=== PATIENT | female | born 1975 | race Caucasian/White ===

== ENCOUNTER 2017-07-03 16:47 | Observation (INO) | payer MEDICARE, SELFPAY | END 2017-07-04 18:33 | disposition home or self-care (01) | PROVIDERS: Admitting Provider Family Medicine; Emergency Provider Emergency Medicine; Family Provider Family Medicine; Visit Provider Family Medicine | DX: E87.6 Hypokalemia (principal) | CPT/HCPCS: 36415; 80048; 80053; 82330; 83735; 84100; 85025; 93005; 96365; 99285; G0378 ==

== ENCOUNTER 2017-10-03 14:11 | Inpatient (IN) | payer MEDICARE, SELFPAY ==
[2017-10-03] VITALS (8 sets, daily range): BP systolic 87–145; BP diastolic 33–84; PULSE 91–107; RESP 14–20; TEMP 36.2–37.2; O2SAT 98–99; BMI 24.2; BMI 24.5
--- NOTE | 2017-10-03 14:23 | HMH.EDGENADL ---
ED Disposition Clinical Impression: Hypokalemia, Syncope and collapse, Multiple falls Scalp contusion Qualifiers: Encounter type: initial encounter Qualified Code(s): S00.03XA - Contusion of scalp, initial encounter Cervical strain Qualifiers: Encounter type: initial encounter Qualified Code(s): S16.1XXA - Strain of muscle, fascia and tendon at neck level, initial encounter Disposition: Still a Patient Condition on Discharge: Good Referrals: Job Rico MD [Primary Care Provider] - - Critical Care Critical Care Time: No Attestation: On 10/03/17, the high probability of a clinically significant, sudden or life threatening deterioration of the following system(s) required my full and direct attention, intervention and personal management. The time I documented below is in addition to time spent performing reported procedures but includes the following listed in this critical care notation. Medical Decision Making - Murali Inquiry Pt receiving controlled substance: No Vital Signs: 10/03/17 14:20 10/03/17 14:48 Temperature 98.3 F Temperature Source Oral Pulse Rate [Right Brachial] 107 H 94 H Respiratory Rate 16 20 Blood Pressure [righta rm] 92/68 87/33 Blood Pressure Mean [righta rm] 76 51 Blood Pressure Source [righta rm] Automatic Cuff Automatic Cuff Blood Pressure Position [righta rm] Sitting Supine 02 Sat by Pulse Oximetry 99 98 Oxygen Delivery Method Room Air Room Air - Lab Data Lab results reviewed: Yes: I reviewed the patient's lab results. Lab Results 10/03/17 14:41: WBC 9.9, RBC 5.69 H, Hgb 13.1, Hct 44.2, MCV 77.8 L, MCH 23.0 L, MCHC 29.6 L, RDW 15.8, Plt Count 634 H, MPV 7.0 L, Neut % (Auto) 70.5, Lymph % (Auto) 23.3, Daniels % (Auto) 5.4, Eos % (Auto) 0.4, Baso % (Auto) 0.5, Neut # (Auto) 7.0, Lymph # (Auto) 2.3, Daniels # (Auto) 0.5, Eos # (Auto) 0.0, Baso # (Auto) 0.1 10/03/17 14:41: Sodium 136, Potassium 2.0 L*, Chloride 97 L, Carbon Dioxide 30, Anion Gap 11.0, BUN 13, Creatinine 1.28 H, Estimated Creat Clear 60, Estimated GFR 45 L, Est GFR ( Amer) 55 L, Glucose 136 H, Calcium 9.1, Total Bilirubin 0.2, AST 7 L, ALT 17, Alkaline Phosphatase 63, Total Protein 8.2, Albumin 4.0, Globulin 4.2 H, Albumin/Globulin Ratio 1.0 L 10/03/17 14:41: Serum HCG, Qual Negative 10/03/17 14:41: Urine Color Red, Urine Appearance Cloudy, Urine pH 5.5, Ur Specific Ransom >= 1.030, Urine Protein 2+, Urine Glucose (UA) Negative, Urine Ketones 1+, Urine Blood 3+, Urine Nitrate Negative, Urine Bilirubin 1+ A, Urine Urobilinogen 0.2, Ur Leukocyte Esterase Trace, Urine RBC Tntc, Urine WBC 10-20, Ur Squamous Epith Cells 10-20, Urine Bacteria 1+ 10/03/17 14:41: Urine Opiates Screen Negative, Ur Barbituates Screen Negative, Ur Phencyclidine Scrn Negative, Ur Amphetamines Screen Negative, U Methamphetamines Scrn Negative, U Benzodiazepines Scrn Negative, Urine Cocaine Screen Negative, U Marijuana (THC) Screen Negative 10/03/17 14:41: Total Creatine Kinase 119, CK-MB (CK-2) 0.5, CK-MB (CK-2) Rel Index 0.4, Troponin I < 0.02 Currently on menses. Result diagrams: 10/03/17 14:41 10/03/17 14:41 Orders (Tests/Meds): ED MEDICATIONS Generic Name Dose Route Start Last Admin Trade Name Freq PRN Reason Stop Dose Admin Potassium Chloride/Water 20 meq 10/03/17 15:35 Potassium Chloride 20meq/100ml Ivpb IV 10/03/17 15:36 ONCE ONE Discontinued Medications Generic Name Dose Route Start Last Admin Trade Name Freq PRN Reason Stop Dose Admin Potassium Chloride/Water 100 mls @ 50 mls/hr 10/03/17 16:00 10/03/17 16:00 Potassium Chloride 20meq/100ml Ivpb IV 10/03/17 17:59 50 mls/hr ONCE ONE Administration Potassium Chloride 60 meq 10/03/17 15:35 10/03/17 15:58 Klor-Con 20meq Tablet PO 10/03/17 15:36 60 meq ONCE ONE Administration Sodium Chloride 1,000 ml 10/03/17 14:33 10/03/17 15:58 Sod Chlor 0.9% 1000ml Bag IV 10/03/17 14:34 1,000 ml BOLUS ONE Administration ORDERS
--- NOTE | 2017-10-03 14:27 | CT_ITS ---
CT cervical spine wo con INDICATION: Neck pain following injury ITS.REASON: fall ORDERING PHYSICIAN: Jamal Stacy MD PATIENT AGE: 42 years COMPARISON: None TECHNIQUE: Axial images are obtained without contrast. Sagittal and coronal reformatted images are reviewed as well. All CT scans at the facility use one or more dose reduction, viz: automated exposure control; ma/kV adjustment per patient size (including targeted exams where dose is matched to indication; i.e. head); or iterative reconstruction technique. FINDINGS: There is normal alignment. There is an epidural catheter present with the tip along the posterior aspect of the epidural space at C7. There is mild degenerative disc disease at C5-C6 and C6-C7 with small posterior osteophytes. No fracture or dislocation is evident. The lung apices are clear. The right lobe of the thyroid gland is enlarged: Mild deviation of the trachea toward the left. Mild cervical curvature convex left. IMPRESSION: 1. No acute fracture. 2. Mild degenerative disc disease C5-C6 and C6 evident. 3. Posterior epidural catheter present with the tip at the C7 level IMPRESSION:
--- NOTE | 2017-10-03 14:27 | XR_ITS ---
XR pelvis 1-2V HISTORY: Pain following injury ITS.REASON: fall ORDERING PHYSICIAN: Jamal Stacy MD PATIENT AGE: 42 years COMPARISON: None FINDINGS: No fracture or dislocation is evident. No significant degenerative change. No lytic or blastic change. The SI joints have an unremarkable appearance. Unremarkable soft tissues. Mural stimulators device noted in the right lower quadrant IMPRESSION: Negative pelvis.
--- NOTE | 2017-10-03 14:27 | XR_ITS ---
XR chest 2V HISTORY: Posttraumatic pain ITS.REASON: fall ORDERING PHYSICIAN: Jamal Stacy MD PATIENT AGE: 42 years FINDINGS: The cardiomediastinal silhouette and pulmonary vascularity are within normal limits. The lungs are clear without infiltrates, suspicious nodules, or pleural effusions. Epidural catheter overlies the thoracic spine No acute bony abnormalities. IMPRESSION: No acute finding. No change from 07/23/2016
[2017-10-03 14:49] LABS: Microscopic, Urine URINE MICROSCOPIC (MICROSCOPIC)
[2017-10-03 14:53] LABS: Appearance,Urine CLOUDY (Clear); Basophils # 0.1 K/mm3 (0-0.2); Basophils % 0.5 % (0.1-2.0); Blood, Urine 3+ (Negative); Color,Urine RED (Yellow); Eosinophils % 0.4 % (0.1-12.0); Glucose,Urine (UA) Negative (Negative); Hematocrit 44.2 % (37.0-47.0); Hemoglobin 13.1 g/dL (12.2-16.2); Ketones,Urine 1+ (Negative); Leukocyte Esterase,Urine TRACE (Negative); Lymphocytes # 2.3 K/mm3 (0.7-4.5); Lymphocytes % 23.3 K/mm3 (10-50); Mean Corpuscular HGB Conc 29.6 g/dL (31.8-35.4); Mean Corpuscular Volume 77.8 fl (81-99); Monocytes # 0.5 K/mm3 (0.1-1.0); Monocytes % 5.4 % (1.7-9.3); Neutrophils % 70.5 % (37.0-80.0); Nitrate,Urine Negative (Negative); PH,Urine 5.5 (5.0-8.5); Platelet Count 634 K/mm3 (142-424); Protein,Urine 2+ (Negative); Red Blood Count 5.69 M/mm3 (4.20-5.40); Red Cell Distribution Width 15.8 % (11.5-17.5); Specific Gravity, Urine >= 1.030 (1.005-1.030); Urobilinogen,Urine 0.2 EU/dl (0.2); White Blood Count 9.9 K/mm3 (4.8-10.8)
[2017-10-03 15:01] LABS: Bilirubin,Urine 1+ (Negative)
[2017-10-03 15:10] LABS: Amphetamine/Metha Screen,Urine Negative ng/mL (<1000); Barbiturates Screen,Urine Negative ng/mL (<200); Benzodiazepines Screen,Urine Negative ng/mL (200); Cannabinoid Screen,Urine Negative ng/mL (<50); Cocaine Screen,Urine Negative ng/g (<300); Methadone Screen,Urine Negative ng/mL (<300); Opiate Screen,Urine Negative ng/mL (<300); Phencyclidine Screen,Urine Negative ng/mL (<25)
[2017-10-03 15:12] LABS: Bacteria,Urine 1+ /lpf; RBC,Urine TNTC #/hpf (0-3)
[2017-10-03 15:27] LABS: Alanine Aminotransferase 17 U/L (12-78); Alkaline Phosphatase 63 U/L (46-116); Bilirubin,Total 0.2 mg/dL (0.2-1.0); Blood Urea Nitrogen 13 mg/dL (7-18); Calcium 9.1 mg/dL (8.5-10.1); Carbon Dioxide 30 mmol/L (21.0-32.0); Creatinine Clearance Estimated 60 mL/min (0-300); Creatinine,Serum 1.28 mg/dL (0.55-1.02); Estimated Glomerular Filt Rate 45 ml/min (>60); GFR (African American) 55 ML/MIN (>60); Globulin 4.2 gm/dl (1.3-3.2); HCG Qualitative, Serum Negative (Negative); Total Protein,Serum 8.2 gm/dL (6.4-8.2)
[2017-10-03 15:28] LABS: CKMB Relative Index 0.4 U/L (0-4.0); Creatine Kinase 119 U/L (26-192); Creatine Kinase MB 0.5 ng/ml (0.0-3.6); Troponin I < 0.02 ng/ml (0.00-0.06)
[2017-10-03 15:34] LABS: Aspartate Amino Transferase 7 U/L (15-37); Chloride 97 mmol/L (98-107); Glucose 136 mg/dL (74-106); Sodium 136 mmol/L (136-145)
--- NOTE | 2017-10-03 15:39 | CT_ITS ---
CT head/brain wo con HISTORY: Headache/pain/contusion to the back of the head with pain ITS.REASON: FELL ORDERING PHYSICIAN: Jamal Stacy MD PATIENT AGE: 42 years COMPARISON: 02/15/2017 TECHNIQUE: Axial images obtained without contrast. Brain and bone windows reviewed. All CT scans at the facility use one or more dose reduction, viz: automated exposure control; ma/kV adjustment per patient size (including targeted exams where dose is matched to indication; i.e. head); or iterative reconstruction technique. FINDINGS: No midline shift, mass effect, intracranial hemorrhage, hydrocephalus, or extra-axial fluid collection is evident. Soft tissue swelling is noted along the right vertex posteriorly consistent with scalp hematoma The calvarium has an unremarkable appearance. No mastoid effusion. No sinus air-fluid levels.. IMPRESSION: 1. No acute intracranial finding. 2. Right-sided scalp contusion
[2017-10-03 20:55] LABS: Potassium 2.7 mmoL/L (3.5-5.1)
[2017-10-04] VITALS (9 sets, daily range): BP systolic 91–120; BP diastolic 48–75; PULSE 80–108; RESP 16–20; TEMP 36.4–37.3; O2SAT 94–100
--- NOTE | 2017-10-04 03:24 | PC.NURSE ---
Patient is a 42 year old white female admitted on 10-02-17 for Hypokalemia. Potassium was 2 on admission. Is now 2.7. Had 2 runs of potassium in ED. At beginning of shift patient had tachycardia up to 140's. Did not sustain, back down to 90's. Had Bigeminy also with PAC'S. Dr Edwards Aware. Denies any chest pain. Had a headache early in shift. Resolved with Tylenol. Had a bump on back of head due to a fall at home. States has fallen many times, syncopal episodes. Doesn't remember falling. Daughter is going to bring homes meds this a.m. Lungs are clear, resp even and non labored. No needs at this time, Encouraged to call nurse before getting up alone. Bed locked in low position, side rails up x 2, call light in reach.
--- NOTE | 2017-10-04 06:31 | HMH.HP ---
*Admission Date: 10/04/17 *Chief complaint: Fall *History of present illness: 42-year-old female with history over the last year and a half of falls that are seemingly related to hypokalemia presented to the emergency department again with a fall in which she struck her head. Patient believes she lost consciousness. She admits she does not recall any of the events prior to her fall. Workup in the emergency department revealed hypotension and hypokalemia. Patient's potassium was replaced both intravenously and orally in the emergency department and went from a level of 2 up to 2.7. Decision was made to admit the patient for further potassium replacement but inexplicably she was sent to the floor without any orders for potassium replacement. Patient is unsure of her medicines. In regards to the history of her hypokalemia she has been on potassium replacement. She is generally noncompliant with follow-up visits. She has been taken off all diuretics as well as antihypertensives. As stated before she cannot name her medications and I have asked her to have someone bring those in today for accuracy of records. Renal function is not significantly impaired. In regards to her episodes of syncope she has had an echocardiogram as well as tilt table testing and telemetry monitoring without evidence of arrhythmia. Per her request she was referred to a neurologist last fall. She tells me her next appointment with the neurologist is in early October but she is unsure what the neurologist is actually doing to try to get to the bottom of her syncope. Patient denies chest pain or shortness of breath. She does endorse generalized weakness which makes ambulating difficult. [facility] History Medical History: Denies:: Cancer, Diabetes Mellitus Type 1, Diabetes Mellitus Type 2, MRSA Other Medical History: Reports: Anemia, Hypothyroidism Other Surgeries: Yes: Colonoscopy, , Thyroidectomy (partial), Other (partial thyroidectomy, multiple right shoulder surgeries, spinal stimulator) Amputation: No Fractures: No - *Social History Educational Level: Completed Grade School Smoking Status: Never smoker Alcohol Intake: never Occupational Status: unemployed, disabled Housing: house Household Members: spouse, family, children - Psychiatric History Expresses thoughts of harming self/others: None Suicide Plan Description: No Plan *Family Hx:: Cancer, Diabetes, Hyperlipidemia, Hypertension, Stroke Review of Systems - Review of Systems Review of systems:: pertinent systems reviewed and negative unless documented below - *Neurologic Reports headache(s), Reports fainting Meds Home Medications Medication Instructions Recorded Confirmed Type Amlodipine Besylate [Norvasc 2.5mg 1 tab PO DAILY 10/03/17 10/03/17 History tablet] Chlorthalidone [Chlorthalidone] 1 tab PO DIRECTED 10/03/17 10/03/17 History Diclofenac Potassium [Zipsor] 1 tab PO DIRECTED 10/03/17 10/03/17 History Duloxetine HCl [Duloxetine HCl] 1 tab * DIRECTED 10/03/17 10/03/17 History LORazepam [Ativan 1mg tablet] 1 tab PO DIRECTED 10/03/17 10/03/17 History Nortriptyline HCl [Nortriptyline 1 tab PO DAILY 10/03/17 10/03/17 History HCl] Omeprazole [Omeprazole 20mg 1 tab PO DIRECTED 10/03/17 10/03/17 History Capsule] Tizanidine HCl [Tizanidine HCl] 1 tab PO DIRECTED 10/03/17 10/03/17 History Trazodone HCl 1 tab PO DAILY 10/03/17 10/03/17 History buPROPion HCl [Wellbutrin SR 150mg 1 tab PO DAILY 10/03/17 10/03/17 History Tablet] Allergies Allergy/AdvReac Type Severity Reaction Status Date / Time No Known Allergies Allergy Verified 10/03/17 14:26 Exam Vital signs and Labs for Last 24 Hours: Temp Pulse Resp BP Pulse Ox 97.6 F 93 H 16 91/50 94 L 10/04/17 04:00 10/04/17 04:00 10/04/17 04:00 10/04/17 04:00 10/04/17 04:00 Laboratory Results - last 24 hr 10/03/17 20:34: Potassium 2.7 L* D I & O for Last 24 hours: Intake & O
--- NOTE | 2017-10-04 06:35 | P.HP_ITS ---
*Admission Date: 10/04/17 *Chief complaint: Fall *History of present illness: 42-year-old female with history over the last year and a half of falls that are seemingly related to hypokalemia presented to the emergency department again with a fall in which she struck her head. Patient believes she lost consciousness. She admits she does not recall any of the events prior to her fall. Workup in the emergency department revealed hypotension and hypokalemia. Patient's potassium was replaced both intravenously and orally in the emergency department and went from a level of 2 up to 2.7. Decision was made to admit the patient for further potassium replacement but inexplicably she was sent to the floor without any orders for potassium replacement. Patient is unsure of her medicines. In regards to the history of her hypokalemia she has been on potassium replacement. She is generally noncompliant with follow-up visits. She has been taken off all diuretics as well as antihypertensives. As stated before she cannot name her medications and I have asked her to have someone bring those in today for accuracy of records. Renal function is not significantly impaired. In regards to her episodes of syncope she has had an echocardiogram as well as tilt table testing and telemetry monitoring without evidence of arrhythmia. Per her request she was referred to a neurologist last fall. She tells me her next appointment with the neurologist is in early October but she is unsure what the neurologist is actually doing to try to get to the bottom of her syncope. Patient denies chest pain or shortness of breath. She does endorse generalized weakness which makes ambulating difficult. [facility] History Medical History: Denies:: Cancer, Diabetes Mellitus Type 1, Diabetes Mellitus Type 2, MRSA Other Medical History: Reports: Anemia, Hypothyroidism Other Surgeries: Yes: Colonoscopy, , Thyroidectomy (partial), Other ( partial thyroidectomy, multiple right shoulder surgeries, spinal stimulator) Amputation: No Fractures: No - *Social History Educational Level: Completed Grade School Smoking Status: Never smoker Alcohol Intake: never Occupational Status: unemployed, disabled Housing: house Household Members: spouse, family, children - Psychiatric History Expresses thoughts of harming self/others: None Suicide Plan Description: No Plan *Family Hx:: Cancer, Diabetes, Hyperlipidemia, Hypertension, Stroke Review of Systems - Review of Systems Review of systems:: pertinent systems reviewed and negative unless documented below - *Neurologic Reports headache(s), Reports fainting Meds Home Medications Medication Instructions Recorded Confirmed Type Amlodipine Besylate [Norvasc 2.5mg 1 tab PO DAILY 10/03/17 10/03/17 History tablet] Chlorthalidone [Chlorthalidone] 1 tab PO DIRECTED 10/03/17 10/03/17 History Diclofenac Potassium [Zipsor] 1 tab PO DIRECTED 10/03/17 10/03/17 History Duloxetine HCl [Duloxetine HCl] 1 tab * DIRECTED 10/03/17 10/03/17 History LORazepam [Ativan 1mg tablet] 1 tab PO DIRECTED 10/03/17 10/03/17 History Nortriptyline HCl [Nortriptyline 1 tab PO DAILY 10/03/17 10/03/17 History HCl] Omeprazole [Omeprazole 20mg 1 tab PO DIRECTED 10/03/17 10/03/17 History Capsule] Tizanidine HCl [Tizanidine HCl] 1 tab PO DIRECTED 10/03/17 10/03/17 History Trazodone HCl 1 tab PO DAILY 10/03/17 10/03/17 History buPROPion HCl [Wellbutrin SR 150mg 1 tab PO DAILY 10/03/17 10/03/17 History Tablet] Allergies
[2017-10-04 07:38] LABS: Anion Gap 9.6 mEq/L (5-15); Blood Urea Nitrogen 15 mg/dL (7-18); Carbon Dioxide 31 mmol/L (21.0-32.0); Chloride 99 mmol/L (98-107); Creatinine Clearance Estimated 70 mL/min (0-300); Creatinine,Serum 1.12 mg/dL (0.55-1.02); Estimated Glomerular Filt Rate 53 ml/min (>60); GFR (African American) 64 ML/MIN (>60); Glucose 105 mg/dL (74-106); Sodium 137 mmol/L (136-145)
[2017-10-04 07:45] LABS: Potassium 2.6 mmoL/L (3.5-5.1)
--- NOTE | 2017-10-04 11:50 | HMH.PHAVTE ---
[facility] Pharmacy VTE Monitoring - Patient Demographics Admission date: 10/03/17 Report Date: 10/04/17 Time: 11:50 Allergies/Adverse Reactions: Patient Allergies No Known Allergies Allergy (Verified 10/03/17 14:26) Height: 1.68 m Weight: 69.144 kg Patient Problems: Current Active Problems Hypokalemia (Acute) Syncope and collapse (Acute) Scalp contusion (Acute) Cervical strain (Acute) Multiple falls (Acute) - VTE Risk Labs: VTE Related Lab Results Hgb 13.1 g/dL (12.2-16.2) 10/03/17 14:41 Hct 44.2 % (37.0-47.0) 10/03/17 14:41 Plt Count 634 K/mm3 (142-424) H 10/03/17 14:41 BUN 15 mg/dL (7-18) 10/04/17 07:20 Creatinine 1.12 mg/dL (0.55-1.02) H 10/04/17 07:20 Estimated Creat Clear 70 mL/min (0-300) 10/04/17 07:20 VTE Score: 4 VTE Risk Level: Low Risk - Prophylaxis VTE Prophylaxis Ordered?: Yes Types of VTE Prophylaxis: TEDS Knee High Location of Applied Device: Bilateral Lower Extremeties - VTE Diagnosis Confirmed Treatment or plan recommended: Continue Current Treatment
[2017-10-05] VITALS: PULSE 100
--- NOTE | 2017-10-05 03:46 | PC.NURSE ---
Pt had a good night, no c/o pain and nothing acute to report. Rested well and remained safe.
[2017-10-05 03:50] VITALS: BP 108/55; PULSE 94; RESP 16; TEMP 37.2; O2SAT 97
[2017-10-05 04:00] VITALS: PULSE 80
[2017-10-05 06:25] LABS: Anion Gap 8.4 mEq/L (5-15); Blood Urea Nitrogen 12 mg/dL (7-18); Carbon Dioxide 31 mmol/L (21.0-32.0); Chloride 107 mmol/L (98-107); Creatinine Clearance Estimated 83 mL/min (0-300); Creatinine,Serum 0.94 mg/dL (0.55-1.02); Estimated Glomerular Filt Rate 65 ml/min (>60); GFR (African American) 78 ML/MIN (>60); Glucose 98 mg/dL (74-106); Potassium 3.4 mmoL/L (3.5-5.1); Sodium 143 mmol/L (136-145)
--- NOTE | 2017-10-05 07:05 | PC.NURSE ---
Shift report given to Tacos Merino RN leaving patient safe and stable.
[2017-10-05 07:33] VITALS: BP 115/65; PULSE 84; RESP 16; TEMP 36.7; O2SAT 100
--- NOTE | 2017-10-05 07:56 | HMH.DCSUM ---
General - General Admission date: 10/03/17 Discharge date: 10/05/17 HPI HPI: 42-year-old female with history over the last year and a half of falls that are seemingly related to hypokalemia presented to the emergency department again with a fall in which she struck her head. Patient believes she lost consciousness. She admits she does not recall any of the events prior to her fall. Workup in the emergency department revealed hypotension and hypokalemia. Patient's potassium was replaced both intravenously and orally in the emergency department and went from a level of 2 up to 2.7. Decision was made to admit the patient for further potassium replacement but inexplicably she was sent to the floor without any orders for potassium replacement. Patient is unsure of her medicines. In regards to the history of her hypokalemia she has been on potassium replacement. She is generally noncompliant with follow-up visits. She has been taken off all diuretics as well as antihypertensives. As stated before she cannot name her medications and I have asked her to have someone bring those in today for accuracy of records. Renal function is not significantly impaired. In regards to her episodes of syncope she has had an echocardiogram as well as tilt table testing and telemetry monitoring without evidence of arrhythmia. Per her request she was referred to a neurologist last fall. She tells me her next appointment with the neurologist is in early October but she is unsure what the neurologist is actually doing to try to get to the bottom of her syncope. Patient denies chest pain or shortness of breath. She does endorse generalized weakness which makes ambulating difficult. Hospital Course Hospital Course: Patient was admitted, potassium replacement was undertaken. Patient responded well to this and had no further episodes of syncope or altered consciousness. Potassium levels jhonatan in a stepwise fashion. This morning potassium levels 3.4. Patient feels great. Exam is normalized, patient will be discharged home as indicated below with potassium replacement therapy and instructions for follow-up. Apparently there is a history of medical and appointment noncompliance. I strongly encouraged the patient to make sure she calls tomorrow [id number] an appointment this week in Dr. Rico office. Objective Vital signs: Temp Pulse Resp BP Pulse Ox 98.0 F 84 16 115/65 100 10/05/17 07:33 10/05/17 07:33 10/05/17 07:33 10/05/17 07:33 10/05/17 07:33 Narrative: Patient is awake. Alert. No complaints. ENT exam clear. Heart rate regular, lungs clear moving all extremities. Abdomen soft. Telemetry monitoring overnight has been normal sinus rhythm. Results Labs on day of discharge: Labs from last 24 hours 10/05/17 05:40 Sodium 143 Potassium 3.4 L D Chloride 107 Carbon Dioxide 31 Anion Gap 8.4 BUN 12 Creatinine 0.94 Estimated Creat Clear 83 Estimated GFR 65 Est GFR ( Amer) 78 D Glucose 98 Discharge Plan - Patient Discharge Instructions ACTIVITY: Continue current activity DIET: continue same diet - Follow up Plan Follow up with: Job Rico MD [Primary Care Provider] - 10/09/17 Disposition: Home, Self-Shelter Medications: Home Medications Medication Instructions Recorded Confirmed Type Amlodipine Besylate [Norvasc 2.5mg 2.5 mg PO DAILY 10/03/17 10/04/17 History tablet] Chlorthalidone [Chlorthalidone] 50 mg PO DAILY 10/03/17 10/04/17 History Duloxetine HCl [Duloxetine HCl] 60 mg PO DAILY 10/03/17 10/04/17 History LORazepam [Ativan 1mg tablet] 1 mg PO TIDP PRN 10/03/17 10/04/17 History Nortriptyline HCl [Nortriptyline 10 mg PO BID 10/03/17 10/04/17 History HCl] Omeprazole [Omeprazole 20mg 20 mg PO DAILY 10/03/17 10/04/17 History Capsule] Tizanidine HCl [Tizanidine HCl] 2 mg PO QIDP PRN 10/03/17 10/04/17 History Trazodone HCl 100 mg PO HS
[2017-10-05 08:00] VITALS: PULSE 80
--- NOTE | 2017-10-05 08:03 | P.DS_ITS ---
General - General Admission date: 10/03/17 Discharge date: 10/05/17 HPI HPI: 42-year-old female with history over the last year and a half of falls that are seemingly related to hypokalemia presented to the emergency department again with a fall in which she struck her head. Patient believes she lost consciousness. She admits she does not recall any of the events prior to her fall. Workup in the emergency department revealed hypotension and hypokalemia. Patient's potassium was replaced both intravenously and orally in the emergency department and went from a level of 2 up to 2.7. Decision was made to admit the patient for further potassium replacement but inexplicably she was sent to the floor without any orders for potassium replacement. Patient is unsure of her medicines. In regards to the history of her hypokalemia she has been on potassium replacement. She is generally noncompliant with follow-up visits. She has been taken off all diuretics as well as antihypertensives. As stated before she cannot name her medications and I have asked her to have someone bring those in today for accuracy of records. Renal function is not significantly impaired. In regards to her episodes of syncope she has had an echocardiogram as well as tilt table testing and telemetry monitoring without evidence of arrhythmia. Per her request she was referred to a neurologist last fall. She tells me her next appointment with the neurologist is in early October but she is unsure what the neurologist is actually doing to try to get to the bottom of her syncope. Patient denies chest pain or shortness of breath. She does endorse generalized weakness which makes ambulating difficult. Hospital Course Hospital Course: Patient was admitted, potassium replacement was undertaken. Patient responded well to this and had no further episodes of syncope or altered consciousness. Potassium levels jhonatan in a stepwise fashion. This morning potassium levels 3.4. Patient feels great. Exam is normalized, patient will be discharged home as indicated below with potassium replacement therapy and instructions for follow-up. Apparently there is a history of medical and appointment noncompliance. I strongly encouraged the patient to make sure she calls tomorrow morning-Friday- for an appointment this week in Dr. Rico office. Objective Vital signs: Temp Pulse Resp BP Pulse Ox 98.0 F 84 16 115/65 100 10/05/17 07:33 10/05/17 07:33 10/05/17 07:33 10/05/17 07:33 10/05/17 07:33 Narrative: Patient is awake. Alert. No complaints. ENT exam clear. Heart rate regular, lungs clear moving all extremities. Abdomen soft. Telemetry monitoring overnight has been normal sinus rhythm. Results Labs on day of discharge: Labs from last 24 hours 10/05/17 05:40 Sodium 143 Potassium 3.4 L D Chloride 107 Carbon Dioxide 31 Anion Gap 8.4 BUN 12 Creatinine 0.94 Estimated Creat Clear 83 Estimated GFR 65 Est GFR ( Amer) 78 D Glucose 98 Discharge Plan - Patient Discharge Instructions ACTIVITY: Continue current activity DIET: continue same diet - Follow up Plan Follow up with: Job Rico MD [Primary Care Provider] - 10/09/17 Disposition: Home, Self-[facility] Medications: Home Medications Medication Instructions Recorded Confirmed Type Amlodipine Besylate [Norvasc 2.5mg 2.5
== END 2017-10-05 09:00 | disposition home or self-care (01) | DRG 641 ==
LOC: ER 17:26 → 2ND 20:27
PROVIDERS: Admitting Provider Emergency Medicine; Emergency Provider Emergency Medicine; Family Provider Family Medicine; PCP Family Medicine; Visit Provider Family Medicine
DX: E87.6 Hypokalemia (principal); E89.0 Postprocedural hypothyroidism; R55 Syncope and collapse; S00.03XA Contusion of scalp, initial encounter; W18.30XA Fall on same level, unspecified, initial encounter; Z91.81 History of falling
CPT/HCPCS: 36415; 70450; 71045; 72125; 72170; 80048; 80053; 80305; 81001; 82550; 82553; 84132; 84484; 84703; 85025; 87086; 93005; 96365; 96366; 99284

== ENCOUNTER → 2018-06-03 10:03 | Outpatient (CLI) | payer MEDICARE, SELFPAY ==
--- NOTE | 2018-06-03 10:27 | CT_ITS ---
CT chest wo con HISTORY: Follow-up lung nodules ITS.REASON: LUNG NODULES ORDERING PHYSICIAN: Wendie Campos PATIENT AGE: 42 years COMPARISON: 10/07/2016 Technique: Axial images obtained with sagittal and coronal reformats. All CT scans at the facility use one or more dose reduction, viz: automated exposure control, ma/kV adjustment per patient size (including targeted exams where dose is matched to indication, i.e. head), or iterative reconstruction technique. FINDINGS: No mediastinal or hilar mass. No evidence of aortic aneurysm. Scattered small calcified nodes present in the right para esophageal region. Normal heart size without evidence of pericardial effusion. There is a 4 mm noncalcified nodule in the right apex image #13 very slightly larger compared to 10/07/2016 at that time measuring approximately 3 mm. This is of uncertain clinical significance stable small nodular densities are present in the right upper lobe inferiorly measuring approximately 3 mm. 3 mm noncalcified nodule right lower lobe superior segment image #33 and change 4 mm noncalcified subpleural nodule noted in the left lower lobe laterally image #42 unchanged. No new nodules are evident. No suspicious findings apparent. No effusions or infiltrates. Mild degenerative changes thoracic spine. IMPRESSION: 1. No acute finding. 2. Scattered noncalcified pulmonary nodules which are the most part are unchanged. One nodule in the right apex appears very slightly larger but could be due to the slice orientation. Continued one-year follow-up suggested.
== END ==
PROVIDERS: PCP Family Medicine; Visit Provider Nurse Practitioner
DX: R91.1 Solitary pulmonary nodule (principal)
CPT/HCPCS: 71250

== ENCOUNTER 2020-02-16 12:19 | Outpatient (CLI) | payer MEDICARE, SELFPAY ==
[2020-02-16 12:36] VITALS: BP 112/51; PULSE 76; RESP 18; TEMP 36.5; O2SAT 98
[2020-02-16 13:13] VITALS: BP 100/57; PULSE 76; RESP 18; O2SAT 98
== END 2020-02-16 13:13 | disposition home or self-care (01) ==
LOC: INF 12:19
PROVIDERS: Visit Provider Nurse Practitioner
DX: D64.9 Anemia, unspecified (principal); D50.9 Iron deficiency anemia, unspecified
CPT/HCPCS: 96365; J1439

== ENCOUNTER 2020-02-23 12:29 | Outpatient (CLI) | payer MEDICARE, SELFPAY ==
[2020-02-23 12:46] VITALS: BP 114/46; PULSE 72; RESP 20; TEMP 36.6; O2SAT 100
[2020-02-23 13:15] VITALS: BP 99/52; PULSE 69; RESP 20; O2SAT 99
== END 2020-02-23 13:15 | disposition home or self-care (01) ==
LOC: INF 12:29
PROVIDERS: Visit Provider Nurse Practitioner
DX: D64.9 Anemia, unspecified (principal); D50.9 Iron deficiency anemia, unspecified
CPT/HCPCS: 96365; J1439

== ENCOUNTER 2020-03-01 16:12 | Emergency (ER) | payer MEDICARE, SELFPAY ==
[2020-03-01 17:06] VITALS: BP 97/59; PULSE 104; RESP 14; TEMP 37.2; O2SAT 98; BMI 22.8
--- NOTE | 2020-03-01 17:07 | HMH.EDUTC ---
[facility] [place] Clinical Impression: Viral syndrome Acute bronchitis Qualifiers: Bronchitis organism: other organism Qualified Code(s): J20.8 - Acute bronchitis due to other specified organisms Disposition: Home, Self-Care Condition on Discharge: Good Instructions: Acute Bronchitis, DI for Acute Bronchitis Additional Instructions: Drink plenty of fluids. Take tylenol or ibuprofen for pain or fever. Take the medications as directed. Follow up with your regular doctor. GO TO THE ER FOR ANY WORSENING SYMPTOMS FOLLOW THE DIRECTIONS ON THE COVID-19 HAND OUT THAT WE GAVE YOU REGARDING SELF-ISOLATION UNTIL YOU KNOW YOUR COVID-19 RESULTS Prescriptions: Promethazine/Dextromethorphan [Promethazine-Dm Syrup] 5 ml PO Q6HP PRN #240 syrup PRN Reason: Cough Transmission Status: Received by [facility] #[id number] Benzonatate [Tessalon Perle 100mg Cap] 100 mg PO TIDP PRN #30 cap PRN Reason: Cough Transmission Status: Received by [facility] # Azithromycin [Z-Laci 250mg Tab*] 250 mg PO UD DOSE PK #6 tab Transmission Status: Received by [facility] #[id number] Referrals: Job Rico MD [Primary Care Provider] - Medical Decision Making - Medical Records Medical records reviewed: No: I reviewed the patient's medical records. - Murali Inquiry Pt receiving controlled substance: No Vital Signs: 03/01/20 17:06 03/01/20 17:41 Temperature 99 F 99.0 F Temperature Source Oral Pulse Rate 104 H Pulse Rate [Right Brachial] 104 H Respiratory Rate 14 14 Blood Pressure 97/59 L Blood Pressure [Right Arm] 97/59 L Blood Pressure Mean [Right Arm] 71 Blood Pressure Source [Right Arm] Automatic Cuff Blood Pressure Position [Right Arm] Sitting 02 Sat by Pulse Oximetry 98 Oxygen Delivery Method Room Air - Lab Data Lab results reviewed: Yes: I reviewed the patient's lab results. Orders (Tests/Meds): ED MEDICATIONS Discontinued Medications Generic Name Dose Route Start Last Admin Trade Name Freq PRN Reason Stop Dose Admin Ceftriaxone Sodium 1 gm 03/01/20 17:37 03/01/20 17:53 Rocephin 1gm Vial IM 03/01/20 17:38 Not Given ONCE ONE Protocol Lidocaine HCl 0 ml 03/01/20 17:37 03/01/20 17:53 Lidocaine 1% 10ml Mdv IM 03/01/20 17:38 Not Given ONCE ONE [facility] [place] H[place] - General Stated complaint: Cough, abd pain, GRANT Time Seen by Provider: 03/01/20 17:07 - History of Present Illness Provider Complaint: She c/o 3 days of cough and chest congestion, feeling bad and sinus drainage. She denies any known exposure to COVID-19. - Related Data Home Medications Medication Instructions Recorded Confirmed Amlodipine Besylate [Norvasc 2.5mg 2.5 mg PO DAILY 10/03/17 02/23/20 tablet] Chlorthalidone 50 mg PO DAILY 10/03/17 02/23/20 Duloxetine HCl 60 mg PO DAILY 10/03/17 02/23/20 LORazepam [Ativan 1mg tablet] 1 mg PO TIDP PRN 10/03/17 02/23/20 Nortriptyline HCl 10 mg PO BID 10/03/17 02/23/20 Omeprazole [Omeprazole 20mg 20 mg PO DAILY 10/03/17 02/23/20 Capsule] Trazodone HCl 100 mg PO HS 10/03/17 02/23/20 buPROPion HCL [Wellbutrin SR 150mg 150 tab PO BID 10/03/17 02/23/20 Tablet] Diclofenac Potassium [Zipsor] 25 mg PO QID 10/04/17 02/23/20 Gabapentin [Gralise 600mg ER Tab] 600 mg PO DAILY 10/04/17 02/23/20 Baclofen [Lioresal 10mg tablet] 10 mg PO QIDP PRN 02/16/20 02/23/20 Erenumab-Aooe [Aimovig 70 mg SQ MONTHLY 02/16/20 02/23/20 Autoinjector] Potassium Chloride [K-Tab ER 20 40 meq PO DAILY 02/16/20 02/23/20 mEq] Previous Rx's Medication Instructions Recorded Azithromycin [Z-Laci 250mg Tab*] 250 mg PO UD DOSE PK #6 tab 03/01/20 Benzonatate [Tessalon Perle 100mg 100 mg PO TIDP PRN #30 cap 03/01/20 Cap] Promethazine/Dextromethorphan 5 ml PO Q6HP PRN #240 syrup 03/01/20 [Promethazine-Dm Syrup] Allergies Allergy/AdvReac Type Severity Reaction Status Date / Time No Known Allergies Allergy Verified 10/03/17
--- NOTE | 2020-03-01 17:10 | XR_ITS ---
PROCEDURE: XR CHEST 2V CLINICAL HISTORY: cough COMPARISON: CR CXR1 CHEST-PORTABLE from 07/23/2016 CR CXR CHEST(2 VIEWS-NOT PORTABLE) from 07/23/2016 CR CXR2 XR chest AP from 10/03/[address] chest wo con from 06/03/2018 FINDINGS: The cardiomediastinal silhouette and pulmonary vascularity are within normal limits. The lungs are clear without infiltrates, suspicious nodules, or pleural effusions. Linear metallic density traverses the right hemithorax may be due to a neurostimulator. IMPRESSION: No acute findings. Dictated by: Lemuel Ames MD 03/01/2020 17:37 Lemuel Ames MD in [place] 03/01/2020 17:37
[2020-03-01 17:41] VITALS: BP 97/59; PULSE 104; RESP 14; TEMP 37.2; O2SAT 98
== END 2020-03-01 17:45 | disposition home or self-care (01) ==
PROVIDERS: Emergency Provider Nurse Practitioner Family; PCP Family Medicine
DX: J20.8 Acute bronchitis due to other specified organisms (principal); B34.9 Viral infection, unspecified; Z20.828 Contact with and (suspected) exposure to other viral communicable diseases; E03.9 Hypothyroidism, unspecified; M79.7 Fibromyalgia
CPT/HCPCS: 71046; 99202; U0003

== ENCOUNTER → 2020-03-03 08:35 | Outpatient (CLI) | payer MEDICARE, SELFPAY ==
--- NOTE | 2020-03-03 08:39 | CT_ITS ---
PROCEDURE: CT CHEST W CON CLINCAL INDICATION: LUNG NODULE F/U adrenal nodule and lung nodule prior 06/03/18 COMPARISON: CT CHWO CT CHEST W/O CONTRAST from 07/23/[address] chest wo con from 06/03/[address] ABDOMEN WO/W CON from 03/03/2020 TECHNIQUE: IV Contrast: 75ml Optiray 350 Axial images obtained with sagittal and coronal reformats. All CT scans at the facility use one or more dose reduction, viz: automated exposure control, ma/kV adjustment per patient size (including targeted exams where dose is matched to indication, i.e. head), or iterative reconstruction technique. FINDINGS: HEART AND MEDIASTINAL STRUCTURES: The right lobe of the thyroid gland is enlarged with at least 2 nodules the largest at 11 mm. There is some minimal deviation of the trachea toward the left from the enlarged thyroid gland. LUNGS AND PLEURAL SPACES: There is a stable 4 mm nodule in the right apex with some right apical scarring. Stable 5 x 2 mm nodule right middle lobe along the minor fissure. Stable 3 mm nodule superior segment right lower lobe. No new nodules are evident. There are some scattered ground-glass opacities in the right upper lobe and right lower lobe which were not present on the previous exam. No effusions. No lobar consolidation or collapse. No central obstructing lesions. BONY STRUCTURES: No acute bony abnormalities apparent. UPPER ABDOMEN: Small hiatal hernia. Right adrenal mass at 3 x 2.4 cm with some heterogeneous enhancement. This may represent an adenoma. Overall, the nodule is slightly larger at 3 x 2.4 cm previously 3 x 2 cm. There is also some heterogeneous enhancement along the lower aspect of the nodule. ADDITIONAL FINDINGS: No other significant abnormalities. IMPRESSION: 1. No change scattered small right-sided pulmonary nodules. 2. There are new patchy areas of ground-glass attenuation in the right upper and right lower lobe nonspecific but could be seen with inflammatory/infectious process. 3. Right adrenal mass slightly larger compared to the previous studies. While this may represent an adenoma the slight increase in size and the enhancement along the lower aspect is slightly worrisome. Suggest 3 month follow-up adrenal protocol without and with contrast with delayed imaging to confirm short term stability 4. Enlarged right lobe of the thyroid gland with at least 2 nodules. Ultrasound may provide further evaluation Dictated by: Lemuel Ames MD 03/04/2020 11:37 Lemuel Ames MD in [place] 03/04/2020 11:37
--- NOTE | 2020-03-03 08:40 | CT_ITS ---
PROCEDURE: CT ABDOMEN WO/W CON CLINICAL INDICATION: ADRENAL NODULE ADRENAL NODULE seen on previous CT scan of the chest 06/03/2018 COMPARISON: US ABD US ABD(COMPLETE-MULTI ORGANS from 04/04/[address] chest wo con from 06/03/2018 TECHNIQUE: IV Contrast: 75ML OPTIRAY 350 Oral Contrast none given Axial images obtained with sagittal and coronal reformats. All CT scans at the facility use one or more dose reduction, viz: automated exposure control, ma/kV adjustment per patient size (including targeted exams where dose is matched to indication, i.e. head), or iterative reconstruction technique. FINDINGS: Lower thorax: The lower lung sneed are clear, there is no pleural fluid. ABDOMEN: Liver: No masses or biliary dilatation. Gallbladder: The gallbladder somewhat hydropic in appearance but shows no definite gallstones or sludge. Pancreas: No masses or peripancreatic fluid collections. Spleen: unremarkable Adrenals: On the noncontrast sequence5 there is a hypodense lesion arising from and basically replacing the right adrenal gland measuring 3.5 x 2.7 by 3 point [address] number averaging between 5 and 10. However following injection of IV contrast there is somewhat inhomogeneous contrast enhancement of this adrenal mass. Utilizing the standard washout formula there is 66 percent washout of contrast and this finding along with the irregular appearing contrast-enhancement is suggestive of an adenoma. It is basically unchanged in size and overall appearance from studies dating back through 2017. Kidneys/ureters: The kidneys are normal size and show symmetrical function following injection of contrast, both kidneys in appearing normal. ABDOMEN & PELVIS: Stomach bowel: There is a small to moderate size hiatal hernia. The stomach and duodenal sweep appear normal. The visualized portion of the small bowel appears normal. There is a very large amount stool in the transverse colon and splenic flexure and proximal descending colon. Lymph nodes: No enlarged lymph nodes apparent. Vasculature: No evidence of abdominal aortic aneurysm. No retroperitoneal hemorrhage evident. Bones: No acute fracture IMPRESSION: Stable oval hypodense lesion involving the right adrenal gland with measurements and CT numbers as described above stable unchanged in size and overall appearance over the past 3 years and most likely representing an adenoma. Recommend periodic follow-up. Dictated by: Dr. Ricky Rodriguez MD 03/03/2020 11:10 Dr. Ricky Rodriguez MD in [place] 03/03/2020 11:10
== END ==
LOC: RAD 08:36
PROVIDERS: PCP Family Medicine; Visit Provider Nurse Practitioner Family
DX: R91.1 Solitary pulmonary nodule (principal); E27.8 Other specified disorders of adrenal gland
CPT/HCPCS: 71260; 74170; Q9967

== ENCOUNTER → 2020-03-08 11:38 | Outpatient (CLI) | payer MEDICARE, SELFPAY ==
[2020-03-09 15:50] LABS: Covid-19 Nasal PCR Sendout Lex NOT DETECTED
== END ==
PROVIDERS: PCP Nurse Practitioner; Visit Provider Nurse Practitioner
DX: Z03.818 Encounter for observation for suspected exposure to other biological agents ruled out (principal)
CPT/HCPCS: U0004

== ENCOUNTER → 2020-03-21 07:56 | Outpatient (CLI) | payer MEDICARE, SELFPAY ==
--- NOTE | 2020-03-21 07:59 | US_ITS ---
PROCEDURE: US THYROID CLINICAL INDICATION: THYROID NODULE COMPARISON: US THY US THYROID from 12/17/[address] CHEST W CON from 03/03/2020 FINDINGS: Right lobe is 5 x 1.6 x 2.1 cm. There has been a prior left thyroidectomy. There are few small cyst on the right. There is a 16 x 8 mm cyst in the mid polar region with some internal echoes. In the lower pole there is a mixed cystic and solid nodule at 9 mm.. The lesions are TR 3 level mildly suspicious. Recommend six-month follow-up. IMPRESSION: Two cystic lesions of the right thyroid which are the mildly suspicious TR 3 lesions. Recommend six-month follow-up Prior left thyroidectomy Dictated by: Lemuel Ames MD 03/21/2020 16:14 Lemuel Ames MD in [place] 03/21/2020 16:14
--- NOTE | 2020-03-21 07:59 | CT_ITS ---
PROCEDURE: CT ABDOMEN PELVIS WO/W CON CLINICAL INDICATION: RT ADRENAL MASS right adrenal mass follow up, generalized abd pain 75ml optiray 350 prior 03/03/20 COMPARISON: CT CHWO CT CHEST W/O CONTRAST from 07/23/[address] chest wo con from 06/03/[address] ABDOMEN WO/W CON from 03/03/2020 TECHNIQUE: IV Contrast: 75ML OPTIRAY 350 Oral Contrast None Axial images obtained with sagittal and coronal reformats. All CT scans at the facility use one or more dose reduction, viz: automated exposure control, ma/kV adjustment per patient size (including targeted exams where dose is matched to indication, i.e. head), or iterative reconstruction technique. FINDINGS: LOWER THORAX: No acute finding ABDOMEN & PELVIS: There is a moderate amount of retained colonic feces. The liver, spleen, left adrenal gland, gallbladder, and kidneys have an unremarkable appearance. There is a 3.4 x 2.4 cm right adrenal mass. The unenhanced density is approximately 7 Hounsfield units. Immediate post enhanced density 63 Hounsfield units, 15 minutes washout enhancement is 35 Hounsfield units.. The calculated relative washout percentage is 44 percent with greater than 40 percent consistent with an adenoma. The absolute washout is calculated to be 50 percent with greater than 60 percent consistent with adenoma. The nodule is mostly homogeneous on the unenhanced images showing some heterogeneous enhancement. The nodule is essentially not significantly changed in size compared to 06/03/2018. No other significant anomalies are evident. There is an epidural stimulator device present along the right flank with some artifact from this device. There is a small cortical defect of the right femoral neck. There is a cystic pelvic mass situated between the uterus and the sacrum. This mass measures 9.7 x 6.2 cm this is slightly epicentered toward the right and may represent a large ovarian cyst. A smaller left ovarian cyst is also noted which measures 3 cm. IMPRESSION: Stable right adrenal mass most consistent with an adenoma. Consider six-month follow-up to confirm stability. 9.7 cm cystic pelvic mass slightly toward the right and may represent a large ovarian cyst. A smaller left ovarian cyst also noted at 3 cm. Suggest pelvic ultrasound for further evaluation. Constipation Dictated by: Lemuel Ames MD 03/22/2020 08:37 Lemuel Ames MD in [place] 03/22/2020 08:37
== END ==
PROVIDERS: PCP Nurse Practitioner; Visit Provider Nurse Practitioner
DX: E04.1 Nontoxic single thyroid nodule (principal); E27.8 Other specified disorders of adrenal gland
CPT/HCPCS: 74178; 76536; Q9967

== ENCOUNTER → 2020-10-09 09:35 | Outpatient (CLI) | payer MEDICARE, SELFPAY ==
--- NOTE | 2020-10-09 09:42 | US_ITS ---
PROCEDURE: US THYROID CLINICAL INDICATION: THYROID NODULE COMPARISON: US US THYROID from 03/21/2020 FINDINGS: Right lobe: 1.5 x 4.6 x 2.6 centimeters Left lobe: Left thyroid lobectomy noted. Additional findings: Cystic lesion noted in the right lobe of the thyroid gland measuring 1.4 x 0.8 x 1.2 centimeters. Focal lesion in the right lobe measuring 0.8 x 0.5 times 0.6 centimeters, demonstrates solid and cystic components with hypoechogenicity. Normal vascularity is noted. IMPRESSION: Cysts in the right lobe of thyroid gland. No significant interval change compared to prior study. Dictated by: Iman Akhtar 10/09/2020 17:35 Iman Akhtar in [place] 10/09/2020 17:35
--- NOTE | 2020-10-09 09:42 | CT_ITS ---
PROCEDURE: CT ABDOMEN WO/W CON CLINICAL HISTORY: ADRENAL NODULE COMPARISON: CT CHW CT CHEST W/ CONTRAST from 10/07/[address] ABDOMEN PELVIS WO/W CON from 03/21/2020 TECHNIQUE: Axial images obtained with sagittal and coronal reformats. All CT scans at the facility use one or more dose reduction, viz: automated exposure control, ma/kV adjustment per patient size (including targeted exams where dose is matched to indication, i.e. head), or iterative reconstruction technique. Post-contrast images were obtained after intravenous administration of 75 mL of Isovue 370. FINDINGS: The visualized lung bases are clear. The visualized liver, spleen, kidneys, pancreas and the left adrenal gland is unremarkable. Gallbladder appears mildly distended appears unremarkable. No intra or extrahepatic biliary dilation. Focal right adrenal lesion is again noted measuring 3.3 x 2.2 centimeters, demonstrates minor heterogeneous density with a few focal areas of hyperdensity internally. Areas of for demonstrable fat noted within the lesion. Postcontrast 60 second and 15 minutes delayed images demonstrate heterogeneous enhancement. The absolute and relative washout characteristics of the lesion suggest an indeterminate lesion. Moderate fecal retention of the colon is noted. No significant large or small bowel distention. No free fluid or free intraperitoneal air. No significant mesenteric or retroperitoneal adenopathy. Neural stimulator device is noted in the posterior paraspinal soft tissues with the leads extending cranially outside the field of view of the current study. Visualized osseous structures are unremarkable.. IMPRESSION: Stable right adrenal nodule compared to the prior studies dating back to October 07, 2016. The absolute and relative washout characteristics are suggestive of indeterminate lesion although the stable size of the lesion suggests a benign lesion like adenoma. Close follow-up with noncontrast CT of the abdomen can be performed at 12 months to evaluate for size stability. Moderate fecal retention of the colon is noted. Dictated by: Iman Akhtar 10/10/2020 08:22 Iman Akhtar in [place] 10/10/2020 08:22
== END ==
LOC: RAD 09:36
PROVIDERS: PCP Nurse Practitioner; Visit Provider Nurse Practitioner Family
DX: E04.1 Nontoxic single thyroid nodule (principal); E27.8 Other specified disorders of adrenal gland
CPT/HCPCS: 74170; 76536; Q9967

== ENCOUNTER 2021-02-17 11:56 | Emergency (ER) | payer MEDICARE, SELFPAY ==
[2021-02-17 11:56] VITALS: BP 108/68; PULSE 77; RESP 18; TEMP 36.7; O2SAT 98; BMI 22.6
--- NOTE | 2021-02-17 12:58 | HMH.EDUTC ---
[facility] [place] Disposition Clinical Impression: UTI (urinary tract infection) Qualifiers: Urinary tract infection type: acute cystitis Hematuria presence: with hematuria Qualified Code(s): N30.01 - Acute cystitis with hematuria Disposition: Home, Self-Care Condition on Discharge: Good Instructions: DI for Urinary Tract Infection (UTI) Additional Instructions: Take all antibiotics as prescribed until gone. Dr Rico should be able to look at culture Friday afternoon or Friday morning to make sure you are on the correct medication. Prescriptions: Ciprofloxacin HCl [Cipro 500mg Tab] 500 mg PO BID 5 Days #10 tab Transmission Status: Pending to [facility] # Phenazopyridine HCl [Pyridium 200mg Tablet] 200 pow PO TID #6 tab Transmission Status: Pending to [facility] # Referrals: Job Rico MD [Primary Care Provider] - Time of Disposition: 13:01 Medical Decision Making - Murali Inquiry Pt receiving controlled substance: No - Lab Data Lab results reviewed: Yes: I reviewed the patient's lab results. Orders (Tests/Meds): ORDERS Category Date Time Status Urine Culture Stat Micro 02/17/21 12:57 Ordered [facility] [place] HPI - General Stated complaint: possible UTI Time Seen by Provider: 02/17/21 12:58 - History of Present Illness Provider Complaint: Urgency, dysuria, frequency X 1 week. No fever. No nausea or vomiting. Has noticed blood with wiping. Onset (ago): week(s) (1) Location: abdomen Quality: burning Relieving factors: none Exacerbating factors: none Treatments prior to arrival: none - Related Data Home Medications Medication Instructions Recorded Confirmed Amlodipine Besylate [Norvasc 2.5mg 2.5 mg PO DAILY 10/03/17 02/23/20 tablet] Chlorthalidone 50 mg PO DAILY 10/03/17 02/23/20 Duloxetine HCl 60 mg PO DAILY 10/03/17 02/23/20 LORazepam [Ativan 1mg tablet] 1 mg PO TIDP PRN 10/03/17 02/23/20 Nortriptyline HCl 10 mg PO BID 10/03/17 02/23/20 Omeprazole [Omeprazole 20mg 20 mg PO DAILY 10/03/17 02/23/20 Capsule] Trazodone HCl 100 mg PO HS 10/03/17 02/23/20 buPROPion HCL [Wellbutrin SR 150mg 150 tab PO BID 10/03/17 02/23/20 Tablet] Diclofenac Potassium [Zipsor] 25 mg PO QID 10/04/17 02/23/20 Gabapentin [Gralise 600mg ER Tab] 600 mg PO DAILY 10/04/17 02/23/20 Baclofen [Lioresal 10mg tablet] 10 mg PO QIDP PRN 02/16/20 02/23/20 Erenumab-Aooe [Aimovig 70 mg SQ MONTHLY 02/16/20 02/23/20 Autoinjector] Potassium Chloride [K-Tab ER 20 40 meq PO DAILY 02/16/20 02/23/20 mEq] Previous Rx's Medication Instructions Recorded Azithromycin [Z-Laci 250mg Tab*] 250 mg PO UD DOSE PK #6 tab 03/01/20 Benzonatate [Tessalon Perle 100mg 100 mg PO TIDP PRN #30 cap 03/01/20 Cap] Promethazine/Dextromethorphan 5 ml PO Q6HP PRN #240 syrup 03/01/20 [Promethazine-Dm Syrup] Ciprofloxacin HCl [Cipro 500mg 500 mg PO BID 5 Days #10 tab 02/17/21 Tab] Phenazopyridine HCl [Pyridium 200 pow PO TID #6 tab 02/17/21 200mg Tablet] Allergies Allergy/AdvReac Type Severity Reaction Status Date / Time No Known Allergies Allergy Verified 10/03/17 14:26 [facility] History - Hepatitis A Screen Attestation statement:: This patient has been screened for Hepatitis A risk factors. I have reviewed the patient's past medical history: Yes Medical History: Reports:: Arrhythmia Denies:: Cancer, Diabetes Mellitus Type 1, Diabetes Mellitus Type 2, MRSA Other Medical History: Reports: Anemia, Arthritis, Fibromyalgia, Hypothyroidism, Thyroid Disease Laterality Cases: Right: Arthroscopy Shoulder Other Surgeries: Yes: Colonoscopy, (3), Thyroidectomy (partial), Other Amputation: No Fractures: Yes (rt wrist) - Social History Smoking Status: Never smoker Alcohol Intake: never Alcohol Intake Frequency:: holidays/special occasions only Occupational Status: other Housing: house Household Members: spouse, children Family Hx:: No significant family history
[2021-02-17 13:02] VITALS: BP 108/68; PULSE 77; RESP 18; TEMP 36.7; O2SAT 98
[2021-02-17 17:58] LABS: Apearance,Urine Clear (Clear); Color,Urine Dark Yellow (Yellow); PH,Urine 7.5 (5.0-8.5); Specific Gravity, Urine 1.015 (1.005-1.030)
[2021-02-17 17:59] LABS: Bilirubin,Urine Negative (Negative); Blood, Urine 1+ (Negative); Glucose,Urine (UA) Negative (Negative); Ketones,Urine Negative (Negative); Protein,Urine Negative (Negative); UTC Leukocyte Esterase,Urine 3+ (Negative); UTC Nitrate,Urine Negative (Negative); Urobilinogen,Urine 1 EU/dl (0.2)
== END 2021-02-17 13:04 | disposition home or self-care (01) ==
PROVIDERS: Emergency Provider Physician Assistant; PCP Family Medicine
DX: N30.00 Acute cystitis without hematuria (principal); B96.20 Unspecified Escherichia coli [E. coli] as the cause of diseases classified elsewhere; E03.9 Hypothyroidism, unspecified; M79.7 Fibromyalgia; Z79.899 Other long term (current) drug therapy
CPT/HCPCS: G0463; 81003; 87086; 87088; 87186; 99202

== ENCOUNTER 2021-03-23 15:00 | Emergency (ER) | payer MEDICARE, SELFPAY ==
[2021-03-23 17:40] VITALS: BP 101/59; PULSE 97; RESP 14; TEMP 36.8; O2SAT 100; BMI 20.9
--- NOTE | 2021-03-23 18:29 | HMH.EDUTC ---
[facility] [place] Impression: Exposure to COVID-19 virus, Viral syndrome UTI (urinary tract infection) Qualifiers: Urinary tract infection type: site unspecified Hematuria presence: with hematuria Qualified Code(s): N39.0 - Urinary tract infection, site not specified Disposition: Home, Self-Care Condition on Discharge: Good Instructions: Urinary Tract Infection, Urine Culture, DI for COVID-19 (Suspected or Confirmed ), Preventing the Spread of Coronavirus Discharge Instructions Additional Instructions: Drink plenty of fluids. Take tylenol or ibuprofen for pain or fever. Take the medications as directed. Follow up with your regular doctor. GO TO THE ER FOR ANY WORSENING SYMPTOMS Quarantine until you know the results of your covid-19 test. If it is positive, the health department should call you and give you further instructions about your length of Quarantine and other things. Notify your school or workplace of your results and follow their instructions regarding return to work/school. The pyridium will make your urine turn orange, this is an expected side effect. It will stain your clothes if it comes into contact with them. Prescriptions: Sulfamethoxazole/Trimethoprim [Bactrim DS tablet] 1 each PO BID 7 Days #14 tab Transmission Status: Received by [id number] Phenazopyridine HCl [Pyridium 200mg Tablet] 200 pow PO TID #6 tab Transmission Status: Received by [id number] Ondansetron [Zofran 4mg ODT] 4 mg PO DAILYP PRN #12 tab PRN Reason: Nausea Transmission Status: Received by [id number] Referrals: Job Rico MD [Primary Care Provider] - Forms: Work/School Release Time of Disposition: 18:32 Medical Decision Making - Medical Records Medical records reviewed: No: I reviewed the patient's medical records. - Murali Inquiry Pt receiving controlled substance: No Vital Signs: 03/23/21 17:40 03/23/21 18:42 Temperature 98.2 F 98.2 F Temperature Source Oral Pulse Rate 97 H Pulse Rate [Left] 97 H Respiratory Rate 14 14 Blood Pressure 101/59 L Blood Pressure [Right Arm] 101/59 L Blood Pressure Mean [Right Arm] 73 02 Sat by Pulse Oximetry 100 - Lab Data Lab Results 03/23/21 17:42: Urine Color Yellow, Urine Appearance Clear, Urine pH 7.5, Ur Specific [place] 1.020, Urine Protein Trace, Urine Glucose (UA) Negative, Urine Ketones Trace, Urine Blood Negative, Urine Nitrate Negative, Urine Bilirubin 1+ A, Urine Urobilinogen 1, Ur Leukocyte Esterase Negative Orders (Tests/Meds): ORDERS Category Date Time Status Urine Culture Stat Micro 03/23/21 18:30 [place] [facility] [place] - General Stated complaint: covid test poss uti Time Seen by Provider: 03/23/21 18:29 Mode of Arrival: Ambulatory Source of Information: Patient Limitations: No Limitations Description of Symptoms (Recalled from Triage Doc. by RN): pt wants a covid test and thinks she has a uti. HEENT Symptoms (Recalled from RN notes): No Resp Symptoms (Recalled from RN notes): No Skin Symptoms (Recalled from RN notes): No MS Symptoms (Recalled from RN notes): No Functional Status (Recalled from RN notes): na - History of Present Illness Provider Complaint: She states that she has been exposed to covid-19. She also states that she has been having some low back pain and burning while urinating. - Related Data Home Medications Medication Instructions Recorded Confirmed Amlodipine Besylate [Norvasc 2.5mg 2.5 mg PO DAILY 10/03/17 02/23/20 tablet] Chlorthalidone 50 mg PO DAILY 10/03/17 02/23/20 Duloxetine HCl 60 mg PO DAILY 10/03/17 02/23/20 LORazepam [Ativan 1mg tablet] 1 mg PO TIDP PRN 10/03/17 02/23/20 Nortriptyline HCl 10 mg PO BID 10/03/17 02/23/20 Omeprazole [Omeprazole 20mg 20 mg PO DAILY 10/03/17 02/23/20 Capsule] Trazodone HCl 100 mg PO HS 10/03/17 02/23/20 buPROPion HCL [Wellbutrin SR 150mg 150 tab PO BID 10/03/17 02/23/20 Tablet
[2021-03-23 18:42] VITALS: BP 101/59; PULSE 97; RESP 14; TEMP 36.8
[2021-03-23 22:54] LABS: Apearance,Urine Clear (Clear); Color,Urine Yellow (Yellow); PH,Urine 7.5 (5.0-8.5)
[2021-03-23 22:55] LABS: Blood, Urine Negative (Negative); Glucose,Urine (UA) Negative (Negative); Ketones,Urine TRACE (Negative); Protein,Urine Trace (Negative)
[2021-03-23 22:56] LABS: Bilirubin,Urine 1+ (Negative)
[2021-03-23 22:58] LABS: UTC Leukocyte Esterase,Urine Negative (Negative); UTC Nitrate,Urine Negative (Negative); Urobilinogen,Urine 1 EU/dl (0.2)
== END 2021-03-23 18:42 | disposition home or self-care (01) ==
PROVIDERS: Emergency Provider Nurse Practitioner Family; PCP Family Medicine
DX: B34.9 Viral infection, unspecified (principal); Z20.822 Contact with and (suspected) exposure to COVID-19; N30.00 Acute cystitis without hematuria; E03.9 Hypothyroidism, unspecified; M79.7 Fibromyalgia; Z79.899 Other long term (current) drug therapy
CPT/HCPCS: G0463; 81003; 99203; C9803; U0003; U0005

== ENCOUNTER 2021-04-13 17:27 | Emergency (ER) | payer MEDICARE, SELFPAY ==
[2021-04-13 17:35] VITALS: BP 103/67; PULSE 87; RESP 19; TEMP 36.7; O2SAT 99; BMI 21.6
--- NOTE | 2021-04-13 17:41 | XR_ITS ---
PROCEDURE INFORMATION: Exam: XR Right Hand Exam date and time: 04/13/21 05:41 PM Age: 45 years old Clinical indication: Injury or trauma; Blunt trauma (contusions or hematomas); Hand; Right; Injury date: 04/13/21; Patient HX: Fall; Swelling at 3rd distal metacarpal TECHNIQUE: Imaging protocol: XR Right hand. Views: 3 or more views. COMPARISON: CR WRISTCMRT XR wrist RT min 3V 09/24/18 07:01 PM FINDINGS: Bones/joints: Normal. Soft tissues: Normal. IMPRESSION: No acute findings.
--- NOTE | 2021-04-13 17:41 | XR_ITS ---
PROCEDURE INFORMATION: Exam: XR Right Forearm Exam date and time: 04/13/21 05:41 PM Age: 45 years old Clinical indication: Injury or trauma; Blunt trauma (contusions or hematomas); Arm, upper; Right; Injury date: 04/13/21; Injury details: Fall; Arm pain TECHNIQUE: Imaging protocol: XR Right forearm. Views: 2 views. COMPARISON: CR XR WRIST RT MIN 3V 04/13/21 05:40 PM FINDINGS: Bones/joints: Healing fracture distal right radius. Soft tissues: Normal. IMPRESSION: Healing fracture distal right radius.
--- NOTE | 2021-04-13 17:41 | XR_ITS ---
PROCEDURE INFORMATION: Exam: XR Right Wrist Exam date and time: 04/13/21 05:41 PM Age: 45 years old Clinical indication: Injury or trauma; Blunt trauma (contusions or hematomas); Right; Injury date: 04/13/21; Injury details: Fall today; Swelling medial wrist; Surgery date: 6+ months; Surgery type: Prior surgery for wrist fracture, rods were placed in wrist and later removed TECHNIQUE: Imaging protocol: XR Right wrist. Views: 3 or more views. COMPARISON: CR WRISTCMRT XR wrist RT min 3V 09/24/18 07:01 PM FINDINGS: Bones/joints: Healing fracture distal right radius. Anatomic alignment. Soft tissues: Normal. IMPRESSION: Healing fracture distal right radius. Anatomic alignment.
--- NOTE | 2021-04-13 18:11 | HMH.EDUTC ---
[facility] [place] Clinical Impression: Wrist injury Qualifiers: Encounter type: initial encounter Laterality: right Qualified Code(s): S69.91XA - Unspecified injury of right wrist, hand and finger(s), initial encounter Disposition: Home, Self-Care Condition on Discharge: Good Instructions: Wrist Sprain, DI for Wrist Sprain, How To Perform RICE (Rest, Ice, Compress, Elevate) Additional Instructions: *RICE, Rest the extremity, Ice 15-20 minutes 3-4 times daily, Compress- wear the tristin wrap as discussed as much as possible to help reduce swelling and pain, Elevate the extremity when at rest *Tristin wrap is for support and help control swelling, use it except in the shower. Be sure that is not to tight but not to loose either *Elevate when resting *Ibuprofen as directed on package every 6-8 hours as needed for pain an inflammation. If need something more can take Tylenol in between doses of Ibuprofen to help Immediately follow up with your family doctor for new or worsening of symptoms, or no noticeable improvement over the next 3-5 days Call [facility] clinic on Friday for appointment Return if needed Follow up with your Family Doctor for further evaluation and testing Referrals: Job Rico MD [Primary Care Provider] - As needed (Follow up for further testing) César Akhtar MD [Staff Physician] - (Call office on Friday for appointment) Time of Disposition: 18:36 Medical Decision Making - Murali Inquiry Pt receiving controlled substance: No Murali was queried for this patient: No Vital Signs: 04/13/21 17:35 Temperature 98.1 F Temperature Source Oral Pulse Rate [Left] 87 Respiratory Rate 19 Blood Pressure [Right Arm] 103/67 L Blood Pressure Mean [Right Arm] 79 02 Sat by Pulse Oximetry 99 - Radiology Data #1 Image(s): Hand Image Reviewed: Yes I have reviewed radiologist's interpretation IMPRESSION: No acute findings. #2 Image(s): Wrist Image Reviewed: Yes I have reviewed radiologist's interpretation IMPRESSION: Healing fracture distal right radius. Anatomic alignment. #3 Image(s): Forearm Image Reviewed: Yes I have reviewed radiologist's interpretation IMPRESSION: Healing fracture distal right radius. Medical Decision Narrative: Radiologist read xray as healing fracture of distal radius and patient advised last time she hurt her wrist prior to this fall was over a year ago and didnt follow up after Discussed with patient and recommended follow up with Orthopedics and to call office on Friday for appointment for further evaluation [facility] [place] HPI - General Stated complaint: right wrist injury Time Seen by Provider: 04/13/21 18:11 Mode of Arrival: Ambulatory Source of Information: Patient Limitations: No Limitations Description of Symptoms (Recalled from Triage Doc. by RN): PT C/O R WRIST, FOREARM AND HAND PAIN. PT FELL IN THE SHOWER ABOUT AN HOUR AGO HEENT Symptoms (Recalled from RN notes): No Resp Symptoms (Recalled from RN notes): No Skin Symptoms (Recalled from RN notes): No MS Symptoms (Recalled from RN notes): Yes (R FOREARM, WRIST AND HAND PAIN) Functional Status (Recalled from RN notes): NA - History of Present Illness Provider Complaint: Patient states that she slipped and fell about an hour ago while she was in the shower States that she landed on her right hand has been having brusing and swelling to her right hand, wrist and forearm ever since so she came in to get it checked out - Related Data Home Medications Medication Instructions Recorded Confirmed Amlodipine Besylate [Norvasc 2.5mg 2.5 mg PO DAILY 10/03/17 02/23/20 tablet] Chlorthalidone 50 mg PO DAILY 10/03/17 02/23/20 Duloxetine HCl 60 mg PO DAILY 10/03/17 02/23/20 LORazepam [Ativan 1mg tablet] 1 mg PO TIDP PRN 10/03/17 02/23/20 Nortriptyline HCl 10 mg PO BID 10/03/17 02/23/20 Omeprazole [Omeprazole 20mg 20 mg PO DAILY 10/03/17 02/23/20 Capsule] Trazodone HCl 100 mg PO HS
[2021-04-13 19:02] VITALS: BP 103/67; PULSE 87; RESP 16; TEMP 36.7
== END 2021-04-13 19:04 | disposition home or self-care (01) ==
PROVIDERS: Emergency Provider Nurse Practitioner; PCP Family Medicine
DX: S69.91XA Unspecified injury of right wrist, hand and finger(s), initial encounter (principal); W18.2XXA Fall in (into) shower or empty bathtub, initial encounter; Y92.012 Bathroom of single-family (private) house as the place of occurrence of the external cause
CPT/HCPCS: 29125; G0463; 73090; 73110; 73130; 99203

== ENCOUNTER → 2021-04-25 13:31 | Outpatient (CLI) | payer MEDICARE, SELFPAY ==
--- NOTE | 2021-04-25 13:35 | XR_ITS ---
PROCEDURE: XR WRIST RT W SCAPHOID CLINICAL INDICATION: right wrist pain/ scaphoid injury COMPARISON: No exams were available for comparison FINDINGS: There is an old distal radial fracture as previously described. Hyperostosis is present at the styloid process of the ulna. There remains mild prominence of the distal radial ulnar joint. Slight decreased density is present in the central aspect of the scaphoid. This may only be due to decreased bony trabeculation at this area and is not significantly changed. The joint spaces are well-preserved. No significant degenerative/arthritic changes. No erosive changes evident. Other findings:None. IMPRESSION: Old distal radial fracture with hypertrophic change of the ulnar styloid process and persistent widening of the distal radial ulnar joint. No change with no acute finding Dictated by: Lemuel Ames MD 04/25/2021 16:57 Lemuel Ames MD in [place] 04/25/2021 16:57
== END ==
LOC: RAD 13:33
PROVIDERS: PCP Family Medicine; Visit Provider Orthopaedic Surgery
DX: M25.531 Pain in right wrist (principal)
CPT/HCPCS: 73110

== ENCOUNTER 2021-04-25 14:18 | Outpatient (RCR) | payer MEDICARE, SELFPAY | END 2021-04-25 15:20 | disposition home or self-care (01) | LOC: OT 14:18 | PROVIDERS: Visit Provider Orthopaedic Surgery | DX: S69.91XA Unspecified injury of right wrist, hand and finger(s), initial encounter (principal); M19.131 Post-traumatic osteoarthritis, right wrist | CPT/HCPCS: 97763 ==

== ENCOUNTER → 2021-10-04 07:53 | Outpatient (CLI) | payer MEDICARE, SELFPAY ==
--- NOTE | 2021-10-04 07:58 | CT_ITS ---
FINAL REPORT TECHNIQUE: Pre- and postcontrast images of the abdomen were performed by computed tomography. CLINICAL HISTORY: ADRENAL NODULE COMPARISON: October 09, 2020 FINDINGS: The lung bases are clear. This is a follow-up CT to better characterize a known right adrenal mass. On the pre infusion images the mass is again identified. It is ovoid, well-circumscribed and measures 3.6 x 2.6 cm. It has a heterogeneous internal matrix. On the post infusion images there is some smudgy internal enhancement present. The enhancement is ill-defined. Typical washout of an adenoma is not seen. The mass is stable in size from the previous exam in September of 2020. The left adrenal is unremarkable. The liver, spleen and pancreas are unremarkable. The kidneys enhance appropriately. A large amount of stool is seen throughout the colon which is consistent with constipation. IMPRESSION: Redemonstration of a complex and partially enhancing right adrenal mass. This focus is indeterminate but stability in size would suggest a nonaggressive process. If there is no history of malignancy, a follow-up exam in 6 months time is recommended to ensure stability. If there is a high index of suspicion for neoplasia, a PET scan could be obtained for better characterization. Reviewed, Interpreted and Dictated by Kirt Kirkpatrick MD Transcribed by Amanda Cortés Authenticated by Kirt Kirkpatrick MD on 10/04/2021 11:22:58 AM [facility]
== END ==
LOC: RAD 07:55
PROVIDERS: PCP Family Medicine; Visit Provider Nurse Practitioner Family
DX: E27.8 Other specified disorders of adrenal gland (principal)
CPT/HCPCS: 74170; Q9967

== ENCOUNTER 2021-12-19 17:38 | Emergency (ER) | payer MEDICARE, SELFPAY ==
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
[2021-12-19 18:01] VITALS: BP 118/75; PULSE 84; RESP 17; TEMP 37.2; O2SAT 99; BMI 20.9
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
[2021-12-19 19:09] VITALS: BP 118/75; PULSE 84; RESP 17; TEMP 37.2
== END 2021-12-19 19:10 | disposition home or self-care (01) ==
PROVIDERS: Emergency Provider Nurse Practitioner Family; PCP Family Medicine
DX: S67.41XA Crushing injury of right wrist and hand, initial encounter (principal); W23.0XXA Caught, crushed, jammed, or pinched between moving objects, initial encounter
CPT/HCPCS: 73110; 73130; 99212; G0463

== ENCOUNTER → 2022-04-15 14:15 | Outpatient (CLI) | payer MEDICARE, SELFPAY ==
[2022-04-15 16:30] LABS: Alanine Aminotransferase 12 U/L (12-78); Albumin Level 3.9 g/dl (3.5-5.0); Albumin/Globulin Ratio 1.4 (1.1-1.8); Alkaline Phosphatase 56 U/L (38-126); Aspartate Amino Transferase 20 U/L (14-36); Blood Urea Nitrogen 15 mg/dl (7-17); Calcium 9.2 mg/dl (8.4-10.2); Carbon Dioxide 33 mmol/L (22.0-30.0); Estimated Glomerular Filt Rate 59 ml/min (>60); GFR (African American) 72 ML/MIN (>60); Globulin 2.7 g/dL (1.3-3.2); Glucose 91 mg/dl (74-100); Total Protein,Serum 6.6 g/dl (6.3-8.2)
[2022-04-15 16:37] LABS: Bilirubin,Total 0.1 mg/dl (0.2-1.3)
[2022-04-15 17:06] LABS: Anion Gap 13.2 mEq/L (5-15); Chloride 98 mmol/L (98-107); Potassium 3.2 mmoL/L (3.5-5.1); Sodium 141 mmol/L (136-145)
== END ==
PROVIDERS: PCP Nurse Practitioner Family; Visit Provider Nurse Practitioner Family
DX: E27.8 Other specified disorders of adrenal gland (principal)
CPT/HCPCS: 36415; 80053

== ENCOUNTER → 2022-04-17 09:03 | Outpatient (CLI) | payer MEDICARE, SELFPAY ==
--- NOTE | 2022-04-17 09:08 | CT_ITS ---
FINAL REPORT TECHNIQUE: Pre- and postcontrast images of the abdomen were performed by computed tomography. This study was performed with techniques to keep radiation doses as low as reasonably achievable (ALARA). Individualized dose reduction techniques using automated exposure control or adjustment of mA and/or kV according to the patient's size were employed. CLINICAL HISTORY: ADRENAL NODULE COMPARISON: 10/04/2021 and 03/21/2020 FINDINGS: The lung bases are clear. The liver is normal in size and attenuation. The spleen is unremarkable. There is a 3.5 cm heterogeneous mass in the right adrenal gland which shows an area of contrast enhancement. Mass is stable in size and appearance as compared to the prior. This does not appear to be a typical adenoma. Differential diagnosis would include atypical adenoma, myelolipoma, or other slow growing neoplasm. The pancreas is unremarkable. There is a less than 1 cm cyst in the lateral left kidney, stable. IMPRESSION: Right adrenal gland mass with differential diagnosis as detailed above. Reviewed, Interpreted and Dictated by Shine Atkins III, MD Transcribed by Catia Nascimento Authenticated and [facility]
== END ==
LOC: RAD 09:03
PROVIDERS: PCP Family Medicine; Visit Provider Nurse Practitioner Family
DX: E27.8 Other specified disorders of adrenal gland (principal)
CPT/HCPCS: 74170; Q9967

== ENCOUNTER 2022-10-04 15:18 | Emergency (ER) | payer MEDICARE, SELFPAY ==
[2022-10-04 15:31] VITALS: BP 121/53; PULSE 82; RESP 18; O2SAT 95; BMI 22.3
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
[2022-10-04 15:50] VITALS: BP 121/53; PULSE 82; RESP 18; TEMP 36.7; O2SAT 95; BMI 23.4
[2022-10-04 17:04] VITALS: BP 121/53; PULSE 82; RESP 18; TEMP 36.7; O2SAT 95
== END 2022-10-04 17:03 | disposition home or self-care (01) ==
PROVIDERS: Emergency Provider Nurse Practitioner Family; PCP Nurse Practitioner Family
DX: M25.512 Pain in left shoulder (principal)
CPT/HCPCS: 96372; 99212; 99214; G0463

== ENCOUNTER 2023-08-12 09:20 | Outpatient (CLI) | payer MEDICARE, SELFPAY ==
--- NOTE | 2023-08-12 09:28 | CT_ITS ---
FINAL REPORT TECHNIQUE: After the administration of intravenous contrast, axial images were obtained through the abdomen and pelvis by computed tomography. The study was performed with techniques to keep radiation dose as low as reasonably achievable, (ALARA). Individual dose reduction techniques using automated exposure control or adjustment of mA and/or kV according to the patient's size were employed. CLINICAL HISTORY: ADRENAL MASS protocol , right adrenal mass COMPARISON: 04/17/2022 FINDINGS: CT ABDOMEN AND PELVIS WITH CONTRAST TECHNIQUE: IV contrast enhanced exam COMPARISON: 04/17/2022. FINDINGS: ABDOMEN AND PELVIS: Exam is being performed as a follow-up to evaluate a right adrenal mass seen on prior CT of 2021. Precontrast enhanced measurement of the right adrenal mass measures 27 Hounsfield units. Early phase contrast measures 69 Hounsfield units, and there is mild partial washout of 53 Hounsfield units on 15-minute delay examinations. This mass measures 38 x 29 mm in size on today's examination, was previously 35 x 27 mm in size, so is minimally larger. The left adrenal gland is normal. There is a small subcapsular cyst in the lateral left mid kidney. Moderate fecal impaction is noted in the abdomen and pelvis. No focal mass or abnormality is noted in the abdomen and pelvis. The appendix is not visualized. IMPRESSION: Characteristics of right adrenal mass are compatible with adenoma or a myelolipoma most likely, with other neoplasm less likely. There has been minimal growth in the right adrenal mass since the prior examination. Continued follow-up is suggested. Moderate fecal impaction is noted in the abdomen and pelvis. This study was performed using automated techniques to achieve radiation exposure as low as reasonably achievable Reviewed, Interpreted and Dictated by Veronica Paz MD Transcribed by Rosanne Suero Authenticated and [facility]
[2023-08-12 10:23] LABS: Blood Urea Nitrogen 18 mg/dl (7-17); Estimated Glomerular Filt Rate 53 ml/min (>60); GFR (African American) 64 ML/MIN (>60)
[2023-08-12] MEDS: IOPAMIDOL-370 (76%);100ML BOTTLE 75 ML IV (10:47)
== END 2023-08-12 23:59 ==
LOC: RAD 09:21
PROVIDERS: PCP Nurse Practitioner; Visit Provider Nurse Practitioner
DX: E27.8 Other specified disorders of adrenal gland (principal)
CPT/HCPCS: 36415; 74178; 82565; 84520; Q9967

== ENCOUNTER 2024-05-24 16:02 | Emergency (ER) | payer MEDICARE, SELFPAY ==
[2024-05-24 16:04] VITALS: BP 125/59; PULSE 82; RESP 18; TEMP 37; O2SAT 98; BMI 25.0
--- NOTE | 2024-05-24 17:15 | ED_ITS ---
<Statement entered by Chani Dillon DO - 05/24/24 23:38> I was consulted by the JOJO, and we discussed the complexity of the problems being addressed. I approved the treatment and management plan for this patient's care in the emergency department, thus performing a substantive portion of the medical decision making. Patient unfortunately eloped from the emergency department Chani Dillon DO Discharge Plan Disposition Patient Disposition: Eloped Chief Complaint: Fall Prescriptions Prescriptions: No Action bupropion HCl 150 MG tablet 150 tab PO BID amlodipine 2.5 MG tablet 2.5 mg PO DAILY Patient Comments: chlorthalidone 50 MG tablet 50 mg PO DAILY Patient Comments: trazodone 100 MG tablet 100 mg PO HS Patient Comments: nortriptyline 10 MG capsule 10 mg PO BID MDD . Patient Comments: omeprazole 20 MG capsule,delayed release(DR/EC) 20 mg PO DAILY Patient Comments: lorazepam 1 MG tablet 1 mg PO TIDP PRN (Reason: Anxiety) Patient Comments: duloxetine 60 MG capsule,delayed release(DR/EC) 60 mg PO DAILY Patient Comments: diclofenac potassium 25 MG capsule 25 mg PO QID gabapentin 600 MG tablet extended release 24 hr 600 mg PO DAILY baclofen 10 MG tablet 10 mg PO QIDP PRN (Reason: muscle spasms) potassium chloride 20 MEQ tablet extended release 40 meq PO DAILY Rx Instructions: Take two tabs daily erenumab-aooe 70 MG/ML auto-injector 70 mg SQ MONTHLY ibuprofen 600 MG tablet 600 mg PO Q6HP PRN (Reason: Mild Pain) Qty: 30 0RF methylprednisolone 4 mg Tablets,Dose Pack 4 mg PO DIRECTED Qty: 21 0RF cyclobenzaprine 5 mg tablet 5 mg PO BIDP PRN (Reason: muscle spasm) Qty: 20 0RF Referrals Follow up/Referrals: Racheal Campos APRN [Primary Care Provider] - See instructions Print Language Print Language: Georgian Discharge ED Provider: Chani Dillon General Adult HPI General Chief complaint: Fall Stated complaint: AO fall rs pain upper back pain stimulator in back Time Seen by Provider: 05/24/24 17:15 Mode of Arrival: Ambulatory Source of Information: Patient Limitations: No Limitations Description of Symptoms (Recalled from ER Triage Doc. by RN): pt presents to the er for a fall, states she fell this morning around 7:30, states she was going to sit down in a chair when her grandson accidently pulled the chair out from under her, causing her to fall and hit her R side on the wooden chair, pt does have a spinal stimulator as well, bruising noted to area, denies loc, denies hitting head, rates pain an intermittent pain and a 7/10, states it hurts to take a deep breath, cough, or move History of Present Illness HPI narrative: Patient presents for evaluation of a fall. Patient's grandson pulled her chair out that she was attempting to sit down to and patient fell backwards striking her right posterior ribs/flank against the edge of the chair. Patient suffered no injury however in the area patient has a spinal stimulator and is significantly tender since. Patient states it hurts to take a deep breath or return with denies any numbness tingling fever chills hemoptysis hematochezia melena nausea vomiting diarrhea. She not strike her head. She did not lose consciousness. Related Data Home Medications ?Medication ?Instructions ?Recorded ?Confirmed amlodipine 2.5 mg tablet 2.5 mg PO DAILY Hypertension 10/03/17 10/04/22 bupropion HCl 150 mg tablet,12 hr 150 tab PO BID MOOD 10/03/17 10/04/22 sustained-release chlorthalidone 50 mg tablet 50 mg PO DAILY Fluid 10/03/17 10/04/22 duloxetine 60 mg capsule,delayed 60 mg PO DAILY MOOD 10/03/17 10/04/22 release lorazepam 1 mg tablet 1 mg PO TIDP PRN Anxiety 10/03/17 10/04/22 nortriptyline 10 mg capsule 10 mg PO BID MOOD 10/03/17 10/04/22 omeprazole 20 mg capsule,delayed 20 mg PO DAILY GERD 10/03/17 10/04/22 release trazodone 100 mg tablet 100 mg PO HS SLEEP 10/03/17 10/04/22 diclofenac potassium 25 mg capsule 25 mg PO QID Pain 10/04/17 10/04/22 gabapentin 600 mg tablet,extended 600 mg PO DAILY NEUROPATHY 10/04/17 10/04/22 release 24 hr baclofen 10 mg tablet 10 mg PO QIDP PRN muscle spasms 02/16/20 10/04/22 erenumab-aooe 70 mg/mL 70 mg SQ MONTHLY migraines 02/16/20 10/04/22 subcutaneous auto-injector potassium chloride 20 mEq 40 meq PO DAILY Supplement 02/16/20 04/25/21 tablet,extended release Previous Rx's ?Medication ?Instructions ?Recorded ibuprofen 600 mg tablet 600 mg PO Q6HP PRN Mild Pain #30 12/19/21 tabs cyclobenzaprine 5 mg tablet 5 mg PO BIDP PRN muscle spasm #20 10/04/22 tabs methylprednisolone 4 mg tablets in 4 mg PO DIRECTED #21 tabs 10/04/22 a dose pack Allergies Allergy/AdvReac Type Severity Reaction Status Date / Time No Known Allergies Allergy Verified 05/24/24 17:14 [facility] Disclaimer: The information contained in this section may have been updated after the patient was seen, as this information can be updated by other users. Social History Smoking Status: Never smoker alcohol intake: never current occupational status: other Travel in the last 8 weeks: None household members: spouse and children housing: house caffeine: No Other Medical History Have you received the Flu Vaccine for this season: No Have you received the Pneumonia Vaccine: No ROS Obtained: Yes Systems reviewed as appropriate & no additional complaints except as documented Physical Exam General General appearance: alert and in no apparent distress Respiratory Respiratory exam: Present normal lung sounds bilaterally Cardiovascular Cardiovascular exam: Present regular rate Neurological Exam Neurological exam: Present alert, oriented X3 and CN II-XII intact Medical Decision Making Medical Records Medical records reviewed: Yes I reviewed the patient's medical records. Screening: Per USPSTF and CDC recommendations, given the prevalence of disease in our region, it is our hospital?s policy to screen for HIV and viral Hepatitis for all patients aged 18 and over and those with ongoing risk factors. Murali Inquiry Pt receiving controlled substance: No Vital Signs: 05/24/24 16:04 05/24/24 19:16 Temperature 98.6 F 0 F L Temperature Source Oral Pulse Rate 0 L Pulse Rate [Left Radial] 82 Respiratory Rate 18 0 L Blood Pressure 000/00 L Blood Pressure [Right Arm] 125/59 L Blood Pressure Mean [Right Arm] 81 Blood Pressure Source [Right Arm] Automatic Cuff Blood Pressure Position [Right Arm] Sitting 02 Sat by Pulse Oximetry 98 Oxygen Delivery Method Room Air Lab Data Lab results reviewed: Yes I reviewed the patient's lab results. Orders (Tests/Meds): ED MEDICATIONS Discontinued Medications Generic Name Dose Route Start Last Admin Trade Name Sukhdev PRN Reason Stop Dose Admin Acetaminophen 1,000 mg 05/24/24 17:39 05/24/24 17:43 Acetaminophen 500mg Tab PO 05/24/24 17:40 1,000 mg ONCE ONE Administration Lidocaine 1 each 05/24/24 17:39 05/24/24 17:43 Lidocaine 5% Transdermal Patch TP 05/24/24 17:40 1 each ONCE ONE Administration Methocarbamol 500 mg 05/24/24 17:39 05/24/24 17:43 Methocarbamol 500mg Tablet PO 05/24/24 17:40 500 mg ONCE ONE Administration Medical Decision Narrative: In summary patient is a 48-year-old female who presents to the emergency de partment for evaluation of fall. Patient is dynamically stable upon arrival, afebrile. Physical exam is remarkable for ecchymosis in the posterior CVA area/posterior rib/flank just above her spinal stimulator. There is no palpable bony deformity however the areas significantly tender to palpation. Breath sounds are clinical bilaterally to the bases. There is no anterior abdominal tenderness.. Differential diagnosis includes contusion versus hematoma versus fracture etc. Initial workup will be conducted with noncontrasted CT scan of the chest abdomen pelvis. Initial interventions include Tylenol Lidoderm Robaxin for now. Initial workup was ordered however patient eloped prior to initiation or completion of those. Critical Care Critical Care Time Critical Care Time: No
[2024-05-24] MEDS: LIDOCAINE 5% TRANSDERMAL PATCH 1 EACH TP (17:43)
[2024-05-24] MEDS: METHOCARBAMOL 500MG TABLET 500 MG PO (17:43)
[2024-05-24] MEDS: ACETAMINOPHEN 500MG TAB 1000 MG PO (17:43)
--- NOTE | 2024-05-24 19:07 | PC.NURSE ---
went to check on patient and another patient states pt walked out about 45 minutes ago
[2024-05-24 19:16] VITALS: BP 000/00; PULSE 0; RESP 0; TEMP -17.7; TEMP 0; O2SAT 0
== END 2024-05-24 19:18 | disposition left against medical advice (07) ==
LOC: ER 16:50
PROVIDERS: Emergency Provider Emergency Medicine; PCP Nurse Practitioner
DX: M54.9 Dorsalgia, unspecified (principal); R10.9 Unspecified abdominal pain; R07.81 Pleurodynia; Z53.29 Procedure and treatment not carried out because of patient's decision for other reasons; W19.XXXA Unspecified fall, initial encounter; Y93.89 Activity, other specified; Y92.000 Kitchen of unspecified non-institutional (private) residence as the place of occurrence of the external cause
CPT/HCPCS: 99283

== ENCOUNTER 2024-08-08 16:12 | Inpatient (IN) | payer MEDICARE, SELFPAY ==
--- NOTE | 2024-08-08 16:28 | XR_ITS ---
PROCEDURE INFORMATION: Exam: XR Right Foot Exam date and time: 08/08/2024 4:33 PM Age: 48 years old Clinical indication: Injury or trauma; Fall; Blunt trauma; Foot; Right; Additional info: Injury/fall TECHNIQUE: Imaging protocol: Radiologic exam of the right foot. Views: 3 or more views. COMPARISON: No relevant prior studies available. FINDINGS: Bones/joints: Normal. No fracture or destructive bone lesion identified. Soft tissues: Mild soft tissue swelling along the lateral right foot. No radiopaque foreign body or gas in the soft tissues. IMPRESSION: Soft tissue swelling of the lateral right foot but no evidence of a fracture.
--- NOTE | 2024-08-08 16:56 | ED_ITS ---
<Statement entered by Valeria Ortiz APRN - 10/13/24 15:32> Pt transferred to the ER Discharge Plan Disposition Patient Disposition: Admitted Condition: Fair Clinical Impressions Clinical Impression: Hypokalemia Discharge ED Provider: Pérez Reese [facility] [place] General Chief complaint: Syncope Stated complaint: ao R foot pain head lac Time Seen by Provider: 08/08/24 16:49 History of Present Illness Provider Complaint: Pt reports that she has passed out a couple of time the past couple of days. She states that she got up today around 1:30 pm and went to get her medication. She states that she passed out yesterday and thought maybe she just got up too quickly, so today she states that she waited a bit prior to standing. She states that she lost consciousness and fell hurting her right foot and causing a laceration to the top of her head. Pt was transferred to the ER with Dr. Yousif for further care. Related Data Home Medications ?Medication ?Instructions ?Recorded ?Confirmed bupropion HCl 150 mg tablet,12 hr 150 tab PO BID 10/03/17 10/11/24 sustained-release duloxetine 60 mg capsule,delayed 60 mg PO DAILY 10/03/17 10/11/24 release lorazepam 1 mg tablet 1 mg PO TIDP PRN Anxiety 10/03/17 10/11/24 nortriptyline 10 mg capsule 10 - 20 mg PO HS 10/03/17 10/11/24 trazodone 100 mg tablet 100 mg PO HS 10/03/17 10/11/24 gabapentin 600 mg tablet,extended 600 mg PO DAILY 10/04/17 10/11/24 release 24 hr baclofen 10 mg tablet 10 mg PO QIDP PRN muscle spasms 02/16/20 10/11/24 diclofenac sodium 50 mg 50 mg PO BID 08/09/24 10/11/24 tablet,delayed release erenumab-aooe 140 mg/mL 140 mg SQ MONTHLY 08/09/24 10/11/24 subcutaneous auto-injector (Aimovig Autoinjector) estradiol-norethindrone acet 1 1 tab PO DAILY 08/09/24 10/11/24 mg-0.5 mg tablet pantoprazole 40 mg tablet,delayed 40 mg PO DAILY 08/09/24 10/11/24 release ubrogepant 100 mg tablet (Ubrelvy) 100 mg PO DAILYP PRN Migraine 08/09/24 10/11/24 Headache zolpidem 5 mg tablet 5 mg PO HSP PRN Insomnia 08/09/24 10/11/24 acyclovir 400 mg tablet 400 mg PO BID 09/09/24 10/11/24 ondansetron HCl 4 mg tablet 4 mg PO Q8HP PRN Nausea 09/09/24 10/11/24 omeprazole 20 mg capsule,delayed 20 mg PO DAILY 10/11/24 10/11/24 release Previous Rx's ?Medication ?Instructions ?Recorded potassium chloride 20 mEq 40 meq (2 x 20 mEq) PO TID 30 days 09/10/24 tablet,extended #180 tabs release(part/cryst) (Klor-Con M) spironolactone 50 mg tablet 50 mg PO DAILY #30 tabs 09/10/24 Allergies Allergy/AdvReac Type Severity Reaction Status Date / Time No Known Allergies Allergy Verified 10/11/24 08:45 [facility] Disclaimer: The information contained in this section may have been updated after the patient was seen, as this information can be updated by other users. Medical History (Updated 10/11/24 @ 09:03 by Antonio Romero RN) Tachycardia Bradycardia Abnormal ECG Family history of coronary artery disease in mother Dizziness Fatigue SOB (shortness of breath) Chest pain Cervical strain Scalp contusion Syncope and collapse Hypokalemia Right wrist fracture Depression Anxiety Neuropathy RSD (reflex sympathetic dystrophy) History of thyroid nodule GERD (gastroesophageal reflux disease) Iron deficiency anemia Surgical History S/P placement of nerve stimulator History of surgery on right wrist History of S/P partial thyroidectomy S/P placement of nerve stimulator Family History Other Cancer Dementia Diabetes Social History Smoking Status: Never smoker alcohol intake: never current occupational status: disabled and other Travel in the last 8 weeks: None household members: spouse and children housing: house caffeine: No ROS Obtained: Yes All systems reviewed & no additional complaints except as documented Physical Exam General General appearance: alert Respiratory Respiratory exam: Present normal lung sounds bilaterally Cardiovascular Cardiovascular exam: Present regular rate and normal rhythm Neurological Exam Neurological exam: Present alert and oriented X3 Medical Decision Making Medical Records Screening: Per USPSTF and CDC recommendations, given the prevalence of disease in our region, it is our hospital?s policy to screen for HIV and viral Hepatitis for all patients aged 18 and over and those with ongoing risk factors. Murali Inquiry Pt receiving controlled substance: No Lab Data 08/09/24 06:55 08/09/24 15:13 Orders (Tests/Meds): ORDERS Category Date Time Status Foot XR right minimum 3 views [XR foot RT min 3V] Stat Exams 08/08/24 16:28 Taken
[2024-08-08 17:20] VITALS: BP 131/69; PULSE 75; RESP 17; TEMP 36.6; O2SAT 98; BMI 22.6
--- NOTE | 2024-08-08 17:23 | ECG_ITS ---
APPROVED REPORT Exam: Resting ECG HR:75 bpm ECG Measurements Heart Rate 75 AXES AK 147 P 62 QRSd 101 QRS -78 QT 269 T 82 QTc 298 Conclusion SINUS RHYTHM LEFT AXIS DEVIATION [QRS AXIS < -30] SEPTAL MYOCARDIAL INFARCTION , PROBABLY OLD [40+ ms Q WAVE IN V1/V2] ABNORMAL ECG Electronically signed by : SARA HUERTAS, 08/09/2024 22:05:44
--- NOTE | 2024-08-08 17:25 | PC.NURSE ---
Blood glucose read 104 at 17:20.
--- NOTE | 2024-08-08 17:45 | XR_ITS ---
PROCEDURE INFORMATION: Exam: XR Chest Exam date and time: 08/08/2024 5:52 PM Age: 48 years old Clinical indication: Shortness of breath; Additional info: SOA, syncope TECHNIQUE: Imaging protocol: Radiologic exam of the chest. Views: 1 view. COMPARISON: CR XR CHEST PORTABLE 08/08/2024 5:52 PM FINDINGS: Lungs: Unremarkable. No consolidation. Pleural spaces: Unremarkable. No pleural effusion. No pneumothorax. Heart/Mediastinum: Unremarkable. No cardiomegaly. Bones/joints: Unremarkable. IMPRESSION: No acute findings.
[2024-08-08 17:52] LABS: Basophils # 0.1 K/mm3 (0-0.2); Basophils % 0.7 % (0.1-2.0); Eosinophils % 0.3 % (0.1-12.0); Hemoglobin 11.9 g/dL (12.2-16.2); Lymphocytes # 1.9 K/mm3 (0.7-4.5); Lymphocytes % 18.2 % (10-50); Mean Corpuscular HGB Conc 31.3 g/dL (31.8-35.4); Mean Corpuscular Hemoglobin 23.6 pg (27.0-31.2); Mean Corpuscular Volume 75.2 fl (81-99); Mean Platelet Volume 8.8 fl (7.4-10.4); Monocytes # 0.7 K/mm3 (0.1-1.0); Monocytes % 7.1 % (1.7-9.3); Neutrophils # 7.7 K/mm3 (1.8-7.8); Platelet Count 500 K/mm3 (142-424); Red Blood Count 5.05 M/mm3 (4.20-5.40); Red Cell Distribution Width 15.9 % (11.5-17.5); White Blood Count 10.5 K/mm3 (4.8-10.8)
[2024-08-08 18:10] LABS: Alanine Aminotransferase 18 U/L (12-78); Albumin Level 4.8 g/dl (3.5-5.0); Albumin/Globulin Ratio 1.5 (1.1-1.8); Alkaline Phosphatase 79 U/L (38-126); Anion Gap 13.8 mEq/L (5-15); Aspartate Amino Transferase 35 U/L (14-36); Bilirubin,Total 0.6 mg/dl (0.2-1.3); Blood Urea Nitrogen 14 mg/dl (7-17); Calcium 9.8 mg/dl (8.4-10.2); Carbon Dioxide 34 mmol/L (22.0-30.0); Chloride 87 mmol/L (98-107); Creatinine Clearance Estimated 48 mL/min (50-200); Estimated Glomerular Filt Rate 40 ml/min (>60); GFR (African American) 48 ML/MIN (>60); Globulin 3.2 g/dL (1.3-3.2); Glucose 109 mg/dl (74-100); Magnesium 2.2 mg/dl (1.6-2.3); Sodium 133 mmol/L (136-145)
[2024-08-08 18:17] LABS: Potassium 1.8 mmoL/L (3.5-5.1)
--- NOTE | 2024-08-08 18:17 | PC.NURSE ---
CRITICAL K+ 1.8. PT NAME AND R/V. DR CAMPOS NOTIFIED
[2024-08-08] MEDS: TET/DIPHTH/PERT-ADULT 0.5ML SYRINGE 0.5 ML IM (18:18)
[2024-08-08] MEDS: KETOROLAC 30MG/ML VIAL 15 MG IV (18:21)
[2024-08-08 18:30] LABS: D-Dimer 1.61 ug/mL (0.0-0.5)
[2024-08-08] MEDS: KCl 20mEq/100ml 100 ML 50 MEQ IV ×3 (18:40→23:35)
--- NOTE | 2024-08-08 18:41 | PC.NURSE ---
Dr. Dong accepted pt for admission. 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
--- NOTE | 2024-08-08 18:42 | PC.NURSE ---
CANE PUSHER NOTIFIED OF ADMISSION
[2024-08-08 18:43] LABS: Troponin I < 0.01 ng/ml (0.00-0.034)
[2024-08-08] MEDS: POTASSIUM CHLORIDE 20MEQ TAB 40 MEQ PO (19:16)
[2024-08-08 19:20] LABS: HIV Combo NEGATIVE (Negative)
[2024-08-08 19:28] LABS: Hepatitis C Ab Qual. W/ RFX NEGATIVE (Negative)
--- NOTE | 2024-08-08 20:12 | PC.NURSE ---
attempted to call report, nurse stated she passing meds and would call back
[2024-08-08 20:27] VITALS: BP 131/81; PULSE 86; RESP 20; TEMP 37.1; O2SAT 97
[2024-08-08 20:55] VITALS: BP 104/56; PULSE 87; RESP 15; TEMP 36.7; O2SAT 98; BMI 20.5
[2024-08-08 21:19] VITALS: PULSE 83
[2024-08-08 21:33] LABS: Chloride 89 mmol/L (98-107); Sodium 134 mmol/L (136-145)
[2024-08-08 21:36] LABS: Anion Gap 14.9 mEq/L (5-15); Blood Urea Nitrogen 14 mg/dl (7-17); Calcium 8.9 mg/dl (8.4-10.2); Carbon Dioxide 32 mmol/L (22.0-30.0); Creatinine Clearance Estimated 45 mL/min (50-200); Estimated Glomerular Filt Rate 37 ml/min (>60); GFR (African American) 44 ML/MIN (>60); Glucose 123 mg/dl (74-100)
[2024-08-08 21:43] LABS: Potassium 1.9 mmoL/L (3.5-5.1)
[2024-08-08 21:52] LABS: Troponin I < 0.01 ng/ml (0.00-0.034)
--- NOTE | 2024-08-08 22:09 | P.HP_ITS ---
History of Present Illness *Admission Date: 08/08/24 *Reason for visit:: Syncopal episode *History of present illness: The patient is a 48-year-old female with a medical history significant for hypertension, mood disorders (on multiple antidepressants), anxiety, GERD, chronic pain, muscle spasms, migraines, and neuropathy. She presents after experiencing two episodes of loss of consciousness over the past two days. She reports that yesterday she passed out shortly after standing, attributing it to getting up too quickly. Today, around 1:30 PM, she purposely waited before standing to avoid another spell, but she again lost consciousness and fell, resulting in right foot pain. Her home medications include amlodipine, chlorthalidone, bupropion, duloxetine, lorazepam 3 times daily, nortriptyline, omeprazole, trazodone, diclofenac, gabapentin (extended release), baclofen (as needed), erenumab (monthly injections), and potassium chloride supplement. She denies any new medication changes or missed doses. On evaluation in the ER, her laboratory results were notable for severe hypokalemia (K 1.8), mild hyponatremia (Na 133), elevated creatinine (1.40) with an estimated GFR of 40, and a D-dimer of 1.61. The patient?s hemoglobin was 11.9, platelets were 500, and urinalysis was negative. Imaging, including a chest X-ray and right foot X-ray, was negative for acute findings. Given her presentation with syncope and the significant electrolyte derangements, especially the very low potassium, a primary concern is that the hypokalemia may be contributing to her episodes of loss of consciousness (possibly through arrhythmias or low blood pressure). In addition, she is on chlorthalidone, a diuretic that can exacerbate or precipitate significant hypokalemia. Her mild renal impairment (GFR 40) may also predispose her to electrolyte imbalances. Additional concern is polypharmacy contributing factor. The elevated D-dimer raises concern for possible thromboembolic processes, but no other clinical or imaging evidence currently suggests acute PE or DVT; however, this will be closely monitored given her recent syncope and elevated platelet count. No acute bony injury or cardiopulmonary abnormality has been identified on imaging. [facility] Disclaimer: The information contained in this section may have been updated after the patient was seen, as this information can be updated by other users. Social History (Updated 08/08/24 @ 22:34 by Maisha Brown RN) Smoking Status: Never smoker alcohol intake: never current occupational status: disabled and other Travel in the last 8 weeks: None household members: spouse and children housing: house caffeine: No Have you lived/traveled outside [place] in past 30 days?: No Contact w/someone who lives/traveled outside [place] past 30 days?: No Exposure to someone with infectious disease in past 14 days?: No Do you have a fever (greater than 100.4 F or 38 C)?: No Have you tested positive for COVID-19: No Exposed to someone with COVID-19 in past 14 days?: No Do you have a sore throat?: No Do you have a cough?: No Do you have any weakness?: No Are you experiencing any nausea/vomitting?: No Do you have any diarrhea?: No Are you experiencing any unusual bleeding?: No Do you have any muscle aches/pain?: No Do you have any abdominal pain?: No Are you experiencing loss of taste or smell?: No Other Medical History Have you received the Flu Vaccine for this season: No Have you received the Pneumonia Vaccine: No Review of Systems Review of Systems Review of systems (narrative): 14 point review of systems negative outside HPI *Neurologic Neurologic: Denies behavioral changes Psychiatric Psychiatric: Denies behavioral changes Meds Home Medications and Allergies Home Medications ?Medication ?Instructions ?Recorded ?Confirmed ?Type amlodipine 2.5 mg tablet 2.5 mg PO DAILY 10/03/17 08/08/24 History bupropion HCl 150 mg tablet,12 hr 150 tab PO BID 10/03/17 08/08/24 History sustained-release chlorthalidone 50 mg tablet 50 mg PO DAILY 10/03/17 08/08/24 History duloxetine 60 mg capsule,delayed 60 mg PO DAILY 10/03/17 08/08/24 History release lorazepam 1 mg tablet 1 mg PO TIDP PRN Anxiety 10/03/17 08/08/24 History nortriptyline 10 mg capsule 10 - 20 mg PO HS 10/03/17 08/09/24 History trazodone 100 mg tablet 100 mg PO HS 10/03/17 08/08/24 History gabapentin 600 mg tablet,extended 600 mg PO DAILY 10/04/17 08/08/24 History release 24 hr baclofen 10 mg tablet 10 mg PO QIDP PRN muscle spasms 02/16/20 08/08/24 History diclofenac sodium 50 mg 1 mg PO BID 08/09/24 08/09/24 History tablet,delayed release erenumab-aooe 140 mg/mL 140 mg SQ MONTHLY 08/09/24 08/09/24 History subcutaneous auto-injector (Aimovig Autoinjector) estradiol-norethindrone acet 1 1 tab PO DAILY 08/09/24 08/09/24 History mg-0.5 mg tablet pantoprazole 40 mg tablet,delayed 40 mg PO DAILY 08/09/24 08/09/24 History release potassium chloride 20 mEq 40 meq (2 x 20 mEq) PO BID 30 days 08/09/24 Rx tablet,extended #120 tabs release(part/cryst) (Klor-Con M) ubrogepant 100 mg tablet (Ubrelvy) 100 mg PO DAILYP PRN Migraine 08/09/24 08/09/24 History Headache zolpidem 5 mg tablet 5 mg PO HSP PRN Insomnia 08/09/24 08/09/24 History New Prescriptions to Start Prescriptions: potassium chloride [Klor-Con M20] John Dong Allergies Allergy/AdvReac Type Severity Reaction Status Date / Time No Known Allergies Allergy Verified 05/24/24 17:14 Exam Data for Last 24 hours Vital signs and Labs for Last 24 Hours: Temp Pulse Resp BP Pulse Ox O2 Del Method 98.7 F 83 20 131/81 98 Room Air 08/08/24 20:27 08/08/24 21:19 08/08/24 20:27 08/08/24 20:27 08/08/24 17:20 08/08/24 20:27 Laboratory Results - last 24 hr 08/08/24 17:21: WBC 10.5, RBC 5.05, Hgb 11.9 L, Hct 38.0, MCV 75.2 L, MCH 23.6 L , MCHC 31.3 L, RDW 15.9, Plt Count 500 H, MPV 8.8, Neut % (Auto) 73.0, Lymph % (Auto) 18.2, Briscoe % (Auto) 7.1, Eos % (Auto) 0.3, Baso % (Auto) 0.7, Neut # (Auto) 7.7, Lymph # (Auto) 1.9, Briscoe # (Auto) 0.7, Eos # (Auto) 0.0, Baso # (Auto) 0.1, D-Dimer 1.61 H, Sodium 133 L, Potassium 1.8 L*, Chloride 87 L, Carbon Dioxide 34 H, Anion Gap 13.8, BUN 14, Creatinine 1.40 H, Estimated Creat Clear 48, Estimated GFR 40 L, Est GFR ( Amer) 48 L, Glucose 109 H, Calcium 9.8, Magnesium 2.2, Total Bilirubin 0.6, AST 35, ALT 18, Alkaline Phosphatase 79, Troponin I < 0.01, Total Protein 8.0, Albumin 4.8, Globulin 3.2, Albumin/Globulin Ratio 1.5, HCV Ab KELECHI w/Rflx PCR Qn Negative, HIV Ag/Ab Combo Qual Negative 08/08/24 21:10: Sodium 134 L, Potassium 1.9 L*, Chloride 89 L, Carbon Dioxide 32 H, Anion Gap 14.9, BUN 14, Creatinine 1.50 H, Estimated Creat Clear 45, Estimated GFR 37 L, Est GFR ( Amer) 44 L, Glucose 123 H, Calcium 8.9, Troponin I < 0.01 I & O for Last 24 hours: Intake & Output 08/05/24 08/06/24 08/07/24 08/08/24 23:59 23:59 23:59 23:59 Weight 63.503 kg Constitutional Constitutional: no acute distress *Routine HEENT Exam Head: Present normocephalic Eye: Present EOMI and PERRL ENT: Present mucous membranes moist *Routine Neck Exam Neck: Present supple; Absent lymphadenopathy *Routine Respiratory Exam Respiratory: Present CTA bilaterally *Routine Cardiovascular Exam Cardiovascular: Present RRR *Routine Abdominal Exam Abdominal: Present soft and normoactive bowel sounds; Absent tenderness *Routine Rectal Exam Rectal:: deferred *Routine Genitalia Exam Genitalia:: deferred *Routine Extremities Exam Extremities: Absent cyanosis, clubbing or edema *Routine Skin Exam Skin: Present warm; Absent rash *Routine Neurological Exam Neurological: Present alert and oriented X3 Assessment and Plan *Assessment and plan (1) Hypokalemia: Status: Acute Category: Medical Code(s): E87.6 - Hypokalemia (2) Multiple falls: Status: Acute Category: Medical Code(s): R29.6 - Repeated falls (3) Syncope and collapse: Status: Acute Category: Medical Code(s): R55 - Syncope and collapse (4) At risk for polypharmacy: Status: Acute Category: Medical Code(s): Z91.89 - Other specified personal risk factors, not elsewhere classified Plan Medical decision making: The patient presents with syncope likely secondary to severe hypokalemia (potassium 1.8) in the setting of polypharmacy and chronic medical conditions. Her hypokalemia is likely exacerbated by chlorthalidone use, contributing to potassium wasting. Additionally, her extensive medication regimen raises concern for potential drug interactions or hypotensive effects contributing to her presentation. Initial management includes IV potassium replacement with cardiac monitoring, discontinuation of chlorthalidone to prevent further potassium losses, and a thorough medication review to reduce polypharmacy-related risks. Close monitoring of electrolytes, renal function, and blood pressure is essential to guide further interventions and prevent recurrence. Syncope likely secondary to severe hypokalemia * Obtain orthostatic vital signs. * Ensure adequate hydration. * Reinforce slow positional changes (e.g., sitting on the edge of bed before standing * Monitor cardiac telemetry * LR at 125 continuous Hypokalemia (K 1.8): Critically low. Continue IV potassium replacement with close cardiac monitoring to prevent arrhythmias. Serial re-check electrolytes until potassium normalizes. * Consider holding or reducing the dose of chlorthalidone to prevent further potassium wasting. * Evaluate other medications (e.g., amlodipine, baclofen PRN, multiple psychotropic agents) that may lower blood pressure or cause sedation. * Obtain/review ECG for arrhythmias or conduction abnormalities related to hypokalemia. Polypharmacy * The patient?s extensive medication regimen may contribute to syncope via hyp otension, sedation, or drug interactions. Consider tapering or discontinuing non-essential medications to reduce risk of further episodes. Laceration to the Head * Provide appropriate wound care. * Monitor for signs of infection and ensure tetanus prophylaxis is up to date. Right Foot Injury * Foot X-ray was negative; treat pain as needed. * RICE (rest, ice, compression, elevation) if swelling persists. * Reassess if pain worsens or persists, to rule out soft tissue or ligamentous injury. Other Concerns * Elevated D-dimer (1.61): Monitor for any thromboembolic complications; no immediate imaging findings to suggest acute PE or DVT. * Platelet Count 500: Possibly reactive thrombocytosis; monitor for changes. * Mild Renal Insufficiency (Creatinine 1.40, GFR 40): Adjust medications as needed for renal function; avoid nephrotoxic drugs; monitor creatinine and BUN. Gentle fluid rehydration Follow-Up & Disposition * Admit for IV potassium repletion, cardiac monitoring, and close observation of blood pressure and electrolytes. * Once potassium and other electrolytes normalize, reassess for resolution of syncopal episodes. * Coordinate with the patient?s primary care and/or specialists for further outpatient follow-up. * * Rounded on patient after nurse practitioner. Personally examined and interviewed patient. Agree with exam findings and care plan as documented.
[2024-08-08] MEDS: LACTATED RINGERS 1000ML 1,000 ML 125 ML IV (23:30)
[2024-08-09] VITALS: BP 99/64; PULSE 79; PULSE 88; RESP 16; TEMP 36.8; O2SAT 97
[2024-08-09] MEDS: POTASSIUM CHLORIDE 20MEQ TAB 40 MEQ PO ×3 (01:54→13:11)
[2024-08-09] MEDS: LACTATED RINGERS 1000ML 1,000 ML 125 ML IV ×2 (03:42→08:23)
[2024-08-09 04:00] VITALS: BP 112/47; PULSE 73; PULSE 82; RESP 16; TEMP 36.5; O2SAT 99; BMI 21.9
--- NOTE | 2024-08-09 04:52 | PC.NURSE ---
Pt. was admitted from the ED last night. Pt. was having syncopal episodes at home over the last couple of day. Pt. admitted Potassium level was 1.8. Potassium replacements started. Pt. is alert and orientated x 4. pt. on room air. When patient had last syncopal episode she hit head on had a small laceration that has one staple on the right side of the head. top of head. Pt. also c/o right foot pain. top of right foot bruised and slight swelling noted. tomas wrap to right foot for comfort. Pt. ambulated to bathroom with assistance. No syncopal episodes when ambulating with assistance. VSS. Personal items and call diane in reach.
[2024-08-09 07:29] LABS: Basophils # 0.1 K/mm3 (0-0.2); Basophils % 0.7 % (0.1-2.0); Eosinophils # 0.1 K/mm3 (0.0-0.4); Eosinophils % 0.9 % (0.1-12.0); Hematocrit 33.2 % (37.0-47.0); Lymphocytes # 1.5 K/mm3 (0.7-4.5); Lymphocytes % 19.2 % (10-50); Mean Corpuscular HGB Conc 30.4 g/dL (31.8-35.4); Mean Corpuscular Hemoglobin 23.4 pg (27.0-31.2); Mean Platelet Volume 9.2 fl (7.4-10.4); Monocytes # 0.8 K/mm3 (0.1-1.0); Monocytes % 10.4 % (1.7-9.3); Neutrophils # 5.2 K/mm3 (1.8-7.8); Neutrophils % 68.3 % (37.0-80.0); Platelet Count 380 K/mm3 (142-424); Red Blood Count 4.31 M/mm3 (4.20-5.40); Red Cell Distribution Width 16.3 % (11.5-17.5); White Blood Count 7.7 K/mm3 (4.8-10.8)
--- NOTE | 2024-08-09 07:38 | HMH.PHAINT1 ---
Pharmacy Intervention Comments: HOME MEDICATION VERIFIED USING LIST FROM OUTPATIENT PHARMACY
[2024-08-09 07:48] LABS: Albumin Level 3.2 g/dl (3.5-5.0); Chloride 100 mmol/L (98-107); Sodium 139 mmol/L (136-145)
[2024-08-09 07:51] LABS: Alanine Aminotransferase 15 U/L (12-78); Albumin/Globulin Ratio 1.3 (1.1-1.8); Alkaline Phosphatase 59 U/L (38-126); Anion Gap 10.6 mEq/L (5-15); Aspartate Amino Transferase 32 U/L (14-36); Bilirubin,Total 0.3 mg/dl (0.2-1.3); Blood Urea Nitrogen 17 mg/dl (7-17); Calcium 8.3 mg/dl (8.4-10.2); Carbon Dioxide 31 mmol/L (22.0-30.0); Creatinine Clearance Estimated 50 mL/min (50-200); Estimated Glomerular Filt Rate 43 ml/min (>60); GFR (African American) 52 ML/MIN (>60); Globulin 2.5 g/dL (1.3-3.2); Glucose 126 mg/dl (74-100); Magnesium 2.1 mg/dl (1.6-2.3); Total Protein,Serum 5.7 g/dl (6.3-8.2)
[2024-08-09 07:57] LABS: Hemoglobin 10.3 g/dL (12.2-16.2)
[2024-08-09 07:58] LABS: Potassium 2.6 mmoL/L (3.5-5.1)
[2024-08-09 08:00] VITALS: BP 104/54; PULSE 77; PULSE 90; RESP 17; TEMP 36.8; O2SAT 98
[2024-08-09] MEDS: KCl 20mEq/100ml 100 ML 50 MEQ IV ×2 (09:49→13:06)
[2024-08-09 11:53] VITALS: BP 128/65; PULSE 85; RESP 18; TEMP 36.9; O2SAT 97
[2024-08-09 12:00] VITALS: PULSE 80
[2024-08-09 15:48] LABS: Chloride 101 mmol/L (98-107); Potassium 3.3 mmoL/L (3.5-5.1); Sodium 136 mmol/L (136-145)
[2024-08-09 15:51] LABS: Blood Urea Nitrogen 16 mg/dl (7-17); Creatinine Clearance Estimated 60 mL/min (50-200); Estimated Glomerular Filt Rate 53 ml/min (>60); GFR (African American) 64 ML/MIN (>60)
[2024-08-09 15:52] LABS: Anion Gap 9.3 mEq/L (5-15); Calcium 8.1 mg/dl (8.4-10.2); Carbon Dioxide 29 mmol/L (22.0-30.0); Glucose 102 mg/dl (74-100)
[2024-08-09 16:00] VITALS: PULSE 80
--- NOTE | 2024-08-09 16:10 | P.DS_ITS ---
General Admission date:: 08/08/24 Discharge date: 08/09/24 HPI HPI HPI: The patient is a 48-year-old female with a medical history significant for hypertension, mood disorders (on multiple antidepressants), anxiety, GERD, chronic pain, muscle spasms, migraines, and neuropathy. She presents after experiencing two episodes of loss of consciousness over the past two days. She reports that yesterday she passed out shortly after standing, attributing it to getting up too quickly. Today, around 1:30 PM, she purposely waited before standing to avoid another spell, but she again lost consciousness and fell, resulting in right foot pain. Her home medications include amlodipine, chlorthalidone, bupropion, duloxetine, lorazepam 3 times daily, nortriptyline, omeprazole, trazodone, diclofenac, gabapentin (extended release), baclofen (as needed), erenumab (monthly injections), and potassium chloride supplement. She denies any new medication changes or missed doses. On evaluation in the ER, her laboratory results were notable for severe hypokalemia (K 1.8), mild hyponatremia (Na 133), elevated creatinine (1.40) with an estimated GFR of 40, and a D-dimer of 1.61. The patient?s hemoglobin was 11.9, platelets were 500, and urinalysis was negative. Imaging, including a chest X-ray and right foot X-ray, was negative for acute findings. Given her presentation with syncope and the significant electrolyte deran gements, especially the very low potassium, a primary concern is that the hypokalemia may be contributing to her episodes of loss of consciousness (possibly through arrhythmias or low blood pressure). In addition, she is on chlorthalidone, a diuretic that can exacerbate or precipitate significant hypokalemia. Her mild renal impairment (GFR 40) may also predispose her to electrolyte imbalances. Additional concern is polypharmacy contributing factor. The elevated D-dimer raises concern for possible thromboembolic processes, but no other clinical or imaging evidence currently suggests acute PE or DVT; however, this will be closely monitored given her recent syncope and elevated platelet count. No acute bony injury or cardiopulmonary abnormality has been identified on imaging. Hospital Course Hospital Course Hospital Course: The patient presents with syncope likely secondary to severe hypokalemia (potassium 1.8) in the setting of polypharmacy and chronic medical conditions. Her hypokalemia is likely exacerbated by chlorthalidone use, contributing to potassium wasting. Additionally, her extensive medication regimen raises concern for potential drug interactions or hypotensive effects contributing to her presentation. Initial management includes IV potassium replacement with cardiac monitoring, discontinuation of chlorthalidone to prevent further potassium losses, and a thorough medication review to reduce polypharmacy-related risks. Close monitoring of electrolytes, renal function, and blood pressure is essential to guide further interventions and prevent recurrence. Electrolytes aggressively replaced. Patient showed good response. Improved levels with almost normal potassium prior to discharge home. Stable discharge with continued treatment as an outpatient with supplementation and needs close follow-up with primary care for further management. Syncope likely secondary to severe hypokalemia -Blood pressures improved during admission. Maintaining stable blood pressure prior to discharge. Initially treated with IV fluids, de-escalated as patient was tolerating p.o. intake. No further dizziness. Symptoms improved with electrolyte replacement. Was monitored on telemetry due to electrolyte disturbances. Replaced both IV and oral. Potassium improved significantly to above 3 with normal magnesium prior to discharge. Recommend continuing supplementation with 40 mEq twice daily. Needs repeat labs in 1 week. Reevaluate blood pressure regimen at follow-up with PCP. No arrhythmias noted on EKG. Polypharmacy * The patient?s extensive medication regimen may contribute to syncope via hypotension, sedation, or drug interactions. Consider tapering or disc ontinuing non-essential medications to reduce risk of further episodes. Laceration to the Head Right foot injury/pain -Sustained laceration from fall. Received 1 staple. Needs staple removed in 7 to 10 days. X-ray of foot was negative for fracture. Recommend RICE therapy (rest, ice, compression, elevation). Follow-up as outpatient. Mild Renal Insufficiency (Creatinine 1.40, GFR 40): Potassium improved to 3.3, kidney function improved to BUN 16, creatinine 1.1 with electrolyte replacement and gentle fluid rehydration Total time spent on discharge 32 minutes in counseling, documentation, chart review, and direct care with patient. Exam Data for Last 24 hours Vital signs and Labs for Last 24 Hours: Temp Pulse Resp BP Pulse Ox O2 Del Method 98.5 F 80 18 128/65 97 Room Air 08/09/24 11:53 08/09/24 12:00 08/09/24 11:53 08/09/24 11:53 08/09/24 11:53 08/09/24 11:53 Laboratory Results - last 24 hr 08/08/24 17:21: WBC 10.5, RBC 5.05, Hgb 11.9 L, Hct 38.0, MCV 75.2 L, MCH 23.6 L , MCHC 31.3 L, RDW 15.9, Plt Count 500 H, MPV 8.8, Neut % (Auto) 73.0, Lymph % (Auto) 18.2, [place] % (Auto) 7.1, Eos % (Auto) 0.3, Baso % (Auto) 0.7, Neut # (Auto) 7.7, Lymph # (Auto) 1.9, [place] # (Auto) 0.7, Eos # (Auto) 0.0, Baso # (Auto) 0.1, D-Dimer 1.61 H, Sodium 133 L, Potassium 1.8 L*, Chloride 87 L, Carbon Dioxide 34 H, Anion Gap 13.8, BUN 14, Creatinine 1.40 H, Estimated Creat Clear 48, Estimated GFR 40 L, Est GFR ( Amer) 48 L, Glucose 109 H, Calcium 9.8, Magnesium 2.2, Total Bilirubin 0.6, AST 35, ALT 18, Alkaline Phosphatase 79, Troponin I < 0.01, Total Protein 8.0, Albumin 4.8, Globulin 3.2, Albumin/Globulin Ratio 1.5, HCV Ab KELECHI w/Rflx PCR Qn Negative, HIV Ag/Ab Combo Qual Negative 08/08/24 21:10: Sodium 134 L, Potassium 1.9 L*, Chloride 89 L, Carbon Dioxide 32 H, Anion Gap 14.9, BUN 14, Creatinine 1.50 H, Estimated Creat Clear 45, Estimated GFR 37 L, Est GFR ( Amer) 44 L, Glucose 123 H, Calcium 8.9, Troponin I < 0.01 08/09/24 06:55: WBC 7.7 D, RBC 4.31, Hgb 10.3 L D, Hct 33.2 L, MCV 77.0 L, MCH 23.4 L, MCHC 30.4 L, RDW 16.3, Plt Count 380, MPV 9.2, Neut % (Auto) 68.3, Lymph % (Auto) 19.2, [place] % (Auto) 10.4 H, Eos % (Auto) 0.9, Baso % (Auto) 0.7, Neut # (Auto) 5.2, Lymph # (Auto) 1.5, [place] # (Auto) 0.8, Eos # (Auto) 0.1, Baso # (Auto) 0.1, Sodium 139, Potassium 2.6 L* D, Chloride 100, Carbon Dioxide 31 H, Anion Gap 10.6, BUN 17, Creatinine 1.30 H, Estimated Creat Clear 50, Estimated GFR 43 L, Est GFR ( Amer) 52 L, Glucose 126 H, Calcium 8.3 L, Magnesium 2.1, Total Bilirubin 0.3, AST 32, ALT 15, Alkaline Phosphatase 59, Total Protein 5.7 L D, Albumin 3.2 L D, Globulin 2.5, Albumin/Globulin Ratio 1.3 08/09/24 15:13: Sodium 136, Potassium 3.3 L D, Chloride 101, Carbon Dioxide 29, Anion Gap 9.3, BUN 16, Creatinine 1.10 H, Estimated Creat Clear 60, Estimated GFR 53 L, Est GFR ( Amer) 64 D, Glucose 102 H, Calcium 8.1 L I & O for Last 24 hours: Intake & Output 08/06/24 08/07/24 08/08/24 08/09/24 23:59 23:59 23:59 23:59 Intake Total 1624 / 1624 Output Total 0 / 0 0 / 0 Balance 0 / 1324 1624 / 1624 Weight 57.969 kg 61.779 kg Constitutional Constitutional: no acute distress, thin, chronically ill appearing and cooperative *Routine HEENT Exam Head: Present normocephalic Eye: Present EOMI and PERRL ENT: Present mucous membranes moist *Routine Neck Exam Neck: Present supple; Absent lymphadenopathy *Routine Respiratory Exam Respiratory: Present CTA bilaterally; Absent rhonchi, wheezes or crackles *Routine Cardiovascular Exam Cardiovascular: Present RRR *Routine Abdominal Exam Abdominal: Present soft and normoactive bowel sounds; Absent tenderness *Routine Rectal Exam Patient deferred: visual exam *Routine Exam Patient deferred: external exam *Routine Extremities Exam Extremities: Absent cyanosis, clubbing or edema *Routine Skin Exam Skin: Present warm; Absent rash *Routine Neurological Exam Neurological: Present alert, oriented X3 and moving all extremities; Absent altered mental status Results Data Completed and Pending Labs on day of discharge: Labs from last 24 hours 08/09/24 08/09/24 08/08/24 15:13 06:55 21:10 WBC 7.7 D RBC 4.31 Hgb 10.3 L D Hct 33.2 L MCV 77.0 L MCH 23.4 L MCHC 30.4 L RDW 16.3 Plt Count 380 MPV 9.2 Neut % (Auto) 68.3 Lymph % (Auto) 19.2 [place] % (Auto) 10.4 H Eos % (Auto) 0.9 Baso % (Auto) 0.7 Neut # (Auto) 5.2 Lymph # (Auto) 1.5 [place] # (Auto) 0.8 Eos # (Auto) 0.1 Baso # (Auto) 0.1 D-Dimer Sodium 136 139 134 L Potassium 3.3 L D 2.6 L* D 1.9 L* Chloride 101 100 89 L Carbon Dioxide 29 31 H 32 H Anion Gap 9.3 10.6 14.9 BUN 16 17 14 Creatinine 1.10 H 1.30 H 1.50 H Estimated Creat Clear 60 50 45 Estimated GFR 53 L 43 L 37 L Est GFR ( Amer) 64 D 52 L 44 L Glucose 102 H 126 H 123 H Calcium 8.1 L 8.3 L 8.9 Magnesium 2.1 Total Bilirubin 0.3 AST 32 ALT 15 Alkaline Phosphatase 59 Troponin I < 0.01 Total Protein 5.7 L D Albumin 3.2 L D Globulin 2.5 Albumin/Globulin Ratio 1.3 HCV Ab KELECHI w/Rflx PCR Qn HIV Ag/Ab Combo Qual 08/08/24 17:21 WBC 10.5 RBC 5.05 Hgb 11.9 L Hct 38.0 MCV 75.2 L MCH 23.6 L MCHC 31.3 L RDW 15.9 Plt Count 500 H MPV 8.8 Neut % (Auto) 73.0 Lymph % (Auto) 18.2 [place] % (Auto) 7.1 Eos % (Auto) 0.3 Baso % (Auto) 0.7 Neut # (Auto) 7.7 Lymph # (Auto) 1.9 [place] # (Auto) 0.7 Eos # (Auto) 0.0 Baso # (Auto) 0.1 D-Dimer 1.61 H Sodium 133 L Potassium 1.8 L* Chloride 87 L Carbon Dioxide 34 H Anion Gap 13.8 BUN 14 Creatinine 1.40 H Estimated Creat Clear 48 Estimated GFR 40 L Est GFR ( Amer) 48 L Glucose 109 H Calcium 9.8 Magnesium 2.2 Total Bilirubin 0.6 AST 35 ALT 18 Alkaline Phosphatase 79 Troponin I < 0.01 Total Protein 8.0 Albumin 4.8 Globulin 3.2 Albumin/Globulin Ratio 1.5 HCV Ab KELECHI w/Rflx PCR Qn Negative HIV Ag/Ab Combo Qual Negative DS: Diagnosis Discharge Diagnosis (1) Hypokalemia: Status: Acute Code(s): E87.6 - Hypokalemia (2) Multiple falls: Status: Acute Code(s): R29.6 - Repeated falls (3) Syncope and collapse: Status: Acute Code(s): R55 - Syncope and collapse (4) At risk for polypharmacy: Status: Acute Code(s): Z91.89 - Other specified personal risk factors, not elsewhere classified Meds Home Medications and Allergies Home Medications ?Medication ?Instructions ?Recorded ?Confirmed ?Type amlodipine 2.5 mg tablet 2.5 mg PO DAILY 10/03/17 08/08/24 History bupropion HCl 150 mg tablet,12 hr 150 tab PO BID 10/03/17 08/08/24 History sustained-release chlorthalidone 50 mg tablet 50 mg PO DAILY 10/03/17 08/08/24 History duloxetine 60 mg capsule,delayed 60 mg PO DAILY 10/03/17 08/08/24 History release lorazepam 1 mg tablet 1 mg PO TIDP PRN Anxiety 10/03/17 08/08/24 History nortriptyline 10 mg capsule 10 - 20 mg PO HS 10/03/17 08/09/24 History trazodone 100 mg tablet 100 mg PO HS 10/03/17 08/08/24 History gabapentin 600 mg tablet,extended 600 mg PO DAILY 10/04/17 08/08/24 History release 24 hr baclofen 10 mg tablet 10 mg PO QIDP PRN muscle spasms 02/16/20 08/08/24 History diclofenac sodium 50 mg 1 mg PO BID 08/09/24 08/09/24 History tablet,delayed release erenumab-aooe 140 mg/mL 140 mg SQ MONTHLY 08/09/24 08/09/24 History subcutaneous auto-injector (Aimovig Autoinjector) estradiol-norethindrone acet 1 1 tab PO DAILY 08/09/24 08/09/24 History mg-0.5 mg tablet pantoprazole 40 mg tablet,delayed 40 mg PO DAILY 08/09/24 08/09/24 History release potassium chloride 20 mEq 40 meq (2 x 20 mEq) PO BID 30 days 08/09/24 Rx tablet,extended #120 tabs release(part/cryst) (Klor-Con M) ubrogepant 100 mg tablet (Ubrelvy) 100 mg PO DAILYP PRN Migraine 08/09/24 08/09/24 History Headache zolpidem 5 mg tablet 5 mg PO HSP PRN Insomnia 08/09/24 08/09/24 History New Prescriptions to Start Prescriptions: potassium chloride [Klor-Con M20] John Dong Allergies Allergy/AdvReac Type Severity Reaction Status Date / Time No Known Allergies Allergy Verified 05/24/24 17:14 Discharge Plan Disposition Patient Disposition: Home, Self-Care Condition: Fair Discharge Order Discharge Orders: Discharge Order (Routine); Ordered 08/09/24 Ordered By: John Dong Follow up Plan Follow up with: Beth (ED)Racheal APRN [Nurse Practitioner] - 08/16/24 9:00 am Prescriptions/Medication Reconciliation: New potassium chloride [Klor-Con M20] 20 mEq Tablet,Er Particles/Crystals 40 meq PO BID 30 Days Qty: 120 0RF Continued bupropion HCl 150 MG tablet 150 tab PO BID amlodipine 2.5 MG tablet 2.5 mg PO DAILY Patient Comments: chlorthalidone 50 MG tablet 50 mg PO DAILY Patient Comments: trazodone 100 MG tablet 100 mg PO HS Patient Comments: nortriptyline 10 MG capsule 10 - 20 mg PO HS Patient Comments: lorazepam 1 MG tablet 1 mg PO TIDP PRN (Reason: Anxiety) Patient Comments: duloxetine 60 MG capsule,delayed release(DR/EC) 60 mg PO DAILY Patient Comments: gabapentin 600 MG tablet extended release 24 hr 600 mg PO DAILY baclofen 10 MG tablet 10 mg PO QIDP PRN (Reason: muscle spasms) estradiol-norethindrone acet 1-0.5 mg tablet 1 tab PO DAILY Patient Comments: TAKE 1 TABLET BY MOUTH ONCE DAILY pantoprazole 40 mg tablet,delayed release (DR/EC) 40 mg PO DAILY Patient Comments: TAKE 1 TABLET BY MOUTH ONCE DAILY diclofenac sodium 50 mg tablet,delayed release (DR/EC) 1 mg PO BID Patient Comments: TAKE 1 TABLET BY MOUTH TWICE DAILY zolpidem 5 mg tablet 5 mg PO HSP PRN (Reason: Insomnia) Aimovig Autoinjector 140 mg/mL auto-injector 140 mg SQ MONTHLY Patient Comments: USE DIRECTED INJECT AUTOINJECTOR SUBCUTANEOUSLY ONCE MONTHLY Ubrelvy 100 mg tablet 100 mg PO DAILYP PRN (Reason: Migraine Headache) Patient Comments: TAKE 1 TABLET BY MOUTH ONCE DAILY NEEDED Problem Reconciliation Problems Reviewed?: Yes Patient Discharge Instructions ACTIVITY: Continue current activity DIET: continue same diet Patient Instructions: DI for Hypokalemia Print Language: Cam[place] Providers Primary Care Provider: Racheal Campos Admit Provider: John Dong Attending Provider: John Dong
--- NOTE | 2024-08-11 10:26 | SW/DCPLANNER ---
Phoned patient x2. Left message with call back number each time. Gary Persaud
--- NOTE | 2024-08-16 01:09 | HMH.EDGENADL ---
Discharge Plan Disposition Patient Disposition: Admitted Condition: Fair Clinical Impressions Clinical Impression: Hypokalemia Discharge ED Provider: Pérez Reese Adult HPI General Chief complaint: Syncope Stated complaint: ao R foot pain head lac Time Seen by Provider: 08/08/24 16:49 Mode of Arrival: Wheelchair Source of Information: Patient and Medical Record Limitations: No Limitations Description of Symptoms (Recalled from ER Triage Doc. by RN): Pt sent over from [facility] d/t multiple syncopal events that have resulted in multiple falls t/o this week. Pt head the top R side of head and there is an open small laceration, bleeding controlled. Pt currently c/o headache and R foot pain. States she also has hx of low potassium and sodium. History of Present Illness HPI narrative: Patient presents from urgent treatment center with complaint of multiple syncopal episodes that occurred over the past week. Most recent episode today resulting and occipital scalp laceration. Patient does report history of similar symptoms associated with electrolyte abnormalities however is unclear of precipitants in the past. She has otherwise been in her normal state of health with no associated palpitations, dyspnea, nausea, vomiting, or abdominal pain. She does report associated ankle pain but has been able to bear weight. No previous therapies. Please note that above description of symptoms, in this electronic medical record under categorization of recalled from ER triage doctor by RN are reflective of an initial nursing assessment, however, is not reflective of my full history and physical exam that was personally taken and clarified. Consequentially, this preceding description of symptoms, which may include the patient's categorized chief complaint in the EMR, do not reflect my personal clinical impression, and the ultimate description of history of present illness and patient stated complaints should be deferred to this section of the note. Unless stated otherwise or congruent with this section of the note, additional signs, symptoms, or incongruence should be interpreted as inaccurate with my clinical impression. Related Data Home Medications ?Medication ?Instructions ?Recorded ?Confirmed amlodipine 2.5 mg tablet 2.5 mg PO DAILY 10/03/17 08/08/24 bupropion HCl 150 mg tablet,12 hr 150 tab PO BID 10/03/17 08/08/24 sustained-release chlorthalidone 50 mg tablet 50 mg PO DAILY 10/03/17 08/08/24 duloxetine 60 mg capsule,delayed 60 mg PO DAILY 10/03/17 08/08/24 release lorazepam 1 mg tablet 1 mg PO TIDP PRN Anxiety 10/03/17 08/08/24 nortriptyline 10 mg capsule 10 - 20 mg PO HS 10/03/17 08/09/24 trazodone 100 mg tablet 100 mg PO HS 10/03/17 08/08/24 gabapentin 600 mg tablet,extended 600 mg PO DAILY 10/04/17 08/08/24 release 24 hr baclofen 10 mg tablet 10 mg PO QIDP PRN muscle spasms 02/16/20 08/08/24 diclofenac sodium 50 mg 1 mg PO BID 08/09/24 08/09/24 tablet,delayed release erenumab-aooe 140 mg/mL 140 mg SQ MONTHLY 08/09/24 08/09/24 subcutaneous auto-injector (Aimovig Autoinjector) estradiol-norethindrone acet 1 1 tab PO DAILY 08/09/24 08/09/24 mg-0.5 mg tablet pantoprazole 40 mg tablet,delayed 40 mg PO DAILY 08/09/24 08/09/24 release ubrogepant 100 mg tablet (Ubrelvy) 100 mg PO DAILYP PRN Migraine 08/09/24 08/09/24 Headache zolpidem 5 mg tablet 5 mg PO HSP PRN Insomnia 08/09/24 08/09/24 Previous Rx's ?Medication ?Instructions ?Recorded potassium chloride 20 mEq 40 meq (2 x 20 mEq) PO BID 30 days 08/09/24 tablet,extended #120 tabs release(part/cryst) (Klor-Con M) Allergies Allergy/AdvReac Type Severity Reaction Status Date / Time No Known Allergies Allergy Verified 05/24/24 17:14 [facility] Disclaimer: The information contained in this section may have been updated after the patient was seen, as this information can be updated by other users. Social History (Updated 08/08/24 @ 22:34 by Maisha Brown RN) Smoking Status: Never smoker alcohol intake: never current occupational status: disabled and other Travel in the last 8 weeks: None household members: spouse and children housing: house caffeine: No Have you lived/traveled outside [place] in past 30 days?: No Contact w/someone who lives/traveled outside [place] past 30 days?: No Exposure to someone with infectious disease in past 14 days?: No Do you have a fever (greater than 100.4 F or 38 C)?: No Have you tested positive for COVID-19: No Exposed to someone with COVID-19 in past 14 days?: No Do you have a sore throat?: No Do you have a cough?: No Do you have any weakness?: No Are you experiencing any nausea/vomitting?: No Do you have any diarrhea?: No Are you experiencing any unusual bleeding?: No Do you have any muscle aches/pain?: No Do you have any abdominal pain?: No Are you experiencing loss of taste or smell?: No Other Medical History Have you received the Flu Vaccine for this season: No Have you received the Pneumonia Vaccine: No ROS Obtained: Yes other As per HPI Physical Exam General General appearance: alert and in no apparent distress Head Head exam: atraumatic and normocephalic Eye Eye exam: Present normal appearance Neck Neck exam: Present normal inspection Chest Chest inspection: Present normal inspection and symmetric chest wall rise Respiratory Respiratory exam: Present normal lung sounds bilaterally; Absent respiratory distress Cardiovascular Cardiovascular exam: Present regular rate and normal rhythm Abdominal Exam Abdominal exam: Present soft Neurological Exam Neurological exam: Present alert and oriented X3 Psychiatric Psychiatric exam: Present normal affect and normal mood Skin Skin exam: Present warm and dry Medical Decision Making Medical Records Medical records reviewed: Yes I reviewed the patient's medical records. Screening: Per USPSTF and CDC recommendations, given the prevalence of disease in our region, it is our hospital?s policy to screen for HIV and viral Hepatitis for all patients aged 18 and over and those with ongoing risk factors. Murali Inquiry Pt receiving controlled substance: No Vital Signs: 08/08/24 17:20 08/08/24 20:27 Temperature 97.9 F 98.7 F Temperature Source Oral Pulse Rate 86 Pulse Rate [Right] 75 Respiratory Rate 17 20 Blood Pressure 131/81 Blood Pressure [Right Arm] 131/69 Blood Pressure Mean [Right Arm] 89 Blood Pressure Source [Right Arm] Automatic Cuff 02 Sat by Pulse Oximetry 98 Oxygen Delivery Method Room Air Room Air Lab Data Lab Results 08/08/24 17:21: WBC 10.5, RBC 5.05, Hgb 11.9 L, Hct 38.0, MCV 75.2 L, MCH 23.6 L, MCHC 31.3 L, RDW 15.9, Plt Count 500 H, MPV 8.8, Neut % (Auto) 73.0, Lymph % (Auto) 18.2, [place] % (Auto) 7.1, Eos % (Auto) 0.3, Baso % (Auto) 0.7, Neut # (Auto) 7.7, Lymph # (Auto) 1.9, [place] # (Auto) 0.7, Eos # (Auto) 0.0, Baso # (Auto) 0.1, D-Dimer 1.61 H, Sodium 133 L, Potassium 1.8 L*, Chloride 87 L, Carbon Dioxide 34 H, Anion Gap 13.8, BUN 14, Creatinine 1.40 H, Estimated Creat Clear 48, Estimated GFR 40 L, Est GFR ( Amer) 48 L, Glucose 109 H, Calcium 9.8, Magnesium 2.2, Total Bilirubin 0.6, AST 35, ALT 18, Alkaline Phosphatase 79, Troponin I < 0.01, Total Protein 8.0, Albumin 4.8, Globulin 3.2, Albumin/Globulin Ratio 1.5, HCV Ab KELECHI w/Rflx PCR Qn Negative, HIV Ag/Ab Combo Qual Negative 08/09/24 06:55 08/09/24 15:13 Orders (Tests/Meds): ED MEDICATIONS Discontinued Medications Generic Name Dose Route Start Last Admin Trade Name Freq PRN Reason Stop Dose Admin Potassium Chloride/Water 100 mls @ 50 mls/hr 08/08/24 18:21 08/08/24 23:35 Potassium Chloride 20meq/100ml Ivpb IV 08/09/24 00:20 50 mls/hr Q2H JULITO Administration Lactated Ringer's 1,000 mls @ 125 mls/hr 08/08/24 19:00 08/09/24 11:20 Lactated Ringer's 1000 Ml Bag IV 09/07/24 18:59 Not Given .Q8H JULITO Potassium Chloride/Water 100 mls @ 50 mls/hr 08/09/24 09:28 08/09/24 13:06 Potassium Chloride 20meq/100ml Ivpb IV 08/09/24 13:27 50 mls/hr Q2H JULITO Administration Ketorolac Tromethamine 15 mg 08/08/24 17:44 08/08/24 18:21 Ketorolac 30mg/Ml Vial IV 08/08/24 17:45 15 mg ONCE ONE Administration Potassium Chloride 40 meq 08/08/24 18:45 08/09/24 13:11 Potassium Chloride 20meq Tab PO 08/10/24 00:46 40 meq Q6H JULITO Administration Sodium Chloride 10 ml 08/09/24 10:47 Sodium Chloride 0.9% 10ml Flush Syringe IV 09/08/24 10:46 NEEDED PRN Maintain IV Site Tetanus/Reduced Diphtheria/Acell Pertussis 0.5 ml 08/08/24 17:44 08/08/24 18:18 Tet/Diphth/Pert-Adult 0.5ml Syringe IM 08/08/24 17:45 0.5 ml .ONCE ONE Administration ORDERS Category Date Time Status Foot XR right minimum 3 views [XR foot RT min 3V] Stat Exams 08/08/24 16:28 Completed XR chest portable Stat Exams 08/08/24 17:45 Completed Basic Metabolic Panel Routine Lab 08/08/24 21:10 Completed CBC w/Auto Diff [Complete Blood Count Auto Diff] Stat Lab 08/08/24 17:21 Completed CMP [Comprehensive Metabolic Panel] Stat Lab 08/08/24 17:21 Completed Complete Blood Count Auto Diff AMLAB Lab 08/09/24 06:55 Completed Comprehensive Metabolic Panel AMLAB Lab 08/09/24 06:55 Completed D-Dimer Stat Lab 08/08/24 17:21 Completed HIV Combo Stat Lab 08/08/24 17:21 Completed Hepatitis C Ab Qual. W/ RFX Stat Lab 08/08/24 17:21 Completed MAG [Magnesium] Stat Lab 08/08/24 17:21 Completed Magnesium AMLAB Lab 08/09/24 06:55 Completed Troponin I Q3H Lab 08/08/24 17:21 Completed Troponin I Q3H Lab 08/08/24 21:10 Completed Medical Decision Narrative: Patient with history and exam per above presenting for evaluation of syncope, ankle pain Diagnoses considered include fracture, sprain, strain, arrhythmia, ACS, electrolyte abnormality, among others ED workup and treatment included: ED MEDICATIONS Discontinued Medications Generic Name Dose Route Start Last Admin Trade Name Freq PRN Reason Stop Dose Admin Potassium Chloride/Water 100 mls @ 50 mls/hr 08/08/24 18:21 08/08/24 23:35 Potassium Chloride 20meq/100ml Ivpb IV 08/09/24 00:20 50 mls/hr Q2H JULITO Administration Lactated Ringer's 1,000 mls @ 125 mls/hr 08/08/24 19:00 08/09/24 11:20 Lactated Ringer's 1000 Ml Bag IV 09/07/24 18:59 Not Given .Q8H JULITO Potassium Chloride/Water 100 mls @ 50 mls/hr 08/09/24 09:28 08/09/24 13:06 Potassium Chloride 20meq/100ml Ivpb IV 08/09/24 13:27 50 mls/hr Q2H JULITO Administration Ketorolac Tromethamine 15 mg 08/08/24 17:44 08/08/24 18:21 Ketorolac 30mg/Ml Vial IV 08/08/24 17:45 15 mg ONCE ONE Administration Potassium Chloride 40 meq 08/08/24 18:45 08/09/24 13:11 Potassium Chloride 20meq Tab PO 08/10/24 00:46 40 meq Q6H JULITO Administration Sodium Chloride 10 ml 08/09/24 10:47 Sodium Chloride 0.9% 10ml Flush Syringe IV 09/08/24 10:46 NEEDED PRN Maintain IV Site Tetanus/Reduced Diphtheria/Acell Pertussis 0.5 ml 08/08/24 17:44 08/08/24 18:18 Tet/Diphth/Pert-Adult 0.5ml Syringe IM 08/08/24 17:45 0.5 ml .ONCE ONE Administration ORDERS Category Date Time Status Foot XR right minimum 3 views [XR foot RT min 3V] Stat Exams 08/08/24 16:28 Completed XR chest portable Stat Exams 08/08/24 17:45 Completed Basic Metabolic Panel Routine Lab 08/08/24 21:10 Completed CBC w/Auto Diff [Complete Blood Count Auto Diff] Stat Lab 08/08/24 17:21 Completed CMP [Comprehensive Metabolic Panel] Stat Lab 08/08/24 17:21 Completed Complete Blood Count Auto Diff AMLAB Lab 08/09/24 06:55 Completed Comprehensive Metabolic Panel AMLAB Lab 08/09/24 06:55 Completed D-Dimer Stat Lab 08/08/24 17:21 Completed HIV Combo Stat Lab 08/08/24 17:21 Completed Hepatitis C Ab Qual. W/ RFX Stat Lab 08/08/24 17:21 Completed MAG [Magnesium] Stat Lab 08/08/24 17:21 Completed Magnesium AMLAB Lab 01/27/25 06:55 Completed Troponin I Q3H Lab 08/08/24 17:21 Completed Troponin I Q3H Lab 08/08/24 21:10 Completed Labs were independently interpreted by me, significant for hypokalemia, magnesium within normal limits Imaging was independently visualized and interpreted by me, significant for no fracture Please refer to radiology report for full details. Patient's laceration was repaired with staple. She will benefit from admission for further repletion of symptomatic hypokalemia. She was accepted for admission by hospitalist. Procedures Laceration Laceration 1: Site: scalp Side (If applicable): right Size (cm): 1 Description: linear Depth: simple, single layer Pre-repair: deep structures intact Skin layer closed with: other (1 Stable) Critical Care Critical Care Time Critical Care Time: No
== END 2024-08-09 17:29 | disposition home or self-care (01) | DRG 983 ==
LOC: UTC 16:24 → ER 17:09 → 2ND 22:21
PROVIDERS: Admitting Provider Internal Medicine Adolescent Medicine; Emergency Provider Emergency Medicine; PCP Nurse Practitioner; Visit Provider Internal Medicine Adolescent Medicine
DX: E87.6 Hypokalemia (principal); T50.2X5A Adverse effect of carbonic-anhydrase inhibitors, benzothiadiazides and other diuretics, initial encounter; R29.6 Repeated falls; Z79.899 Other long term (current) drug therapy; D50.9 Iron deficiency anemia, unspecified; I10 Essential (primary) hypertension; K21.9 Gastro-esophageal reflux disease without esophagitis; S01.91XA Laceration without foreign body of unspecified part of head, initial encounter; G43.909 Migraine, unspecified, not intractable, without status migrainosus; M79.671 Pain in right foot; F39 Unspecified mood [affective] disorder; Y92.019 Unspecified place in single-family (private) house as the place of occurrence of the external cause; W01.0XXA Fall on same level from slipping, tripping and stumbling without subsequent striking against object, initial encounter; N28.9 Disorder of kidney and ureter, unspecified
CPT/HCPCS: 36415; 71045; 73630; 80048; 80053; 83735; 84484; 85025; 85378; 86803; 87389; 90715; 93005; 99285; J1885; J7120

== ENCOUNTER 2024-09-09 10:37 | Outpatient (CLI) | payer MEDICARE, SELFPAY ==
[2024-09-09] VITALS (8 sets, daily range): BP systolic 110–149; BP diastolic 57–80; PULSE 75–89; RESP 14–18; TEMP 36.6–36.7; O2SAT 98–100; BMI 20.1
[2024-09-09 12:21] LABS: Potassium 1.6 mmoL/L (3.5-5.1)
[2024-09-09] MEDS: 0.9% NaCl w/40mEq KCL 1,000 ML 250 ML IV (12:23)
[2024-09-09] MEDS: 0.9 % SODIUM CHLORIDE 50 ML IV (12:23)
[2024-09-09] MEDS: SODIUM CHLORIDE 0.9% 10ML FLUSH SYRINGE 10 ML IV (12:23)
--- NOTE | 2024-09-09 14:02 | PC.NURSE ---
1225 Spoke with ED/Yue Moncada RN regarding order for patient to be evaluated in ED for potassium 1.6. Informed patient receiving NS with 40mEq potassium IV as ordered per Racheal Campos APRN/ patient currently on rn cardiac with NSR/rates 80's regular. Patient denies chest pain/discomfort. Patient is extremely generally weak Patient does report occasional heart racing at home but none present at this time or since arrival to infusion department. Resp easy/regular. Patient A&Ox3. Informed per EUNICE Bolden /Oral Sigala RNdesk clerks supervisor that no beds available in ED at present and instructed to have patient remain in infusion department receiving NS with 40mEq potassium IV /rn cardiac, and will inform when bed availabe for evaluation in ED. Patient stable.
--- NOTE | 2024-09-09 15:12 | PC.NURSE ---
144 Patient transported to ED room 1 via wheelchair as per earlier order from DOMINICK Bonner/ room now available. Patient has been receiving NS with 40 mEq potassium IV as ordered and tolerated well with no problems or complaints noted. Please refer to discharge assessment for full details. patient left in care of Tamera Renae RN at bedside/full report given. Patient stable/denies complaints other than fatigue/generalized weakness consistent with arrival baseline to infusion department. Patient being evaluated for today's potassium level 1.6
== END 2024-09-09 14:45 | disposition home or self-care (01) ==
LOC: INF 10:38
PROVIDERS: PCP Nurse Practitioner; Visit Provider Nurse Practitioner
DX: E87.6 Hypokalemia (principal); E83.39 Other disorders of phosphorus metabolism
CPT/HCPCS: 84132; 96360; 96361

== ENCOUNTER 2024-09-09 14:38 | Inpatient (IN) | payer MEDICARE, SELFPAY ==
[2024-09-09 14:39] VITALS: BP 104/50; PULSE 82; RESP 18; TEMP 36.8; O2SAT 100; BMI 20.1
--- NOTE | 2024-09-09 14:53 | HMH.EDGENADL ---
Discharge Plan Disposition Patient Disposition: Admitted Clinical Impressions Clinical Impression: Hypokalemia, General weakness Discharge ED Provider: Chani Dillon General Adult HPI General Chief complaint: Recheck/Abnormal Lab/Rx Stated complaint: HYPOKALEMIA Time Seen by Provider: 09/09/24 14:45 History of Present Illness HPI narrative: This patient is a 49-year-old female with a history of hypokalemia who gets scheduled infusions, depression/anxiety, reflux sympathetic dystrophy, GERD, iron deficiency anemia presented to the emergency department for evaluation of concern for low potassium. Patient missed her last infusion for IV potassium and went today for infusion where her potassium was noted to be 1.6. Given this, they sent her to the ED for further evaluation and management of critically low potassium. Patient states that she has been feeling generally weak and shaky, but denies any other concerns. No chest pain, shortness of breath, abdominal pain, vomiting, or diarrhea. Related Data Home Medications ?Medication ?Instructions ?Recorded ?Confirmed amlodipine 2.5 mg tablet 2.5 mg PO DAILY 10/03/17 09/09/24 bupropion HCl 150 mg tablet,12 hr 150 tab PO BID 10/03/17 09/09/24 sustained-release duloxetine 60 mg capsule,delayed 60 mg PO DAILY 10/03/17 09/09/24 release lorazepam 1 mg tablet 1 mg PO TIDP PRN Anxiety 10/03/17 09/09/24 nortriptyline 10 mg capsule 10 - 20 mg PO HS 10/03/17 09/09/24 trazodone 100 mg tablet 100 mg PO HS 10/03/17 09/09/24 gabapentin 600 mg tablet,extended 600 mg PO DAILY 10/04/17 09/09/24 release 24 hr baclofen 10 mg tablet 10 mg PO QIDP PRN muscle spasms 02/16/20 09/09/24 diclofenac sodium 50 mg 50 mg PO BID 08/09/24 09/09/24 tablet,delayed release erenumab-aooe 140 mg/mL 140 mg SQ MONTHLY 08/09/24 09/09/24 subcutaneous auto-injector (Aimovig Autoinjector) estradiol-norethindrone acet 1 1 tab PO DAILY 08/09/24 09/09/24 mg-0.5 mg tablet pantoprazole 40 mg tablet,delayed 40 mg PO DAILY 08/09/24 09/09/24 release ubrogepant 100 mg tablet (Ubrelvy) 100 mg PO DAILYP PRN Migraine 08/09/24 09/09/24 Headache zolpidem 5 mg tablet 5 mg PO HSP PRN Insomnia 08/09/24 09/09/24 acyclovir 400 mg tablet 400 mg PO BID 09/09/24 09/09/24 ondansetron HCl 4 mg tablet 4 mg PO Q8HP PRN Nausea 09/09/24 09/09/24 Previous Rx's ?Medication ?Instructions ?Recorded potassium chloride 20 mEq 40 meq (2 x 20 mEq) PO BID 30 days 08/09/24 tablet,extended #120 tabs release(part/cryst) (Klor-Con M) Allergies Allergy/AdvReac Type Severity Reaction Status Date / Time No Known Allergies Allergy Verified 09/09/24 12:54 [facility] Disclaimer: The information contained in this section may have been updated after the patient was seen, as this information can be updated by other users. Medical History (Updated 09/09/24 @ 16:42 by John Dong MD) Right wrist fracture Depression Anxiety Neuropathy RSD (reflex sympathetic dystrophy) History of thyroid nodule GERD (gastroesophageal reflux disease) Iron deficiency anemia Surgical History S/P placement of nerve stimulator History of surgery on right wrist History of S/P partial thyroidectomy S/P placement of nerve stimulator Family History Other Cancer Dementia Diabetes Social History Smoking Status: Never smoker alcohol intake: never current occupational status: disabled and other Travel in the last 8 weeks: None household members: spouse and children housing: house caffeine: No Other Medical History Have you received the Flu Vaccine for this season: No Have you received the Pneumonia Vaccine: No ROS Obtained: Yes All systems reviewed & no additional complaints except as documented Physical Exam General General appearance: alert and in no apparent distress Head Head exam: atraumatic and normocephalic Eye Eye exam: Present normal appearance, PERRL and EOMI ENT ENT exam: Present normal exam, normal oropharynx, mucous membranes moist and normal external ear exam Neck Neck exam: Present normal inspection, full ROM and trachea midline; Absent tenderness Chest Chest inspection: Present normal inspection and symmetric chest wall rise; Absent tenderness Respiratory Respiratory exam: Present normal lung sounds bilaterally; Absent respiratory distress, wheezes, stridor or accessory muscle use Cardiovascular Cardiovascular exam: Present regular rate and normal rhythm Abdominal Exam Abdominal exam: Present soft; Absent distention, tenderness or guarding Extremities Exam Extremities exam: Present normal inspection, full ROM and normal capillary refill; Absent tenderness or edema Back Exam Back exam: Present normal inspection and full ROM; Absent tenderness Neurological Exam Neurological exam: Present alert, oriented X3, CN II-XII intact and normal gait; Absent motor sensory deficit Psychiatric Psychiatric exam: Present normal affect and normal mood Skin Skin exam: Present warm and dry Medical Decision Making Medical Records Medical records reviewed: Yes I reviewed the patient's medical records. Screening: Per USPSTF and CDC recommendations, given the prevalence of disease in our region, it is our hospital?s policy to screen for HIV and viral Hepatitis for all patients aged 18 and over and those with ongoing risk factors. Murali Inquiry Pt receiving controlled substance: No Vital Signs: 09/09/24 14:39 09/09/24 16:10 Temperature 98.3 F 98.0 F Temperature Source Oral Oral Pulse Rate 78 Pulse Rate [Apical] 82 Respiratory Rate 18 16 Blood Pressure 110/54 L Blood Pressure [Right Arm] 104/50 L Blood Pressure Mean [Right Arm] 68 Blood Pressure Source Automatic Cuff Blood Pressure Source [Right Arm] Automatic Cuff Blood Pressure Position Sitting Blood Pressure Position [Right Arm] Sitting 02 Sat by Pulse Oximetry 100 Oxygen Delivery Method Room Air Room Air Lab Data Lab results reviewed: Yes I reviewed the patient's lab results. Lab Results 09/09/24 15:05: WBC 7.0, RBC 4.69, Hgb 11.1 L, Hct 35.6 L, MCV 75.9 L, MCH 23.7 L, MCHC 31.2 L, RDW 16.9, Plt Count 378, MPV 9.1, Neut % (Auto) 69.2, Lymph % (Auto) 22.7, [place] % (Auto) 6.9, Eos % (Auto) 0.4, Baso % (Auto) 0.4, Neut # (Auto) 4.8, Lymph # (Auto) 1.6, [place] # (Auto) 0.5, Eos # (Auto) 0.0, Baso # (Auto) 0.0, Sodium 133 L, Potassium 2.2 L* D, Chloride 92 L, Carbon Dioxide 34 H, Anion Gap 9.2, BUN 13, Creatinine 1.10 H, Estimated Creat Clear 54, Estimated GFR 52 L, Est GFR ( Amer) 63, Glucose 124 H, Calcium 8.8, Phosphorus 2.3 L, Magnesium 2.0, Total Bilirubin 0.4, AST 26, ALT 19, Alkaline Phosphatase 54, Total Protein 6.6, Albumin 4.1, Globulin 2.5, Albumin/Globulin Ratio 1.6 09/09/24 15:05 09/09/24 15:05 Orders (Tests/Meds): ED MEDICATIONS Generic Name Dose Route Start Last Admin Trade Name Freq PRN Reason Stop Dose Admin Potassium Chloride/Water 100 mls @ 50 mls/hr 09/09/24 14:52 09/09/24 15:35 Potassium Chloride 20meq/100ml Ivpb IV 09/09/24 18:51 50 mls/hr Q2H JULITO Administration Potassium Phosphate 15 mmol in 250 mls @ 62.5 mls/hr 09/09/24 15:49 09/09/24 16:34 Potassium Phosphate 15mm/250ml Ns Premix IV 09/09/24 19:48 62.5 mls/hr ONCE ONE Administration Potassium Chloride 40 meq 09/09/24 21:00 Potassium Chloride 20meq Tab PO 10/09/24 20:59 TID JULITO Discontinued Medications Generic Name Dose Route Start Last Admin Trade Name Freq PRN Reason Stop Dose Admin Lactated Ringer's 1,000 mls @ 999 mls/hr 09/09/24 14:51 09/09/24 14:58 Lactated Ringer's 1000 Ml Bag IV 09/09/24 15:51 999 mls/hr .Q1H1M ONE Administration Magnesium Sulfate 2 gm in 50 mls @ 50 mls/hr 09/09/24 14:51 09/09/24 14:58 Magnesium Sulfate 2gm/50ml Premix IV 09/09/24 15:50 50 mls/hr ONCE ONE Administration Potassium Chloride 40 meq 09/09/24 14:51 09/09/24 14:58 Potassium Chloride 20meq Tab PO 09/09/24 14:52 40 meq ONCE ONE Administration ORDERS Category Date Time Status Basic Metabolic Panel Routine Lab 09/09/24 21:00 Ordered Complete Blood Count Auto Diff AMLAB Lab 09/10/24 06:00 Ordered Complete Blood Count Auto Diff Stat Lab 09/09/24 15:05 Completed Comprehensive Metabolic Panel AMLAB Lab 09/10/24 06:00 Ordered Comprehensive Metabolic Panel Stat Lab 09/09/24 15:05 Completed MAG [Magnesium] Stat Lab 09/09/24 15:05 Completed Magnesium AMLAB Lab 09/10/24 06:00 Ordered PHOS [Phosphorous] Stat Lab 09/09/24 15:05 Completed ECG Data Tracing #1: I reviewed this ECG and interpreted as documented below: Normal sinus rhythm with a ventricular rate of [address]/T wave changes without acute STEMI. QTc is 313 ms ECG initial impression date: 09/09/24 ECG initial impression time: 15:07 Medical Decision Narrative: In summary, this patient is a 49-year-old female presenting to the Emergency Department for evaluation of low potassium. Differential diagnoses considered include but are not limited to critical hypokalemia, hypomagnesemia, EKG changes, dysrhythmia. Ruling out the most morbid conditions drove assessment. It should be noted patient's history includes chronic hypokalemia which is not at goal therapy. This complicates all aspects of care by increasing patient's risk for morbidity. I reviewed patient's past medical records and noted outpatient potassium of 1.6 today. I noted prior infusions for hypokalemia in the past. I noted admission in July for syncope in the setting of multiple electrolyte derangements On exam, the patient is sitting upright in no acute distress with reassuring vital signs on cardiac telemetry. EKG obtained is reassuring without acute ST changes or QT prolongation. Workup included CBC, CMP, magnesium, phosphorus, EKG. Patient was given IV fluids as well as IV potassium and magnesium repletion. She was monitored very closely on cardiac telemetry with reassuring vital signs while receiving replacement. Given critically low potassium of 1.6 with a very prolonged time to appropriate repletion, I feel she would benefit from admission for continued monitoring. Repeat potassium here was 2.2. Patient has hypophosphatemia, hyponatremia, hypochloremia otherwise. Given multiple electrolyte derangements and severe hypokalemia, I feel she would benefit from admission for continued monitoring and electrolyte repletion. She is admitted in stable condition Critical Care Critical Care Time Critical Care Time: Yes Attestation: On 09/09/24, the high probability of a clinically significant, sudden or life threatening deterioration of the following system(s) required my full and direct attention, intervention and personal management. The time I documented below is in addition to time spent performing reported procedures but includes the following listed in this critical care notation. Total Time Total Critical Care Time: 30
[2024-09-09] MEDS: POTASSIUM CHLORIDE 20MEQ TAB 40 MEQ PO ×2 (14:58→20:58)
[2024-09-09] MEDS: LACTATED RINGERS 1000ML 1,000 ML 999 ML IV (14:58)
[2024-09-09] MEDS: MAGNESIUM SULFATE IN WATER 2 GM/50 ML PIGGYBACK IV (14:58)
--- NOTE | 2024-09-09 15:04 | ECG_ITS ---
APPROVED REPORT Exam: Resting ECG HR:79 bpm ECG Measurements Heart Rate 79 AXES OH 139 P 74 QRSd 109 QRS -44 QT 278 T 60 QTc 313 Conclusion SINUS RHYTHM LEFT AXIS DEVIATION [QRS AXIS < -30] NONSPECIFIC T-WAVE ABNORMALITY No STEMI Electronically signed by : MEHRDAD REYNOLDS, 09/10/2024 07:08:56
[2024-09-09 15:13] LABS: Basophils % 0.4 % (0.1-2.0); Eosinophils % 0.4 % (0.1-12.0); Hematocrit 35.6 % (37.0-47.0); Hemoglobin 11.1 g/dL (12.2-16.2); Lymphocytes # 1.6 K/mm3 (0.7-4.5); Lymphocytes % 22.7 % (10-50); Mean Corpuscular HGB Conc 31.2 g/dL (31.8-35.4); Mean Corpuscular Hemoglobin 23.7 pg (27.0-31.2); Mean Corpuscular Volume 75.9 fl (81-99); Mean Platelet Volume 9.1 fl (7.4-10.4); Monocytes # 0.5 K/mm3 (0.1-1.0); Monocytes % 6.9 % (1.7-9.3); Neutrophils # 4.8 K/mm3 (1.8-7.8); Neutrophils % 69.2 % (37.0-80.0); Platelet Count 378 K/mm3 (142-424); Red Blood Count 4.69 M/mm3 (4.20-5.40); Red Cell Distribution Width 16.9 % (11.5-17.5)
--- NOTE | 2024-09-09 15:23 | HMH.PHAINT1 ---
Pharmacy Intervention Comments: MEDICATION RECONCILIATION COMPLETED ON PATIENT USING EXTERNAL FILL HISTORY FROM PHARMACY, PACO REPORT, AND DISCHARGE SUMMARY FROM PREVIOUS ADMISSION. -PINA HARRELLD
[2024-09-09 15:32] LABS: Alanine Aminotransferase 19 U/L (12-78); Albumin Level 4.1 g/dl (3.5-5.0); Albumin/Globulin Ratio 1.6 (1.1-1.8); Alkaline Phosphatase 54 U/L (38-126); Anion Gap 9.2 mEq/L (5-15); Aspartate Amino Transferase 26 U/L (14-36); Bilirubin,Total 0.4 mg/dl (0.2-1.3); Blood Urea Nitrogen 13 mg/dl (7-17); Calcium 8.8 mg/dl (8.4-10.2); Carbon Dioxide 34 mmol/L (22.0-30.0); Chloride 92 mmol/L (98-107); Creatinine Clearance Estimated 54 mL/min (50-200); Estimated Glomerular Filt Rate 52 ml/min (>60); GFR (African American) 63 ML/MIN (>60); Globulin 2.5 g/dL (1.3-3.2); Glucose 124 mg/dl (74-100); Phosphorous 2.3 mg/dl (2.5-4.5); Sodium 133 mmol/L (136-145); Total Protein,Serum 6.6 g/dl (6.3-8.2)
[2024-09-09] MEDS: KCl 20mEq/100ml 100 ML 50 MEQ IV ×3 (15:35→23:26)
--- NOTE | 2024-09-09 15:36 | PC.NURSE ---
rounded on the pt. the pt voices that she does not need anything at this time. call light is within reach of the pt.
[2024-09-09 15:38] LABS: Potassium 2.2 mmoL/L (3.5-5.1)
--- NOTE | 2024-09-09 15:39 | PC.NURSE ---
Dr. Dillon notified of K+ 2.2.
--- NOTE | 2024-09-09 15:48 | EXP.HP ---
History of Present Illness *Admission Date: 09/09/24 *Reason for visit:: weakness, low potassium *History of present illness: Ms. Breen is a 49-year-old female who presented to infusion for potassium infusion that she has been getting regularly. She has a significant history of mood disorder (on multiple antidepressants), anxiety, GERD, chronic pain, muscle spasms, migraines and neuropathy. States she has been feeling weak and fatigued for the past week. Denies any michael chest pain, nausea, vomiting or syncope. Presented for infusion and her spotcheck showed a potassium of 1.6. Was sent to the ER for further management Her home medications include amlodipine, chlorthalidone, bupropion, duloxetine, lorazepam 3 times daily, nortriptyline, omeprazole, trazodone, diclofenac, gabapentin (extended release), baclofen (as needed), erenumab (monthly injections), and potassium chloride supplement. She denies any new medication changes or missed doses. On evaluation in the ER, her laboratory results were notable for severe hypokalemia (K 2.2), mild hyponatremia (Na 133), creatinine 1.1, phosphorus 2.3. Due to severity of low potassium and difficulty in replacing historically, medicine was consulted for admission and further management. On evaluation, she denies any chest pain or shortness of breath. States she has had some muscle spasm and twitching. States she has been quite fatigued. No nausea or vomiting. No diarrhea. Alert and oriented x 4. Afebrile [facility] Disclaimer: The information contained in this section may have been updated after the patient was seen, as this information can be updated by other users. Medical History (Updated 09/09/24 @ 16:42 by John Dong MD) Right wrist fracture Depression Anxiety Neuropathy RSD (reflex sympathetic dystrophy) History of thyroid nodule GERD (gastroesophageal reflux disease) Iron deficiency anemia Surgical History S/P placement of nerve stimulator History of surgery on right wrist History of S/P partial thyroidectomy S/P placement of nerve stimulator Family History Other Cancer Dementia Diabetes Social History Smoking Status: Never smoker alcohol intake: never current occupational status: disabled and other Travel in the last 8 weeks: None household members: spouse and children housing: house caffeine: No Other Medical History Have you received the Flu Vaccine for this season: No Have you received the Pneumonia Vaccine: No Review of Systems Review of Systems Review of systems (narrative): 14 point review of systems performed, pertinent positives and negatives as per HPI Meds Home Medications and Allergies Home Medications ?Medication ?Instructions ?Recorded ?Confirmed ?Type amlodipine 2.5 mg tablet 2.5 mg PO DAILY 10/03/17 09/09/24 History bupropion HCl 150 mg tablet,12 hr 150 tab PO BID 10/03/17 09/09/24 History sustained-release duloxetine 60 mg capsule,delayed 60 mg PO DAILY 10/03/17 09/09/24 History release lorazepam 1 mg tablet 1 mg PO TIDP PRN Anxiety 10/03/17 09/09/24 History nortriptyline 10 mg capsule 10 - 20 mg PO HS 10/03/17 09/09/24 History trazodone 100 mg tablet 100 mg PO HS 10/03/17 09/09/24 History gabapentin 600 mg tablet,extended 600 mg PO DAILY 10/04/17 09/09/24 History release 24 hr baclofen 10 mg tablet 10 mg PO QIDP PRN muscle spasms 02/16/20 09/09/24 History diclofenac sodium 50 mg 50 mg PO BID 08/09/24 09/09/24 History tablet,delayed release erenumab-aooe 140 mg/mL 140 mg SQ MONTHLY 08/09/24 09/09/24 History subcutaneous auto-injector (Aimovig Autoinjector) estradiol-norethindrone acet 1 1 tab PO DAILY 08/09/24 09/09/24 History mg-0.5 mg tablet pantoprazole 40 mg tablet,delayed 40 mg PO DAILY 08/09/24 09/09/24 History release potassium chloride 20 mEq 40 meq (2 x 20 mEq) PO BID 30 days 08/09/24 09/09/24 Rx tablet,extended #120 tabs release(part/cryst) (Klor-Con M) ubrogepant 100 mg tablet (Ubrelvy) 100 mg PO DAILYP PRN Migraine 08/09/24 09/09/24 History Headache zolpidem 5 mg tablet 5 mg PO HSP PRN Insomnia 08/09/24 09/09/24 History acyclovir 400 mg tablet 400 mg PO BID 09/09/24 09/09/24 History ondansetron HCl 4 mg tablet 4 mg PO Q8HP PRN Nausea 09/09/24 09/09/24 History New Prescriptions to Start Prescriptions: Allergies Allergy/AdvReac Type Severity Reaction Status Date / Time No Known Allergies Allergy Verified 09/09/24 12:54 Exam Data for Last 24 hours Vital signs and Labs for Last 24 Hours: Temp Pulse Resp BP Pulse Ox O2 Del Method 98.3 F 82 18 104/50 L 100 Room Air 09/09/24 14:39 09/09/24 14:39 09/09/24 14:39 09/09/24 14:39 09/09/24 14:39 09/09/24 14:39 Laboratory Results - last 24 hr 09/09/24 15:05: WBC 7.0, RBC 4.69, Hgb 11.1 L, Hct 35.6 L, MCV 75.9 L, MCH 23.7 L, MCHC 31.2 L, RDW 16.9, Plt Count 378, MPV 9.1, Neut % (Auto) 69.2, Lymph % (Auto) 22.7, [place] % (Auto) 6.9, Eos % (Auto) 0.4, Baso % (Auto) 0.4, Neut # (Auto) 4.8, Lymph # (Auto) 1.6, [place] # (Auto) 0.5, Eos # (Auto) 0.0, Baso # (Auto) 0.0, Sodium 133 L, Potassium 2.2 L* D, Chloride 92 L, Carbon Dioxide 34 H, Anion Gap 9.2, BUN 13, Creatinine 1.10 H, Estimated Creat Clear 54, Estimated GFR 52 L, Est GFR ( Amer) 63, Glucose 124 H, Calcium 8.8, Phosphorus 2.3 L, Magnesium 2.0, Total Bilirubin 0.4, AST 26, ALT 19, Alkaline Phosphatase 54, Total Protein 6.6, Albumin 4.1, Globulin 2.5, Albumin/Globulin Ratio 1.6 I & O for Last 24 hours: Intake & Output 09/06/24 09/07/24 09/08/24 09/09/24 23:59 23:59 23:59 23:59 Weight 56.699 kg Constitutional Constitutional: no acute distress, thin and cooperative *Routine HEENT Exam Head: Present normocephalic Eye: Present EOMI and PERRL ENT: Present mucous membranes moist Comments: Cheilitis of right corner of mouth *Routine Neck Exam Neck: Present supple; Absent lymphadenopathy *Routine Respiratory Exam Respiratory: Present CTA bilaterally; Absent rhonchi, wheezes or crackles *Routine Cardiovascular Exam Cardiovascular: Present RRR *Routine Abdominal Exam Abdominal: Present soft and normoactive bowel sounds; Absent tenderness *Routine Rectal Exam Rectal:: deferred *Routine Genitalia Exam Genitalia:: deferred *Routine Extremities Exam Extremities: Absent cyanosis, clubbing or edema *Routine Skin Exam Skin: Present intact and warm; Absent rash *Routine Neurological Exam Neurological: Present alert, oriented X3 and moving all extremities; Absent altered mental status Routine Psychiatric Exam Psychiatric: Present normal affect Assessment and Plan *Assessment and plan (1) Hypokalemia: Status: Acute Category: Medical Code(s): E87.6 - Hypokalemia (2) Hypophosphatemia: Status: Acute Category: Medical Code(s): E83.39 - Other disorders of phosphorus metabolism (3) General weakness: Status: Acute Category: Medical Code(s): R53.1 - Weakness (4) Multiple falls: Status: Acute Category: Medical Code(s): R29.6 - Repeated falls (5) At risk for polypharmacy: Status: Acute Category: Medical Code(s): Z91.89 - Other specified personal risk factors, not elsewhere classified (6) GERD (gastroesophageal reflux disease): Status: Acute Category: Medical Code(s): K21.9 - Gastro-esophageal reflux disease without esophagitis (7) Depression: Status: Acute Category: Medical Code(s): F32.A - Depression, unspecified (8) Anxiety: Status: Acute Category: Medical Code(s): F41.9 - Anxiety disorder, unspecified (9) Neuropathy: Status: Acute Category: Medical Code(s): G62.9 - Polyneuropathy, unspecified Plan 49-year-old female with recurrent hypokalemia. Came in for outpatient infusion, found to be severely low. Sent to the ER for evaluation. Potassium 2.2 on presentation. Medicine consulted for admission and further management. Discussed case with ER physician, as patient's replacement took an extended period of time previously and she needs further workup for etiology, requested admission for further management. I agreed to admit for further care. Will replace potassium IV and oral. Problems addressed as follows Hypokalemia Hypophosphatemia -Potassium low with initial level of 1.6 on evaluation in infusion. 2.2 in the ER. Sodium 133. Chloride 92. Magnesium normal at 2.0 with phosphorus 2.3 -Will replace with 15 mEq of potassium phosphate. Received 40 mEq oral potassium chloride and IV replacement in the ER. Scheduled 40 mEq 3 times daily. Electrolyte protocol ordered, replace per protocol. Repeat BMP ordered for 9 PM, repeat CBC, CMP, mag ordered for the morning -Urine potassium, sodium, chloride, and creatinine ordered -Concern for diuretic effect, will, Gettleman or Bartter syndrome. Will need nephrology evaluation/referral as an outpatient when medically stable to discharge. Hypertension: Well-controlled at 110/54. Will hold amlodipine. Monitor closely Sleep disorder: Will continue trazodone 100 mg nightly Polypharmacy Mood disorder/anxiety -On multiple psych medications that put her at risk for polypharmacy. Cautious resumption of medications while admitted. - Resume Wellbutrin, Cymbalta, gabapentin, Ativan per home regimen. Migraines: Continue Ubrelvy 100 mg daily as needed Full code Mobile, no indication for anticoagulation Regular diet
--- NOTE | 2024-09-09 16:06 | PC.NURSE ---
Report called to EUNICE Shaw on Med Surg.
[2024-09-09 16:10] VITALS: BP 110/54; PULSE 78; RESP 16; TEMP 36.7; O2SAT 99
[2024-09-09] MEDS: POTASSIUM PHOS IN 0.9 % NACL 15 MMOL/250 ML PIGGYBACK 62.5 MMOL IV (16:34)
[2024-09-09 18:00] VITALS: BP 115/64; PULSE 66; RESP 16; TEMP 36.6; O2SAT 94; BMI 20.4
[2024-09-09 20:00] VITALS: BP 124/69; PULSE 79; RESP 18; TEMP 36.7; O2SAT 98
[2024-09-09 20:10] VITALS: PULSE 75
[2024-09-09] MEDS: TRAZODONE 100 MG 100 EACH PO (20:58)
[2024-09-09 21:39] LABS: Anion Gap 7.3 mEq/L (5-15); Blood Urea Nitrogen 11 mg/dl (7-17); Carbon Dioxide 28 mmol/L (22.0-30.0); Chloride 100 mmol/L (98-107); Creatinine Clearance Estimated 55 mL/min (50-200); Estimated Glomerular Filt Rate 52 ml/min (>60); GFR (African American) 63 ML/MIN (>60); Glucose 136 mg/dl (74-100); Sodium 133 mmol/L (136-145)
[2024-09-09 22:06] LABS: Potassium 2.3 mmoL/L (3.5-5.1)
[2024-09-09] MEDS: POTASSIUM CHLORIDE 20MEQ TAB 60 MEQ PO (23:23)
[2024-09-10] VITALS: BP 95/52; PULSE 74; PULSE 75; RESP 18; TEMP 36.9; O2SAT 98
[2024-09-10 04:00] VITALS: BP 93/54; PULSE 70; PULSE 73; RESP 18; TEMP 36.7; O2SAT 98; BMI 21.2
--- NOTE | 2024-09-10 04:56 | PC.NURSE ---
Pt. is alert and orientated x 4. Pt. on room air. Pt. was admitted for hypokalemia. Pt. initial potassium level was 1.6. Pt. has had several runs of IV potassium, magnesium, potassium phosphate, calcium. Pt. also has had oral potassium. Pt. tolerating IV and PO potassium well. Pt. denies any pain. Pt. has had no c/o's or request this shift. Pt. sleeping on and off. VSS. Personal items and call diane in reach.
[2024-09-10 07:03] LABS: Basophils % 0.6 % (0.1-2.0); Eosinophils # 0.1 K/mm3 (0.0-0.4); Eosinophils % 1.3 % (0.1-12.0); Hematocrit 30.3 % (37.0-47.0); Lymphocytes # 1.9 K/mm3 (0.7-4.5); Lymphocytes % 41.4 % (10-50); Mean Corpuscular Hemoglobin 23.5 pg (27.0-31.2); Mean Corpuscular Volume 75.8 fl (81-99); Mean Platelet Volume 9.2 fl (7.4-10.4); Monocytes # 0.4 K/mm3 (0.1-1.0); Monocytes % 9.2 % (1.7-9.3); Neutrophils # 2.2 K/mm3 (1.8-7.8); Neutrophils % 46.9 % (37.0-80.0); Platelet Count 310 K/mm3 (142-424); Red Cell Distribution Width 16.9 % (11.5-17.5); White Blood Count 4.7 K/mm3 (4.8-10.8)
[2024-09-10 07:14] LABS: Alanine Aminotransferase 12 U/L (12-78); Albumin Level 3.1 g/dl (3.5-5.0); Albumin/Globulin Ratio 1.5 (1.1-1.8); Alkaline Phosphatase 50 U/L (38-126); Anion Gap 6.6 mEq/L (5-15); Aspartate Amino Transferase 19 U/L (14-36); Blood Urea Nitrogen 12 mg/dl (7-17); Calcium 7.9 mg/dl (8.4-10.2); Carbon Dioxide 29 mmol/L (22.0-30.0); Chloride 104 mmol/L (98-107); Creatinine Clearance Estimated 63 mL/min (50-200); Estimated Glomerular Filt Rate 58 ml/min (>60); GFR (African American) 71 ML/MIN (>60); Globulin 2.1 g/dL (1.3-3.2); Glucose 90 mg/dl (74-100); Magnesium 2.2 mg/dl (1.6-2.3); Sodium 137 mmol/L (136-145); Total Protein,Serum 5.2 g/dl (6.3-8.2)
[2024-09-10 07:19] LABS: Bilirubin,Total < 0.1 mg/dl (0.2-1.3); Potassium 2.6 mmoL/L (3.5-5.1)
[2024-09-10 07:25] LABS: Hemoglobin 9.4 g/dL (12.2-16.2)
[2024-09-10 07:31] LABS: Phosphorous 2.6 mg/dl (2.5-4.5)
--- NOTE | 2024-09-10 07:53 | EXP.ACUTE.PN ---
Subjective *Date: 09/10/24 *Time: 07:53 Medical Exam Vital signs and Labs for Last 24 Hours: Vital Signs Temp Pulse Pulse Resp BP BP Pulse Ox 09/10/24 07:00 09/10/24 05:00 09/10/24 04:00 98.1 F 73 18 93/54 L 98 09/10/24 04:00 70 09/10/24 03:00 09/10/24 01:00 09/10/24 00:00 75 09/10/24 00:00 98.4 F 74 18 95/52 L 98 09/09/24 23:00 09/09/24 21:00 09/09/24 20:10 75 09/09/24 20:00 09/09/24 20:00 98.0 F 79 18 124/69 98 09/09/24 18:00 98 F 66 16 115/64 94 L 09/09/24 17:58 09/09/24 17:52 09/09/24 16:59 09/09/24 16:10 98.0 F 78 16 110/54 L 09/09/24 14:39 98.3 F 82 18 104/50 L 100 O2 Del Method 09/10/24 07:00 Room Air 09/10/24 05:00 Room Air 09/10/24 04:00 Room Air 09/10/24 04:00 09/10/24 03:00 Room Air 09/10/24 01:00 Room Air 09/10/24 00:00 09/10/24 00:00 Room Air 09/09/24 23:00 Room Air 09/09/24 21:00 Room Air 09/09/24 20:10 09/09/24 20:00 Room Air 09/09/24 20:00 Room Air 09/09/24 18:00 09/09/24 17:58 Room Air 09/09/24 17:52 Room Air 09/09/24 16:59 Room Air 09/09/24 16:10 Room Air 09/09/24 14:39 Room Air Intake and Output 09/09/24 09/09/24 09/10/24 15:59 23:59 07:59 Intake Total 480 / 2220 1740 / 1740 Output Total 0 / 0 200 / 200 Balance 480 / 2220 1540 / 1540 Intake: Intake, Oral Amount 480 / 720 240 / 240 Intake, Total IV Amount 1500 / 1500 KCl 20mEq/100ml 100 ml @ 50 mls 100 / 100 /hr IV ONCE ONE Rx#:[id number] KCl 20mEq/100ml 100 ml @ 50 mls 100 / 100 /hr IV Q2H JULITO Rx#:[id number] Lactated Ringers 1000ML 1,000 1000 / 1000 ml @ 999 mls/hr IV .Q1H1M ONE Rx#:[id number] Magnesium Sulfate in Water 2 gm 50 / 50 In 50 ml @ 50 mls/hr IV ONCE ONE Rx#:[id number] Potassium Phos in 0.9 % NaCl 15 250 / 250 mmol In 250 ml @ 62.5 mls/hr IV ONCE ONE Rx#:[id number] Output: Output, Urine Amount 0 / 0 200 / 200 Other: Number of Unmeasured Voids 1 1 Weight 56.699 kg 57.606 kg 60.101 kg Patient Weight 09/10/24 23:59 Weight 60.101 kg Laboratory Results - last 24 hr 09/09/24 15:05: WBC 7.0, RBC 4.69, Hgb 11.1 L, Hct 35.6 L, MCV 75.9 L, MCH 23.7 L, MCHC 31.2 L, RDW 16.9, Plt Count 378, MPV 9.1, Neut % (Auto) 69.2, Lymph % (Auto) 22.7, [place] % (Auto) 6.9, Eos % (Auto) 0.4, Baso % (Auto) 0.4, Neut # (Auto) 4.8, Lymph # (Auto) 1.6, [place] # (Auto) 0.5, Eos # (Auto) 0.0, Baso # (Auto) 0.0, Sodium 133 L, Potassium 2.2 L* D, Chloride 92 L, Carbon Dioxide 34 H, Anion Gap 9.2, BUN 13, Creatinine 1.10 H, Estimated Creat Clear 54, Estimated GFR 52 L, Est GFR ( Amer) 63, Glucose 124 H, Calcium 8.8, Phosphorus 2.3 L, Magnesium 2.0, Total Bilirubin 0.4, AST 26, ALT 19, Alkaline Phosphatase 54, Total Protein 6.6, Albumin 4.1, Globulin 2.5, Albumin/Globulin Ratio 1.6 09/09/24 21:17: Sodium 133 L, Potassium 2.3 L*, Chloride 100, Carbon Dioxide 28, Anion Gap 7.3, BUN 11, Creatinine 1.10 H, Estimated Creat Clear 55, Estimated GFR 52 L, Est GFR ( Amer) 63, Glucose 136 H, Calcium 8.0 L 09/10/24 05:25: WBC 4.7 L D, RBC 4.00 L, Hgb 9.4 L D, Hct 30.3 L, MCV 75.8 L, MCH 23.5 L, MCHC 31.0 L, RDW 16.9, Plt Count 310, MPV 9.2, Neut % (Auto) 46.9, Lymph % (Auto) 41.4, [place] % (Auto) 9.2, Eos % (Auto) 1.3, Baso % (Auto) 0.6, Neut # (Auto) 2.2, Lymph # (Auto) 1.9, [place] # (Auto) 0.4, Eos # (Auto) 0.1, Baso # (Auto) 0.0, Sodium 137, Potassium 2.6 L*, Chloride 104, Carbon Dioxide 29, Anion Gap 6.6, BUN 12, Creatinine 1.00, Estimated Creat Clear 63, Estimated GFR 58 L, Est GFR ( Amer) 71, Glucose 90 D, Calcium 7.9 L, Phosphorus 2.6, Magnesium 2.2, Total Bilirubin < 0.1 L, AST 19 D, ALT 12 D, Alkaline Phosphatase 50, Total Protein 5.2 L, Albumin 3.1 L D, Globulin 2.1, Albumin/Globulin Ratio 1.5 I & O for Labs for Last 24 Hours: Intake & Output 09/07/24 09/08/24 09/09/24 09/10/24 23:59 23:59 23:59 23:59 Intake Total 480 / 2220 1740 / 1740 Output Total 0 / 0 200 / 200 Balance 480 / 2220 1540 / 1540 Weight 57.606 kg 60.101 kg Assessment and Plan *Assessment and plan (1) Hypokalemia: Status: Acute Category: Medical Code(s): E87.6 - Hypokalemia (2) Hypophosphatemia: Status: Acute Category: Medical Code(s): E83.39 - Other disorders of phosphorus metabolism (3) General weakness: Status: Acute Category: Medical Code(s): R53.1 - Weakness (4) Multiple falls: Status: Acute Category: Medical Code(s): R29.6 - Repeated falls (5) At risk for polypharmacy: Status: Acute Category: Medical Code(s): Z91.89 - Other specified personal risk factors, not elsewhere classified (6) GERD (gastroesophageal reflux disease): Status: Acute Category: Medical Code(s): K21.9 - Gastro-esophageal reflux disease without esophagitis (7) Depression: Status: Acute Category: Medical Code(s): F32.A - Depression, unspecified (8) Anxiety: Status: Acute Category: Medical Code(s): F41.9 - Anxiety disorder, unspecified (9) Neuropathy: Status: Acute Category: Medical Code(s): G62.9 - Polyneuropathy, unspecified Plan 49-year-old female with recurrent hypokalemia. Came in for outpatient infusion, found to be severely low. Sent to the ER for evaluation. Potassium 2.2 on presentation. Medicine consulted for admission and further management. Discussed case with ER physician, as patient's replacement took an extended period of time previously and she needs further workup for etiology, requested admission for further management. I agreed to admit for further care. Will replace potassium IV and oral. Problems addressed as follows Hypokalemia Hypophosphatemia -Potassium low with initial level of 1.6 on evaluation in infusion. 2.2 in the ER. Sodium 133. Chloride 92. Magnesium normal at 2.0 with phosphorus 2.3 -Will replace with 15 mEq of potassium phosphate. Received 40 mEq oral potassium chloride and IV replacement in the ER. Scheduled 40 mEq 3 times daily. Electrolyte protocol ordered, replace per protocol. Repeat BMP ordered for 9 PM, repeat CBC, CMP, mag ordered for the morning -Urine potassium, sodium, chloride, and creatinine ordered -Concern for diuretic effect, will, Gettleman or Bartter syndrome. Will need nephrology evaluation/referral as an outpatient when medically stable to discharge. Hypertension: Well-controlled at 110/54. Will hold amlodipine. Monitor closely Sleep disorder: Will continue trazodone 100 mg nightly Polypharmacy Mood disorder/anxiety -On multiple psych medications that put her at risk for polypharmacy. Cautious resumption of medications while admitted. - Resume Wellbutrin, Cymbalta, gabapentin, Ativan per home regimen. Migraines: Continue Ubrelvy 100 mg daily as needed Full code Mobile, no indication for anticoagulation Regular diet
[2024-09-10 08:00] VITALS: BP 105/59; PULSE 70; PULSE 73; RESP 16; TEMP 36.7; O2SAT 98
--- NOTE | 2024-09-10 09:29 | P.DS_ITS ---
General Admission date:: 09/09/24 Discharge date: 09/10/24 HPI HPI HPI: Ms. Breen is a 49-year-old female who presented to infusion for potassium infusion that she has been getting regularly. She has a significant history of mood disorder (on multiple antidepressants), anxiety, GERD, chronic pain, muscle spasms, migraines and neuropathy. States she has been feeling weak and fatigued for the past week. Denies any michael chest pain, nausea, vomiting or syncope. Presented for infusion and her spotcheck showed a potassium of 1.6. Was sent to the ER for further management Her home medications include amlodipine, chlorthalidone, bupropion, duloxetine, lorazepam 3 times daily, nortriptyline, omeprazole, trazodone, diclofenac, gabapentin (extended release), baclofen (as needed), erenumab (monthly injecti ons), and potassium chloride supplement. She denies any new medication changes or missed doses. On evaluation in the ER, her laboratory results were notable for severe hypokalemia (K 2.2), mild hyponatremia (Na 133), creatinine 1.1, phosphorus 2.3. Due to severity of low potassium and difficulty in replacing historically, medicine was consulted for admission and further management. On evaluation, she denies any chest pain or shortness of breath. States she has had some muscle spasm and twitching. States she has been quite fatigued. No nausea or vomiting. No diarrhea. Alert and oriented x 4. Afebrile Hospital Course Hospital Course Hospital Course: 49-year-old female with recurrent hypokalemia. Came in for outpatient infusion, found to be severely low. Sent to the ER for evaluation. Potassium 2.2 on presentation. Medicine consulted for admission and further management. Discus sed case with ER physician, as patient's replacement took an extended period of time previously and she needs further workup for etiology, requested admission for further management. I agreed to admit for further care. Aggressively replaced potassium both oral and IV. Urine studies obtained and pending. Will refer to nephrology as an outpatient for further management of persistent hypokalemia. Differential includes Gitelman's or Bartter syndrome, diuretic use/medication side effect, nutritional deficiency. Continue aggressive replacement as an outpatient. Stable to discharge. Problems addressed as follows: Hypokalemia Hypophosphatemia -Potassium low with initial level of 1.6 on evaluation in infusion. 2.2 in the ER. Sodium 133. Chloride 92. Magnesium normal at 2.0 with phosphorus 2.3. Aggressively replaced with oral and IV. Improved to 2.6 by morning. Repeat in the afternoon of 3.6. Required >140meq of KCl for improvement. After discussion with patient, will continue oral supplementation of 40 mEq 3 times a day. She has not taken her chlorthalidone in a month. Will transition to spironolactone 50 mg daily out of concern for Gitelman or Bartter syndrome. Will refer to nephrology (Dr. Traylor) for further management. Urine studies obtained but they are send outs and still pending at this time. Patient feeling better with improvement in diuretics. Repeat labs ordered for this weekend. Close follow- up with PCP for further management. Hypertension: Well-controlled at 110/54. Continue to hold amlodipine in the setting of initiation of spironolactone. Sleep disorder: Will continue home regimen at discharge Polypharmacy Mood disorder/anxiety -On multiple psych medications that put her at risk for polypharmacy. Cautious resumption of medications while admitted. Resume home regimen for mood disorder including Wellbutrin, Cymbalta, gabapentin, Ativan. No changes made to regimen at this time. Migraines: Continue Ubrelvy 100 mg daily as needed during admission. Did not require during admission. Resume Aimovig as prescribed monthly Total time spent on discharge 36 minutes in counseling, documentation, chart review, and direct care with patient. Exam Data for Last 24 hours Vital signs and Labs for Last 24 Hours: Temp Pulse Resp BP Pulse Ox O2 Del Method 98.0 F 73 16 105/59 L 98 Room Air 09/10/24 08:00 09/10/24 08:00 09/10/24 08:00 09/10/24 08:00 09/10/24 08:00 09/10/24 08:00 Laboratory Results - last 24 hr 09/09/24 15:05: WBC 7.0, RBC 4.69, Hgb 11.1 L, Hct 35.6 L, MCV 75.9 L, MCH 23.7 L, MCHC 31.2 L, RDW 16.9, Plt Count 378, MPV 9.1, Neut % (Auto) 69.2, Lymph % (Auto) 22.7, [place] % (Auto) 6.9, Eos % (Auto) 0.4, Baso % (Auto) 0.4, Neut # (Auto) 4.8, Lymph # (Auto) 1.6, [place] # (Auto) 0.5, Eos # (Auto) 0.0, Baso # (Auto) 0.0, Sodium 133 L, Potassium 2.2 L* D, Chloride 92 L, Carbon Dioxide 34 H , Anion Gap 9.2, BUN 13, Creatinine 1.10 H, Estimated Creat Clear 54, Estimated GFR 52 L, Est GFR ( Amer) 63, Glucose 124 H, Calcium 8.8, Phosphorus 2.3 L, Magnesium 2.0, Total Bilirubin 0.4, AST 26, ALT 19, Alkaline Phosphatase 54, Total Protein 6.6, Albumin 4.1, Globulin 2.5, Albumin/Globulin Ratio 1.6 09/09/24 21:17: Sodium 133 L, Potassium 2.3 L*, Chloride 100, Carbon Dioxide 28, Anion Gap 7.3, BUN 11, Creatinine 1.10 H, Estimated Creat Clear 55, Estimated GFR 52 L, Est GFR ( Amer) 63, Glucose 136 H, Calcium 8.0 L 09/10/24 05:25: WBC 4.7 L D, RBC 4.00 L, Hgb 9.4 L D, Hct 30.3 L, MCV 75.8 L, MCH 23.5 L, MCHC 31.0 L, RDW 16.9, Plt Count 310, MPV 9.2, Neut % (Auto) 46.9, Lymph % (Auto) 41.4, [place] % (Auto) 9.2, Eos % (Auto) 1.3, Baso % (Auto) 0.6, Neut # (Auto) 2.2, Lymph # (Auto) 1.9, [place] # (Auto) 0.4, Eos # (Auto) 0.1, Baso # (Auto) 0.0, Sodium 137, Potassium 2.6 L*, Chloride 104, Carbon Dioxide 29, Anion Gap 6.6, BUN 12, Creatinine 1.00, Estimated Creat Clear 63, Estimated GFR 58 L, Est GFR ( Amer) 71, Glucose 90 D, Calcium 7.9 L, Phosphorus 2.6, Magnesium 2.2, Total Bilirubin < 0.1 L, AST 19 D, ALT 12 D, Alkaline Phosphatase 50, Total Protein 5.2 L, Albumin 3.1 L D, Globulin 2.1, Albumin/Globulin Ratio 1.5 I & O for Last 24 hours: Intake & Output 09/07/24 09/08/24 09/09/24 09/10/24 23:59 23:59 23:59 23:59 Intake Total 480 / 2220 2009 Output Total 0 / 0 200 / 200 Balance 480 / 2220 1810 / 1809 Weight 57.606 kg 60.101 kg Constitutional Constitutional: no acute distress, thin, chronically ill appearing and cooperative *Routine HEENT Exam Head: Present normocephalic Eye: Present EOMI and PERRL ENT: Present mucous membranes moist *Routine Neck Exam Neck: Present supple; Absent lymphadenopathy *Routine Respiratory Exam Respiratory: Present CTA bilaterally; Absent rhonchi, wheezes or crackles *Routine Cardiovascular Exam Cardiovascular: Present RRR *Routine Abdominal Exam Abdominal: Present soft and normoactive bowel sounds; Absent tenderness *Routine Rectal Exam Patient deferred: visual exam *Routine Exam Patient deferred: external exam *Routine Extremities Exam Extremities: Absent cyanosis, clubbing or edema *Routine Skin Exam Skin: Present warm; Absent rash *Routine Neurological Exam Neurological: Present alert, oriented X3 and moving all extremities; Absent altered mental status Results Data Completed and Pending Labs on day of discharge: Labs from last 24 hours 09/10/24 09/09/24 09/09/24 05:25 21:17 15:05 WBC 4.7 L D 7.0 RBC 4.00 L 4.69 Hgb 9.4 L D 11.1 L Hct 30.3 L 35.6 L MCV 75.8 L 75.9 L MCH 23.5 L 23.7 L MCHC 31.0 L 31.2 L RDW 16.9 16.9 Plt Count 310 378 MPV 9.2 9.1 Neut % (Auto) 46.9 69.2 Lymph % (Auto) 41.4 22.7 [place] % (Auto) 9.2 6.9 Eos % (Auto) 1.3 0.4 Baso % (Auto) 0.6 0.4 Neut # (Auto) 2.2 4.8 Lymph # (Auto) 1.9 1.6 [place] # (Auto) 0.4 0.5 Eos # (Auto) 0.1 0.0 Baso # (Auto) 0.0 0.0 Sodium 137 133 L 133 L Potassium 2.6 L* 2.3 L* 2.2 L* D Chloride 104 100 92 L Carbon Dioxide 29 28 34 H Anion Gap 6.6 7.3 9.2 BUN 12 11 13 Creatinine 1.00 1.10 H 1.10 H Estimated Creat Clear 63 55 54 Estimated GFR 58 L 52 L 52 L Est GFR ( Amer) 71 63 63 Glucose 90 D 136 H 124 H Calcium 7.9 L 8.0 L 8.8 Phosphorus 2.6 2.3 L Magnesium 2.2 2.0 Total Bilirubin < 0.1 L 0.4 AST 19 D 26 ALT 12 D 19 Alkaline Phosphatase 50 54 Total Protein 5.2 L 6.6 Albumin 3.1 L D 4.1 Globulin 2.1 2.5 Albumin/Globulin Ratio 1.5 1.6 DS: Diagnosis Discharge Diagnosis (1) Hypokalemia: Status: Acute Code(s): E87.6 - Hypokalemia (2) Hypophosphatemia: Status: Acute Code(s): E83.39 - Other disorders of phosphorus metabolism (3) General weakness: Status: Acute Code(s): R53.1 - Weakness (4) Multiple falls: Status: Acute Code(s): R29.6 - Repeated falls (5) At risk for polypharmacy: Status: Acute Code(s): Z91.89 - Other specified personal risk factors, not elsewhere classified (6) GERD (gastroesophageal reflux disease): Status: Acute Code(s): K21.9 - Gastro-esophageal reflux disease without esophagitis (7) Depression: Status: Acute Code(s): F32.A - Depression, unspecified (8) Anxiety: Status: Acute Code(s): F41.9 - Anxiety disorder, unspecified (9) Neuropathy: Status: Acute Code(s): G62.9 - Polyneuropathy, unspecified Meds Home Medications and Allergies Home Medications ?Medication ?Instructions ?Recorded ?Confirmed ?Type bupropion HCl 150 mg tablet,12 hr 150 tab PO BID 10/03/17 09/09/24 History sustained-release duloxetine 60 mg capsule,delayed 60 mg PO DAILY 10/03/17 09/09/24 History release lorazepam 1 mg tablet 1 mg PO TIDP PRN Anxiety 10/03/17 09/09/24 History nortriptyline 10 mg capsule 10 - 20 mg PO HS 10/03/17 09/09/24 History trazodone 100 mg tablet 100 mg PO HS 10/03/17 09/09/24 History gabapentin 600 mg tablet,extended 600 mg PO DAILY 10/04/17 09/09/24 History release 24 hr baclofen 10 mg tablet 10 mg PO QIDP PRN muscle spasms 02/16/20 09/09/24 History diclofenac sodium 50 mg 50 mg PO BID 08/09/24 09/09/24 History tablet,delayed release erenumab-aooe 140 mg/mL 140 mg SQ MONTHLY 08/09/24 09/09/24 History subcutaneous auto-injector (Aimovig Autoinjector) estradiol-norethindrone acet 1 1 tab PO DAILY 08/09/24 09/09/24 History mg-0.5 mg tablet pantoprazole 40 mg tablet,delayed 40 mg PO DAILY 08/09/24 09/09/24 History release ubrogepant 100 mg tablet (Ubrelvy) 100 mg PO DAILYP PRN Migraine 08/09/24 09/09/24 History Headache zolpidem 5 mg tablet 5 mg PO HSP PRN Insomnia 08/09/24 09/09/24 History acyclovir 400 mg tablet 400 mg PO BID 09/09/24 09/09/24 History ondansetron HCl 4 mg tablet 4 mg PO Q8HP PRN Nausea 09/09/24 09/09/24 History potassium chloride 20 mEq 40 meq (2 x 20 mEq) PO TID 30 days 09/10/24 Rx tablet,extended #180 tabs release(part/cryst) (Klor-Con M) spironolactone 50 mg tablet 50 mg PO DAILY #30 tabs 09/10/24 Rx New Prescriptions to Start Prescriptions: potassium chloride [Klor-Con M20] John Dong spironolactone John Dong Allergies Allergy/AdvReac Type Severity Reaction Status Date / Time No Known Allergies Allergy Verified 09/09/24 12:54 Discharge Plan Disposition Patient Disposition: Home, Self-Care Condition: Fair Discharge Order Discharge Orders: Discharge Order (Routine); Ordered 09/10/24 Ordered By: John Dong Follow up Plan Follow up with: Racheal Campos APRN [Primary Care Provider] - 09/17/24 10:00 am Max Traylor MD [Consulting Physician] - Enter time for follow up (Needs to be seen at [facility] with nephrology for hypokalemia.) Max Traylor MD [Referring] - 09/14/24 9:00 am (address for office in [place] [address]) Prescriptions/Medication Reconciliation: New spironolactone 50 mg tablet 50 mg PO DAILY Qty: 30 0RF Continued bupropion HCl 150 MG tablet 150 tab PO BID trazodone 100 MG tablet 100 mg PO HS Patient Comments: nortriptyline 10 MG capsule 10 - 20 mg PO HS Patient Comments: lorazepam 1 MG tablet 1 mg PO TIDP PRN (Reason: Anxiety) Patient Comments: duloxetine 60 MG capsule,delayed release(DR/EC) 60 mg PO DAILY Patient Comments: gabapentin 600 MG tablet extended release 24 hr 600 mg PO DAILY baclofen 10 MG tablet 10 mg PO QIDP PRN (Reason: muscle spasms) estradiol-norethindrone acet 1-0.5 mg tablet 1 tab PO DAILY Patient Comments: TAKE 1 TABLET BY MOUTH ONCE DAILY pantoprazole 40 mg tablet,delayed release (DR/EC) 40 mg PO DAILY Patient Comments: TAKE 1 TABLET BY MOUTH ONCE DAILY diclofenac sodium 50 mg tablet,delayed release (DR/EC) 50 mg PO BID Patient Comments: TAKE 1 TABLET BY MOUTH TWICE DAILY zolpidem 5 mg tablet 5 mg PO HSP PRN (Reason: Insomnia) Aimovig Autoinjector 140 mg/mL auto-injector 140 mg SQ MONTHLY Patient Comments: USE DIRECTED INJECT AUTOINJECTOR SUBCUTANEOUSLY ONCE MONTHLY Ubrelvy 100 mg tablet 100 mg PO DAILYP PRN (Reason: Migraine Headache) Patient Comments: TAKE 1 TABLET BY MOUTH ONCE DAILY NEEDED ondansetron HCl 4 mg tablet 4 mg PO Q8HP PRN (Reason: Nausea) acyclovir 400 mg tablet 400 mg PO BID Patient Comments: TAKE 1 TABLET BY MOUTH TWICE DAILY FOR 10 DAYS Changed potassium chloride [Klor-Con M20] 20 mEq Tablet,Er Particles/Crystals 40 meq PO TID 30 Days Qty: 180 0RF Discontinued amlodipine 2.5 MG tablet 2.5 mg PO DAILY Patient Comments: Other Ambulatory Orders: Basic Metabolic Panel (Routine) Timeframe: 1 Day Facility: [facility] - Location: Laboratory Ordered By: John Dong Problem Reconciliation Problems Reviewed?: Yes Patient Discharge Instructions ACTIVITY: Continue current activity DIET: continue same diet Patient Instructions: Hypokalemia Print Language: Tajik Providers Primary Care Provider: Racheal Campos Admit Provider: John Dong Attending Provider: oJhn Dong
[2024-09-10] MEDS: GABAPENTIN 100MG CAPSULE 200 MG PO ×2 (09:36→13:08)
[2024-09-10] MEDS: POTASSIUM CHLORIDE 20MEQ TAB 40 MEQ PO ×2 (09:36→13:08)
[2024-09-10] MEDS: DULOXETINE 30MG CAPSULE.DR 60 MG PO (09:36)
[2024-09-10] MEDS: buPROPion HCl SR 150MG TAB 150 MG PO (09:36)
[2024-09-10] MEDS: KCl 20mEq/100ml 100 ML 50 MEQ IV ×3 (09:37→13:07)
[2024-09-10 10:01] LABS: Creatinine,Urine Random 91 mg/dL (Not Estab.)
[2024-09-10 12:00] VITALS: PULSE 80
[2024-09-10 14:07] LABS: Anion Gap 7.6 mEq/L (5-15); Blood Urea Nitrogen 10 mg/dl (7-17); Calcium 8.3 mg/dl (8.4-10.2); Carbon Dioxide 28 mmol/L (22.0-30.0); Chloride 105 mmol/L (98-107); Creatinine Clearance Estimated 53 mL/min (50-200); Estimated Glomerular Filt Rate 47 ml/min (>60); GFR (African American) 57 ML/MIN (>60); Glucose 97 mg/dl (74-100); Potassium 3.6 mmoL/L (3.5-5.1); Sodium 137 mmol/L (136-145)
[2024-09-11 09:14] LABS: Potassium, Urine > 100.0 mmol/L (Not Estab.)
[2024-09-11 10:11] LABS: Chloride, Urine 167 mmol/L (Not Estab.)
--- NOTE | 2024-09-14 11:13 | SW/DCPLANNER ---
Phoned patient x2. Left message with a call baqck number each time. Gary Persaud
== END 2024-09-10 14:45 | disposition home or self-care (01) | DRG 641 ==
LOC: ER 14:50 → 2ND 17:28
PROVIDERS: Admitting Provider Internal Medicine Adolescent Medicine; Emergency Provider Emergency Medicine; PCP Nurse Practitioner; Visit Provider Internal Medicine Adolescent Medicine
DX: E87.6 Hypokalemia (principal); E87.1 Hypo-osmolality and hyponatremia; E83.39 Other disorders of phosphorus metabolism; F41.9 Anxiety disorder, unspecified; F39 Unspecified mood [affective] disorder; G43.909 Migraine, unspecified, not intractable, without status migrainosus; K21.9 Gastro-esophageal reflux disease without esophagitis; G47.9 Sleep disorder, unspecified; G62.9 Polyneuropathy, unspecified; I10 Essential (primary) hypertension; F32.A Depression, unspecified; Z80.9 Family history of malignant neoplasm, unspecified; Z83.3 Family history of diabetes mellitus; Z81.8 Family history of other mental and behavioral disorders; Z79.899 Other long term (current) drug therapy; Z79.890 Hormone replacement therapy; Z91.81 History of falling; R29.6 Repeated falls
CPT/HCPCS: 36415; 80048; 80053; 82436; 82570; 83735; 84100; 84133; 84540; 85025; 93005; 99291; J3475; J7120

== ENCOUNTER 2024-09-21 12:50 | Outpatient (CLI) | payer MEDICARE, SELFPAY ==
[2024-09-22 13:11] LABS: Potassium, Urine 61.5 mmol/L (Not Estab.)
== END 2024-09-21 23:59 | disposition home or self-care (01) ==
LOC: LAB 12:52
PROVIDERS: PCP Nurse Practitioner; Visit Provider Nurse Practitioner
DX: E87.6 Hypokalemia (principal)
CPT/HCPCS: 84133; 84540

== ENCOUNTER 2024-09-22 08:29 | Outpatient (CLI) | payer MEDICARE, SELFPAY ==
[2024-09-28 15:31] LABS: Miscellaneous Test SCANNED IMAGE
== END 2024-09-22 23:59 | disposition home or self-care (01) ==
LOC: LAB 08:31
PROVIDERS: PCP Nurse Practitioner; Visit Provider Nurse Practitioner
DX: E87.6 Hypokalemia (principal)
CPT/HCPCS: 36415; 82533

== ENCOUNTER 2024-10-01 10:35 | Outpatient (CLI) | payer MEDICARE, SELFPAY ==
--- NOTE | 2024-10-01 10:40 | US_ITS ---
FINAL REPORT TECHNIQUE: Ultrasound images of the kidneys and bladder were obtained. CLINICAL HISTORY: HYPOKALEMIA COMPARISON: 08/12/2023 FINDINGS: The right kidney measures 9.3 cm in length. It is normal in echogenicity. There is no hydronephrosis. There is a right suprarenal mass that measures up to 4 cm in size. Comparison with the CT dated 08/12/2023 indicates that this is an adrenal mass. The left kidney measures 9.8 cm in length. It is normal in echogenicity. There is no hydronephrosis. Cholelithiasis is noted. IMPRESSION: No hydronephrosis. Right suprarenal mass also seen on the CT of 08/12/2023, felt to be a benign adrenal mass. Redemonstration of cholelithiasis seen on prior exams. Reviewed, Interpreted and Dictated by Veronica Paz MD Transcribed by Rosanne Suero Authenticated and [facility]
== END 2024-10-01 23:59 | disposition home or self-care (01) ==
LOC: RAD 10:38
PROVIDERS: PCP Nurse Practitioner; Visit Provider Nurse Practitioner
DX: E87.6 Hypokalemia (principal)
CPT/HCPCS: 76770

== ENCOUNTER 2024-10-11 09:13 | Outpatient (CLI) | payer MEDICARE, SELFPAY ==
[2024-10-11 10:11] LABS: Basophils % 0.5 % (0.1-2.0); Eosinophils # 0.1 K/mm3 (0.0-0.4); Eosinophils % 1.5 % (0.1-12.0); Hematocrit 37.4 % (37.0-47.0); Hemoglobin 11.7 g/dL (12.2-16.2); Lymphocytes # 1.9 K/mm3 (0.7-4.5); Lymphocytes % 25.2 % (10-50); Mean Corpuscular HGB Conc 31.3 g/dL (31.8-35.4); Mean Corpuscular Hemoglobin 23.8 pg (27.0-31.2); Mean Corpuscular Volume 76.2 fl (81-99); Mean Platelet Volume 8.7 fl (7.4-10.4); Monocytes # 0.7 K/mm3 (0.1-1.0); Monocytes % 9.2 % (1.7-9.3); Neutrophils # 4.8 K/mm3 (1.8-7.8); Neutrophils % 63.1 % (37.0-80.0); Platelet Count 380 K/mm3 (142-424); Red Blood Count 4.91 M/mm3 (4.20-5.40); Red Cell Distribution Width 17.5 % (11.5-17.5); White Blood Count 7.6 K/mm3 (4.8-10.8)
[2024-10-11 10:28] LABS: Albumin Level 4.3 g/dl (3.5-5.0); Chloride 94 mmol/L (98-107); Sodium 137 mmol/L (136-145)
[2024-10-11 10:31] LABS: Alanine Aminotransferase 11 U/L (12-78); Alkaline Phosphatase 57 U/L (38-126); Aspartate Amino Transferase 17 U/L (14-36); Bilirubin,Direct 0.1 mg/dl (0.0-0.4); Bilirubin,Indirect 0.3 mg/dL (0.0-0.9); Bilirubin,Total 0.4 mg/dl (0.2-1.3); Bilirubin,Unconjugated 0.2 mg/dL (0.0-1.1); Blood Urea Nitrogen 11 mg/dl (7-17); Calcium 9.6 mg/dl (8.4-10.2); Carbon Dioxide 34 mmol/L (22.0-30.0); Chol/HDL Ratio 2.9 (1-3.5); Cholesterol 216 mg/dl (140-200); Estimated Glomerular Filt Rate 47 ml/min (>60); GFR (African American) 57 ML/MIN (>60); Glucose 96 mg/dl (74-100); HDL Cholesterol 74 mg/dl (40-60); Total Protein,Serum 6.6 g/dl (6.3-8.2); Triglycerides 91 mg/dl (30-150); VLDL Cholesterol 18 mg/dL (0-40)
[2024-10-11 10:33] LABS: Anion Gap 11.5 mEq/L (5-15)
[2024-10-11 10:36] LABS: Potassium 2.5 mmoL/L (3.5-5.1)
[2024-10-11 10:42] LABS: Direct LDL Cholesterol 99.58 mg/dL (100-129)
[2024-10-11 10:47] LABS: Free T4 (Free Thyroxine) 1.33 ng/dl (0.78-2.19)
[2024-10-11 11:02] LABS: Thyroid Stimulating Hormone 2.01 uIU/mL (0.465-4.68)
== END 2024-10-11 23:59 | disposition home or self-care (01) ==
LOC: LAB 09:14
PROVIDERS: PCP Nurse Practitioner; Visit Provider Nurse Practitioner
DX: R00.0 Tachycardia, unspecified (principal); R00.1 Bradycardia, unspecified; Z82.49 Family history of ischemic heart disease and other diseases of the circulatory system; R42 Dizziness and giddiness; R53.83 Other fatigue; E83.39 Other disorders of phosphorus metabolism; K21.9 Gastro-esophageal reflux disease without esophagitis; R53.1 Weakness; E87.6 Hypokalemia; R07.9 Chest pain, unspecified; R94.31 Abnormal electrocardiogram [ECG] [EKG]; R06.02 Shortness of breath; F32.A Depression, unspecified; F41.9 Anxiety disorder, unspecified; G62.9 Polyneuropathy, unspecified; Z91.89 Other specified personal risk factors, not elsewhere classified; R29.6 Repeated falls
CPT/HCPCS: 36415; 80048; 80061; 80076; 84439; 84443; 85025

== ENCOUNTER 2024-10-27 09:48 | Outpatient (CLI) | payer MEDICARE, SELFPAY ==
--- OUTSIDE RECORDS SUMMARY | 2024-10-27 09:51 | XMS_ITS ---
Laboratory report Created on: September 29, 2024 KIMBERLY RODRIGUEZ : 1975 Sex: Female Author Organization Unknown PROBLEMS Problems List Code Description RESULTS Laboratory Orders Date Order Code Test 2024-09-22 [id number] ALDOSTERONE/SHY N RATIO Laboratory Results Date LOINC Test Value Unit Reference Range Interpre tation 2024-09-22 1763-2 ALDOSTERONE 56.6 NG/DL 0.0-30.0 H 2024-09-22 2915-7 RENIN ACTIVITY, PLASMA 57.713 NG/ML/HR 0.167-5.380 H 2024-09-22 18532-8 ALDOS/RENIN RATIO 1 0.0-30.0
--- OUTSIDE RECORDS SUMMARY | 2024-10-27 09:51 | XMS_ITS ---
Laboratory report Created on: September 14, 2024 KIMBERLY RODRIGUEZ : 1975 Sex: Female Author Organization Unknown PROBLEMS Problems List Code Description RESULTS Laboratory Orders Date Order Code Test 2024-09-10 [id number] POTASSIUM, URINE Laboratory Results Date LOINC Test Value Unit Reference Range Interpre tation 2024-09-10 2828-2 POTASSIUM, URINE >100.0 MMOL/L
--- OUTSIDE RECORDS SUMMARY | 2024-10-27 09:51 | XMS_ITS ---
Laboratory report Created on: September 14, 2024 KIMBERLY RODRIGUEZ : 1975 Sex: Female Author Organization Unknown PROBLEMS Problems List Code Description RESULTS Laboratory Orders Date Order Code Test 2024-09-10 [id number] CHLORIDE, URINE Laboratory Results Date LOINC Test Value Unit Reference Range Interpre tation 2024-09-108-4 CHLORIDE, URINE 167 MMOL/L
--- OUTSIDE RECORDS SUMMARY | 2024-10-27 09:52 | XMS_ITS ---
Laboratory report Created on: September 25, 2024 KIMBERLY RODRIGUEZ : 1975 Sex: Female Author Organization Unknown PROBLEMS Problems List Code Description RESULTS Laboratory Orders Date Order Code Test 2024-09-21 [id number] POTASSIUM, URINE Laboratory Results Date LOINC Test Value Unit Reference Range Interpre tation 2024-09-21 2828-2 POTASSIUM, URINE 61.5 MMOL/L
--- OUTSIDE RECORDS SUMMARY | 2024-10-27 09:52 | XMS_ITS ---
Laboratory report Created on: September 25, 2024 KIMBERLY RODRIGUEZ : 1975 Sex: Female Author Organization Unknown PROBLEMS Problems List Code Description RESULTS Laboratory Orders Date Order Code Test 2024-09-22 [id number] CORTISOL Laboratory Results Date LOINC Test Value Unit Reference Range Interpre tation 2024-09-22 2143-6 CORTISOL 21.8 UG/DL 6.2-19.4 H
--- OUTSIDE RECORDS SUMMARY | 2024-10-27 09:52 | XMS_ITS | Data Portability ---
Author Organization [facility] KARTHIK Lama ELIZABETH CLOSED Address [address] [place] [address] Care Team Providers Care Pr Intern Name Role Phone JOB NAIK Referring Provider JOB NAIK Primary Care Provider Assessment No assessment recorded. Plan of Treatment Reminders Order Date Submit Date Provider Last Modified By Organization Details Last Modified Time Details Appointments None recorded. Lab glycohemogl obin, total, blood [address] [facility], [address] [place] [address], [address], 7 21:07:54 vitamin D, 25-hydroxy, total, serum [address] [facility], [address] [place] [address], [address], 7 21:07:54 TSH, serum or plasma [address] [facility], [address] [place] [address], [address], 7 21:07:54 T4, free, serum [address] [facility], [address] [place] [address], [address], 7 21:07:54 protein electrophor esis panel, serum or plasma 2016 017 [facility], [address] [place] [address], [address], 7 13:10:58 JEANNE (antinuclea r antibodies) screen, serum 2016 017 [facility], [address] [place] [address], [address], 7 15:05:25 CMP, serum or plasma 2016 [address] [facility], [address] [place] [address], [address], 7 21:07:54 CBC w/ auto diff 2016 017 [facility], [address] [place] [address], [address], 7 21:07:54 vitamin B12, serum 2016 017 erroberts chapelo n10 [facility], [address] [place] [address], [address], 7 21:07:54 Referral None recorded. Procedures nerve conduction study/EMG (PROC) 2016 017 erobertso n10 Not available 21:07:54 Surgeries None recorded. Imaging None recorded. Medication Orders None recorded. Patient TargetsNo targets recorded. Patient Instructions Encounter Date Encounter Id Patient Instructions Last Modified By Organization Details Last Modified Time 09/03/2017 [id number] neuropathic pain : care instructions [email or web address] Not available 09/05/2017 19:56:34 Reason for Referral None Reported. Results Created Date Observation Date Name Description Value Unit Range Abnormal Flag Note LastModifiedBy Organization Detail LastModifiedTime 07/03/20 17 07/03/2017 glyco hemog lobin , total , blood glyco HGB A1C 5.3 % 0.0-5. 6 normal Not Available [facility] [address] [place] [address], [address], 07/03/2017 11:47:49 07/03/20 17 07/03/2017 glyco hemog lobin , total , blood estimated avg. glucose 105 mg/dL _(rosenda c) normal New guide lines by the Ameri can Diabe mario alberto Ass[employer] iatio n state that a hemog lobin A1c level of 5.7-6 .4% indic ates an incre ased risk of diabe mario alberto. A resul t of 6.5% or highe r is diagn ostic of diabe mario alberto. Not Available [facility] [address] [place] [address], [address], 07/03/2017 11:47:49 07/03/20 17 07/03/2017 vitam in B12, serum vitamin B12 207 pg/mL 232-12 45 low Not Available [facility] [address] [place] [address], [address], 07/03/2017 12:33:33 07/03/20 17 07/03/2017 TSH, serum or plasm a TSH 2.330 uIU/m L 0.290- 5.500 normal Not Available [facility] [address] [place] [address], [address], 07/03/2017 12:34:03 07/03/20 17 07/03/2017 T4, free, serum T4,free 1.39 NG/dL 0.93-1 .70 normal Not Available [facility] [address] [place] [address], [address], 07/03/2017 12:34:04 07/03/20 17 07/03/2017 CBC w/ auto diff white blood cells 8.8 K/uL 3.8-10 .8 normal Not Available [facility] [address] [place] [address], [address], 07/03/2017 13:11:47 07/03/20 17 07/03/2017 CBC w/ auto diff red blood cells 5.12 M/uL 3.80-5 .20 normal Not Available [facility] [address] [place], [address], 07/03/2017 13:11:47 07/03/20 17 07/03/2017 CBC w/ auto diff hemoglobin 11.5 g/dL 12.0-1 6.0 low Not Available [facility] [address] [place] [address], [address], 07/03/2017 13:11:47 07/03/20 17 07/03/2017 CBC w/ auto diff hematocrit 36.8 % 35.0-4 7.0 normal Not Available [facility] [address] [place] [address], [address], 07/03/2017 13:11:47 07/03/20 17 07/03/2017 CBC w/ auto diff MCV 72 fL 80-100 low Not Available [facility] [address] [place] [address], [address], 07/03/2017 13:11:47 07/03/20 17 07/03/2017 CBC w/ auto diff MCH 23 pg 26-35 low Not Available [facility] [address] [place] [address], [address], 07/03/2017 13:11:47 07/03/20 17 07/03/2017 CBC w/ auto diff MCHC 31 g/dL 32-36 low Not Available [facility] [address] [place] [address], [address], 07/03/2017 13:11:47 07/03/20 17 07/03/2017 CBC w/ auto diff RDW 17.5 % 11.0-1 5.0 high Not Available [facility] [address] [place], [address], 07/03/2017 13:11:47 07/03/20 17 07/03/2017 CBC w/ auto diff MPV 7.8 fL 6.2-10 .5 normal Not Available [facility] [address] [place], [address], 07/03/2017 13:11:47 07/03/20 17 07/03/2017 CBC w/ auto diff platelet count 516 K/uL 130-40 0 high Not Available [facility] [address] [place] [address], [address], 07/03/2017 13:11:47 07/03/20 17 07/03/2017 CBC w/ auto diff neutrophil,a bsolute 5.7 K/uL 1.6-8. 4 normal Not Available [facility] [address] [place] [address], [address], 07/03/2017 13:11:47 07/03/20 17 07/03/2017 CBC w/ auto diff lymphocyte,a bsolute 2.4 K/uL 0.4-5. 1 normal Not Available [facility] [address] [place] [address], [address], 07/03/2017 13:11:47 07/03/20 17 07/03/2017 CBC w/ auto diff monocyte,abs olute 0.6 K/uL 0.0-1. 2 normal Not Available [facility] [address] [place] [address], [address], 07/03/2017 13:11:47 07/03/20 17 07/03/2017 CBC w/ auto diff eosinophil,a bsolute 0.0 K/uL 0.0-0. 8 normal Not Available [facility] [address] [place] [address], [address], 07/03/2017 13:11:47 07/03/20 17 07/03/2017 CBC w/ auto diff basophil,abs olute 0.0 K/uL 0.0-0. 3 normal Not Available [facility] [address] [place] [address], [address], 07/03/2017 13:11:47 07/03/20 17 07/03/2017 CBC w/ auto diff % neutrophils 65.2 % 42.0-7 8.0 normal Not Available [facility] [address] [place] [address], [address], 07/03/2017 13:11:47 07/03/20 17 07/03/2017 CBC w/ auto diff % lymphocytes 27.0 % 11.0-4 7.0 normal Not Available [facility] [address] [place] [address], [address], 07/03/2017 13:11:47 07/03/20 17 07/03/2017 CBC w/ auto diff % monocytes 6.9 % 0.0-11 .0 normal Not Available [facility] [address] [place] [address], [address], 07/03/2017 13:11:47 07/03/20 17 07/03/2017 CBC w/ auto diff % eosinophils 0.4 % 0.0-7. 0 normal Not Available [facility] [address] [place] [address], [address], 07/03/2017 13:11:47 07/03/20 17 07/03/2017 CBC w/ auto diff % basophils 0.5 % 0.0-3. 0 normal Not Available [facility] [address] [place] [address], [address], 07/03/2017 13:11:47 07/03/20 17 07/03/2017 CBC w/ auto diff nucleated red cells 0.1 % 0.0-0. 9 normal Not Available [facility] [address] [place] [address], [address], 07/03/2017 13:11:47 07/03/20 17 07/03/2017 CBC w/ auto diff nucleated RBCs, absolute 0.01 K/uL not estab. normal Not Available [facility] [address] [place] [address], [address], 07/03/2017 13:11:47 07/03/20 17 07/03/2017 RBC morph ology , blood platelet morphology NORMAL normal Not Available [facility] [address] [place], [address], 07/03/2017 13:11:49 07/03/20 17 07/03/2017 RBC morph ology , blood microcytosis SLIGHT abnormal Not Available [facility] [address] [place] [address], [address], 07/03/2017 13:11:49 07/03/20 17 07/03/2017 RBC morph ology , blood hypochromasi a SLIGHT abnormal Not Available [facility] [address] [place] [address], [address], 07/03/2017 13:11:49 07/03/20 17 07/03/2017 RBC morph ology , blood polychromasi a SLIGHT abnormal Not Available [facility] [address] [place] [address], [address], 07/03/2017 13:11:49 07/03/20 17 07/03/2017 RBC morph ology , blood ovalocytes SLIGHT abnormal Smear revie wed to confi rm cell morph ology . Not Available [facility] [address] [place] [address], [address], 07/03/2017 13:11:49 07/03/20 17 07/03/2017 vitam in D, 25-hy droxy , total , serum vitamin D 25-oh, total 8 NG/mL >=30 NG/mL abnormal Not Available [facility] [address] [place] [address], [address], 07/03/2017 13:35:29 07/03/20 17 07/03/2017 CMP, serum or plasm a glucose 123 mg/dL 74-100 high Not Available [facility] [address] [place] [address], [address], 07/03/2017 13:40:16 07/03/20 17 07/03/2017 CMP, serum or plasm a blood urea nitrogen 18 mg/dL 6-20 normal Not Available [facility] [address] [place], [address], 07/03/2017 13:40:16 07/03/20 17 07/03/2017 CMP, serum or plasm a creatinine 1.20 mg/dL 0.50-0 .95 high Not Available [facility] [address] [place], [address], 07/03/2017 13:40:16 07/03/20 17 07/03/2017 CMP, serum or plasm a BUN/creatini ne ratio 15 (calc ) 10-20 normal Not Available [facility] [address] [place] [address], [address], 07/03/2017 13:40:16 07/03/20 17 07/03/2017 CMP, serum or plasm a GFR 64 >= 60 normal Not Available [facility] [address] [place] [address], [address], 07/03/2017 13:40:16 07/03/20 17 07/03/2017 CMP, serum or plasm a GFR non- 55 >= 60 abnormal NOT E NEW calcu latio n for GFR is based on the Natio nal Kidne y Found ation CKD-E PI equat ion and allow s for repor ting GFR value s great er than 60 mL/mi n/1.7 3 m2. This calcu latio n has not been valid ated for patie nts less than 18 yrs., pregn ant women and Hispa nics. Chron ic kidne y disea se is defin ed as kidne y damag e or GFR less than 60 mL/mi n/1.7 3 m2 for 3 month s or longe r. . Not Available [facility] [address] [place], [address], 07/03/2017 13:40:16 07/03/20 17 07/03/2017 CMP, serum or plasm a sodium 141 mmol/ L 136-14 5 normal Not Available [facility] [address] [place], [address], 07/03/2017 13:40:16 07/03/20 17 07/03/2017 CMP, serum or plasm a potassium 2.3 mmol/ L 3.4-5. 0 critical low RESUL TS RECHE CKED. PANIC RESUL TS LEVINE D TO AND ACCUR ATELY READ BACK BY: YAYA HARRIS ON: 07/03 AT: 13:39 BY: MMB Not Available [facility] [address] [place] [address], [address], 07/03/2017 13:40:16 07/03/20 17 07/03/2017 CMP, serum or plasm a chloride 94 mmol/ L 98-107 low Not Available [facility] [address] [place] [address], [address], 07/03/2017 13:40:16 07/03/20 17 07/03/2017 CMP, serum or plasm a carbon dioxide 30 mmol/ L 20-32 normal Not Available [facility] [address] [place] [address], [address], 07/03/2017 13:40:16 07/03/20 17 07/03/2017 CMP, serum or plasm a anion gap 17 (calc ) 7-25 normal Not Available [facility] [address] [place] [address], [address], 07/03/2017 13:40:16 07/03/20 17 07/03/2017 CMP, serum or plasm a calcium 9.5 mg/dL 8.6-10 .2 normal Not Available [facility] [address] [place] [address], [address], 07/03/2017 13:40:16 07/03/20 17 07/03/2017 CMP, serum or plasm a total protein 8.1 g/dL 6.4-8. 3 normal Not Available [facility] [address] [place] [address], [address], 07/03/2017 13:40:16 07/03/20 17 07/03/2017 CMP, serum or plasm a albumin 4.8 g/dL 3.5-5. 2 normal Not Available [facility] [address] [place], [address], 07/03/2017 13:40:16 07/03/20 17 07/03/2017 CMP, serum or plasm a globulin 3.3 g/dL_ (calc ) 1.5-4. 5 normal Not Available [facility] [address] [place], [address], 07/03/2017 13:40:16 07/03/20 17 07/03/2017 CMP, serum or plasm a albumin/glob ulin ratio 1.5 (calc ) 1.1-2. 5 normal Not Available [facility] [address] [place] [address], [address], 07/03/2017 13:40:16 07/03/20 17 07/03/2017 CMP, serum or plasm a bilirubin, total 0.3 mg/dL 0.1-1. 2 normal Not Available [facility] [address] [place] [address], [address], 07/03/2017 13:40:16 07/03/20 17 07/03/2017 CMP, serum or plasm a alkaline phosphatase 50 U/L 35-105 normal Not Available [facility] [address] [place], [address], 07/03/2017 13:40:16 07/03/20 17 07/03/2017 CMP, serum or plasm a AST 13 U/L 0-32 normal Not Available [facility] [address] [place], [address], 07/03/2017 13:40:16 07/03/20 17 07/03/2017 CMP, serum or plasm a ALT 7 U/L 0-33 normal Not Available [facility] [address] [place] [address], [address], 07/03/2017 13:40:16 07/03/20 17 07/04/2017 prote in elect ropho resis panel , serum or plasm a protein, total 7.7 g/dL 6.1-8. 1 normal TEST PERFO RMED AT: [facility] [place] [address] [place] [address] RUDOLPH Clayton MD Not Available [facility] [address] [place] [address], [address], 07/05/2017 18:35:09 07/03/20 17 07/05/2017 prote in elect ropho resis panel , serum or plasm a albumin 4.5 g/dL 3.8-4. 8 normal Not Available [facility] [address] [place] [address], [address], 07/05/2017 18:35:09 07/03/20 17 07/05/2017 prote in elect ropho resis panel , serum or plasm a oypyi-0-jojq ulin 0.4 g/dL 0.2-0. 3 high Not Available [facility] [address] [place] [address], [address], 07/05/2017 18:35:09 07/03/20 17 07/05/2017 prote in elect ropho resis panel , serum or plasm a fwzik-3-bofa ulin 0.9 g/dL 0.5-0. 9 normal Not Available [facility] [address] [place] [address], [address], 07/05/2017 18:35:09 07/03/20 17 07/05/2017 prote in elect ropho resis panel , serum or plasm a beta 1 globulin 0.6 g/dL 0.4-0. 6 normal Not Available [facility] [address] [place], [address], 07/05/2017 18:35:09 07/03/20 17 07/05/2017 prote in elect ropho resis panel , serum or plasm a beta 2 globulin 0.5 g/dL 0.2-0. 5 normal Not Available [facility] [address] [place] [address], [address], 07/05/2017 18:35:09 07/03/20 17 07/05/2017 prote in elect ropho resis panel , serum or plasm a gamma globulin 0.9 g/dL 0.8-1. 7 normal Not Available [facility] [address] [place] [address], [address], 07/05/2017 18:35:09 07/03/20 17 07/05/2017 prote in elect ropho resis panel , serum or plasm a interpretati on SEE BELOW normal The incre ase in the alpha -1-gl obuli ns may be due to incre ased alpha -1-an titry psin, an acute phase react ant prote in. No monoc lonal immun oglob ulin detec jrogito. TEST PERFO RMED AT: [facility] [address] [place] [address] RUDOLPH Clayton MD Not Available [facility] [address] [place] [address], [address], 07/05/2017 18:35:09 07/03/20 17 07/05/2017 JEANNE (anti nucle ar antib odies ) scree n, serum JEANNE screen NEGATI VE negati ve normal JEANNE IFA is a first line scree n for detec ting the prese nce of up to appro ximat everett 150 autoa ntibo dies in vario us autoi mmune disea ses. A negat theresa JEANNE IFA resul t sugge sts JEANNE-a ssoci ated autoi mmune disea ses are not prese nt at this time. Visit Physi markus FAQs for inter preta tion of all antib odies in the [place], preva lence , and assoc iatio n with disea ses at http: //edu catio n.Que stDia gnost ics.c om/ faq/F AQ177 TEST PERFO RMED AT: [facility] [address] [facility] [address] RUDOLPH Clayton MD Not Available [facility] [address] [place], [address], 07/05/2017 15:05:25 09/05/19 18 09/03/2017 elect romyo gram + nerve condu ction study No observ ation record ed. awdennis Not Available 15:14:47 Result Notes None recorded. Problems No Known Problems Procedures Surgical History Date Name Laterality Status Provider Name and Address Organization Details Recorded Time 018 Electromyography (EMG) with Nerve Conduction Study (NCV) completed DANIKA COVARRUBIAS MD [address] [place], [address], [facility] 09/05/2017 19:55:42 Caesarean Section completed [facility] 07/03/2017 09:28:25 Thyroid Surgery completed [facility] 07/03/2017 09:28:35 Shoulder Surgery completed [facility] 07/03/2017 09:28:47 Back Surgery completed [facility] 07/03/2017 09:28:55 Imaging Results Imaging Date Name Status LastModified by Organization Details LastModified Time 09/03/2017 electromyogram + nerve conduction study completed [facility] Information not available 09/08/2017 15:14:47 Procedure Notes None recorded. Medical Equipment None Reported. Allergies No known drug allergies Medications Name Sig Start Date Stop Date Status Note LastModified by Organization Details LastModified Time bupropion HCl SR 150 mg tablet,12 hr sustained -release active Not Available Not Available Not Available gabapenti n 600 mg tablet active Not Available Not Available Not Available tizanidin e 2 mg tablet active Not Available Not Available Not Available amlodipin e 2.5 mg tablet active Not Available Not Available Not Available chlorthal idone 50 mg tablet active Not Available Not Available No t Available tramadol 50 mg tablet 07/03 completed Not Available Not Available Not Available oxycodone -acetamin ophen 5 mg-325 mg tablet active Not Available Not Available Not Available potassium chloride ER 20 mEq tablet,ex tended release(p art/cryst ) active Not Available Not Available Not Available trazodone 100 mg tablet active Not Available Not Available Not Available nortripty line 10 mg capsule Every night at bedtime active Not Available Not Available No t Available Neurontin 100 mg capsule Four times a day active Duration : 30 days;Yaya quency: qid;Alt Frequenc y: as direct.; Medicati on Descript ion: gabapent in; Dosage:1 ; Route:or al; refills: 3; Quantity :90 capsule Not Available Not Available Not Available omeprazol e 20 mg capsule,d elayed release active Not Available Not Available Not Available mupirocin 2 % topical ointment active Not Available Not Available Not Available midodrine 2.5 mg tablet 07/03 completed Not Available Not Available Not Available lorazepam 1 mg tablet active Not Available Not Available Not Available ibuprofen 600 mg tablet active Not Available Not Available Not Available oxycodone -acetamin ophen 7.5 mg-325 mg tablet active Not Available Not Available Not Available zolpidem 10 mg tablet active Not Available Not Available Not Available Flexeril 10 mg tablet Daily 07/03 completed Duration : 30 days;Ins truction s: take 1/2 to 1 tab about 1-2 hours before bedtime; Frequenc y: daily;Al t Frequenc y: as direct.; Medicati on Descript ion: cycloben zaprine; Dosage:a s directed ; Route:or al; refills: 3; Quantity :60 tablet Not Available Not Available Not Available duloxetin e 60 mg capsule,d elayed release active Not Available Not Available Not Available Zanaflex 2 mg capsule Four times a day active Duration : 30 days;Yaya quency: qid;Medi cation Descript ion: tizanidi ne; Dosage:1 ; Route:or al; refills: 5; Quantity :60 capsule Not Available Not Available Not Available ibuprofen Two times a day active Frequenc y: bid;Medi cation Descript ion: ibuprofe n; Dosage:1 ; refills: 0 Not Available Not Available Not Available GaviLyte- G 236 gram-22.7 4 gram-6.74 gram-5.86 gram oral solution 07/03 completed Not Available Not Available Not Available Zipsor 25 mg capsule active Not Available Not Available Not Available Gralise 600 mg tablet,ex tended release active Not Available Not Available Not Available Aimovig Autoinjec tor 140 mg/mL subcutane ous auto-inje ctor active Not Available Not Available Not Available Vitals Date Recorded Body height Body mass index (BMI) Body weight Heart rate Systolic blood pressure Diastolic blood pressure Systolic blood pressure Diastolic blood pressure Systolic blood pressure Diastolic blood pressure Provider Name and Address Organization Details Last Updated DateTime 7 167.64 cm 25.7 kg/m2 51968.1 9 g 80 /min 90 mm[Hg] 76 mm[Hg] 84 mm[Hg] 62 mm[Hg] 80 mm[Hg] 60 mm[Hg] [facility] 09:52:39 Date Recorded Body height Body mass index (BMI) Body weight Heart rate Systolic blood pressure Diastolic blood pressure Provider Name and Address Organization Details Last Updated DateTime 8 167.64 cm 26 kg/m2 20420.3 7 g 80 /min 90 mm[Hg] 62 mm[Hg] [facility] 8 10:59:18 Social History Question Answer Notes LastModified by Organizat ion Details LastModified Time Tobacco Smoking Status Never [facility]oker [facility] 07/03/2017 09:28:17 What Is Your Level Of Alcohol Consumption? None Information not available 07/03/2017 Live Alone Or With Others? With Others Information not available 07/03/2017 [facility] In[facility] ion not available 07/03/2017 What Was The Date Of Your Most Recent Tobacco Screening? 09/03/2017 Information n ot available 08/31/2019 Sex: Unknown Functional Status None recorded. Mental Status None recorded. Family History Relationship Description Onset Age of this Age Resolved Age Notes LastModified by Organization Details LastModified Time Father No current problems or disability [email or web address] Not available 09:28:10 Mother No current problems or disability [email or web address] Not available 09:28:10 Medical History Condition Response Anxiety Disorder Y Migraines Y Depression Y Gynecological HistoryNo gynecological history recorded. Obstetrics History GPAL:G 0 P 0 0 0 0 Past Encounters Encounter ID Performer Location Encounter Start Date Encounter Closed Date Diagnosis/Indication Diagnosis SNOMED-CT Code Diagnosis ICD10 Code Diagnosis Note [id number] DANIKA COVARRUBIAS MD NEUROLOGY [facility] [address] [place] [address] 07/03/2017 08:59:04 07/03/2017 12:11:01 Neuropathy 316350267 G62.9 Neuropathy on exam LD, large and small fiber by exam.-WIll bring in for an EMG BLE and 1 upper - With Dr. Covarrubias. -Will check the following: A1C, CMP, JEANNE, CBC, THS Free, T4, B12, vit D, SPEP-Decre ase dose of Cymbalta.- Stop nortriptyl ine and tizanidine -Add magnesium 400mg qhs-Start Alpha lipoic acid 600mg -Start Biotin 5000mcg -Start B complex (not super B) -Start multivitam in -Counseled on the importance of vitamins and their role in neurologic al function, conditions , and overall health. Take control of own health by knowing vitamin levels, dose and goals. - she is to sign up for our portal RTC 4m Syncope [id number] Found to have neuropathy by exam may also have an autonomic neuropathy will perform an EMG recommend she discontinu e both nortriptyl ine and tizanidine , will do a workup for the neuropathy , they sx she is having before spell are pre-syncop al, and cardiac workup I will defer to PCP. Hypotensiv e on vitals today. No orthostasi s. Concern for over tx of hypertensi on. She is to discuss with prescribin g physician, may need lower dose. Also with recent low K; cannot exclude metabolic or medication related (chlorthal idone) which can lead to arrhythmia . [id number] DANIKA COVARRUBIAS MD NEUROLOGY [facility] CLOSED [address] [place] [address] 09/03/2017 09:48:17 09/03/2017 12:21:37 Neuropathy [id number] G62.9 Neuropathy on exam LD, large and small fiber by exam.-WIll bring in for an EMG BLE and 1 upper - With Dr. Covarrubias. -Will check the following: A1C, CMP, JEANNE, CBC, THS Free, T4, B12, vit D, SPEP-Decre ase dose of Cymbalta.- Stop nortriptyl ine and tizanidine -Add magnesium 400mg qhs-Start Alpha lipoic acid 600mg -Start Biotin 5000mcg -Start B complex (not super B) -Start multivitam in -Counseled on the importance of vitamins and their role in neurologic al function, conditions , and overall health. Take control of own health by knowing vitamin levels, dose and goals. - she is to sign up for our portal RTC 4m Paresthesia [id number] R20 .2 BUE/BLEs EMG and exam consistent with mild peripheral neuropathy Health Concerns Section Related Observation LastModified by Organization Detai ls LastModified Time None Recorded Concern Status LastModified by Organization Details LastModified Time None Recorded Advance Directives Directive None Recorded Payers Encounter Date Sequence Insurance Name Policy Number Policy Muniz Covered Member ID Muniz Member ID Guarantor Name 07/03/2017 1 [employer]ICARE[employer] (MEDICARE) Valeria Breen [id number] Valeria Breen 09/03/2017 1 [employer] (MEDICARE) Valeria Breen [id number] Valeria Breen Notes Date Note Type Note Provider Name and Address Organization Details Recorded Time 07/03/2017 text/html Valeria Breen i s a 41 YO RH woman presenting in consultation for syncope and dizziness at the request of Dr. Job Naik. Her daughter is here and assists with history. She started having 'spells' around a year ago. She would have one, and then she would have another one a month later. Her daughter says she will be sitting, and stand up, she stands for a second, her hands start shaking, and she falls. She looses consciousness at that point. They try to catch her, and set her on the ground if they are able. She will continue to be out of it for a few seconds, and continue to shake.Her hands curl in and start shaking. Her head is usually down, and shakes some too. The other day she started having one, she closes her eyes at the begining of the spell. She describes feeling become lightheaded, hot, heart racing, dimming vision, and shaky. She had a low potassium level and was admitted to the hospital. She was given sodium through an IV, and gave her potassium, and sent her home. She has a spinal stimulator. She has RS, complex regional pain syndrome, and lost control of her R arm. She has been on multiple medications for 5 years. She also has Raynaud's disease. Sometimes she has blurry vision.She had a rotator cuff tear, had multiple surgeries. She has a lot of pain in her R leg. +FH of MS in sister Medications and supplements:Tizanad ine, Wellbutrin, Norvasc, Cymbalta,She doesn't take any MVI. Denies: biting her tongue, urinating during spell, no rigidity, diabetes, strokes, heart attacks, imaging, brain issues, seizures, syncopal spells in the past, vision loss, neck injury, heart issues DANIKA COVARRUBIAS MD [address] [place], [address], [facility] 07/03/2017 14:24:38 OBGyn Episode No OBEpisode recorded.
--- OUTSIDE RECORDS SUMMARY | 2024-10-27 09:52 | XMS_ITS | Data Portability ---
Author Organization [facility] [place] [facility] Address [address] [place] [address] Assessment No assessment recorded. Plan of Treatment Reminders Order Date Submit Date Provider Last Modified By Organization Details Last Modified Time Details Appointments None recorded. Lab None recorded. Referral None recorded. Procedures None recorded. Surgeries None recorded. Imaging None recorded. Medication Orders Aimovig Autoinjecto r 140 mg/mL subcutaneou s auto-inject or 2023 024 [facility], [address], [address], 4 14:16:27 Ubrelvy 100 mg tablet 2023 024 [facility], [address], [address], 4 14:16:26 Aimovig Autoinjecto r 140 mg/mL subcutaneou s auto-inject or 2022 023 [facility], [address], [address], 3 10:47:23 Ubrelvy 100 mg tablet 2022 023 [facility], [address], [address], 3 10:47:21 Patient TargetsNo targets recorded. Patient InstructionsNo instructions recorded. Reason for Referral None Reported. Problems Name Problem SNOMED Code Status Onset Date Resolution Date Notes Provider Name and Address Organization Details Recorded Time Thyroid nodule 043830552 Active 2019 Not Available [facility] 2 18:11:55 Refractory migraine without aura 009697792 Active 2017 Not Available [facility] 2 18:11:55 Chronic intractabl e migraine without aura 5969353013360 05 Active 2022 Valeria Wright, DO [address] [facility], [place], [address] , [facility] - [facility] & [place] 3 20:39:18 Problem Notes None recorded. Procedures Surgical History Date Name Laterality Status Provider Name and Address Organization Details Recorded Time 06/13/20 removal of ovarian cyst completed Tamara Emely CODI [facility] & [place] 09/11/2022 10:24:56 neurostimulation of spinal cord tissue completed [facility] Zaida CODI [facility] & [place] 08/07/2022 13:58:13 repair of shoulder completed [facility] Zaida CODI - [facility] & [place] 08/07/2022 13:58:32 section completed [facility] Zaida CODI [facility] & [place] 08/07/2022 13:59:26 partial lobectomy of thyroid completed [facility] Zaida CODI [facility] & [place] 09/11/2022 10:25:35 Imaging Results None recorded. Procedure Notes None recorded. Medical Equipment None Reported. Allergies No known drug allergies Medications Name Sig Start Date Stop Date Status Note LastModified by Organization Details LastModified Time bupropion HCl SR 150 mg tablet,12 hr sustained -release 1 tablet Orally Twice a day active Not Available Not Available No t Available potassium chloride ER 10 mEq capsule,e xtended release 1 capsule with food Orally Twice a day active Not Available Not Available No t Available ondansetr on HCl 4 mg tablet 1 Orally prn active Not Available Not Available No t Available amlodipin e 2.5 mg tablet Take 1 tablet every day by oral route. active Not Available Not Available No t Available chlorthal idone 50 mg tablet 1 tablet in the morning with food Orally Once a day active Not Available Not Available No t Available trazodone 100 mg tablet 1 Orally qhs active Not Available Not Available No t Available baclofen 10 mg tablet 1 Orally qid active Not Available Not Available No t Available nortripty line 10 mg capsule 1 capsule Orally Once a day active Not Available Not Available No t Available omeprazol e 20 mg capsule,d elayed release 1 capsule Orally Once a day active Not Available Not Available No t Available diclofena c sodium 50 mg tablet,de layed release 1 Orally bid active Not Available Not Available No t Available lorazepam 1 mg tablet 1 tablet at bedtime as needed Orally Once a day active Not Available Not Available No t Available zolpidem 10 mg tablet 1 tablet at bedtime as needed Orally Once a day active Not Available Not Available No t Available duloxetin e 60 mg capsule,d elayed release 1 capsule Orally Once a day active Not Available Not Available No t Available Zipsor 25 mg capsule 1 capsule with food or milk as needed Orally Four times a day 09/15 completed Not Available Not Available Not Available Gralise 600 mg tablet,ex tended release 1 tablet with the evening meal Orally Once a day active Not Available Not Available No t Available Aimovig Autoinjec tor 140 mg/mL subcutane ous auto-inje ctor active Not Available Not Available Not Available Ubrelvy 100 mg tablet active approved Not Available Not Available Not Available Vitals Date Recorded Body height Body mass index (BMI) Body weight Heart rate Systolic blood pressure Diastolic blood pressure Provider Name and Address Organization Details Last Updated DateTime 3 165.1 cm 23.9 kg/m2 34861.8 6 g 77 /min 100 mm[Hg] 63 mm[Hg] [facility] [place] 3 10:22:37 Date Recorded Body height Body mass index (BMI) Body weight Heart rate Systolic blood pressure Diastolic blood pressure Provider Name and Address Organization Details Last Updated DateTime 4 165.1 cm 25.7 kg/m2 38912.9 4 g 80 /min 97 mm[Hg] 69 mm[Hg] Tamara KINCAID - MEKH[facility] & [place] 4 14:08:56 Social History Question Answer Notes LastModified by Organizat ion Details LastModified Time Tobacco Smoking Status Never Smoker Not Available [facility] 04/12/2022 18:01:55 What Is Your Level Of Alcohol Consumption? None Information not available 08/07/2022 What Is Your Level Of Caffeine Consumption? Moderate Soda 3 A Day Information not available 08/07/2022 Are You Currently Employed? No Disabled Information not available 09/11/2022 Do You Have Any Pets? Yes Information not available 08/07/2022 What Is Your Relationship Status? Lives With Family In A House Information not available 08/07/2022 Are You Sexually Active? Yes Information not available 08/07/2022 Do You Use Any Illicit Or Recreational Drugs? No Information not available 08/07/2022 Are You Currently In School? No Diploma Information not available 09/11/2022 Sex: Unknown Functional Status None recorded. Mental Status None recorded. Family History Relationship Description Onset Age of this Age Resolved Age Notes LastModified by Organization Details LastModified Time Mother Hypertensive disorder ldalla Not available 2022 13:54:54 Mother Diabetes mellitus ldalla Not available 2022 13:55:10 Father Malignant neoplastic disease deceas ed ldalla Not available 08/07/2022 13:55:36 Medical History Condition Response Anemia Y Headaches Y Migraines Y Hypertension Y Reflux/GERD Y Depression Y Neurological Problems Y Gynecological HistoryNo gynecological history recorded. Obstetrics History GPAL:G 0 P 0 0 0 0 Past Encounters Encounter ID Performer Location Encounter Start Date Encounter Closed Date Diagnosis/Indication Diagnosis SNOMED-CT Code Diagnosis ICD10 Code Diagnosis Note [id number] Valeria Wright DO [facility] [address] [facility],[address] [place] [address] 09/11/2022 10:16:16 09/11/2022 10:48:25 Chronic intractable migraine without aura 0530612197 51146 G43.711 Chronic condition that is stable with her current medication s. She needs to continue with monthly Aimovig injections . She needs refills of her aimovig and ubrelvy today. [id number] Valeria Wright DO [place] [facility] [address] [facility],[address] [place] [address] 09/16/2023 13:58:39 09/16/2023 14:18:20 Chronic intractable migraine without aura 6381668607 17638 G43.711 Chronic condition that is stable with her current medication s. She needs to continue with monthly Aimovig injections . She needs refills of her aimovig and ubrelvy today. Health Concerns Section Related Observation LastModified by Organization Detai ls LastModified Time None Recorded Concern Status LastModified by Organization Details LastModified Time None Recorded Advance Directives Directive None Recorded Payers Encounter Date Sequence Insurance Name Policy Number Policy Muniz Covered Member ID Muniz Member ID Guarantor Name 09/11/2022 1 [place] Valeria Breen [id number] Valeria Breen 09/16/2023 1 [place] Valeria Breen [id number] Valeria Breen Notes Date Note Type Note Provider Name and Address Organization Details Recorded Time 09/11/2022 text/html Valeria comes in for routine follow up on her migraines. She was last seen 08/08/21. She has been on Aimovig with good results. She uses ubrelvy as needed for acute migraines.Today Valeria reports her migraines remain stable. She averages one migraine a month. Ubrelvy works well if she needs to use this. She has no side effects from her aimovig injections. She continues to follow with pain management for her RSD. She has had some issues with increased neck pain this past year. She has had several procedures including an ablation to try to manage her pain. Her neurostimulator wires had to be adjusted. Valeria Kyle, DO [address], [place], [address], [place] - [facility] [place] [facility] [place] 09/11/2022 10:52:16 09/16/2023 text/html Valeria comes in today for routine follow up. She has been on aimovig and ubrelvy to manage her headaches. Today she reports her headaches have been stable. She will have flare ups when she is overly stressed. She does find the ubrelvy works well when she needs this medication.Her other medications have been unchanged since last year. She tells me her RSD is under control. PRIOR VISIT: (09/11/22)Valeria comes in for routine follow up on her migraines. She was last seen 08/08/21. She has been on Aimovig with good results. She uses ubrelvy as needed for acute migraines.Today Valeria reports her migraines remain stable. She averages one migraine a month. Ubrelvy works well if she needs to use this. She has no side effects from her aimovig injections. She continues to follow with pain management for her RSD. She has had some issues with increased neck pain this past year. She has had several procedures including an ablation to try to manage her pain. Her neurostimulator wires had to be adjusted. Valeria Wright, DO [address] , [place], [address], [place] [facility] [place] [facility] [place] 09/16/2023 14:18:27 OBGyn Episode No OBEpisode recorded.
[2024-10-27 09:58] LABS: Microscopic, Urine URINE MICROSCOPIC (MICROSCOPIC)
[2024-10-27 10:15] LABS: Basophils % 0.6 % (0.1-2.0); Eosinophils # 0.1 K/mm3 (0.0-0.4); Eosinophils % 1.4 % (0.1-12.0); Hematocrit 31.5 % (37.0-47.0); Hemoglobin 9.9 g/dL (12.2-16.2); Lymphocytes # 2.7 K/mm3 (0.7-4.5); Lymphocytes % 42.1 % (10-50); Mean Corpuscular HGB Conc 31.4 g/dL (31.8-35.4); Mean Corpuscular Hemoglobin 23.6 pg (27.0-31.2); Mean Platelet Volume 8.3 fl (7.4-10.4); Monocytes # 0.6 K/mm3 (0.1-1.0); Monocytes % 8.8 % (1.7-9.3); Neutrophils # 2.9 K/mm3 (1.8-7.8); Neutrophils % 46.5 % (37.0-80.0); Nucleated Red Blood Cells # 0 10^3/uL; Nucleated Red Blood Cells % 0 %; Platelet Count 446 K/mm3 (142-424); Red Cell Distribution Width 17.7 % (11.5-17.5); Red Cell Distribution Width-SD 47.8 fL; White Blood Count 6.3 K/mm3 (4.8-10.8)
[2024-10-27 10:38] LABS: Appearance,Urine CLEAR (Clear); Bilirubin,Urine Negative (Negative); Blood, Urine Negative (Negative); Color,Urine YELLOW (Yellow); Glucose,Urine (UA) Negative (Negative); Ketones,Urine Negative (Negative); Leukocyte Esterase,Urine Negative (Negative); Nitrate,Urine Negative (Negative); Protein,Urine Negative (Negative); Specific Gravity, Urine <= 1.005 (1.005-1.030); Urobilinogen,Urine 0.2 EU/dl (0.2)
[2024-10-27 10:41] LABS: Chloride 92 mmol/L (98-107)
[2024-10-27 10:42] LABS: Albumin Level 3.7 g/dl (3.5-5.0); Sodium 132 mmol/L (136-145)
[2024-10-27 10:44] LABS: Blood Urea Nitrogen 12 mg/dl (7-17); Estimated Glomerular Filt Rate 47 ml/min (>60); GFR (African American) 57 ML/MIN (>60)
[2024-10-27 10:45] LABS: Calcium 8.7 mg/dl (8.4-10.2); Carbon Dioxide 31 mmol/L (22.0-30.0); Glucose 85 mg/dl (74-100); Phosphorous 3.4 mg/dl (2.5-4.5)
[2024-10-27 11:36] LABS: Creatinine,Urine Random 51 mg/dL (Not Estab.)
[2024-10-27 12:37] LABS: Bacteria,Urine 1+ /lpf; Squamous Epithelial Cell,Urine 20-50 #/hpf (0-5)
[2024-10-27 13:13] LABS: Anion Gap 11.2 mEq/L (5-15); Potassium 2.2 mmoL/L (3.5-5.1)
== END 2024-10-27 23:59 | disposition home or self-care (01) ==
LOC: LAB 09:50
PROVIDERS: PCP Nurse Practitioner; Visit Provider Internal Medicine Nephrology
DX: N28.9 Disorder of kidney and ureter, unspecified (principal)
CPT/HCPCS: 36415; 80069; 81001; 82570; 84156; 85025

== ENCOUNTER 2024-12-07 14:22 | Outpatient (CLI) | payer MEDICARE, SELFPAY ==
--- OUTSIDE RECORDS SUMMARY | 2024-12-07 14:25 | XMS_ITS | Data Portability ---
Author Organization [facility] KARTHIK Lama MERCEDES CLOSED Address [address] [place] [address] Care Team Providers Care E Commerce Specialist Name Role Phone JOB NAIK Referring Provider JOB NAIK Primary Care Provider [phone] Assessment No assessment recorded. Plan of Treatment Reminders Order Date Submit Date Provider Last Modified By Organization Details Last Modified Time Details Appointments None recorded. Lab glycohemogl obin, total, blood [address] [facility], [address] [place] [address], [address], 7 21:07:54 vitamin D, 25-hydroxy, total, serum [address] [facility], [address] [place] [address], [address], 7 21:07:54 TSH, serum or plasma [address] [facility], [address] [place] [address], [address], 7 21:07:54 T4, free, serum [address] [facility], [address] [place] [address], [address], 7 21:07:54 protein electrophor esis panel, serum or plasma 2016 017 [facility], [address] [place] [address], [address], 7 13:10:58 JEANNE (antinuclea r antibodies) screen, serum 2016 017 [facility], [address] [place] [address], [address], 7 15:05:25 CMP, serum or plasma 2016 017 [facility], [address] [place] [address], [address], 7 21:07:54 CBC w/ auto diff 2016 017 [facility], [address] [place] [address], [address], 7 21:07:54 vitamin B12, serum 2016 017 [facility], [address] [place] [address], [address], 7 21:07:54 Referral None recorded. Procedures nerve conduction study/EMG (PROC) 2016 017 erobertso n10 Not available 21:07:54 Surgeries None recorded. Imaging None recorded. Medication Orders None recorded. Patient TargetsNo targets recorded. Patient Instructions Encounter Date Encounter Id Patient Instructions Last Modified By Organization Details Last Modified Time 09/03/2017 [id number] neuropathic pain : care instructions [email or web address] Not available 09/05/2017 19:56:34 Reason for Referral None Reported. Results Created Date Observation Date Name Description Value Unit Range Abnormal Flag Note LastModifiedBy Organization Detail LastModifiedTime 07/03/20 17 07/03/2017 glyco hemog lobin , total , blood glyco HGB A1C 5.3 % 0.0-5. 6 normal Not Available [facility] [address] [address], [address], 07/03/2017 11:47:49 07/03/20 17 07/03/2017 glyco hemog [...] ostic of diabe mario alberto. Not Available [facility] [address] [address], [address], 07/03/2017 11:47:49 07/03/20 17 07/03/2017 vitam in B12, serum vitamin B12 207 pg/mL 232-12 45 low Not Available [facility] [address] [address], [address], 07/03/2017 12:33:33 07/03/20 17 07/03/2017 TSH, serum or plasm a TSH 2.330 uIU/m L 0.290- 5.500 normal Not Available [facility] [address] [address], [address], 07/03/2017 12:34:03 07/03/20 17 07/03/2017 T4, free, serum T4,free 1.39 NG/dL 0.93-1 .70 normal Not Available [facility] [address] [address], [address], 07/03/2017 12:34:04 07/03/20 17 07/03/2017 CBC w/ auto diff white blood cells 8.8 K/uL 3.8-10 .8 normal Not Available [facility] [address] [place] [address], [address], 07/03/2017 13:11:47 07/03/20 17 07/03/2017 CBC w/ auto diff red blood cells 5.12 M/uL 3.80-5 .20 normal Not Available [facility] [address] [place], [address], 07/03/2017 13:11:47 07/03/20 17 07/03/2017 CBC w/ auto diff hemoglobin 11.5 g/dL 12.0-1 6.0 low Not Available [facility] [address] [place] [address], [address], 07/03/2017 13:11:47 07/03/20 17 07/03/2017 CBC w/ auto diff hematocrit 36.8 % 35.0-4 7.0 normal Not Available [facility] [address] [place] [address], [address], 07/03/2017 13:11:47 07/03/20 17 07/03/2017 CBC w/ auto diff MCV 72 fL 80-100 low Not Available [facility] [address] [place] [address], [address], 07/03/2017 13:11:47 07/03/20 17 07/03/2017 CBC w/ auto diff MCH 23 pg 26-35 low Not Available [facility] [address] [place] [address], [address], 07/03/2017 13:11:47 07/03/20 17 07/03/2017 CBC w/ auto diff MCHC 31 g/dL 32-36 low Not Available [facility] [address] [place] [address], [address], 07/03/2017 13:11:47 07/03/20 17 07/03/2017 CBC w/ auto diff RDW 17.5 % 11.0-1 5.0 high Not Available [facility] [address] [place], [address], 07/03/2017 13:11:47 07/03/20 17 07/03/2017 CBC w/ auto diff MPV 7.8 fL 6.2-10 .5 normal Not Available [facility] [address] [place], [address], 07/03/2017 13:11:47 07/03/20 17 07/03/2017 CBC w/ auto diff platelet count 516 K/uL 130-40 0 high Not Available [facility] [address] [place] [address], [address], 07/03/2017 13:11:47 07/03/20 17 07/03/2017 CBC w/ auto diff neutrophil,a bsolute 5.7 K/uL 1.6-8. 4 normal Not Available [facility] [address] [place] [address], [address], 07/03/2017 13:11:47 07/03/20 17 07/03/2017 CBC w/ auto diff lymphocyte,a bsolute 2.4 K/uL 0.4-5. 1 normal Not Available [facility] [address] [place] [address], [address], 07/03/2017 13:11:47 07/03/20 17 07/03/2017 CBC w/ auto diff monocyte,abs olute 0.6 K/uL 0.0-1. 2 normal Not Available [facility] [address] [address], [address], 07/03/2017 13:11:47 07/03/20 17 07/03/2017 CBC w/ auto diff eosinophil,a bsolute 0.0 K/uL 0.0-0. 8 normal Not Available [facility] [address] [address], [address], 07/03/2017 13:11:47 07/03/20 17 07/03/2017 CBC w/ auto diff basophil,abs olute 0.0 K/uL 0.0-0. 3 normal Not Available [facility] [address] [address], [address], 07/03/2017 13:11:47 07/03/20 17 07/03/2017 CBC w/ auto diff % neutrophils 65.2 % 42.0-7 8.0 normal Not Available [facility] [address] [place] [address], [address], 07/03/2017 13:11:47 07/03/20 17 07/03/2017 CBC w/ auto diff % lymphocytes 27.0 % 11.0-4 7.0 normal Not Available [facility] [address] [place] [address], [address], 07/03/2017 13:11:47 07/03/20 17 07/03/2017 CBC w/ auto diff % monocytes 6.9 % 0.0-11 .0 normal Not Available [facility] [address] [address], [address], 07/03/2017 13:11:47 07/03/20 17 07/03/2017 CBC w/ auto diff % eosinophils 0.4 % 0.0-7. 0 normal Not Available [facility] [address] [address], [address], 07/03/2017 13:11:47 07/03/20 17 07/03/2017 CBC w/ auto diff % basophils 0.5 % 0.0-3. 0 normal Not Available [facility] [address] [address], [address], 07/03/2017 13:11:47 07/03/20 17 07/03/2017 CBC w/ auto diff nucleated red cells 0.1 % 0.0-0. 9 normal Not Available [facility] [address] [address], [address], 07/03/2017 13:11:47 07/03/20 17 07/03/2017 CBC w/ auto diff nucleated RBCs, absolute 0.01 K/uL not estab. normal Not Available [facility] [address] [address], [address], 07/03/2017 13:11:47 07/03/20 17 07/03/2017 RBC morph ology , blood platelet morphology NORMAL normal Not Available [facility] [address] [place], [address], 07/03/2017 13:11:49 07/03/20 17 07/03/2017 RBC morph ology , blood microcytosis SLIGHT abnormal Not Available [facility] [address] [place] [address], [address], 07/03/2017 13:11:49 07/03/20 17 07/03/2017 RBC morph ology , blood hypochromasi a SLIGHT abnormal Not Available [facility] [address] [place] [address], [address], 07/03/2017 13:11:49 07/03/20 17 07/03/2017 RBC morph ology , blood polychromasi a SLIGHT abnormal Not Available [facility] [address] [place] [address], [address], 07/03/2017 13:11:49 07/03/20 17 07/03/2017 RBC morph ology , blood ovalocytes SLIGHT abnormal Smear revie wed to confi rm cell morph ology . Not Available [facility] [address] [address], [address], 07/03/2017 13:11:49 07/03/20 17 07/03/2017 vitam in D, 25-hy droxy , total , serum vitamin D 25-oh, total 8 NG/mL >=30 NG/mL abnormal Not Available [facility] [address] [place] [address], [address], 07/03/2017 13:35:29 07/03/20 17 07/03/2017 CMP, serum or plasm a glucose 123 mg/dL 74-100 high Not Available [facility] [address] [address], [address], 07/03/2017 13:40:16 07/03/20 17 07/03/2017 CMP, serum or plasm a blood urea nitrogen 18 mg/dL 6-20 normal Not Available [facility] [address] [place], [address], 07/03/2017 13:40:16 07/03/20 17 07/03/2017 CMP, serum or plasm a creatinine 1.20 mg/dL 0.50-0 .95 high Not Available [facility] [address] [place], [address], 07/03/2017 13:40:16 07/03/20 17 07/03/2017 CMP, serum or plasm a BUN/creatini ne ratio 15 (calc ) 10-20 normal Not Available [facility] [address] [place] [address], [address], 07/03/2017 13:40:16 07/03/20 17 07/03/2017 CMP, serum or plasm a GFR 64 >= 60 normal Not Available [facility] [address] [place] [address], [address], 07/03/2017 13:40:16 07/03/20 17 07/03/2017 CMP, serum [...] s or longe r. . Not Available [facility] [address] [place], [address], 07/03/2017 13:40:16 07/03/20 17 07/03/2017 CMP, serum or plasm a sodium 141 mmol/ L 136-14 5 normal Not Available [facility] [address] [place], [address], 07/03/2017 13:40:16 07/03/20 17 07/03/2017 CMP, serum or plasm a potassium 2.3 mmol/ L 3.4-5. 0 critical low RESUL TS RECHE CKED. PANIC RESUL TS LEVINE D TO AND ACCUR ATELY READ BACK BY: YAYA HARRIS ON: 07/03 AT: 13:39 BY: MMB Not Available [facility] [address] [address], [address], 07/03/2017 13:40:16 07/03/20 17 07/03/2017 CMP, serum or plasm a chloride 94 mmol/ L 98-107 low Not Available [facility] [address] [place] [address], [address], 07/03/2017 13:40:16 07/03/20 17 07/03/2017 CMP, serum or plasm a carbon dioxide 30 mmol/ L 20-32 normal Not Available [facility] [address] [place] [address], [address], 07/03/2017 13:40:16 07/03/20 17 07/03/2017 CMP, serum or plasm a anion gap 17 (calc ) 7-25 normal Not Available [facility] [address] [place] [address], [address], 07/03/2017 13:40:16 07/03/20 17 07/03/2017 CMP, serum or plasm a calcium 9.5 mg/dL 8.6-10 .2 normal Not Available [facility] [address] [place] [address], [address], 07/03/2017 13:40:16 07/03/20 17 07/03/2017 CMP, serum or plasm a total protein 8.1 g/dL 6.4-8. 3 normal Not Available [facility] [address] [place] [address], [address], 07/03/2017 13:40:16 07/03/20 17 07/03/2017 CMP, serum or plasm a albumin 4.8 g/dL 3.5-5. 2 normal Not Available [facility] [address] [place], [address], 07/03/2017 13:40:16 07/03/20 17 07/03/2017 CMP, serum or plasm a globulin 3.3 g/dL_ (calc ) 1.5-4. 5 normal Not Available [facility] [address] [place], [address], 07/03/2017 13:40:16 07/03/20 17 07/03/2017 CMP, serum or plasm a albumin/glob ulin ratio 1.5 (calc ) 1.1-2. 5 normal Not Available [facility] [address] [place] [address], [address], 07/03/2017 13:40:16 07/03/20 17 07/03/2017 CMP, serum or plasm a bilirubin, total 0.3 mg/dL 0.1-1. 2 normal Not Available [facility] [address] [place] [address], [address], 07/03/2017 13:40:16 07/03/20 17 07/03/2017 CMP, serum or plasm a alkaline phosphatase 50 U/L 35-105 normal Not Available [facility] [address] [place], [address], 07/03/2017 13:40:16 07/03/20 17 07/03/2017 CMP, serum or plasm a AST 13 U/L 0-32 normal Not Available [facility] [address] [place], [address], 07/03/2017 13:40:16 07/03/20 17 07/03/2017 CMP, serum or plasm a ALT 7 U/L 0-33 normal Not Available [facility] [address] [place] [address], [address], 07/03/2017 13:40:16 07/03/20 17 07/04/2017 prote in elect ropho resis panel , serum or plasm a protein, total 7.7 g/dL 6.1-8. 1 normal TEST PERFO RMED AT: [facility] [place] [address] [place] [address] RUDOLPH Clayton MD Not Available [facility] [address] [place] [address], [address], 07/05/2017 18:35:09 07/03/20 17 07/05/2017 prote in elect ropho resis panel , serum or plasm a albumin 4.5 g/dL 3.8-4. 8 normal Not Available [facility] [address] [place] [address], [address], 07/05/2017 18:35:09 07/03/20 17 07/05/2017 prote in elect ropho resis panel , serum or plasm a lswya-4-hbfr ulin 0.4 g/dL 0.2-0. 3 high Not Available [facility] [address] [place] [address], [address], 07/05/2017 18:35:09 07/03/20 17 07/05/2017 prote in elect ropho resis panel , serum or plasm a uxkqw-5-tdkh ulin 0.9 g/dL 0.5-0. 9 normal Not Available [facility] [address] [place] [address], [address], 07/05/2017 18:35:09 07/03/20 17 07/05/2017 prote in elect ropho resis panel , serum or plasm a beta 1 globulin 0.6 g/dL 0.4-0. 6 normal Not Available [facility] [address] [place], [address], 07/05/2017 18:35:09 07/03/20 17 07/05/2017 prote in elect ropho resis panel , serum or plasm a beta 2 globulin 0.5 g/dL 0.2-0. 5 normal Not Available [facility] [address] [place] [address], [address], 07/05/2017 18:35:09 07/03/20 17 07/05/2017 prote in elect ropho resis panel , serum or plasm a gamma globulin 0.9 g/dL 0.8-1. 7 normal Not Available [facility] [address] [address], [address], 07/05/2017 18:35:09 07/03/20 17 07/05/2017 prote in elect ropho resis panel , serum or plasm a interpretati on SEE BELOW normal The incre ase in the alpha -1-gl obuli ns may be due to incre ased alpha -1-an titry psin, an acute phase react ant prote in. No monoc lonal immun oglob ulin detec jorgito. TEST PERFO RMED AT: [facility] [address] [place] [address] RUDOLPH Clayton MD Not Available [facility] [address] [place] [address], [address], 07/05/2017 18:35:09 07/03/20 17 07/05/2017 JEANNE (anti [...] [facility] [address] [facility] [place] [address] RUDOLPH Clayton MD Not Available [facility] [address] [place], [address], 07/05/2017 15:05:25 09/05/19 18 09/03/2017 elect romyo gram + nerve condu ction study No observ ation record ed. tanya Not Available 15:14:47 Result Notes None recorded. Problems No Known Problems Procedures Surgical History Date Name Laterality Status Provider Name and Address Organization Details Recorded Time 018 Electromyography (EMG) with Nerve Conduction Study (NCV) completed DANIKA COVARRUBIAS MD [address] [place], [address], [facility] 09/05/2017 19:55:42 Caesarean Section completed [facility] 07/03/2017 09:28:25 Thyroid Surgery completed [facility] 07/03/2017 09:28:35 Shoulder Surgery completed [facility] 07/03/2017 09:28:47 Back Surgery completed [facility] 07/03/2017 09:28:55 Imaging Results None recorded. Procedure Notes None [...] index (BMI) Body weight Heart rate Systolic And Diastolic Provider Name and Address Organization Details Last Updated DateTime 09/03/2017 167.64 cm 26 kg/m2 45204.37 g 80 /min 90/62 mm[Hg] Kelly Mccartney [facility] 8 10:59:18 Date Recorded Body height Body mass index (BMI) Body weight Heart rate Systolic And Diastolic Systolic And Diastolic Systolic And Diastolic Provider Name and Address Organization Details Last Updated DateTime 7 167.64 cm 25.7 kg/m2 91983.1 9 g 80 /min 90/76 mm[Hg] 84/62 mm[Hg] 80/60 mm[Hg] Kelly Mcnairwoodygiovanni [facility] 7 09:52:39 Social History Question Answer Notes LastModified by Organizat ion Details LastModified Time Tobacco Smoking Status Never Smoker Kelly Mcnairdori [facility] 07/03/2017 09:28:17 Live Alone Or With Others? With Others Information not available 07/03/2017 Marital Status tanya Informat ion not available 07/03/2017 What Was The Date Of Your Most Recent Tobacco Screening? 09/03/2017 Information n ot available 08/31/2019 Sex: Unknown Functional Status Question Answer Note LastModified by Organization D etails LastModified Time What is your level of alcohol consumption? None Information not available 07/03/2017 Mental Status None recorded. Family History Relationship [...] SNOMED-CT Code Diagnosis ICD10 Code Diagnosis Note [id number] DANIKA COVARRUBIAS MD NEUROLOGY [facility] CL[facility] [address] [place] [address] 07/03/2017 08:59:04 07/03/2017 12:11:01 Neuropathy 438344255 G62.9 Neuropathy on exam LD, large and [...] up for our portal RTC 4m Syncope [id number] R55 Found to have neuropathy by exam [...] hypertensi on. She is to discuss with the [facility] physician, may need lower dose. Also with recent low K; cannot exclude metabolic or medication related (chlorthal idone) which can lead to arrhythmia . [id number] DANIKA [facility]BIAS [facility] [address] [place] [address] 09/03/2017 09:48:17 09/03/2017 12:21:37 Neuropathy 172182444 G62.9 Neuropathy on exam LD, large and [...] up for our portal RTC 4m Paresthesia 08701251 R20 .2 BUE/BLEs EMG and exam consistent with mild peripheral neuropathy Health Concerns Section Related Observation LastModified by Organization Detmal ls LastModified Time None Recorded Concern Status LastModified by Organization Details LastModified Time None Recorded Advance Directives Directive None Recorded Payers Insurance Date Sequence Insurance Name Policy Number Policy Muniz Covered Member ID Muniz Member ID Guarantor Name 01/11/2019 1 [place] Valeria Breen [id number] Valeria Breen 10/31/2017 [employer] Breen [id number] Valeria Breen Notes Date Note Type Note [...] +FH of MS in sister Medications and supplements:Kolby pizarro, Wellbutrin, Norvasc, Cymbalta,She doesn't take any MVI. Denies: biting her tongue, urinating during spell, no rigidity, diabetes, strokes, heart attacks, imaging, brain issues, seizures, syncopal spells in the past, vision loss, neck injury, heart issues ADNIKA COVARRUBIAS MD [address] [place] [address], [address], [facility] 07/03/2017 14:24:38 OBGyn Episode No OBEpisode recorded.
--- OUTSIDE RECORDS SUMMARY | 2024-12-07 14:25 | XMS_ITS | Data Portability ---
Author Organization [facility] SriMEKHI ADMIN Address [address] [place] [id number] Assessment No assessment recorded. Plan of Treatment Reminders Order Date Submit Date Provider Last Modified By Organization Details Last Modified Time Details Appointments None recorded. Lab None recorded. Referral None recorded. Procedures None recorded. Surgeries None recorded. Imaging None recorded. Medication Orders Aimovig Autoinjecto r 140 mg/mL subcutaneou s auto-inject or 2023 024 [facility], [address], [address], 4 14:16:27 Ubrelvy 100 mg tablet 2023 024 [facility], [address], [address], 4 14:16:26 Aimovig Autoinjecto r 140 mg/mL subcutaneou s auto-inject or 2022 023 [facility], [address], [address], 3 10:47:23 Ubrelvy 100 mg tablet 2022 023 [facility], [address], [address], 3 10:47:21 Patient TargetsNo targets recorded. Patient InstructionsNo instructions recorded. Reason for Referral None Reported. Problems Name Problem SNOMED Code Status Onset Date Resolution Date Notes Provider Name and Address Organization Details Recorded Time Thyroid nodule 311042606 Active 2019 Not Available [facility] 2 18:11:55 Refractory migraine without aura 692765349 Active 2017 Not Available [facility] 2 18:11:55 Chronic intractabl e migraine without aura 6219904202159 05 Active 2022 Valeria Wright, DO [address] [facility], [place], [address] , [facility] & [place] 3 20:39:18 Problem Notes None recorded. Procedures Surgical History Date Name Laterality Status Provider Name and Address Organization Details Recorded Time 06/13/20 removal of ovarian cyst completed Tamara Emely CODI [facility] [place] 09/11/2022 10:24:56 neurostimulation of spinal cord tissue completed [facility] Zaida CODI [facility] [place] 08/07/2022 13:58:13 repair of shoulder completed [facility] Zaida CODI - [facility] [place] 08/07/2022 13:58:32 section completed [facility] Zaida CODI [facility] [place] 08/07/2022 13:59:26 partial lobectomy of thyroid completed [facility] Zaida CODI [facility] [place] 09/11/2022 10:25:35 Imaging Results None recorded. Procedure [...] and Address Organization Details Last Updated DateTime 09/11/2022 165.1 cm 23.9 kg/m2 91217.86 g 77 /min 100/63 mm[Hg] Tamara KINCAID [facility] & [place] 09/11/2022 10:22:37 Date Recorded Body height Body mass index (BMI) Body weight Heart rate Systolic And Diastolic Provider Name and Address Organization Details Last Updated DateTime 09/16/2023 165.1 cm 25.7 kg/m2 88520.94 g 80 /min 97/69 mm[Hg] Tamara KINCAID [facility] [place] 09/16/2023 14:08:56 Social History Question Answer Notes LastModified by Organizat ion Details LastModified Time Tobacco Smoking Status Never Smoker Not Available [facility] 04/12/2022 18:01:55 What Is Your Level Of Caffeine Consumption? Moderate Soda 3 A Day Information not available 08/07/2022 Do You Have Any Pets? Yes Information not available 08/07/2022 What Is Your Relationship Status? Lives With Family In A House Information not available 08/07/2022 Are You Sexually Active? Yes Information not available 08/07/2022 Are You Currently In School? No Diploma Information not available 09/11/2022 Sex: Unknown Functional Status Question Answer Note LastModified by Organizat ion Details LastModified Time Do you use any illicit or recreational drugs? No Information not available 08/07/2022 What is your level of alcohol consumption? None Information not available 08/07/2022 Are you currently employed? No disabled Information not available 09/11/2022 Mental Status None recorded. Family History Relationship Description Onset Age of this Age Resolved Age Notes LastModified by Organization Details LastModified Time Mother Hypertensive disorder ldalla Not available 2022 13:54:54 Mother Diabetes mellitus ldalla Not available 2022 13:55:10 Father Malignant neoplastic disease deceas ed ldalla Not available 08/07/2022 13:55:36 Medical History Condition Response Anemia Y Migraines Y Headaches Y Reflux/GERD Y Hypertension Y Depression Y Neurological Problems Y Gynecological HistoryNo gynecological history recorded. Obstetrics History GPAL:G 0 P 0 0 0 0 Past Encounters Encounter ID Performer Location Encounter Start Date Encounter Closed Date Diagnosis/Indication Diagnosis SNOMED-CT Code Diagnosis ICD10 Code Diagnosis Note [id number] Valeria Wright DO [facility] [address] [facility],[address] [place] [address] 09/11/2022 10:16:16 09/11/2022 10:48:25 Chronic intractable migraine without aura 1777079073 57852 G43.711 Chronic condition that is stable with her current medication s. She needs to continue with monthly Aimovig injections . She needs refills of her aimovig and ubrelvy today. [id number] Valeria WrightDO [facility] [address] [facility],[address] [place] [phone] 09/16/2023 13:58:39 09/16/2023 14:18:20 Chronic intractable migraine without aura 2771739830 67132 G43.711 Chronic condition that is stable with [...] Member ID Muniz Member ID Guarantor Name 09/13/2023 1 [place]ICARE[place] (MEDICARE[place] Valeria Breen [id number] Valeria Breen Notes Date Note Type [...] to be adjusted. Valeria Wright, DO [address] [facility], [place], [address], [place] [facility] [place] & [place] 09/11/2022 10:52:16 09/16/2023 text/html Valeria comes in [...] to be adjusted. Valeria Kyle, DO [address] [facility], [place], [address], [place] [facility] [place] & [place] 09/16/2023 14:18:27 OBGyn Episode No OBEpisode recorded.
[2024-12-07 14:44] LABS: Microscopic, Urine URINE MICROSCOPIC (MICROSCOPIC)
[2024-12-07 15:20] LABS: Appearance,Urine SL CLOUDY (Clear); Bilirubin,Urine Negative (Negative); Blood, Urine Negative (Negative); Color,Urine YELLOW (Yellow); Glucose,Urine (UA) Negative (Negative); Ketones,Urine TRACE (Negative); Leukocyte Esterase,Urine Negative (Negative); Nitrate,Urine Negative (Negative); PH,Urine 7.5 (5.0-8.5); Protein,Urine Negative (Negative)
[2024-12-07 15:22] LABS: Basophils # 0.1 K/mm3 (0-0.2); Basophils % 0.9 % (0.1-2.0); Eosinophils # 0.1 Kmm3 (0.0-0.4); Eosinophils % 1.7 % (0.1-12.0); Hematocrit 34.8 % (37.0-47.0); Hemoglobin 10.4 g/dL (12.2-16.2); Immature Granulocytes # 0.06 10^3uL; Lymphocytes # 1.5 K/mm3 (0.7-4.5); Lymphocytes % 25.1 % (10-50); Mean Corpuscular HGB Conc 29.9 g/dL (31.8-35.4); Mean Corpuscular Hemoglobin 22.9 pg (27.0-31.2); Mean Corpuscular Volume 76.7 fl (81-99); Mean Platelet Volume 8.6 fl (7.4-10.4); Monocytes # 0.5 K/mm3 (0.1-1.0); Monocytes % 8.2 % (1.7-9.3); Neutrophils # 3.7 K/mm3 (1.8-7.8); Neutrophils % 63.1 % (37.0-80.0); Nucleated Red Blood Cells # 0 10^3/uL; Nucleated Red Blood Cells % 0 %; Platelet Count 421 K/mm3 (142-424); Red Blood Count 4.54 M/mm3 (4.20-5.40); Red Cell Distribution Width 18.6 % (11.5-17.5); Red Cell Distribution Width-SD 50.9 fL; White Blood Count 5.9 K/mm3 (4.8-10.8)
[2024-12-07 15:44] LABS: Amorphous Sediment,Urine 3+ /lpf; Bacteria,Urine Trace /lpf; Squamous Epithelial Cell,Urine Occasional #/hpf (0-5); WBC,Urine Occasional #/hpf (0-3)
[2024-12-07 15:48] LABS: Albumin Level 4.1 g/dl (3.5-5.0); Anion Gap 8.9 mEq/L (5-15); Blood Urea Nitrogen 14 mg/dl (7-17); Calcium 9.6 mg/dl (8.4-10.2); Carbon Dioxide 33 mmol/L (22.0-30.0); Chloride 98 mmol/L (98-107); Estimated Glomerular Filt Rate 66 ml/min (>60); GFR (African American) 80 ML/MIN (>60); Glucose 70 mg/dl (74-100); Phosphorous 2.6 mg/dl (2.5-4.5); Sodium 137 mmol/L (136-145); Uric Acid 1.9 mg/dl (2.5-6.2)
[2024-12-07 15:59] LABS: Intact Parathyroid Hormone 63.4 pg/mL (7.5-53.5)
[2024-12-07 18:05] LABS: Potassium 2.9 mmoL/L (3.5-5.1)
[2024-12-07 18:12] LABS: Iron 32 ug/dL (37-170)
[2024-12-07 18:22] LABS: Total Iron Binding Capacity 290 ug/dL (265-497)
[2024-12-12 02:10] LABS: 1,25 Dihydroxy Vitamin D 74 pg/mL (.); 1,25-Dihydroxy, Vitamin D-2 <10 pg/mL (.); 1,25-Dihydroxy, Vitamin D-3 73 pg/mL (.)
== END 2024-12-07 23:59 | disposition home or self-care (01) ==
LOC: LAB 14:23
PROVIDERS: PCP Nurse Practitioner; Visit Provider Hospitalist
DX: N28.9 Disorder of kidney and ureter, unspecified (principal); E27.8 Other specified disorders of adrenal gland
CPT/HCPCS: 36415; 80069; 81001; 82088; 82652; 83540; 83550; 83970; 84550; 85025

== ENCOUNTER 2024-12-29 14:24 | Outpatient (CLI) | payer MEDICARE, SELFPAY ==
--- OUTSIDE RECORDS SUMMARY | 2024-12-29 14:28 | XMS_ITS | Encounter Summary ---
Author Organization [employer] Address [address] [place] [address] Care Team Providers Care Director Of Adult Epilepsy Name Role Phone Unavailable Primary Care Provider Unavailabl e Reason for Referral * Surgical (Routine) - Authorized Specialty Diagnoses / Procedures Referred By Contac t Referred To Contact Neurosurgery / Neurology Diagnoses Cervicalgia [facility] [place] [address] [address] Phone: tel: fax: Referral ID Status Reason Start Date Expiration Date Visits Requested Visits Authorized [id number] Authorized Specialty Services Required 11/09/2024 11/09/2025 1 1 Encounter Details Date Type Department Care Team (Late st Contact Info) Description 11/09/2024 Outside Orders [facility] [address] [place] [phone] Luis E Gibbs MD [address] [place] [address] Cervicalgia (Primary Dx) Social History Tobacco Use Types Packs/Day Years Used Date Smoking Tobacco: Never Assessed Comments Unknown Sex and Gender Information Value Date Recorded Sex Assigned at Female 11/09/2024 9:00 AM CDT Legal Sex Female 5:08 PM CDT Gender Identity Female 11/09/2024 9:00 AM CDT Sexual Orientation Don't know 11/09/2024 9: 00 AM CDT documented as of this encounter Plan of Treatment Upcoming Encounters Date Type Department Care Team (Late st Contact Info) Description 12/30/2024 11:00 AM EDT Office Visit [facility] [address] [place] [address] Tobi Levin Jr., MD [address] [phone] Scheduled Referrals Name Type Priority Associated Diagnoses Order Schedule Ambulatory referral to Neurosurgery Outpatient Referral Routine Cervicalgia Ordered: 11/09/2024 documented as of this encounter Visit Diagnoses Diagnosis Cervicalgia- Primary documented in this encounter
--- OUTSIDE RECORDS SUMMARY | 2024-12-29 14:28 | XMS_ITS | Data Portability ---
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 Plan of Treatment Reminders Order Date Submit Date Provider Last Modified By Organization Details Last Modified Time Details Appointments None recorded. Lab glycohemogl obin, total, blood [address] [facility], [address] [place] [address], [address], 7 21:07:54 vitamin D, 25-hydroxy, total, serum [address] [facility], [address] [place] [address], [address], 7 21:07:54 TSH, serum or plasma [address] [facility], [address] [place] [address], [address], 7 21:07:54 T4, free, serum [address] [facility], [address] [place] [address], [address], 7 21:07:54 protein electrophor esis panel, serum or plasma 2016 017 [facility], [address] [place] [address], [address], 7 13:10:58 JEANNE (antinuclea r antibodies) screen, serum 2016 017 [facility], [address] [place] [address], [address], 7 15:05:25 CMP, serum or plasma 2016 017 [facility], [address] [place] [address], [address], 7 21:07:54 CBC w/ auto diff 2016 017 [facility], [address] [place] [address], [address], 7 21:07:54 vitamin B12, serum 2016 0[facility], [address] [place] [address], [address], 7 21:07:54 Referral None recorded. Procedures nerve conduction study/EMG (PROC) 2016 017 erobertso n10 Not available 21:07:54 Surgeries None recorded. Imaging None recorded. Medication Orders None recorded. Patient TargetsNo targets recorded. Patient Instructions Encounter Date Encounter Id Patient Instructions Last Modified By Organization Details Last Modified Time 09/03/2017 [id number] neuropathic pain : care instructions [email or web address] Not available 09/05/2017 19:56:34 Reason for Referral None Reported. Results Created Date Observation Date Name Description Value Unit Range Abnormal Flag Note LastModifiedBy Organization Detail LastModifiedTime 07/03/20 17 07/03/2017 glyco hemog lobin , total , blood glyco HGB A1C 5.3 % 0.0-5. 6 normal Not Available [facility] [address] [place] [address], [address], 07/03/2017 11:47:49 07/03/20 17 07/03/2017 glyco hemog [...] ostic of diabe mario alberto. Not Available [facility] [address] [place] [address], [address], 07/03/2017 11:47:49 07/03/20 17 07/03/2017 vitam in B12, serum vitamin B12 207 pg/mL 232-12 45 low Not Available [facility] [address] [place] [address], [address], 07/03/2017 12:33:33 07/03/20 17 07/03/2017 TSH, serum or plasm a TSH 2.330 uIU/m L 0.290- 5.500 normal Not Available [facility] [address] [place] [address], [address], 07/03/2017 12:34:03 07/03/20 17 07/03/2017 T4, free, serum T4,free 1.39 NG/dL 0.93-1 .70 normal Not Available [facility] [address] [place] [address], [address], 07/03/2017 12:34:04 07/03/20 17 07/03/2017 CBC w/ auto diff white blood cells 8.8 K/uL 3.8-10 .8 normal Not Available [facility] [address] [place] [address], [address], 07/03/2017 13:11:47 07/03/20 17 07/03/2017 CBC w/ auto diff red blood cells 5.12 M/uL 3.80-5 .20 normal Not Available [facility] [address] [place], [address], 07/03/2017 13:11:47 07/03/20 17 07/03/2017 CBC w/ auto diff hemoglobin 11.5 g/dL 12.0-1 6.0 low Not Available [facility] [address] [place] [address], [address], 07/03/2017 13:11:47 07/03/20 17 07/03/2017 CBC w/ auto diff hematocrit 36.8 % 35.0-4 7.0 normal Not Available [facility] [address] [place] [address], [address], 07/03/2017 13:11:47 07/03/20 17 07/03/2017 CBC w/ auto diff MCV 72 fL 80-100 low Not Available [facility] [address] [place] [address], [address], 07/03/2017 13:11:47 07/03/20 17 07/03/2017 CBC w/ auto diff MCH 23 pg 26-35 low Not Available [facility] [address] [place] [address], [address], 07/03/2017 13:11:47 07/03/20 17 07/03/2017 CBC w/ auto diff MCHC 31 g/dL 32-36 low Not Available [facility] [address] [place] [address], [address], 07/03/2017 13:11:47 07/03/20 17 07/03/2017 CBC w/ auto diff RDW 17.5 % 11.0-1 5.0 high Not Available [facility] [address] [place], [address], 07/03/2017 13:11:47 07/03/20 17 07/03/2017 CBC w/ auto diff MPV 7.8 fL 6.2-10 .5 normal Not Available [facility] [address] [place], [address], 07/03/2017 13:11:47 07/03/20 17 07/03/2017 CBC w/ auto diff platelet count 516 K/uL 130-40 0 high Not Available [facility] [address] [place] [address], [address], 07/03/2017 13:11:47 07/03/20 17 07/03/2017 CBC w/ auto diff neutrophil,a bsolute 5.7 K/uL 1.6-8. 4 normal Not Available [facility] [address] [place] [address], [address], 07/03/2017 13:11:47 07/03/20 17 07/03/2017 CBC w/ auto diff lymphocyte,a bsolute 2.4 K/uL 0.4-5. 1 normal Not Available [facility] [address] [place] [address], [address], 07/03/2017 13:11:47 07/03/20 17 07/03/2017 CBC w/ auto diff monocyte,abs olute 0.6 K/uL 0.0-1. 2 normal Not Available [facility] [address] [place] [address], [address], 07/03/2017 13:11:47 07/03/20 17 07/03/2017 CBC w/ auto diff eosinophil,a bsolute 0.0 K/uL 0.0-0. 8 normal Not Available [facility] [address] [place] [address], [address], 07/03/2017 13:11:47 07/03/20 17 07/03/2017 CBC w/ auto diff basophil,abs olute 0.0 K/uL 0.0-0. 3 normal Not Available [facility] [address] [place] [address], [address], 07/03/2017 13:11:47 07/03/20 17 07/03/2017 CBC w/ auto diff % neutrophils 65.2 % 42.0-7 8.0 normal Not Available [facility] [address] [place] [address], [address], 07/03/2017 13:11:47 07/03/20 17 07/03/2017 CBC w/ auto diff % lymphocytes 27.0 % 11.0-4 7.0 normal Not Available [facility] [address] [place] [address], [address], 07/03/2017 13:11:47 07/03/20 17 07/03/2017 CBC w/ auto diff % monocytes 6.9 % 0.0-11 .0 normal Not Available [facility] [address] [place] [address], [address], 07/03/2017 13:11:47 07/03/20 17 07/03/2017 CBC w/ auto diff % eosinophils 0.4 % 0.0-7. 0 normal Not Available [facility] [address] [place] [address], [address], 07/03/2017 13:11:47 07/03/20 17 07/03/2017 CBC w/ auto diff % basophils 0.5 % 0.0-3. 0 normal Not Available [facility] [address] [place] [address], [address], 07/03/2017 13:11:47 07/03/20 17 07/03/2017 CBC w/ auto diff nucleated red cells 0.1 % 0.0-0. 9 normal Not Available [facility] [address] [place] [address], [address], 07/03/2017 13:11:47 07/03/20 17 07/03/2017 CBC w/ auto diff nucleated RBCs, absolute 0.01 K/uL not estab. normal Not Available [facility] [address] [place] [address], [address], 07/03/2017 13:11:47 07/03/20 17 07/03/2017 RBC morph ology , blood platelet morphology NORMAL normal Not Available [facility] [address] [place], [address], 07/03/2017 13:11:49 07/03/20 17 07/03/2017 RBC morph ology , blood microcytosis SLIGHT abnormal Not Available [facility] [address] [place] [address], [address], 07/03/2017 13:11:49 07/03/20 17 07/03/2017 RBC morph ology , blood hypochromasi a SLIGHT abnormal Not Available [facility] [address] [place] [address], [address], 07/03/2017 13:11:49 07/03/20 17 07/03/2017 RBC morph ology , blood polychromasi a SLIGHT abnormal Not Available [facility] [address] [place] [address], [address], 07/03/2017 13:11:49 07/03/20 17 07/03/2017 RBC morph ology , blood ovalocytes SLIGHT abnormal Smear revie wed to confi rm cell morph ology . Not Available [facility] [address] [place] [address], [address], 07/03/2017 13:11:49 07/03/20 17 07/03/2017 vitam in D, 25-hy droxy , total , serum vitamin D 25-oh, total 8 NG/mL >=30 NG/mL abnormal Not Available [facility] [address] [place] [address], [address], 07/03/2017 13:35:29 07/03/20 17 07/03/2017 CMP, serum or plasm a glucose 123 mg/dL 74-100 high Not Available [facility] [address] [place] [address], [address], 07/03/2017 13:40:16 07/03/20 17 07/03/2017 CMP, serum or plasm a blood urea nitrogen 18 mg/dL 6-20 normal Not Available [facility] [address] [place], [address], 07/03/2017 13:40:16 07/03/20 17 07/03/2017 CMP, serum or plasm a creatinine 1.20 mg/dL 0.50-0 .95 high Not Available [facility] [address] [place], [address], 07/03/2017 13:40:16 07/03/20 17 07/03/2017 CMP, serum or plasm a BUN/creatini ne ratio 15 (calc ) 10-20 normal Not Available [facility] [address] [place] [address], [address], 07/03/2017 13:40:16 07/03/20 17 07/03/2017 CMP, serum or plasm a GFR 64 >= 60 normal Not Available [facility] [address] [place] [address], [address], 07/03/2017 13:40:16 07/03/20 17 07/03/2017 CMP, serum [...] s or longe r. . Not Available [facility] [address] [place], [address], 07/03/2017 13:40:16 07/03/20 17 07/03/2017 CMP, serum or plasm a sodium 141 mmol/ L 136-14 5 normal Not Available [facility] [address] [place], [address], 07/03/2017 13:40:16 07/03/20 17 07/03/2017 CMP, serum or plasm a potassium 2.3 mmol/ L 3.4-5. 0 critical low RESUL TS RECHE CKED. PANIC RESUL TS LEVINE D TO AND ACCUR ATELY READ BACK BY: YAYA HARRIS ON: 07/03 AT: 13:39 BY: MMB Not Available [facility] [address] [place] [address], [address], 07/03/2017 13:40:16 07/03/20 17 07/03/2017 CMP, serum or plasm a chloride 94 mmol/ L 98-107 low Not Available [facility] [address] [place] [address], [address], 07/03/2017 13:40:16 07/03/20 17 07/03/2017 CMP, serum or plasm a carbon dioxide 30 mmol/ L 20-32 normal Not Available [facility] [address] [place] [address], [address], 07/03/2017 13:40:16 07/03/20 17 07/03/2017 CMP, serum or plasm a anion gap 17 (calc ) 7-25 normal Not Available [facility] [address] [place] [address], [address], 07/03/2017 13:40:16 07/03/20 17 07/03/2017 CMP, serum or plasm a calcium 9.5 mg/dL 8.6-10 .2 normal Not Available [facility] [address] [place] [address], [address], 07/03/2017 13:40:16 07/03/20 17 07/03/2017 CMP, serum or plasm a total protein 8.1 g/dL 6.4-8. 3 normal Not Available [facility] [address] [place] [address], [address], 07/03/2017 13:40:16 07/03/20 17 07/03/2017 CMP, serum or plasm a albumin 4.8 g/dL 3.5-5. 2 normal Not Available [facility] [address] [place], [address], 07/03/2017 13:40:16 07/03/20 17 07/03/2017 CMP, serum or plasm a globulin 3.3 g/dL_ (calc ) 1.5-4. 5 normal Not Available [facility] [address] [place], [address], 07/03/2017 13:40:16 07/03/20 17 07/03/2017 CMP, serum or plasm a albumin/glob ulin ratio 1.5 (calc ) 1.1-2. 5 normal Not Available [facility] [address] [place] [address], [address], 07/03/2017 13:40:16 07/03/20 17 07/03/2017 CMP, serum or plasm a bilirubin, total 0.3 mg/dL 0.1-1. 2 normal Not Available [facility] [address] [place] [address], [address], 07/03/2017 13:40:16 07/03/20 17 07/03/2017 CMP, serum or plasm a alkaline phosphatase 50 U/L 35-105 normal Not Available [facility] [address] [place], [address], 07/03/2017 13:40:16 07/03/20 17 07/03/2017 CMP, serum or plasm a AST 13 U/L 0-32 normal Not Available [facility] [address] [place], [address], 07/03/2017 13:40:16 07/03/20 17 07/03/2017 CMP, serum or plasm a ALT 7 U/L 0-33 normal Not Available [facility] [address] [place] [address], [address], 07/03/2017 13:40:16 07/03/20 17 07/04/2017 prote in elect ropho resis panel , serum or plasm a protein, total 7.7 g/dL 6.1-8. 1 normal TEST PERFO RMED AT: [facility] [place] [address] [place] [address] RUDOLPH Clayton MD Not Available [facility] [address] [place] [address], [address], 07/05/2017 18:35:09 07/03/20 17 07/05/2017 prote in elect ropho resis panel , serum or plasm a albumin 4.5 g/dL 3.8-4. 8 normal Not Available [facility] [address] [place] [address], [address], 07/05/2017 18:35:09 07/03/20 17 07/05/2017 prote in elect ropho resis panel , serum or plasm a rdtwh-7-uaxm ulin 0.4 g/dL 0.2-0. 3 high Not Available [facility] [address] [place] [address], [address], 07/05/2017 18:35:09 07/03/20 17 07/05/2017 prote in elect ropho resis panel , serum or plasm a qviuc-1-wujb ulin 0.9 g/dL 0.5-0. 9 normal Not Available [facility] [address] [place] [address], [address], 07/05/2017 18:35:09 07/03/20 17 07/05/2017 prote in elect ropho resis panel , serum or plasm a beta 1 globulin 0.6 g/dL 0.4-0. 6 normal Not Available [facility] [address] [place], [address], 07/05/2017 18:35:09 07/03/20 17 07/05/2017 prote in elect ropho resis panel , serum or plasm a beta 2 globulin 0.5 g/dL 0.2-0. 5 normal Not Available [facility] [address] [place] [address], [address], 07/05/2017 18:35:09 07/03/20 17 07/05/2017 prote in elect ropho resis panel , serum or plasm a gamma globulin 0.9 g/dL 0.8-1. 7 normal Not Available [facility] [address] [place] [address], [address], 07/05/2017 18:35:09 07/03/20 17 07/05/2017 prote in [...] [facility] [place] [address] [place] [address] RUDOLPH Clayton MD Not Available [facility] [address] [place] [address], [address], 07/05/2017 18:35:09 07/03/20 17 07/05/2017 JEANNE (anti [...] [address] [address] [facility] [place] [address] RUDOLPH Clayton MD Not Available [facility] [address] [place], [address], 07/05/2017 15:05:25 09/05/19 18 09/03/2017 elect romyo gram + nerve condu ction study No observ ation record ed. tanya Not Available 15:14:47 Result Notes None recorded. Problems No Known Problems Procedures Surgical History Date Name Laterality Status Provider Name and Address Organization Details Recorded Time 018 Electromyography (EMG) with Nerve Conduction Study (NCV) completed DANIKA COVARRUBIAS MD [address] [place], [address], [facility] 09/05/2017 19:55:42 Caesarean Section completed [facility] 07/03/2017 09:28:25 Thyroid Surgery completed [facility] 07/03/2017 09:28:35 Shoulder Surgery completed [facility] 07/03/2017 09:28:47 Back Surgery completed [facility] 07/03/2017 09:28:55 Imaging Results None recorded. Procedure [...] Updated DateTime 8 167.64 cm 26 kg/m2 40374.3 7 g 80 /min 90 mm[Hg] 62 mm[Hg] Kelly Rodriguez [facility] 8 10:59:18 Date Recorded Body height Body mass index (BMI) Body weight Heart rate Systolic blood pressure Diastolic blood pressure Systolic blood pressure Diastolic blood pressure Systolic blood pressure Diastolic blood pressure Provider Name and Address Organization Details Last Updated DateTime 7 167.64 cm 25.7 kg/m2 49551.1 9 g 80 /min 90 mm[Hg] 76 mm[Hg] 84 mm[Hg] 62 mm[Hg] 80 mm[Hg] 60 mm[Hg] Kelly Mcnairturtle creekgiovanni [facility] 7 09:52:39 Social History Question Answer Notes LastModified by Organizat ion Details LastModified Time Tobacco Smoking Status [facility]oker [facility] 07/[facility]/2017 09:28:17 Live Alone Or With Others? With Others Information not available 07/03/2017 [facility] In[facility] ion not available 07/03/2017 What Was [...] SNOMED-CT Code Diagnosis ICD10 Code Diagnosis Note [id number] DANIKA COVARRUBIAS MD [facility]UROLOGY [facility] [address] [place] [address] 07/03/2017 08:59:04 07/03/2017 12:11:01 Neuropathy 293919476 G62.9 Neuropathy on exam LD, large and [...] up for our portal RTC 4m Syncope [id number] R55 Found to have neuropathy by exam [...] hypertensi on. She is to discuss with [facility] physician, may need lower dose. Also with recent low K; cannot exclude metabolic or medication related (chlorthal idone) which can lead to arrhythmia . [id number] DANIKA COVARRUBIAS MD NEUROLOGY [facility] [address] [place] [address] 09/03/2017 09:48:17 09/03/2017 12:21:37 Neuropathy 751529148 G62.9 Neuropathy on exam LD, large and [...] up for our portal RTC 4m Paresthesia [id number] R20 .2 BUE/BLEs EMG and exam consistent [...] Name 01/11/2019 1 [place] Valeria Breen [id number] Valeria Breen 10/31/2017 LUBA ATTYS Valeria Breen [id number] Valeria Breen Notes Date Note Type Note [...] neck injury, heart issues DANIKA COVARRUBIAS MD [address] [place] [address], [address], [facility] 07/03/2017 14:24:38 OBGyn Episode No OBEpisode recorded.
--- OUTSIDE RECORDS SUMMARY | 2024-12-29 14:28 | XMS_ITS | Referral Summary ---
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 Role Phone Unavailable Primary Care Provider Unavailabl e Encounters Date Type Department Care Team Description 11/09/2024 Outside Orders [facility] Neurology - [address] [place] [address] Luis E Gibbs MD Cervicalgia (Primary Dx) from Last 3 Months Social History Tobacco Use Types Packs/Day Years Used Date Smoking Tobacco: Never Assessed Comments Unknown Sex and Gender Information Value Date Recorded Sex Assigned at Female 11/09/2024 9:00 AM CDT Legal Sex Female 5:08 PM CDT Gender Identity Female 11/09/2024 9:00 AM CDT Sexual Orientation Don't know 11/09/2024 9: 00 AM CDT Plan of Treatment Upcoming Encounters Date Type Department Care Team (Late st Contact Info) Description 12/30/2024 11:00 AM EDT Office Visit [address] [address] Tboi Levin Jr., MD [address] [place] [address] Insurance MEDICARE PART A B WORK COMP OTHER
--- OUTSIDE RECORDS SUMMARY | 2024-12-29 14:28 | XMS_ITS ---
Laboratory report Created on: December 14, 2024 KIMBERLY RODRIGUEZ : 1975 Sex: Female Author Organization Unknown PROBLEMS Problems List Code Description RESULTS Laboratory Orders Date Order Code Test 2024-12-07 929954 1,25-DIHYDROXY,V ITAMIN D BY MS Laboratory Results Date LOINC Test Value Unit Reference Range Interpre tation 2024-12-07 [id number] TOTAL 1,25-DIHYDROXY,VITAMIN D 74 PG/ML H 2024-12-07 94859-4 1,25-DIHYDROXY, VITAMIN D-2 <10 PG/ML 2024-12-07 1649-3 1,25-DIHYDROXY, VITAMIN D-3 73 PG/ML
--- OUTSIDE RECORDS SUMMARY | 2024-12-29 14:28 | XMS_ITS | Clinical Summary ---
Author Organization [email or web address] Address [address] [place] [address] Care Team Providers Care Treating Plant Operator Name Role Phone Unavailable Primary Care Provider Unavailabl e Encounters Date Type Department Care Team Description 11/09/2024 Outside Orders [facility] Neurology - [address] [facility] [address] [place] [address] Luis E Gibbs MD Cervicalgia (Primary [...] Description 12/30/2024 11:00 AM EDT Office [facility] [address] [address] Tobi Levin Jr., MD [address] [place], [place] [id number] Health Maintenance Due Date Last Done Comments CT Colonography 1975 Colonoscopy 1973 Colorectal Cancer Screening 1975 FOBT/FIT 1973 Fit-DNA (Cologuard) 1975 Sigmoidoscopy 1973 Depression Screening (12+) 1985 Tobacco Cessation Counseling and Screening (12+) 08/17 HIV Screening 1988 Hepatitis C Screening 1991 Lipid Panel 2018 Pap Smear 06/19/2023 06/19/2020 Pneumococcal 50+ years (1 of 1 - PCV) 2023 Shingles Vaccine (Zoster) (1 of 2) 2023 COVID-19 VACCINE (1 - season) 2024 Breast Cancer Screening 11/25/2024 11/25/2022 Influenza Vaccine (Season Ended) 2025 DTAP/TDAP/TD VACCINES (2 - Td or Tdap) 08/08/2034 Insurance MEDICARE PART A B WORK COMP OTHER
--- OUTSIDE RECORDS SUMMARY | 2024-12-29 14:28 | XMS_ITS ---
Laboratory report Created on: December 14, 2024 KIMBERLY RODRIGUEZ : 1975 Sex: Female Author Organization Unknown PROBLEMS Problems List Code Description RESULTS Laboratory Orders Date Order Code Test 2024-12-07 [id number] ALDOSTERONE LCMS , SERUM Laboratory Results Date LOINC Test Value Unit Reference Range Interpre tation 2024-12-07 [id number] ALDOSTERONE 12.2 NG/DL 0.0-30.0
--- OUTSIDE RECORDS SUMMARY | 2024-12-29 14:28 | XMS_ITS | Data Portability ---
Author Organization [facility] [place] PAULO ADMIN Address [address] [place] [address] Assessment No assessment recorded. Plan of Treatment Reminders Order Date Submit Date Provider Last Modified By Organization Details Last Modified Time Details Appointments None recorded. Lab None recorded. Referral None recorded. Procedures None recorded. Surgeries None recorded. Imaging None recorded. Medication Orders Aimovig Autoinjecto r 140 mg/mL subcutaneou s auto-inject or 2023 024 [facility] 591, [address], [address], 4 14:16:27 Ubrelvy 100 mg tablet 2023 024 [facility] 591, [address], [address], 4 14:16:26 Aimovig Autoinjecto r 140 mg/mL subcutaneou s auto-inject or 2022 023 [facility] 591, [address], [address], 3 10:47:23 Ubrelvy 100 mg tablet 2022 023 [facility] 591, [address], [address], 3 10:47:21 Patient TargetsNo targets recorded. Patient InstructionsNo instructions recorded. Reason for Referral None Reported. Problems Name Problem SNOMED Code Status Onset Date Resolution Date Notes Provider Name and Address Organization Details Recorded Time Thyroid nodule 528543416 Active 2019 Not Available [facility] 2 18:11:55 Refractory migraine without aura 244846964 Active 2017 Not Available [facility] 2 18:11:55 Chronic intractabl e migraine without aura 7112131045115 05 Active 2022 Valeria Wright, DO [address] [facility], [place], [address] , [facility] & [place] 3 20:39:18 Problem Notes None recorded. Procedures Surgical History Date Name Laterality Status Provider Name and Address Organization Details Recorded Time 06/13/20 removal of ovarian cyst completed Tamara Emely CODI [facility] & [place] 09/11/2022 10:24:56 neurostimulation of spinal cord tissue completed [facility] Zaida CODI [facility] & [place] 08/07/2022 13:58:13 repair of shoulder completed [facility] Zaida CODI - [facility] & [place] 08/07/2022 13:58:32 section completed [facility] Zaida CODI [facility] & [place] 08/07/2022 13:59:26 partial lobectomy of thyroid completed [facility] Zaida CODI [facility] & [place] 09/11/2022 10:25:35 Imaging Results None recorded. Procedure [...] Updated DateTime 3 165.1 cm 23.9 kg/m2 54135.8 6 g 77 /min 100 mm[Hg] 63 mm[Hg] Tamara KINCAID [facility] & [place] 3 10:22:37 Date Recorded Body height Body mass index (BMI) Body weight Heart rate Systolic blood pressure Diastolic blood pressure Provider Name and Address Organization Details Last Updated DateTime 4 165.1 cm 25.7 kg/m2 17876.9 4 g 80 /min 97 mm[Hg] 69 mm[Hg] Tamara KINCAID [facility] & [place] 4 14:08:56 Social History Question Answer Notes LastModified by Organizat ion Details LastModified Time Tobacco Smoking Status Never Smoker Not Available [facility] 04/12/2022 18:01:55 What Is Your [...] 13:55:36 Medical History Condition Response Anemia Y Reflux/GERD Y Headaches Y Migraines Y Hypertension Y Depression Y Neurological Problems Y Gynecological HistoryNo gynecological history recorded. Obstetrics History GPAL:G 0 P 0 0 0 0 Past Encounters Encounter ID Performer Location Encounter Start Date Encounter Closed Date Diagnosis/Indication Diagnosis SNOMED-CT Code Diagnosis ICD10 Code Diagnosis Note [id number] Valeria Wright DO [place] [facility] [address] [facility],[address] [place] [address] 09/11/2022 10:16:16 09/11/2022 10:48:25 Chronic intractable migraine without aura [id number] 15592 G43.711 Chronic condition that is stable with her current medication s. She needs to continue with monthly Aimovig injections . She needs refills of her aimovig and ubrelvy today. [id number] Valeria Wright DO [place] [facility] [address] [facility],[address] [place] [address] 09/16/2023 13:58:39 09/16/2023 14:18:20 Chronic intractable migraine without aura 7887155705 03425 G43.711 Chronic condition that is stable with [...] Name 09/13/2023 1 [place] Valeria Breen [id number] Valeria Breen Notes Date Note Type [...] to be adjusted. Valeria Kyle, DO [address] [facility], [place], [address], [facility] - [place] [facility] [place] & [place] 09/11/2022 10:52:16 09/16/2023 text/html Valeria comes in [...] Her neurostimulator wires had to be adjusted. Valeriaubaldo Wright, DO [address], [place], [address], [place] - [facility] - [place] & [place] 09/16/2023 14:18:27 OBGyn Episode No OBEpisode recorded.
[2024-12-29 15:08] LABS: Basophils % 0.8 % (0.1-2.0); Eosinophils # 0.1 Kmm3 (0.0-0.4); Eosinophils % 2.5 % (0.1-12.0); Hematocrit 34.6 % (37.0-47.0); Hemoglobin 10.6 g/dL (12.2-16.2); Immature Granulocytes # 0.05 10^3uL; Lymphocytes # 1.5 K/mm3 (0.7-4.5); Lymphocytes % 30.1 % (10-50); Mean Corpuscular HGB Conc 30.6 g/dL (31.8-35.4); Mean Corpuscular Hemoglobin 23.5 pg (27.0-31.2); Mean Corpuscular Volume 76.5 fl (81-99); Mean Platelet Volume 8.5 fl (7.4-10.4); Monocytes # 0.4 K/mm3 (0.1-1.0); Monocytes % 7.8 % (1.7-9.3); Neutrophils # 2.8 K/mm3 (1.8-7.8); Neutrophils % 57.8 % (37.0-80.0); Nucleated Red Blood Cells # 0 10^3/uL; Nucleated Red Blood Cells % 0 %; Platelet Count 496 K/mm3 (142-424); Red Blood Count 4.52 M/mm3 (4.20-5.40); Red Cell Distribution Width 19.1 % (11.5-17.5); Red Cell Distribution Width-SD 52.2 fL; White Blood Count 4.9 K/mm3 (4.8-10.8)
[2024-12-29 15:47] LABS: Chloride 103 mmol/L (98-107); Sodium 138 mmol/L (136-145)
[2024-12-29 15:48] LABS: Albumin Level 3.7 g/dl (3.5-5.0)
[2024-12-29 15:50] LABS: Creatinine,Urine Random 56 mg/dL (Not Estab.)
[2024-12-29 15:51] LABS: Blood Urea Nitrogen 9 mg/dl (7-17); Calcium 9.2 mg/dl (8.4-10.2); Carbon Dioxide 30 mmol/L (22.0-30.0); Estimated Glomerular Filt Rate 66 ml/min (>60); GFR (African American) 80 ML/MIN (>60); Glucose 88 mg/dl (74-100); Phosphorous 2.9 mg/dl (2.5-4.5)
[2024-12-29 21:33] LABS: 25-OH Vitamin D, Total < 12.8 ng/mL (30-100)
[2024-12-30 08:13] LABS: DHEA-Sulfate 1.8 ug/dL (41.2-243.7)
== END 2024-12-29 23:59 | disposition home or self-care (01) ==
LOC: LAB 14:25
PROVIDERS: PCP Nurse Practitioner; Visit Provider Hospitalist
DX: E55.9 Vitamin D deficiency, unspecified (principal); E27.8 Other specified disorders of adrenal gland; N28.9 Disorder of kidney and ureter, unspecified
CPT/HCPCS: 36415; 80069; 82085; 82306; 82570; 82626; 83835; 84156; 84244; 85025

== ENCOUNTER 2025-01-18 11:47 | Outpatient (CLI) | payer MEDICARE, SELFPAY ==
--- OUTSIDE RECORDS SUMMARY | 2024-12-30 11:00 | XMS_ITS | Encounter Summary ---
Author Organization [employer] ([place], [place], [place], [place]) Address [address] [place] [address] Care Team Providers Care Merchandising Assistant Name Role Phone Unavailable Primary Care Provider Unavailabl e Reason for Visit * Reason Comments Neck Pain * Surgical (Routine) - Closed Specialty Diagnoses / Procedures Referred By Contac t Referred To Contact Neurosurgery / Neurology Diagnoses Cervicalgia [facility] Neurology - [email or web address] [address] Phone: tel: fax: Referral ID Status Reason Start Date Expiration Date V isits Requested Visits Authorized [id number] Closed Specialty Services Required 11/09/2024 11/09/2025 1 1 Encounter Details Date Type Department Care Team (Late st Contact Info) Description 12/30/2024 11:00 AM EDT Office Visit [email or web address] [address] [address] Tobi Levin Jr., MD [address] [place] [address] Chronic pain disorder (Primary Dx) Social History Tobacco Use Types Packs/Day Years Used Date Smoking Tobacco: Never Smokeless Tobacco: Never Tobacco Cessation:Counseling Given: Not Answered Alcohol Use Standard Drinks/Week Comments Never 0 (1 standard drink = 0.6 oz pur e alcohol) Comments Unknown Sex and Gender Information Value Date Recorded Sex Assigned at Female 11/09/2024 9:00 AM CDT Legal Sex Female 5:08 PM CDT Gender Identity Female 11/09/2024 9:00 AM CDT Sexual Orientation Don't know 11/09/2024 9: 00 AM CDT documented as of this encounter Last Filed Vital Signs Vital Sign Reading Time Taken Comments Blood Pressure 80/54 12/30/2024 11:38 AM EDT Pulse 99 12/30/2024 11:38 AM EDT Temperature - - Respiratory Rate - - Oxygen Saturation - - Inhaled Oxygen Concentration - - Weight 51.7 kg (114 lb) 12/30/2024 11:38 AM EDT Height 165.1 cm (5' 5 ) 12/30/2024 11:38 AM EDT Body Mass Index 18.97 12/30/2024 11:38 AM EDT documented in this encounter Progress Notes * Tobi Levin Jr., MD - 12/30/2024 11:00 AM EDT Subjective I saw Ms. Breen. She is a terrible historian. Anytime asked her a question she went off in a tangent. From what I can gather, she had some sort of injury in 2008. She has had many right shoulder and/or upper extremity surgeries. It sounds like many of them revolve around the right rotator cuff region. She states she might of had 7 surgeries. She has chronic pain that initially was in the right upper extremity. Dr. Butterfield at [facility] placed a spinal cord stimulator. It sounds like theleads migrated. It sounds like he and then Dr. Gibbs performed a revision. It sounds like Dr. Gibbs placed a paddle lead. She states that basically now she has diffuse right upper extremity pain that has migrated down in the right lower extremity and now getting in the left proximal upper extremity. She saw Dr. Gibbs and he stated that she had some sort of deformity. He stated that she might be a candidate for corrective surgery but had concerns that she could have a complication and it might not help with her pain. She states she was also worried she might have osteoporosis. Review of Systems Constitutional: Positive for chills, fatigue and fever. Gastrointestinal: Positive for nausea. Neurological: Positive for weakness. Difficulty walking Psychiatric/Behavioral: Positive for confusion, decreased concentration and sleep disturbance. All other systems reviewed and are negative. Objective Last Recorded Vitals Blood pressure (!) 80/54, pulse 99, height 1.651 m (5' 5 ), weight 51.7 kg (114 lb). Physical Exam On exam she is very pleasant. She is in no distress. She has very limited range of motion with any movement of the neck. She states that is because it hurts. She can extend her neck back to neutral/0degrees. Her relaxed posture when she is standing suggest that her neck is straight and she has about a 40 degree tilt forward. Her neck is extremely thin. She seems to have some spasming of the sternocleidomastoid muscle and anterior strap muscles. She has a posterior cervical incision. Her neck is so thin that the anchors are easily visible as well as the electrode wires. She has hyperreflexia in the upper greater than lower extremities. She had a Kristan variant sign in both hands. When I checked the brachioradialis reflexes her fingers flexed briskly. Labs: No results found for this visit on 12/30/24 (from the past 24 hours). No image results found. Imaging not available. She had a cervical MRI scan February 10, 2024 at [facility]. The report states that stimulator leads center at C4-5 determine a rate around C2-4. Straightening of the spine with mild reversal of lordosis centered at C5. Severe canal stenosis at C5-6 severe canal stenosis at C6-7. Assessment Chronic pain syndrome. Pain started in the right upper extremity then moved to the right lower extremity now the left shoulder. She has a cervical spinal cord stimulator system. It sounds like she has some degree of a kyphotic deformity. She is very petite. She is very thin. She has chronic pain. Overall, I am pessimistic that corrective surgery will likely help with her chronic pain either in the neck or the extremities. She looks very frail. I think she be at high risk to have a complication such as wound healing problem, hardware failure or pullout with worsening deformity if this happened. However, I cannot make a formal recommendation until actually see the imaging. If she does indeed have severe spinal cord compression at C6-7 and C5-6 then surgery may need to be seriously considered to decompress the spinal cord. She is going to call next week and hopefully the images have been power shared by them and I can review them and finalize recommendations. Plan Addendum: I was able to review the [facility] MRI scan cervical February 09, 2024. She also had a August2023 CT scan. There are both available in [facility] system now. I think she has severe stenosis withcord compression at C2-3 and C3-4. This is due to spondylosis and the stimulator electrodes. I alsothink she has severe cord compression at C5-6 and C6-7 this is due to spondylosis and disc osteophyte formation anteriorly predominantly. She has kyphotic angulation which is mild to moderate centered around the C4-5 disc. I recommend the following: I think this woman should have surgery. I would recommend removing the cervical spinal cord stimulator system. I would perform a C4-5 C5-6 C6-7 anterior cervical discectomy fusion to decompress the spinal cord. There is not really much compression at C4-5 but this is at the apex of her area of kyphosis and I think that it could correct her deformity some. I think that a hardware or wound probablycomplication would be much lower from an anterior approach. This is a complex problem and unfortunately if we did the above surgeries there is a possibility that she to have to have more done in the future. Before I would commit to the surgery approach I would want to get a new MRI scan as her lastwas almost a-year-old and I did want her to get flexion-extension cervical x-rays. I called her. She did not answer. I left a brief message. She will call the office and talk to Dary if I am out of the office. I called Dr. Gibbs but he is out of the office this week. I will try to talk to him about her next week when he returns. As far as I am concerned, she can follow-up with Dr. Gibbs. Jayson would rather follow-up with me that would be fine to if Dr. Gibbs is okay with that. documented in this encounter Plan of Treatment Not on file documented as of this encounter Visit Diagnoses Diagnosis Chronic pain disorder- Primary Chronic pain syndrome documented in this encounter
--- NOTE | 2025-01-18 11:51 | XR_ITS ---
FINAL REPORT CLINICAL HISTORY: left foot pain, edema COMPARISON: None FINDINGS: LEFT FOOT Three views of the left foot demonstrate no acute fracture or dislocation. The visualized joint spaces are normally aligned. There is soft tissue edema over the dorsum of the foot. IMPRESSION: Soft tissue edema without acute bony abnormality. Reviewed, Interpreted and Dictated by Kirt Kirkpatrick MD Transcribed by Kelly Hutson Authenticated and [facility]
--- NOTE | 2025-01-18 11:51 | XR_ITS ---
FINAL REPORT CLINICAL HISTORY: EDEMA AND PAIN COMPARISON: None FINDINGS: LEFT ANKLE Three views demonstrate no acute fracture or dislocation. The visualized joint spaces are normally aligned. The ankle mortise is intact. There is a 7 mm os trigonum. There is moderate soft tissue swelling. IMPRESSION: Soft tissue swelling without acute bony abnormality. Reviewed, Interpreted and Dictated by Kirt Kirkpatrick MD Transcribed by Kelly Hutson Authenticated and [facility]
--- NOTE | 2025-01-18 11:51 | XR_ITS ---
FINAL REPORT CLINICAL HISTORY: left ankle pain, edema COMPARISON: None FINDINGS: Two views of the left tibia/fibula were obtained. There is no acute fracture or dislocation. The joint spaces are intact. There is no soft tissue abnormality. IMPRESSION: No acute bony abnormality. Reviewed, Interpreted and Dictated by Kirt Kirkpatrick MD Transcribed by Kelly Hutson Authenticated and [facility]
--- OUTSIDE RECORDS SUMMARY | 2025-01-18 11:51 | XMS_ITS | Encounter Summary ---
Author Organization [employer] ([place], [place], [place], [place]) Address [address] [place] [id number] Care Team Providers Care Crotch Breaker Name Role Phone Unavailable Primary Care Provider Unavailabl e Encounter Details Date Type Department Care Team (Latest Contact Info) Description 12/30/2024 Travel Social History Tobacco Use Types Packs/Day Years Used Date Smoking Tobacco: Never Smokeless Tobacco: Never Alcohol Use Standard Drinks/Week Comments Never 0 (1 standard drink = 0.6 oz pur e alcohol) Comments Unknown Sex and Gender Information Value Date Recorded Sex Assigned at Female 11/09/2024 9:00 AM CDT Legal Sex Female 5:08 PM CDT Gender Identity Female 11/09/2024 9:00 AM CDT Sexual Orientation Don't know 11/09/2024 9: 00 AM CDT documented as of this encounter Plan of Treatment Not on file documented as of this encounter Visit Diagnoses Not on filedocumented in this encounter
--- OUTSIDE RECORDS SUMMARY | 2025-01-18 11:51 | XMS_ITS | Encounter Summary ---
Author Organization [employer] ([place], [place], [place], [place]) Address [address] [place] [address] Care Team Providers Care Assistant Passenger Locomotive Engineer Name Role Phone Unavailable Primary Care Provider Unavailabl e Reason for Visit * Reason Onset Date Comments Advice Only 01/17/2025 Encounter Details Date Type Department Care Team (Late st Contact Info) Description 01/17/2025 Telephone [facility] Neurology - [employer] [address] [employer] [address] [address] Gayatri Urena CMA Advice Only Social History Tobacco Use Types Packs/Day Years [...] AM CDT documented as of this encounter Miscellaneous Notes * Telephone Encounter - Gayatri Urena CMA - 01/17/2025 2:19 PM EDT Pt seen Dr. Levin on 12/30. Pt called to ask if Dr. Levin and Dr. Gibbs had discussed her care movingforward. documented in this encounter Plan of Treatment Not on file documented as of this encounter Visit Diagnoses Not on filedocumented in this encounter
--- OUTSIDE RECORDS SUMMARY | 2025-01-18 11:51 | XMS_ITS ---
Laboratory report Created on: January 04, 2025 KIMBERLY RODRIGUEZ : 1975 Sex: Female Author Organization Unknown PROBLEMS Problems List Code Description RESULTS Laboratory Orders Date Order Code Test 2024-12-29 [id number] RENIN ACTIVITY, PLASMA Laboratory Results Date LOINC Test Value Unit Reference Range Interpre tation 2024-12-29 [id number] RENIN ACTIVITY, PLASMA 16.998 NG/ML/HR 0.167-5.380 H
--- OUTSIDE RECORDS SUMMARY | 2025-01-18 11:51 | XMS_ITS ---
Laboratory report Created on: January 01, 2025 KIMBERLY RODRIGUEZ : 1975 Sex: Female Author Organization Unknown PROBLEMS Problems List Code Description RESULTS Laboratory Orders Date Order Code Test 2024-12-29 [id number] DHEA-SULFATE 2024-12-29 [id number] ALDOLASE Laboratory Results Date LOINC Test Value Unit Reference Range Interpre tation 2024-12-29 [id number] DHEA-SULFATE 1.8 UG/DL 41.2-243.7 L 2024-12-29 1761-6 ALDOLASE 3 U/L 3.3-10.3 L
--- OUTSIDE RECORDS SUMMARY | 2025-01-18 11:51 | XMS_ITS | Data Portability ---
[facility] Organization [facility] & MEKHI Fierro ADMIN Address [address] [place] [id number] Assessment No assessment recorded. Plan of Treatment Reminders Order Date Submit Date Provider Last Modified By Organization Details Last Modified Time Details Appointments None recorded. Lab None recorded. Referral None recorded. Procedures None recorded. Surgeries None recorded. Imaging None recorded. Medication Orders Aimovig Autoinjecto r 140 mg/mL subcutaneou s auto-inject or 2023 024 [facility], [address], [address], 4 14:16:27 Ubrelvy 100 mg tablet 2023 024 [facility], [address], [address], 4 14:16:26 Aimovig Autoinjecto r 140 mg/mL subcutaneou s auto-inject or 2022 023 [facility], [address], [address], 3 10:47:23 Ubrelvy 100 mg tablet 2022 023 [facility], [address], [address], 3 10:47:21 Patient TargetsNo targets recorded. Patient InstructionsNo instructions recorded. Reason for Referral None Reported. Problems Name Problem SNOMED Code Status Onset Date Resolution Date Notes Provider Name and Address Organization Details Recorded Time Thyroid nodule 170206343 Active 2019 Not Available [facility] 2 18:11:55 Refractory migraine without aura 568466535 Active 2017 Not Available [facility] 2 18:11:55 Chronic intractabl e migraine without aura 7868490035468 05 Active 2022 Valeria Wright, DO [address] [facility], [place], [address] , [place] - [facility] & [place] 3 20:39:18 Problem Notes None recorded. Procedures Surgical History Date Name Laterality Status Provider Name and Address Organization Details Recorded Time 06/13/20 removal of ovarian cyst completed Tamara Emely [place] [facility] & [place] 09/11/2022 10:24:56 neurostimulation of spinal cord tissue completed Tamara Emely [place] [facility] & [place] 08/07/2022 13:58:13 repair of shoulder completed Tamara Zaidaa [place] [facility] & [place] 08/07/2022 13:58:32 section completed Tamara Zaidaa [place] [facility] & [place] 08/07/2022 13:59:26 partial lobectomy of thyroid completed Tamara Emely [place] [facility] & [place] 09/11/2022 10:25:35 Imaging Results None recorded. Procedure [...] Updated DateTime 09/11/2022 165.1 cm 23.9 kg/m2 21477.86 g 77 /min 100/63 mm[Hg] Tamara KINCAID [facility] & [place] 09/11/2022 10:22:37 Date Recorded Body height Body mass index (BMI) Body weight Heart rate Systolic And Diastolic Provider Name and Address Organization Details Last Updated DateTime 09/16/2023 165.1 cm 25.7 kg/m2 27607.94 g 80 /min 97/69 mm[Hg] Tamara KINCAID [facility] & [place] 09/16/2023 14:08:56 Social History Question Answer Notes LastModified by Organizat ion Details LastModified Time Tobacco Smoking Status Never Smoker Not Available [facility] 04/12/2022 18:01:55 What Is Your Level [...] available 08/07/2022 13:55:36 Medical History Condition Response Migraines Y Depression Y Anemia Y Neurological Problems Y Reflux/GERD Y Headaches Y Hypertension Y Gynecological HistoryNo gynecological history recorded. Obstetrics History GPAL:G 0 P 0 0 0 0 Past Encounters Encounter ID Performer Location Encounter Start Date Encounter Closed Date Diagnosis/Indication Diagnosis SNOMED-CT Code Diagnosis ICD10 Code Diagnosis Note [id number] Valeria WrightDO [facility] [address] [facility],[address] [place] [address] 09/11/2022 10:16:16 09/11/2022 10:48:25 Chronic intractable migraine without aura 0510791624 01485 G43.711 Chronic condition that is stable with her current medication s. She needs to continue with monthly Aimovig injections . She needs refills of her aimovig and ubrelvy today. [id number] Valeria WrightDO [facility] [address] [facility],[address] [place] [id number] 09/16/2023 13:58:39 09/16/2023 14:18:20 Chronic intractable migraine without aura 5853195804 27448 G43.711 Chronic condition that is stable with [...] Name 09/13/2023 1 [place]IC[place] Valeria Breen [id number] Valeria Breen Notes Date Note Type [...] to be adjusted. Valeria Kyle, DO [address] [facility], [place], [address], [facility] - [facility] - [place] & [place] 09/11/2022 10:52:16 09/16/2023 text/html Valeria comes in [...] to be adjusted. Valeria Kyle, DO [address], [place], [address], [place] [facility] [place] & [place] 09/16/2023 14:18:27 OBGyn Episode No OBEpisode recorded.
--- OUTSIDE RECORDS SUMMARY | 2025-01-18 11:51 | XMS_ITS ---
Laboratory report Created on: January 04, 2025 KIMBERLY RODRIGUEZ : 1975 Sex: Female Author Organization Unknown PROBLEMS Problems List Code Description RESULTS Laboratory Orders Date Order Code Test 2024-12-29 [id number] METANEPHRINES, F RAC., PL. FREE Laboratory Results Date LOINC Test Value Unit Reference Range Interpre tation 2024-12-29 2669-0 NORMETANEPHRINE, PL 244 PG/ML 0.0-244.0 2024-12-29 30865-5 METANEPHRINE, PL <25.0 PG/ML 0.0-88.0
--- OUTSIDE RECORDS SUMMARY | 2025-01-18 11:51 | XMS_ITS | Data Portability ---
Author Organization [facility] PUR[place] CLOS[place] Address [address] [facility] [address] [place] [address] Care Team Providers Care Experimental Display Builder Name Role Phone JOB NAIK Referring Provider JOB NAIK Primary Care Provider [phone] Assessment No assessment recorded. Plan of Treatment Reminders Order Date Submit Date Provider Last Modified By Organization Details Last Modified Time Details Appointments None recorded. Lab glycohemogl obin, total, blood [address] [facility], [address] [place] [address], [phone], 7 21:07:54 vitamin D, 25-hydroxy, total, serum [address] [facility], [address] [place] [address], [address], 7 21:07:54 TSH, serum or plasma [address] [facility], [address] [place] [address], [address], 7 21:07:54 T4, free, serum [address] [facility], [address] [place] [address], [address], 7 21:07:54 protein electrophor esis panel, serum or plasma 2016 017 [facility], [address] [place] [address], [address], 7 13:10:58 JEANNE (antinuclea r antibodies) screen, serum 2016 017 [facility], [address] [place] [address], [address], 7 15:05:25 CMP, serum or plasma 2016 017 [facility], [address] [place] [address], [address], 7 21:07:54 CBC w/ auto diff [address] [facility], [address] [place] [address], [address], 7 21:07:54 vitamin B12, serum 2016 017 [place] [id number] [facility], [address] [place] [address], [address], 7 21:07:54 Referral None recorded. Procedures nerve conduction study/EMG (PROC) 2016 017 erphilliptso n10 Not available 21:07:54 Surgeries None recorded. Imaging None recorded. Medication Orders None recorded. Patient TargetsNo targets recorded. Patient Instructions Encounter Date Encounter Id Patient Instructions Last Modified By Organization Details Last Modified Time 09/03/2017 [id number] neuropathic pain : care instructions [email or web address] Not available 09/05/2017 19:56:34 Reason for Referral None Reported. Results Created Date Observation Date Name Description Value Unit Range Abnormal Flag Note LastModifiedBy Organization Detail LastModifiedTime 07/03/20 17 07/03/2017 glyco hemog lobin , total , blood glyco HGB A1C 5.3 % 0.0-5. 6 normal Not Available [facility] [address] [place], [address], 07/03/2017 11:47:49 07/03/20 17 07/03/2017 glyco hemog [...] ostic of diabe mario alberto. Not Available [facility] [address] [place] [address], [address], 07/03/2017 11:47:49 07/03/20 17 07/03/2017 vitam in B12, serum vitamin B12 207 pg/mL 232-12 45 low Not Available [facility] [address] [place] [address], [address], 07/03/2017 12:33:33 07/03/20 17 07/03/2017 TSH, serum or plasm a TSH 2.330 uIU/m L 0.290- 5.500 normal Not Available [facility] [address] [place] [address], [address], 07/03/2017 12:34:03 07/03/20 17 07/03/2017 T4, free, serum T4,free 1.39 NG/dL 0.93-1 .70 normal Not Available [facility] [address] [place] [address], [address], 07/03/2017 12:34:04 07/03/20 17 07/03/2017 CBC w/ auto diff white blood cells 8.8 K/uL 3.8-10 .8 normal Not Available [facility] [address] [place] [address], [address], 07/03/2017 13:11:47 07/03/20 17 07/03/2017 CBC w/ auto diff red blood cells 5.12 M/uL 3.80-5 .20 normal Not Available [facility] [address] [place], [address], 07/03/2017 13:11:47 07/03/20 17 07/03/2017 CBC w/ auto diff hemoglobin 11.5 g/dL 12.0-1 6.0 low Not Available [facility] [address] [place] [address], [address], 07/03/2017 13:11:47 07/03/20 17 07/03/2017 CBC w/ auto diff hematocrit 36.8 % 35.0-4 7.0 normal Not Available [facility] [address] [place] [address], [address], 07/03/2017 13:11:47 07/03/20 17 07/03/2017 CBC w/ auto diff MCV 72 fL 80-100 low Not Available [facility] [address] [place] [address], [address], 07/03/2017 13:11:47 07/03/20 17 07/03/2017 CBC w/ auto diff MCH 23 pg 26-35 low Not Available [facility] [address] [place] [address], [address], 07/03/2017 13:11:47 07/03/20 17 07/03/2017 CBC w/ auto diff MCHC 31 g/dL 32-36 low Not Available [facility] [address] [place] [address], [address], 07/03/2017 13:11:47 07/03/20 17 07/03/2017 CBC w/ auto diff RDW 17.5 % 11.0-1 5.0 high Not Available [facility] [address] [place] [address], [address], 07/03/2017 13:11:47 07/03/20 17 07/03/2017 CBC w/ auto diff MPV 7.8 fL 6.2-10 .5 normal Not Available [facility] [address] [place] [address], [address], 07/03/2017 13:11:47 07/03/20 17 07/03/2017 CBC w/ auto diff platelet count 516 K/uL 130-40 0 high Not Available [facility] [address] [place] [address], [address], 07/03/2017 13:11:47 07/03/20 17 07/03/2017 CBC w/ auto diff neutrophil,a bsolute 5.7 K/uL 1.6-8. 4 normal Not Available [facility] [address] [place] [address], [address], 07/03/2017 13:11:47 07/03/20 17 07/03/2017 CBC w/ auto diff lymphocyte,a bsolute 2.4 K/uL 0.4-5. 1 normal Not Available [facility] [address] [place] [address], [address], 07/03/2017 13:11:47 07/03/20 17 07/03/2017 CBC w/ auto diff monocyte,abs olute 0.6 K/uL 0.0-1. 2 normal Not Available [facility] [address] [place] [address], [address], 07/03/2017 13:11:47 07/03/20 17 07/03/2017 CBC w/ auto diff eosinophil,a bsolute 0.0 K/uL 0.0-0. 8 normal Not Available [facility] [address] [place] [address], [address], 07/03/2017 13:11:47 07/03/20 17 07/03/2017 CBC w/ auto diff basophil,abs olute 0.0 K/uL 0.0-0. 3 normal Not Available [facility] [address] [place] [address], [address], 07/03/2017 13:11:47 07/03/20 17 07/03/2017 CBC w/ auto diff % neutrophils 65.2 % 42.0-7 8.0 normal Not Available [facility] [address] [place] [address], [address], 07/03/2017 13:11:47 07/03/20 17 07/03/2017 CBC w/ auto diff % lymphocytes 27.0 % 11.0-4 7.0 normal Not Available [facility] [address] [place] [address], [address], 07/03/2017 13:11:47 07/03/20 17 07/03/2017 CBC w/ auto diff % monocytes 6.9 % 0.0-11 .0 normal Not Available [facility] [address] [place] [address], [address], 07/03/2017 13:11:47 07/03/20 17 07/03/2017 CBC w/ auto diff % eosinophils 0.4 % 0.0-7. 0 normal Not Available [facility] [address] [place] [address], [address], 07/03/2017 13:11:47 07/03/20 17 07/03/2017 CBC w/ auto diff % basophils 0.5 % 0.0-3. 0 normal Not Available [facility] [address] [place] [address], [address], 07/03/2017 13:11:47 07/03/20 17 07/03/2017 CBC w/ auto diff nucleated red cells 0.1 % 0.0-0. 9 normal Not Available [facility] [address] [place] [address], [address], 07/03/2017 13:11:47 07/03/20 17 07/03/2017 CBC w/ auto diff nucleated RBCs, absolute 0.01 K/uL not estab. normal Not Available [facility] [address] [place] [address], [address], 07/03/2017 13:11:47 07/03/20 17 07/03/2017 RBC morph ology , blood platelet morphology NORMAL normal Not Available [facility] [address] [place], [address], 07/03/2017 13:11:49 07/03/20 17 07/03/2017 RBC morph ology , blood microcytosis SLIGHT abnormal Not Available [facility] [address] [place], [address], 07/03/2017 13:11:49 07/03/20 17 07/03/2017 RBC morph ology , blood hypochromasi a SLIGHT abnormal Not Available [facility] [address] [place] [address], [address], 07/03/2017 13:11:49 07/03/20 17 07/03/2017 RBC morph ology , blood polychromasi a SLIGHT abnormal Not Available [facility] [address] [place] [address], [address], 07/03/2017 13:11:49 07/03/20 17 07/03/2017 RBC morph ology , blood ovalocytes SLIGHT abnormal Smear revie wed to confi rm cell morph ology . Not Available [facility] [address] [place] [address], [address], 07/03/2017 13:11:49 07/03/20 17 07/03/2017 vitam in D, 25-hy droxy , total , serum vitamin D 25-oh, total 8 NG/mL >=30 NG/mL abnormal Not Available [facility] [address] [place] [address], [address], 07/03/2017 13:35:29 07/03/20 17 07/03/2017 CMP, serum or plasm a glucose 123 mg/dL 74-100 high Not Available [facility] [address] [place] [address], [address], 07/03/2017 13:40:16 07/03/20 17 07/03/2017 CMP, serum or plasm a blood urea nitrogen 18 mg/dL 6-20 normal Not Available [facility] [address] [place], [address], 07/03/2017 13:40:16 07/03/20 17 07/03/2017 CMP, serum or plasm a creatinine 1.20 mg/dL 0.50-0 .95 high Not Available [facility] [address] [place], [address], 07/03/2017 13:40:16 07/03/20 17 07/03/2017 CMP, serum or plasm a BUN/creatini ne ratio 15 (calc ) 10-20 normal Not Available [facility] [address] [place] [address], [address], 07/03/2017 13:40:16 07/03/20 17 07/03/2017 CMP, serum or plasm a GFR 64 >= 60 normal Not Available [facility] [address] [place], [address], 07/03/2017 13:40:16 07/03/20 17 07/03/2017 CMP, serum or plasm a GFR non- 55 >= 60 abnormal NOT E NEW calcu latio n for GFR is based on the Natio [facility]al [facility] PI equat ion and allow s [...] s or longe r. . Not Available [facility] [address] [place], [address], 07/03/2017 13:40:16 07/03/20 17 07/03/2017 CMP, serum or plasm a sodium 141 mmol/ L 136-14 5 normal Not Available [facility] [address] [place], [address], 07/03/2017 13:40:16 07/03/20 17 07/03/2017 CMP, serum or plasm a potassium 2.3 mmol/ L 3.4-5. 0 critical low RESUL TS RECHE CKED. PANIC RESUL TS LEVINE D TO AND ACCUR ATELY READ BACK BY: YAYA HARRIS ON: 07/03 AT: 13:39 BY: MMB Not Available [facility] [address] [place] [address], [address], 07/03/2017 13:40:16 07/03/20 17 07/03/2017 CMP, serum or plasm a chloride 94 mmol/ L 98-107 low Not Available [facility] [address] [place] [address], [address], 07/03/2017 13:40:16 07/03/20 17 07/03/2017 CMP, serum or plasm a carbon dioxide 30 mmol/ L 20-32 normal Not Available [facility] [address] [place] [address], [address], 07/03/2017 13:40:16 07/03/20 17 07/03/2017 CMP, serum or plasm a anion gap 17 (calc ) 7-25 normal Not Available [facility] [address] [place] [address], [address], 07/03/2017 13:40:16 07/03/20 17 07/03/2017 CMP, serum or plasm a calcium 9.5 mg/dL 8.6-10 .2 normal Not Available [facility] [address] [place] [address], [address], 07/03/2017 13:40:16 07/03/20 17 07/03/2017 CMP, serum or plasm a total protein 8.1 g/dL 6.4-8. 3 normal Not Available [facility] [address] [place] [address], [address], 07/03/2017 13:40:16 07/03/20 17 07/03/2017 CMP, serum or plasm a albumin 4.8 g/dL 3.5-5. 2 normal Not Available [facility] [address] [place], [address], 07/03/2017 13:40:16 07/03/20 17 07/03/2017 CMP, serum or plasm a globulin 3.3 g/dL_ (calc ) 1.5-4. 5 normal Not Available [facility] [address] [place] [address], [address], 07/03/2017 13:40:16 07/03/20 17 07/03/2017 CMP, serum or plasm a albumin/glob ulin ratio 1.5 (calc ) 1.1-2. 5 normal Not Available [facility] [address] [place] [address], [address], 07/03/2017 13:40:16 07/03/20 17 07/03/2017 CMP, serum or plasm a bilirubin, total 0.3 mg/dL 0.1-1. 2 normal Not Available [facility] [address] [place] [address], [address], 07/03/2017 13:40:16 07/03/20 17 07/03/2017 CMP, serum or plasm a alkaline phosphatase 50 U/L 35-105 normal Not Available [facility] [address] [place], [address], 07/03/2017 13:40:16 07/03/20 17 07/03/2017 CMP, serum or plasm a AST 13 U/L 0-32 normal Not Available [facility] [address] [place], [address], 07/03/2017 13:40:16 07/03/20 17 07/03/2017 CMP, serum or plasm a ALT 7 U/L 0-33 normal Not Available [facility] [address] [place] [address], [address], 07/03/2017 13:40:16 07/03/20 17 07/04/2017 prote in elect ropho resis panel , serum or plasm a protein, total 7.7 g/dL 6.1-8. 1 normal TEST PERFO RMED AT: [facility] [address] [place] [address] RUDOLPH Clayton MD Not Available [facility] [address] [place] [address], [address], 07/05/2017 18:35:09 07/03/20 17 07/05/2017 prote in elect ropho resis panel , serum or plasm a albumin 4.5 g/dL 3.8-4. 8 normal Not Available [facility] [address] [place] [address], [address], 07/05/2017 18:35:09 07/03/20 17 07/05/2017 prote in elect ropho resis panel , serum or plasm a nhbya-6-sjzk ulin 0.4 g/dL 0.2-0. 3 high Not Available [facility] [address] [place] [address], [address], 07/05/2017 18:35:09 07/03/20 17 07/05/2017 prote in elect ropho resis panel , serum or plasm a xdiqg-6-hllu ulin 0.9 g/dL 0.5-0. 9 normal Not Available [facility] [address] [place] [address], [address], 07/05/2017 18:35:09 07/03/20 17 07/05/2017 prote in elect ropho resis panel , serum or plasm a beta 1 globulin 0.6 g/dL 0.4-0. 6 normal Not Available [facility] [address] [place] [address], [address], 07/05/2017 18:35:09 07/03/20 17 07/05/2017 prote in elect ropho resis panel , serum or plasm a beta 2 globulin 0.5 g/dL 0.2-0. 5 normal Not Available [facility] [address] [place], [address], 07/05/2017 18:35:09 07/03/20 17 07/05/2017 prote in elect ropho resis panel , serum or plasm a gamma globulin 0.9 g/dL 0.8-1. 7 normal Not Available [facility] [address] [place] [address], [address], 07/05/2017 18:35:09 07/03/20 17 07/05/2017 prote in elect ropho resis panel , serum or plasm a interpretati on SEE BELOW normal The incre ase in the alpha -1-gl obuli ns may be due to incre ased alpha -1-an titry psin, an acute phase react ant prote in. No monoc lonal immun oglob ulin detec jorgito. TEST PERFO RMED AT: [facility] [address] [place] [address] RUDOLPH Clayton MD Not Available [facility] [address] [place] [address], [address], 07/05/2017 18:35:09 07/03/20 17 07/05/2017 JEANNE (anti [...] PERFO RMED AT: [facility] [address] [place] [address] RUDOLPH Clayton MD Not Available [facility] [address] [place], [address], 07/05/2017 15:05:25 09/05/19 18 09/03/2017 elect romyo gram + nerve condu ction study No observ ation record ed. tanya Not Available 15:14:47 Result Notes None recorded. Problems No Known Problems Procedures Surgical History Date Name Laterality Status Provider Name and Address Organization Details Recorded Time 018 Electromyography (EMG) with Nerve Conduction Study (NCV) completed DANIKA COVARRUBIAS MD [address] [place], [address], [facility] 09/05/2017 19:55:42 Caesarean Section completed [facility] 07/03/2017 09:28:25 Thyroid Surgery completed [facility] 07/03/2017 09:28:35 Shoulder Surgery completed [facility] 07/03/2017 09:28:47 Back Surgery completed [facility] 07/03/2017 09:28:55 Imaging Results None [...] Updated DateTime 09/03/2017 167.64 cm 26 kg/m2 56154.37 g 80 /min 90/62 mm[Hg] Kelyl Mccartney [facility] 8 10:59:18 Date Recorded Body height Body mass index (BMI) Body weight Heart rate Systolic And Diastolic Systolic And Diastolic Systolic And Diastolic Provider Name and Address Organization Details Last Updated DateTime 7 167.64 cm 25.7 kg/m2 91405.1 9 g 80 /min 90/76 mm[Hg] 84/62 mm[Hg] 80/60 mm[Hg] Kelly Mcnairwoodygiovanni [facility] 7 09:52:39 Social History Question Answer Notes LastModified by Organizat ion Details LastModified Time Tobacco Smoking Status Never Smoker Kelly Tabbydori [facility] 07/03/2017 09:28:17 Live Alone Or With Others? [...] Not available 09:28:10 Medical History Condition Response Depression Y Anxiety Disorder Y Migraines Y Gynecological HistoryNo gynecological history recorded. Obstetrics History GPAL:G 0 P 0 0 0 0 Past Encounters Encounter ID Performer Location Encounter Start Date Encounter Closed Date Diagnosis/Indication Diagnosis SNOMED-CT Code Diagnosis ICD10 Code Diagnosis Note [id number] DANIKA COVARRUBIAS MD NEUROLOGY [facility] [address] [place] [address] 07/03/2017 08:59:04 07/03/2017 12:11:01 Neuropathy 525895728 G62.9 Neuropathy on exam LD, large and [...] up for our portal RTC 4m Syncope 468484090 R55 Found to have neuropathy by exam [...] idone) which can lead to arrhythmia . [id number] DANIKA COVARRUBIAS MD NEUROLOGY [facility] [address] [place] [address] 09/03/2017 09:48:17 09/03/2017 12:21:37 Neuropathy 953507095 G62.9 Neuropathy on exam LD, large and [...] up for our portal RTC 4m Paresthesia 75748498 R20 .2 BUE/BLEs EMG and exam consistent [...] Name 01/11/2019 1 [place] Valeria Breen [id number] Valeria Breen 10/31/2017 [employer] Valeria Carrerader [id number] Valeria Breen Notes Date Note Type Note [...] neck injury, heart issues DANIKA COVARRUBIAS MD [facility] [place], [address], [facility] 07/03/2017 14:24:38 OBGyn Episode No OBEpisode recorded.
--- OUTSIDE RECORDS SUMMARY | 2025-01-18 11:51 | XMS_ITS | Clinical Summary ---
Author Organization [employer] ([place], [place], [place], [place]) Address [address] [place] [address] Care Team Providers Care Fur Remodeler Name Role Phone Unavailable Primary Care Provider Unavailabl e Allergies No known active allergies Medications baclofen (LIORESAL) 10 MG tablet Take 1 tablet (10 mg total) by mouth 4 (four) times daily. Active DULoxetine (CYMBALTA) 60 MG capsule Take 1 capsule (60 mg total) by mouth daily. Active diclofenac sodium (VOLTAREN) 50 MG EC tablet Take 1 tablet (50 mg total) by mouth 2 (two) times daily. Active nortriptyline (PAMELOR) 10 MG capsule Take by mouth. Active estradiol-noret hindrone (ACTIVELLA) 1-0.5 mg per tablet Take 1 tablet by mouth daily. 12/15/2024 Active potassium chloride (KLOR-CON) 20 MEQ tablet 08/09/2024 Active omeprazole (PriLOSEC) 20 MG capsule Take 1 capsule (20 mg total) by mouth daily. Active ferrous sulfate 325 (65 FE) MG tablet Take 1 tablet (325 mg total) by mouth daily. 08/19/2024 Active chlorthalidone (HYGROTON) 50 MG tablet 07/26/2024 Active Gralise 600 mg Take 1 tablet (600 mg total) by mouth daily. Active LORazepam (ATIVAN) 1 MG tablet Take 1 tablet (1 mg total) by mouth 3 (three) times daily. Active pantoprazole (PROTONIX) 40 MG tablet Take 1 tablet (40 mg total) by mouth daily. Active zolpidem (AMBIEN) 5 MG tablet Take 1 tablet (5 mg total) by mouth daily. Active acyclovir (ZOVIRAX) 400 MG tablet Take 1 tablet (400 mg total) by mouth 2 (two) times daily. 12/28/2024 Active erenumab-aooe (Aimovig Autoinjector) 140 mg/mL AtIn Activ e traZODone (DESYREL) 100 MG tablet Take 1 tablet (100 mg total) by mouth nightly. Active ondansetron (ZOFRAN) 4 MG tablet Take by mouth. Active amLODIPine (NORVASC) 2.5 MG tablet Take 1 tablet (2.5 mg total) by mouth daily. Active buPROPion SR (WELLBUTRIN SR) 150 MG 12 hr tablet Take 1 tablet (150 mg total) by mouth 2 (two) times daily. Active ibuprofen (MOTRIN) 600 MG tablet Take 1 tablet (600 mg total) by mouth every 6 (six) hours as needed. 11/25/2024 Active lisinopriL (ZESTRIL) 5 MG tablet Take 1 tablet (5 mg total) by mouth daily. 12/10/2024 Active Active Problems No known active problems Encounters Date Type Department Care Team Description 01/17/2025 Telephone [facility] Neurology [facility] [address] [facility] [address] [place] [address] Gayatri Urena CMA Advice Only 12/30/2024 11:00 AM EDT Office Visit [facility] Neurology [place] [address] [facility] [address] [place] [address] Tobi Levin Jr., MD Chronic pain disorder (Primary Dx) 12/30/2024 Travel 11/09/2024 Outside Orders [facility] Neurology [place] [address] [facility] [address] [place] [address] Luis E Gibbs MD Cervicalgia (Primary Dx) from Last 3 Months Family History Medical History Relation Name Comments Cancer Other Hypertension Other Stroke Other Relation Name Status Comments Other Social History Tobacco Use Types Packs/Day Years [...] Don't know 11/09/2024 9: 00 AM CDT Last Filed Vital Signs Vital Sign Reading [...] Mass Index 18.97 12/30/2024 11:38 AM EDT Plan of Treatment Health Maintenance Due Date Last Done Comments CT Colonography 1973 Colonoscopy 1973 Colorectal Cancer Screening 1973 FOBT/FIT 1973 Fit-DNA (Cologuard) 1973 Sigmoidoscopy 1973 Depression Screening (12+) 1985 HIV Screening 1988 Hepatitis C Screening 1991 Lipid Panel 2018 Pap Smear 06/19/2023 06/19/2020 Pneumococcal 50+ years (1 of 1 - PCV) 2023 Shingles Vaccine (Zoster) (1 of 2) 2023 COVID-19 VACCINE ( - season) 2024 Breast Cancer Screening 11/25/2024 11/25/2022 Influenza Vaccine (#1) 2025 Tobacco Cessation Counseling and Screening (12+) 12/3012/30/2024 DTAP/TDAP/TD VACCINES (2 - Td or Tdap) 08/08/2034 [place] [id number] [facility] [place] [address] WORK COMP OTHER
--- OUTSIDE RECORDS SUMMARY | 2025-01-18 11:51 | XMS_ITS | Referral Summary ---
Author Organization [employer] ([place], [place], [place], [place]) Address [address] [place] [address] Care Team Providers Care Clerical Warehouseman Name Role Phone Unavailable Primary Care Provider Unavailabl e Encounters Date Type Department Care Team Description 01/17/2025 Telephone [facility] Neurology [facility] [employer] [address] [place] [address] Gayatri Urena, AIR COMPRESSOR ENGINEER Advice Only 12/30/2024 Travel 12/30/2024 11:00 AM EDT Office Visit [facility] Neurology [facility] [employer] [address] [place] [address] Tobi Levin Jr., MD Chronic pain disorder (Primary Dx) 11/09/2024 Outside Orders [facility] Neurology [facility] [employer] [address] [place] [phone] Luis E Gibbs MD Cervicalgia (Primary Dx) from Last 3 Months Allergies No known active allergies Medications baclofen [...] Active Active Problems No known active problems Social History Tobacco Use Types Packs/Day Years [...] 12/30/2024 11:38 AM EDT Plan of Treatment Not on file Insurance [id number] [id number] WORK COMP OTHER WORK COMP OTHER
--- OUTSIDE RECORDS SUMMARY | 2025-01-18 11:51 | XMS_ITS | Encounter Summary ---
Author Organization [employer] ([place], [place], [place], [place]) Address [address] [place] [address] Care Team Providers Care Car Detailer Name Role Phone Unavailable Primary Care Provider Unavailabl e Reason for Referral * Surgical (Routine) - Closed Specialty Diagnoses / Procedures Referred By Contac t Referred To Contact Neurosurgery / Neurology Diagnoses Cervicalgia [facility] Neurology - Oration [facility] [employer] [address] [address] Phone: tel: fax: Referral ID Status Reason Start Date Expiration Date V isits Requested Visits Authorized [id number] Closed Specialty Services Required 11/09/2024 11/09/2025 1 1 Encounter Details Date Type Department Care Team (Late st Contact Info) Description 11/09/2024 Outside Orders [facility] Neurology Oration [facility] [address] [address] Luis E Gibbs MD [address] [place] [address] Cervicalgia (Primary Dx) Social History Tobacco Use Types Packs/Day Years Used Date Smoking Tobacco: Never Assessed Comments Unknown Sex and Gender Information Value Date Recorded Sex Assigned at Female 11/09/2024 9:00 AM CDT Legal Sex Female 5:08 PM CDT Gender Identity Female 11/09/2024 9:00 AM CDT Sexual Orientation Don't know 11/09/2024 9: 00 AM CDT documented as of this encounter Plan of Treatment Scheduled Referrals Name Type Priority Associated Diagnoses Order Schedule Ambulatory referral to Neurosurgery Outpatient Referral Routine Cervicalgia Ordered: 11/09/2024 documented as of this encounter Visit Diagnoses Diagnosis Cervicalgia- Primary documented in this encounter
== END 2025-01-18 23:59 | disposition home or self-care (01) ==
LOC: RAD 11:48
PROVIDERS: PCP Nurse Practitioner; Visit Provider Nurse Practitioner
DX: M79.89 Other specified soft tissue disorders (principal); M25.572 Pain in left ankle and joints of left foot; M79.672 Pain in left foot
CPT/HCPCS: 73590; 73610; 73630

== ENCOUNTER 2025-01-21 13:50 | Outpatient (CLI) | payer MEDICARE, SELFPAY ==
--- OUTSIDE RECORDS SUMMARY | 2024-12-30 11:00 | XMS_ITS | Encounter Summary ---
Author Organization [employer] ([place], [place], [place], [place]) Address [address] [place] [address] Care Team Providers Care Corporate Statistical Financial Analyst Name Role Phone Unavailable Primary Care Provider Unavailabl e Reason for Visit * Reason Comments Neck Pain * Surgical (Routine) - Closed Specialty Diagnoses / Procedures Referred By Contac t Referred To Contact Neurosurgery / Neurology Diagnoses Cervicalgia [facility] Neurology - [facility] [address] [address] Phone: tel: fax: Referral ID Status Reason Start Date Expiration Date V isits Requested Visits Authorized [id number] Closed Specialty Services Required 11/09/2024 11/09/2025 1 1 Encounter Details Date Type Department Care Team (Late st Contact Info) Description 12/30/2024 11:00 AM EDT Office Visit [facility] [employer] [address] [address] Tobi Levin Jr., MD [address] [place] [address] Chronic pain disorder (Primary Dx) Social History [...] the right upper extremity. Dr. Butterfield at [facility] placed a spinal cord stimulator. [...] cervical MRI scan February 10, 2024 at [facility]. The report states that stimulator leads center [...] Addendum: I was able to review the [facility] MRI scan cervical February 09, 2024. She [...]
--- OUTSIDE RECORDS SUMMARY | 2025-01-21 13:53 | XMS_ITS | Encounter Summary ---
Author Organization [employer] ([place], [place], [place], [place]) Address [address] [place] [address] Care Team Providers Care Spring Winder Name Role Phone Unavailable Primary Care Provider Unavailabl e Reason for Referral * Surgical (Routine) - Closed Specialty Diagnoses / Procedures Referred By Contac t Referred To Contact Neurosurgery / Neurology Diagnoses Cervicalgia [facility] Neurology - [employer] [facility] [employer] [address] [address] Phone: tel: fax: Referral ID Status Reason Start Date Expiration Date V isits Requested Visits Authorized [id number] Closed Specialty Services Required 11/09/2024 11/09/2025 1 1 Encounter Details Date Type Department Care Team (Late st Contact Info) Description 11/09/2024 Outside Orders [facility] Neurology [employer] [facility] [address] Luis E Gibbs MD [address] [place] [address] Cervicalgia (Primary Dx) Social History Tobacco Use [...]
--- OUTSIDE RECORDS SUMMARY | 2025-01-21 13:53 | XMS_ITS | Encounter Summary ---
Author Organization [employer] ([place], [place], [place], [place]) Address [address] [place] [id number] Care Team Providers Care Bilingual Student Tutor Name Role Phone Unavailable Primary Care Provider [...]
--- OUTSIDE RECORDS SUMMARY | 2025-01-21 13:53 | XMS_ITS | Encounter Summary ---
Author Organization [employer] ([place], [place], [place], [place]) Address [address] [place] [address] Care Team Providers Care Installers Mechanical Name Role Phone Unavailable Primary Care Provider Unavailabl e Reason for Visit * Reason Onset Date Comments Advice Only 01/17/2025 Encounter Details Date Type Department Care Team (Late st Contact Info) Description 01/17/2025 Telephone [facility] Neurology - [employer] [address] [employer] [address] [address] Gayatri Urena CMA Advice Only [...]
--- OUTSIDE RECORDS SUMMARY | 2025-01-21 13:53 | XMS_ITS | Data Portability ---
Author Organization [facility] PURVI LamaS TWAIN HARTE CLOSED Address [address] [facility] [address] [place] [address] Care Team Providers Care Cryogenics Engineer Name Role Phone JOB NAIK Referring Provider [phone] JOB NAIK Primary Care Provider Assessment No assessment recorded. Plan of Treatment Reminders Order Date Submit Date Provider Last Modified By Organization Details Last Modified Time Details Appointments None recorded. Lab glycohemogl obin, total, blood [address] [facility], [address] [place] [address], [address], 7 21:07:54 vitamin D, 25-hydroxy, total, serum [address] [facility], [address] [place] [address], [address], 7 21:07:54 TSH, serum or plasma [address] [facility], [address] [place] [address], [address], 7 21:07:54 T4, free, serum [address] [facility], [address] [place] [address], [address], 7 21:07:54 protein electrophor esis panel, serum or plasma [address] [facility], [address] [place] [address], [address], 7 13:10:58 JEANNE (antinuclea r antibodies) screen, serum [address] [facility], [address] [place] [address], [address], 7 15:05:25 CMP, serum or plasma 2016 [facility]17 [facility], [address] [place] [address], [address], 7 21:07:54 CBC w/ auto diff 2016 017 [facility], [address] [place] [address], [address], 7 21:07:54 vitamin B12, serum 2016 017 [place] [id number] [facility], [address] [place] [address], [address], 7 21:07:54 Referral None recorded. Procedures nerve conduction study/EMG (PROC) 2016 017 [email or web address] [email or web address] Not available 21:07:54 Surgeries None recorded. Imaging None recorded. Medication Orders None recorded. Patient TargetsNo targets recorded. Patient Instructions Encounter Date Encounter Id Patient Instructions Last Modified By Organization Details Last Modified Time 09/03/2017 [id number] neuropathic pain : care instructions [email or web address] Not available 09/05/2017 19:56:34 Reason for Referral None Reported. Results Created Date Observation Date Name Description Value Unit Range Abnormal Flag Note LastModifiedBy Organization Detail LastModifiedTime 07/03/20 17 07/03/2017 glyco hemog lobin , total , blood glyco HGB A1C 5.3 % 0.0-5. 6 normal Not Available [facility] [address] [place], [address], 07/03/2017 11:47:49 07/03/20 17 07/03/2017 glyco hemog [...] ostic of diabe mario alberto. Not Available [facility] [address] [place] [address], [address], 07/03/2017 11:47:49 07/03/20 17 07/03/2017 vitam in B12, serum vitamin B12 207 pg/mL 232-12 45 low Not Available [facility] [address] [place] [address], [address], 07/03/2017 12:33:33 07/03/20 17 07/03/2017 TSH, serum or plasm a TSH 2.330 uIU/m L 0.290- 5.500 normal Not Available [facility] [address] [place] [address], [address], 07/03/2017 12:34:03 07/03/20 17 07/03/2017 T4, free, serum T4,free 1.39 NG/dL 0.93-1 .70 normal Not Available [facility] [address] [place] [address], [address], 07/03/2017 12:34:04 07/03/20 17 07/03/2017 CBC w/ auto diff white blood cells 8.8 K/uL 3.8-10 .8 normal Not Available [facility] [address] [place] [address], [address], 07/03/2017 13:11:47 07/03/20 17 07/03/2017 CBC w/ auto diff red blood cells 5.12 M/uL 3.80-5 .20 normal Not Available [facility] [address] [place], [address], 07/03/2017 13:11:47 07/03/20 17 07/03/2017 CBC w/ auto diff hemoglobin 11.5 g/dL 12.0-1 6.0 low Not Available [facility] [address] [place] [address], [address], 07/03/2017 13:11:47 07/03/20 17 07/03/2017 CBC w/ auto diff hematocrit 36.8 % 35.0-4 7.0 normal Not Available [facility] [address] [place] [address], [address], 07/03/2017 13:11:47 07/03/20 17 07/03/2017 CBC w/ auto diff MCV 72 fL 80-100 low Not Available [facility] [address] [place] [address], [address], 07/03/2017 13:11:47 07/03/20 17 07/03/2017 CBC w/ auto diff MCH 23 pg 26-35 low Not Available [facility] [address] [place] [address], [address], 07/03/2017 13:11:47 07/03/20 17 07/03/2017 CBC w/ auto diff MCHC 31 g/dL 32-36 low Not Available [facility] [address] [place] [address], [address], 07/03/2017 13:11:47 07/03/20 17 07/03/2017 CBC w/ auto diff RDW 17.5 % 11.0-1 5.0 high Not Available [facility] [address] [place] [address], [address], 07/03/2017 13:11:47 07/03/20 17 07/03/2017 CBC w/ auto diff MPV 7.8 fL 6.2-10 .5 normal Not Available [facility] [address] [place] [address], [address], 07/03/2017 13:11:47 07/03/20 17 07/03/2017 CBC w/ auto diff platelet count 516 K/uL 130-40 0 high Not Available [facility] [address] [place] [address], [address], 07/03/2017 13:11:47 07/03/20 17 07/03/2017 CBC w/ auto diff neutrophil,a bsolute 5.7 K/uL 1.6-8. 4 normal Not Available [facility] [address] [place] [address], [address], 07/03/2017 13:11:47 07/03/20 17 07/03/2017 CBC w/ auto diff lymphocyte,a bsolute 2.4 K/uL 0.4-5. 1 normal Not Available [facility] [address] [place] [address], [address], 07/03/2017 13:11:47 07/03/20 17 07/03/2017 CBC w/ auto diff monocyte,abs olute 0.6 K/uL 0.0-1. 2 normal Not Available [facility] [address] [place] [address], [address], 07/03/2017 13:11:47 07/03/20 17 07/03/2017 CBC w/ auto diff eosinophil,a bsolute 0.0 K/uL 0.0-0. 8 normal Not Available [facility] [address] [place] [address], [address], 07/03/2017 13:11:47 07/03/20 17 07/03/2017 CBC w/ auto diff basophil,abs olute 0.0 K/uL 0.0-0. 3 normal Not Available [facility] [address] [place] [address], [address], 07/03/2017 13:11:47 07/03/20 17 07/03/2017 CBC w/ auto diff % neutrophils 65.2 % 42.0-7 8.0 normal Not Available [facility] [address] [place] [address], [address], 07/03/2017 13:11:47 07/03/20 17 07/03/2017 CBC w/ auto diff % lymphocytes 27.0 % 11.0-4 7.0 normal Not Available [facility] [address] [place] [address], [address], 07/03/2017 13:11:47 07/03/20 17 07/03/2017 CBC w/ auto diff % monocytes 6.9 % 0.0-11 .0 normal Not Available [facility] [address] [place] [address], [address], 07/03/2017 13:11:47 07/03/20 17 07/03/2017 CBC w/ auto diff % eosinophils 0.4 % 0.0-7. 0 normal Not Available [facility] [address] [place] [address], [address], 07/03/2017 13:11:47 07/03/20 17 07/03/2017 CBC w/ auto diff % basophils 0.5 % 0.0-3. 0 normal Not Available [facility] [address] [place] [address], [address], 07/03/2017 13:11:47 07/03/20 17 07/03/2017 CBC w/ auto diff nucleated red cells 0.1 % 0.0-0. 9 normal Not Available [facility] [address] [place] [address], [address], 07/03/2017 13:11:47 07/03/20 17 07/03/2017 CBC w/ auto diff nucleated RBCs, absolute 0.01 K/uL not estab. normal Not Available [facility] [address] [place] [address], [address], 07/03/2017 13:11:47 07/03/20 17 07/03/2017 RBC morph ology , blood platelet morphology NORMAL normal Not Available [facility] [address] [place], [address], 07/03/2017 13:11:49 07/03/20 17 07/03/2017 RBC morph ology , blood microcytosis SLIGHT abnormal Not Available [facility] [address] [place], [address], 07/03/2017 13:11:49 07/03/20 17 07/03/2017 RBC morph ology , blood hypochromasi a SLIGHT abnormal Not Available [facility] [address] [place] [address], [address], 07/03/2017 13:11:49 07/03/20 17 07/03/2017 RBC morph ology , blood polychromasi a SLIGHT abnormal Not Available [facility] [address] [place] [address], [address], 07/03/2017 13:11:49 07/03/20 17 07/03/2017 RBC morph ology , blood ovalocytes SLIGHT abnormal Smear revie wed to confi rm cell morph ology . Not Available [facility] [address] [place] [address], [address], 07/03/2017 13:11:49 07/03/20 17 07/03/2017 vitam in D, 25-hy droxy , total , serum vitamin D 25-oh, total 8 NG/mL >=30 NG/mL abnormal Not Available [facility] [address] [place] [address], [address], 07/03/2017 13:35:29 07/03/20 17 07/03/2017 CMP, serum or plasm a glucose 123 mg/dL 74-100 high Not Available [facility] [address] [place] [address], [address], 07/03/2017 13:40:16 07/03/20 17 07/03/2017 CMP, serum or plasm a blood urea nitrogen 18 mg/dL 6-20 normal Not Available [facility] [address] [place], [address], 07/03/2017 13:40:16 07/03/20 17 07/03/2017 CMP, serum or plasm a creatinine 1.20 mg/dL 0.50-0 .95 high Not Available [facility] [address] [place], [address], 07/03/2017 13:40:16 07/03/20 17 07/03/2017 CMP, serum or plasm a BUN/creatini ne ratio 15 (calc ) 10-20 normal Not Available [facility] [address] [place] [address], [address], 07/03/2017 13:40:16 07/03/20 17 07/03/2017 CMP, serum or plasm a GFR 64 >= 60 normal Not Available [facility] [address] [place], [address], 07/03/2017 13:40:16 07/03/20 17 07/03/2017 CMP, serum or plasm a GFR non- 55 >= 60 abnormal NOT E NEW calcu latio n for GFR is based on the Natio nal Kidne y [facility], [facility] CKD-E PI equat ion and allow s [...] s or longe r. . Not Available [facility] [address] [place], [address], 07/03/2017 13:40:16 07/03/20 17 07/03/2017 CMP, serum or plasm a sodium 141 mmol/ L 136-14 5 normal Not Available [facility] [address] [place], [address], 07/03/2017 13:40:16 07/03/20 17 07/03/2017 CMP, serum or plasm a potassium 2.3 mmol/ L 3.4-5. 0 critical low RESUL TS RECHE CKED. PANIC RESUL TS LEVINE D TO AND ACCUR ATELY READ BACK BY: YAYA HARRIS ON: 07/03 AT: 13:39 BY: MMB Not Available [facility] [address] [place] [address], [address], 07/03/2017 13:40:16 07/03/20 17 07/03/2017 CMP, serum or plasm a chloride 94 mmol/ L 98-107 low Not Available [facility] [address] [place] [address], [address], 07/03/2017 13:40:16 07/03/20 17 07/03/2017 CMP, serum or plasm a carbon dioxide 30 mmol/ L 20-32 normal Not Available [facility] [address] [place] [address], [address], 07/03/2017 13:40:16 07/03/20 17 07/03/2017 CMP, serum or plasm a anion gap 17 (calc ) 7-25 normal Not Available [facility] [address] [place] [address], [address], 07/03/2017 13:40:16 07/03/20 17 07/03/2017 CMP, serum or plasm a calcium 9.5 mg/dL 8.6-10 .2 normal Not Available [facility] [address] [place] [address], [address], 07/03/2017 13:40:16 07/03/20 17 07/03/2017 CMP, serum or plasm a total protein 8.1 g/dL 6.4-8. 3 normal Not Available [facility] [address] [place] [address], [address], 07/03/2017 13:40:16 07/03/20 17 07/03/2017 CMP, serum or plasm a albumin 4.8 g/dL 3.5-5. 2 normal Not Available [facility] [address] [place], [address], 07/03/2017 13:40:16 07/03/20 17 07/03/2017 CMP, serum or plasm a globulin 3.3 g/dL_ (calc ) 1.5-4. 5 normal Not Available [facility] [address] [place] [address], [address], 07/03/2017 13:40:16 07/03/20 17 07/03/2017 CMP, serum or plasm a albumin/glob ulin ratio 1.5 (calc ) 1.1-2. 5 normal Not Available [facility] [address] [place] [address], [address], 07/03/2017 13:40:16 07/03/20 17 07/03/2017 CMP, serum or plasm a bilirubin, total 0.3 mg/dL 0.1-1. 2 normal Not Available [facility] [address] [place] [address], [address], 07/03/2017 13:40:16 07/03/20 17 07/03/2017 CMP, serum or plasm a alkaline phosphatase 50 U/L 35-105 normal Not Available [facility] [address] [place], [address], 07/03/2017 13:40:16 07/03/20 17 07/03/2017 CMP, serum or plasm a AST 13 U/L 0-32 normal Not Available [facility] [address] [place], [address], 07/03/2017 13:40:16 07/03/20 17 07/03/2017 CMP, serum or plasm a ALT 7 U/L 0-33 normal Not Available [facility] [address] [place] [address], [address], 07/03/2017 13:40:16 07/03/20 17 07/04/2017 prote in elect ropho resis panel , serum or plasm a protein, total 7.7 g/dL 6.1-8. 1 normal TEST PERFO RMED AT: [facility] [address] [place] [address] RUDOLPH Clayton MD Not Available [facility] [address] [place] [address], [address], 07/05/2017 18:35:09 07/03/20 17 07/05/2017 prote in elect ropho resis panel , serum or plasm a albumin 4.5 g/dL 3.8-4. 8 normal Not Available [facility] [address] [place] [address], [address], 07/05/2017 18:35:09 07/03/20 17 07/05/2017 prote in elect ropho resis panel , serum or plasm a oxvsv-5-kkgg ulin 0.4 g/dL 0.2-0. 3 high Not Available [facility] [address] [place] [address], [address], 07/05/2017 18:35:09 07/03/20 17 07/05/2017 prote in elect ropho resis panel , serum or plasm a mtjne-7-wokh ulin 0.9 g/dL 0.5-0. 9 normal Not Available [facility] [address] [place] [address], [address], 07/05/2017 18:35:09 07/03/20 17 07/05/2017 prote in elect ropho resis panel , serum or plasm a beta 1 globulin 0.6 g/dL 0.4-0. 6 normal Not Available [facility] [address] [place] [address], [address], 07/05/2017 18:35:09 07/03/20 17 07/05/2017 prote in elect ropho resis panel , serum or plasm a beta 2 globulin 0.5 g/dL 0.2-0. 5 normal Not Available [facility] [address] [place], [address], 07/05/2017 18:35:09 07/03/20 17 07/05/2017 prote in elect ropho resis panel , serum or plasm a gamma globulin 0.9 g/dL 0.8-1. 7 normal Not Available [facility] [address] [place] [address], [address], 07/05/2017 18:35:09 07/03/20 17 07/05/2017 prote in elect ropho resis panel , serum or plasm a interpretati on SEE BELOW normal The incre ase in the alpha -1-gl obuli ns may be due to incre ased alpha -1-an titry psin, an acute phase react ant prote in. No monoc lonal immun oglob ulin detec jorgito. TEST PERFO RMED AT: [facility] [address] [place] [address] RUDOLPH Clayton MD Not Available [facility] [address] [place] [address], [address], 07/05/2017 18:35:09 07/03/20 17 07/05/2017 JEANNE (anti [...] PERFO RMED AT: [facility] [address] [place] [address] RUDOLPH Clayton MD Not Available [facility] [address] [place], [address], 07/05/2017 15:05:25 09/05/19 18 09/03/2017 elect romyo gram + nerve condu ction study No observ ation record ed. tanya Not Available 15:14:47 Result Notes None recorded. Problems No Known Problems Procedures Surgical History Date Name Laterality Status Provider Name and Address Organization Details Recorded Time 018 Electromyography (EMG) with Nerve Conduction Study (NCV) completed DANIKA COVARRUBIAS MD [address] [place], [address], [facility] 09/05/2017 19:55:42 Caesarean Section completed [facility] 07/03/2017 09:28:25 Thyroid Surgery completed [facility] 07/03/2017 09:28:35 Shoulder Surgery completed [facility] 07/03/2017 09:28:47 Back Surgery completed [facility] 07/03/2017 09:28:55 Imaging Results None [...] Updated DateTime 09/03/2017 167.64 cm 26 kg/m2 29892.37 g 80 /min 90/62 mm[Hg] Kelly Mccartney [facility] 8 10:59:18 Date Recorded Body height Body mass index (BMI) Body weight Heart rate Systolic And Diastolic Systolic And Diastolic Systolic And Diastolic Provider Name and Address Organization Details Last Updated DateTime 7 167.64 cm 25.7 kg/m2 66000.1 9 g 80 /min 90/76 mm[Hg] 84/62 mm[Hg] 80/60 mm[Hg] Kelly Mcnairwoodygiovanni [facility] 7 09:52:39 Social History Question Answer Notes LastModified by Organizat ion Details LastModified Time Tobacco Smoking Status Never Smoker Kelly Tabbydori [facility] 07/03/2017 09:28:17 Live Alone Or With Others? [...] SNOMED-CT Code Diagnosis ICD10 Code Diagnosis Note [id number] DANIKA COVARRUBIAS MD NEUROLOGY [facility] [address] [place] [address] 07/03/2017 08:59:04 07/03/2017 12:11:01 Neuropathy 194227896 G62.9 Neuropathy on exam LD, large and [...] up for our portal RTC 4m Syncope [id number] R55 Found to have neuropathy by exam [...] idone) which can lead to arrhythmia . [id number] DANIKA COVARRUBIAS MD NEUROLOGY [facility] [address] [place] [address] 09/03/2017 09:48:17 09/03/2017 12:21:37 Neuropathy [id number] G62.9 Neuropathy on exam LD, large and [...] up for our portal RTC 4m Paresthesia [id number] R20 .2 BUE/BLEs EMG and exam consistent [...] Name 01/11/2019 1 [place] Valeria Breen [id number] Valeria Breen 10/31/2017 [employer] Valeria Carrerader [id number] Valeria Breen Notes Date Note Type Note [...] neck injury, heart issues DANIKA COVARRUBIAS MD [facility] [place], [address], [facility] 07/03/2017 14:24:38 OBGyn Episode No OBEpisode recorded.
--- OUTSIDE RECORDS SUMMARY | 2025-01-21 13:53 | XMS_ITS | Clinical Summary ---
Author Organization [employer] ([place], [place], [place], [place]) Address [address] [place] [address] Care Team Providers Care Wood Buffer Name Role Phone Unavailable Primary Care Provider [...] Type Department Care Team Description 01/17/2025 Telephone [facility] Neurology [facility] [address] [facility] [address] [place] [address] Gayatri Urena CMA Advice Only 12/30/2024 11:00 AM EDT Office Visit [facility] Neurology [place] [address] [facility] [address] [place] [address] Tobi Levin Jr., MD Chronic pain disorder (Primary Dx) 12/30/2024 Travel 11/09/2024 Outside Orders [facility] Neurology [place] [address] [facility] [address] [place] [address] Luis E Gibbs MD Cervicalgia (Primary Dx) [...] or Tdap) 08/08/2034 [place] [id number] [address] [facility] [place] [address] WORK COMP OTHER
--- OUTSIDE RECORDS SUMMARY | 2025-01-21 13:53 | XMS_ITS | Referral Summary ---
Author Organization [employer] ([place], [place], [place], [place]) Address [address] [place] [address] Care Team Providers Care Field Crop Harvest Worker Name Role Phone Unavailable Primary Care Provider Unavailabl e Encounters Date Type Department Care Team Description 01/17/2025 Telephone [facility] Neurology [facility] [facility] [address] [place] [address] Gayatri Urena, GRAINING OPERATOR Advice Only 12/30/2024 Travel 12/30/2024 11:00 AM EDT Office Visit [facility] Neurology [facility] [facility] [address] [place] [address] Tobi Levin Jr., MD Chronic pain disorder (Primary Dx) 11/09/2024 Outside Orders [facility] Neurology [employer] [facility] [address] [place] [address] Luis E Gibbs MD Cervicalgia (Primary Dx) [...] Not on file Insurance [address] [id number] WORK COMP OTHER WORK COMP OTHER
--- OUTSIDE RECORDS SUMMARY | 2025-01-21 13:53 | XMS_ITS | Data Portability ---
Author Organization [facility] & MEKHI Fierro ADMIN Address [address] [place] [id number] Assessment No assessment recorded. Plan of Treatment Reminders Order Date Submit Date Provider Last Modified By Organization Details Last Modified Time Details Appointments None recorded. Lab None recorded. Referral None recorded. Procedures None recorded. Surgeries None recorded. Imaging None recorded. Medication Orders Aimovig Autoinjecto r 140 mg/mL subcutaneou s auto-inject or 2023 024 [facility], [address], [address], 4 14:16:27 Ubrelvy 100 mg tablet 2023 024 [facility], [address], [address], 4 14:16:26 Aimovig Autoinjecto r 140 mg/mL subcutaneou s auto-inject or 2022 023 [facility], [address], [address], 3 10:47:23 Ubrelvy 100 mg tablet 2022 023 [facility], [address], [address], 3 10:47:21 Patient TargetsNo targets recorded. Patient InstructionsNo instructions recorded. Reason for Referral None Reported. Problems Name Problem SNOMED Code Status Onset Date Resolution Date Notes Provider Name and Address Organization Details Recorded Time Thyroid nodule 157297906 Active 2019 Not Available [facility] 2 18:11:55 Refractory migraine without aura 063086007 Active 2017 Not Available [facility] 2 18:11:55 Chronic intractabl e migraine without aura 4322422397788 05 Active 2022 Valeria Wright, DO [address] [facility], [place], [address] , [place] - [facility] & [place] 3 20:39:18 Problem Notes None recorded. Procedures Surgical History Date Name Laterality Status Provider Name and Address Organization Details Recorded Time 06/13/20 removal of ovarian cyst completed Tamara Emely [place] [facility] & [place] 09/11/2022 10:24:56 neurostimulation of spinal cord tissue completed Tamara Emely [place] [facility] & [place] 08/07/2022 13:58:13 repair of shoulder completed Tamara Zaidaa [place] [facility] & [place] 08/07/2022 13:58:32 section completed Tamara Zaidaa [place] [facility] & [place] 08/07/2022 13:59:26 partial lobectomy of thyroid completed Tamara Emely [place] [facility] & [place] 09/11/2022 10:25:35 Imaging Results None recorded. Procedure [...] Updated DateTime 09/11/2022 165.1 cm 23.9 kg/m2 59251.86 g 77 /min 100/63 mm[Hg] Tamara KINCAID [facility] & [place] 09/11/2022 10:22:37 Date Recorded Body height Body mass index (BMI) Body weight Heart rate Systolic And Diastolic Provider Name and Address Organization Details Last Updated DateTime 09/16/2023 165.1 cm 25.7 kg/m2 97588.94 g 80 /min 97/69 mm[Hg] [facility] [place] 09/16/2023 14:08:56 Social History Question Answer Notes LastModified by Organizat ion Details LastModified Time Tobacco Smoking Status Never Smoker Not Available [facility] 04/12/2022 18:01:55 What Is Your Level [...] SNOMED-CT Code Diagnosis ICD10 Code Diagnosis Note [id number] Valeria WrightDO [facility] [address] [facility],[address] [place] [address] 09/11/2022 10:16:16 09/11/2022 10:48:25 Chronic intractable migraine without aura [id number] G43.711 Chronic condition that is stable with her current medication s. She needs to continue with monthly Aimovig injections . She needs refills of her aimovig and ubrelvy today. [id number] Valeria WrightDO [facility] [address] [facility],[address] [place] [phone] 09/16/2023 13:58:39 09/16/2023 14:18:20 Chronic intractable migraine without aura 2884455790 21670 G43.711 Chronic condition that is stable with [...] Name 09/13/2023 1 [place] Valeria Breen [id number] Valeria Breen Notes Date Note Type [...] to be adjusted. Valeria Kyle, DO [address] [facility], [place], [address], [facility] - [facility] - [place] & [place] 09/11/2022 10:52:16 09/16/2023 text/html Valeria comes in [...] adjusted. Valeria Kyle, DO [address], [place], [address], [place] - [facility] - [place] & [place] 09/16/2023 14:18:27 OBGyn Episode No OBEpisode recorded.
[2025-01-21 14:16] LABS: Microscopic, Urine URINE MICROSCOPIC (MICROSCOPIC)
[2025-01-21 14:35] LABS: Hematocrit 28.1 % (37.0-47.0); Hemoglobin 8.2 g/dL (12.2-16.2); Immature Granulocytes % 0.9 %; Mean Corpuscular HGB Conc 29.2 g/dL (31.8-35.4); Mean Corpuscular Hemoglobin 22.4 pg (27.0-31.2); Mean Corpuscular Volume 76.8 fl (81-99); Nucleated Red Blood Cells % 0 %; Platelet Count 369 K/mm3 (142-424); Red Blood Count 3.66 M/mm3 (4.20-5.40); Red Cell Distribution Width-SD 52.0 fL; White Blood Count 4.6 K/mm3 (4.8-10.8)
[2025-01-21 14:36] LABS: Bilirubin,Urine Negative (Negative); Color,Urine YELLOW (Yellow); Glucose,Urine (UA) Negative (Negative); Ketones,Urine Negative (Negative); Leukocyte Esterase,Urine Negative (Negative); PH,Urine 7.5 (5.0-8.5); Protein,Urine Negative (Negative); Specific Gravity, Urine 1.020 (1.005-1.030); Urobilinogen,Urine 2.0 EU/dl (0.2)
[2025-01-21 15:00] LABS: Albumin Level 3.8 g/dl (3.5-5.0); Anion Gap 12.6 mEq/L (5-15); Blood Urea Nitrogen 10 mg/dl (7-17); Calcium 9.2 mg/dl (8.4-10.2); Carbon Dioxide 32 mmol/L (22.0-30.0); Chloride 100 mmol/L (98-107); Creatinine,Serum 0.80 mg/dl (0.52-1.04); Estimated Glomerular Filt Rate 76 ml/min (>60); GFR (African American) 92 ML/MIN (>60); Glucose 88 mg/dl (74-100); Phosphorous 3.1 mg/dl (2.5-4.5); Potassium 3.6 mmoL/L (3.5-5.1); Sodium 141 mmol/L (136-145)
[2025-01-21 15:33] LABS: RBC,Urine Occasional #/hpf (0-3)
[2025-01-21 15:34] LABS: Amorphous Sediment,Urine 4+ /lpf; Bacteria,Urine 3+ /lpf
[2025-01-24 19:12] LABS: Renin Activity, Plasma 8.340 ng/mL/hr (0.167-5.380)
== END 2025-01-21 23:59 | disposition home or self-care (01) ==
LOC: LAB 13:51
PROVIDERS: PCP Nurse Practitioner; Visit Provider Hospitalist
DX: N28.9 Disorder of kidney and ureter, unspecified (principal); E27.8 Other specified disorders of adrenal gland
CPT/HCPCS: 36415; 80069; 81001; 82088; 82570; 82627; 83835; 84156; 84244; 85025; 87086; 87088; 87186

== ENCOUNTER 2025-02-01 12:31 | Outpatient (CLI) | payer MEDICARE, SELFPAY ==
--- OUTSIDE RECORDS SUMMARY | 2024-12-30 11:00 | XMS_ITS | Encounter Summary ---
Author Organization [employer] ([place], [place], [place], [place]) Address [address] [place] [address] Care Team Providers Care Vehicle Body Sander Name Role Phone Unavailable Primary Care Provider Unavailabl e Reason for Visit * Reason Comments Neck Pain * Surgical (Routine) - Closed Specialty Diagnoses / Procedures Referred By Contac t Referred To Contact Neurosurgery / Neurology Diagnoses Cervicalgia [facility] Neurology - [place] [facility] [place] [address] [address] Phone: tel: fax: Referral ID Status Reason Start Date Expiration Date V isits Requested Visits Authorized [id number] Closed Specialty Services Required 11/09/2024 11/09/2025 1 1 Encounter Details Date Type Department Care Team (Late st Contact Info) Description 12/30/2024 11:00 AM EDT Office Visit [facility] [place] [facility] [place] [address] [address] Tobi Levin Jr., MD [address] [place] [address] Chronic pain disorder (Primary Dx) Social History [...] the right upper extremity. Dr. Butterfield at [facility] placed a spinal cord stimulator. [...] cervical MRI scan February 10, 2024 at [facility]. The report states that stimulator [...] Addendum: I was able to review the [facility] MRI scan cervical February 09, [...]
--- OUTSIDE RECORDS SUMMARY | 2025-02-01 12:34 | XMS_ITS | Encounter Summary ---
Author Organization [employer] ([place], [place], [place], [place]) Address [address] [place] [address] Care Team Providers Care Log Sorting Supervisor Name Role Phone Unavailable Primary Care Provider Unavailabl e Reason for Referral * Surgical (Routine) - Closed Specialty Diagnoses / Procedures Referred By Contac t Referred To Contact Neurosurgery / Neurology Diagnoses Cervicalgia [facility] Neurology - [facility] Counts include 234 beds at the [facility] [employer] [address] [address] Phone: tel: fax: Referral ID Status Reason Start Date Expiration Date V isits Requested Visits Authorized [id number] Closed Specialty Services Required 11/09/2024 11/09/2025 1 1 Encounter Details Date Type Department Care Team (Late st Contact Info) Description 11/09/2024 Outside Orders [facility] Neurology [facility] Counts include 234 beds at the [facility] [employer] [address] Luis E Gibbs MD [address] [place] [address] Cervicalgia (Primary Dx) Social History Tobacco Use [...]
--- OUTSIDE RECORDS SUMMARY | 2025-02-01 12:34 | XMS_ITS ---
Laboratory report Created on: January 28, 2025 KIMBERLY RODRIGUEZ : 1975 Sex: Female Author Organization Unknown PROBLEMS Problems List Code Description RESULTS Laboratory Orders Date Order Code Test 2025-01-21 [id number] ALDOSTERONE LCMS , SERUM Laboratory Results Date LOINC Test Value Unit Reference Range Interpre tation 2025-01-21 [id number] ALDOSTERONE 6.4 NG/DL 0.0-30.0
--- OUTSIDE RECORDS SUMMARY | 2025-02-01 12:34 | XMS_ITS ---
Laboratory report Created on: January 26, 2025 KIMBERLY RODRIGUEZ : 1975 Sex: Female Author Organization Unknown PROBLEMS Problems List Code Description RESULTS Laboratory Orders Date Order Code Test 2025-01-21 [id number] RENIN ACTIVITY, PLASMA Laboratory Results Date LOINC Test Value Unit Reference Range Interpre tation 2025-01-21 [id number] RENIN ACTIVITY, PLASMA 8.34 NG/ML/HR 0.167-5.380 H
--- OUTSIDE RECORDS SUMMARY | 2025-02-01 12:34 | XMS_ITS | Encounter Summary ---
Author Organization [employer] ([place], [place], [place], [place]) Address [address] [place] [address] Care Team Providers Care Dyer Assistant Name Role Phone Unavailable Primary Care [...]
--- OUTSIDE RECORDS SUMMARY | 2025-02-01 12:34 | XMS_ITS | Clinical Summary ---
Author Organization [employer] ([place], [place], [place], [place]) Address [address] [place] [address] Care Team Providers Care Hospitalist Nocturnist Physician Name Role Phone Unavailable Primary Care Provider [...] Type Department Care Team Description 01/17/2025 Telephone [facility] Neurology [facility] [address] [facility] [employer] [address] [place] [address] Gayatri Urena CMA Advice Only 12/30/2024 11:00 AM EDT Office Visit [facility] Neurology [place] [address] [email or web address] [facility] [address] [place] [phone] Tobi Levin Jr., MD Chronic pain disorder (Primary Dx) 12/30/2024 Travel 11/09/2024 Outside Orders [facility] Neurology [place] [address] [email or web address] [facility] [address] [place] [phone] Luis E Gibbs MD Cervicalgia (Primary Dx) [...] or Tdap) 08/08/2034 Insurance WORK COMP OTHER [address] [id number]
--- OUTSIDE RECORDS SUMMARY | 2025-02-01 12:34 | XMS_ITS | Referral Summary ---
Author Organization [employer] ([place], [place], [place], [place]) Address [address] [place] [address] Care Team Providers Care Relations Liaison Name Role Phone Unavailable Primary Care Provider Unavailabl e Encounters Date Type Department Care Team Description 01/17/2025 Telephone [facility] [employer] [address] [place] [address] Gayatri Urena, ACCOUNTS RECEIVABLE SPECIALIST Advice Only 12/30/2024 Travel 12/30/2024 11:00 AM EDT Office Visit [facility] [employer] [address] [place] [address] Tobi Levin Jr., MD Chronic pain disorder (Primary Dx) 11/09/2024 Outside Orders [facility] [employer] [address] [place] [phone] Luis E Gibbs MD Cervicalgia (Primary Dx) [...] Plan of Treatment Not on file Insurance WORK COMP OTHER
--- OUTSIDE RECORDS SUMMARY | 2025-02-01 12:34 | XMS_ITS ---
Laboratory report Created on: January 25, 2025 KIMBERLY RODRIGUEZ : 1975 Sex: Female Author Organization Unknown PROBLEMS Problems List Code Description RESULTS Laboratory Orders Date Order Code Test 2025-01-21 [id number] DHEA-SULFATE Laboratory Results Date LOINC Test Value Unit Reference Range Interpre tation 2025-01-21 [id number] DHEA-SULFATE 2.8 UG/DL 41.2-243.7 L
--- OUTSIDE RECORDS SUMMARY | 2025-02-01 12:34 | XMS_ITS | Encounter Summary ---
Author Organization [employer] ([place], [place], [place], [place]) Address [address] [place] [address] Care Team Providers Care Military Nurse Name Role Phone Unavailable Primary Care Provider Unavailabl e Reason for Visit * Reason Onset Date Comments Advice Only 01/17/2025 Encounter Details Date Type Department Care Team (Late st Contact Info) Description 01/17/2025 Telephone [facility] Neurology - [employer] [facility] [address] [address] Gayatri Urena CMA Advice Only [...] Telephone Encounter - Gayatri Urena CMA - 01/28/2025 1:15 PM EDT LVM making pt aware. * Telephone Encounter - Gayatri Urena CMA - 01/17/2025 2:19 PM EDT Pt seen Dr. Levin on 12/30. Pt called to ask if Dr. Levin and Dr. Gibbs had discussed her care movingforward. documented in this encounter Plan of Treatment Not on file documented as of this encounter Visit Diagnoses Not on filedocumented in this encounter
--- OUTSIDE RECORDS SUMMARY | 2025-02-01 12:34 | XMS_ITS | Data Portability ---
Author Organization [facility] PURVI LamaS [place] CLOSED Address [address] [place] [address] Care Team Providers Care Surgical Garment Assembly Supervisor Name Role Phone JOB NAIK Referring Provider JOB NAIK Primary Care Provider Assessment No assessment recorded. Plan of Treatment Reminders Order Date Submit Date Provider Last Modified By Organization Details Last Modified Time Details Appointments None recorded. Lab glycohemogl obin, total, blood [address] [facility], [address] [place] [address], [address], 7 21:07:54 vitamin D, 25-hydroxy, total, serum [address] [facility], [address] [place] [address], [address], 7 21:07:54 TSH, serum or plasma [address] [facility], [address] [place] [address], [address], 7 21:07:54 T4, free, serum [address] [facility], [address] [place] [address], [address], 7 21:07:54 protein electrophor esis panel, serum or plasma 2016 017 [facility], [address] [place] [address], [address], 7 13:10:58 JEANNE (antinuclea r antibodies) screen, serum 2016 017 [facility], [address] [place] [address], [address], 7 15:05:25 CMP, serum or plasma 2016 017 [facility], [address] [place] [address], [address], 7 21:07:54 CBC w/ auto diff 2016 017 [facility], [address] [place] [address], [address], 7 21:07:54 vitamin B12, serum 2016 017 [place] [address] [facility], [address] [place] [address], [address], 7 21:07:54 Referral None recorded. Procedures nerve conduction study/EMG (PROC) 2016 017 erphilliptso n10 Not available 21:07:54 Surgeries None recorded. Imaging None recorded. Medication Orders None recorded. Patient TargetsNo targets recorded. Patient Instructions Encounter Date Encounter Id Patient Instructions Last Modified By Organization Details Last Modified Time 09/03/2017 [id number] neuropathic pain : care instructions [email or web address] Not available 09/05/2017 19:56:34 Reason for Referral None Reported. Results Created Date Observation Date Name Description Value Unit Range Abnormal Flag Note LastModifiedBy Organization Detail LastModifiedTime 07/03/20 17 07/03/2017 glyco hemog lobin , total , blood glyco HGB A1C 5.3 % 0.0-5. 6 normal Not Available [facility] [address] [place], [address], 07/03/2017 11:47:49 07/03/20 17 07/03/2017 glyco hemog [...] ostic of diabe mario alberto. Not Available [facility] [address] [place] [address], [address], 07/03/2017 11:47:49 07/03/20 17 07/03/2017 vitam in B12, serum vitamin B12 207 pg/mL 232-12 45 low Not Available [facility] [address] [place] [address], [address], 07/03/2017 12:33:33 07/03/20 17 07/03/2017 TSH, serum or plasm a TSH 2.330 uIU/m L 0.290- 5.500 normal Not Available [facility] [address] [place] [address], [address], 07/03/2017 12:34:03 07/03/20 17 07/03/2017 T4, free, serum T4,free 1.39 NG/dL 0.93-1 .70 normal Not Available [facility] [address] [place] [address], [address], 07/03/2017 12:34:04 07/03/20 17 07/03/2017 CBC w/ auto diff white blood cells 8.8 K/uL 3.8-10 .8 normal Not Available [facility] [address] [place] [address], [address], 07/03/2017 13:11:47 07/03/20 17 07/03/2017 CBC w/ auto diff red blood cells 5.12 M/uL 3.80-5 .20 normal Not Available [facility] [address] [place], [address], 07/03/2017 13:11:47 07/03/20 17 07/03/2017 CBC w/ auto diff hemoglobin 11.5 g/dL 12.0-1 6.0 low Not Available [facility] [address] [place] [address], [address], 07/03/2017 13:11:47 07/03/20 17 07/03/2017 CBC w/ auto diff hematocrit 36.8 % 35.0-4 7.0 normal Not Available [facility] [address] [place] [address], [address], 07/03/2017 13:11:47 07/03/20 17 07/03/2017 CBC w/ auto diff MCV 72 fL 80-100 low Not Available [facility] [address] [place] [address], [address], 07/03/2017 13:11:47 07/03/20 17 07/03/2017 CBC w/ auto diff MCH 23 pg 26-35 low Not Available [facility] [address] [place] [address], [address], 07/03/2017 13:11:47 07/03/20 17 07/03/2017 CBC w/ auto diff MCHC 31 g/dL 32-36 low Not Available [facility] [address] [place] [address], [address], 07/03/2017 13:11:47 07/03/20 17 07/03/2017 CBC w/ auto diff RDW 17.5 % 11.0-1 5.0 high Not Available [facility] [address] [place] [address], [address], 07/03/2017 13:11:47 07/03/20 17 07/03/2017 CBC w/ auto diff MPV 7.8 fL 6.2-10 .5 normal Not Available [facility] [address] [place] [address], [address], 07/03/2017 13:11:47 07/03/20 17 07/03/2017 CBC w/ auto diff platelet count 516 K/uL 130-40 0 high Not Available [facility] [address] [place] [address], [address], 07/03/2017 13:11:47 07/03/20 17 07/03/2017 CBC w/ auto diff neutrophil,a bsolute 5.7 K/uL 1.6-8. 4 normal Not Available [facility] [address] [place] [address], [address], 07/03/2017 13:11:47 07/03/20 17 07/03/2017 CBC w/ auto diff lymphocyte,a bsolute 2.4 K/uL 0.4-5. 1 normal Not Available [facility] [address] [place] [address], [address], 07/03/2017 13:11:47 07/03/20 17 07/03/2017 CBC w/ auto diff monocyte,abs olute 0.6 K/uL 0.0-1. 2 normal Not Available [facility] [address] [place] [address], [address], 07/03/2017 13:11:47 07/03/20 17 07/03/2017 CBC w/ auto diff eosinophil,a bsolute 0.0 K/uL 0.0-0. 8 normal Not Available [facility] [address] [place] [address], [address], 07/03/2017 13:11:47 07/03/20 17 07/03/2017 CBC w/ auto diff basophil,abs olute 0.0 K/uL 0.0-0. 3 normal Not Available [facility] [address] [place] [address], [address], 07/03/2017 13:11:47 07/03/20 17 07/03/2017 CBC w/ auto diff % neutrophils 65.2 % 42.0-7 8.0 normal Not Available [facility] [address] [place] [address], [address], 07/03/2017 13:11:47 07/03/20 17 07/03/2017 CBC w/ auto diff % lymphocytes 27.0 % 11.0-4 7.0 normal Not Available [facility] [address] [place] [address], [address], 07/03/2017 13:11:47 07/03/20 17 07/03/2017 CBC w/ auto diff % monocytes 6.9 % 0.0-11 .0 normal Not Available [facility] [address] [place] [address], [address], 07/03/2017 13:11:47 07/03/20 17 07/03/2017 CBC w/ auto diff % eosinophils 0.4 % 0.0-7. 0 normal Not Available [facility] [address] [place] [address], [address], 07/03/2017 13:11:47 07/03/20 17 07/03/2017 CBC w/ auto diff % basophils 0.5 % 0.0-3. 0 normal Not Available [facility] [address] [place] [address], [address], 07/03/2017 13:11:47 07/03/20 17 07/03/2017 CBC w/ auto diff nucleated red cells 0.1 % 0.0-0. 9 normal Not Available [facility] [address] [place] [address], [address], 07/03/2017 13:11:47 07/03/20 17 07/03/2017 CBC w/ auto diff nucleated RBCs, absolute 0.01 K/uL not estab. normal Not Available [facility] [address] [place] [address], [address], 07/03/2017 13:11:47 07/03/20 17 07/03/2017 RBC morph ology , blood platelet morphology NORMAL normal Not Available [facility] [address] [place], [address], 07/03/2017 13:11:49 07/03/20 17 07/03/2017 RBC morph ology , blood microcytosis SLIGHT abnormal Not Available [facility] [address] [place], [address], 07/03/2017 13:11:49 07/03/20 17 07/03/2017 RBC morph ology , blood hypochromasi a SLIGHT abnormal Not Available [facility] [address] [place] [address], [address], 07/03/2017 13:11:49 07/03/20 17 07/03/2017 RBC morph ology , blood polychromasi a SLIGHT abnormal Not Available [facility] [address] [place] [address], [address], 07/03/2017 13:11:49 07/03/20 17 07/03/2017 RBC morph ology , blood ovalocytes SLIGHT abnormal Smear revie wed to confi rm cell morph ology . Not Available [facility] [address] [place] [address], [address], 07/03/2017 13:11:49 07/03/20 17 07/03/2017 vitam in D, 25-hy droxy , total , serum vitamin D 25-oh, total 8 NG/mL >=30 NG/mL abnormal Not Available [facility] [address] [place] [address], [address], 07/03/2017 13:35:29 07/03/20 17 07/03/2017 CMP, serum or plasm a glucose 123 mg/dL 74-100 high Not Available [facility] [address] [place] [address], [address], 07/03/2017 13:40:16 07/03/20 17 07/03/2017 CMP, serum or plasm a blood urea nitrogen 18 mg/dL 6-20 normal Not Available [facility] [address] [place], [address], 07/03/2017 13:40:16 07/03/20 17 07/03/2017 CMP, serum or plasm a creatinine 1.20 mg/dL 0.50-0 .95 high Not Available [facility] [address] [place], [address], 07/03/2017 13:40:16 07/03/20 17 07/03/2017 CMP, serum or plasm a BUN/creatini ne ratio 15 (calc ) 10-20 normal Not Available [facility] [address] [place] [address], [address], 07/03/2017 13:40:16 07/03/20 17 07/03/2017 CMP, serum or plasm a GFR 64 >= 60 normal Not Available [facility] [address] [place], [address], 07/03/2017 13:40:16 07/03/20 17 07/03/2017 CMP, serum or plasm a GFR non- 55 >= 60 abnormal NOT E NEW calcu latio n for GFR is based on the [facility] PI equat ion and allow s [...] s or longe r. . Not Available [facility] [address] [place], [address], 07/03/2017 13:40:16 07/03/20 17 07/03/2017 CMP, serum or plasm a sodium 141 mmol/ L 136-14 5 normal Not Available [facility] [address] [place], [address], 07/03/2017 13:40:16 07/03/20 17 07/03/2017 CMP, serum or plasm a potassium 2.3 mmol/ L 3.4-5. 0 critical low RESUL TS RECHE CKED. PANIC RESUL TS LEVINE D TO AND ACCUR ATELY READ BACK BY: YAYA HARRIS ON: 07/03 AT: 13:39 BY: MMB Not Available [facility] [address] [place] [address], [address], 07/03/2017 13:40:16 07/03/20 17 07/03/2017 CMP, serum or plasm a chloride 94 mmol/ L 98-107 low Not Available [facility] [address] [place] [address], [address], 07/03/2017 13:40:16 07/03/20 17 07/03/2017 CMP, serum or plasm a carbon dioxide 30 mmol/ L 20-32 normal Not Available [facility] [address] [place] [address], [address], 07/03/2017 13:40:16 07/03/20 17 07/03/2017 CMP, serum or plasm a anion gap 17 (calc ) 7-25 normal Not Available [facility] [address] [place] [address], [address], 07/03/2017 13:40:16 07/03/20 17 07/03/2017 CMP, serum or plasm a calcium 9.5 mg/dL 8.6-10 .2 normal Not Available [facility] [address] [place] [address], [address], 07/03/2017 13:40:16 07/03/20 17 07/03/2017 CMP, serum or plasm a total protein 8.1 g/dL 6.4-8. 3 normal Not Available [facility] [address] [place] [address], [address], 07/03/2017 13:40:16 07/03/20 17 07/03/2017 CMP, serum or plasm a albumin 4.8 g/dL 3.5-5. 2 normal Not Available [facility] [address] [place], [address], 07/03/2017 13:40:16 07/03/20 17 07/03/2017 CMP, serum or plasm a globulin 3.3 g/dL_ (calc ) 1.5-4. 5 normal Not Available [facility] [address] [place] [address], [address], 07/03/2017 13:40:16 07/03/20 17 07/03/2017 CMP, serum or plasm a albumin/glob ulin ratio 1.5 (calc ) 1.1-2. 5 normal Not Available [facility] [address] [place] [address], [address], 07/03/2017 13:40:16 07/03/20 17 07/03/2017 CMP, serum or plasm a bilirubin, total 0.3 mg/dL 0.1-1. 2 normal Not Available [facility] [address] [place] [address], [address], 07/03/2017 13:40:16 07/03/20 17 07/03/2017 CMP, serum or plasm a alkaline phosphatase 50 U/L 35-105 normal Not Available [facility] [address] [place], [address], 07/03/2017 13:40:16 07/03/20 17 07/03/2017 CMP, serum or plasm a AST 13 U/L 0-32 normal Not Available [facility] [address] [place], [address], 07/03/2017 13:40:16 07/03/20 17 07/03/2017 CMP, serum or plasm a ALT 7 U/L 0-33 normal Not Available [facility] [address] [place] [address], [address], 07/03/2017 13:40:16 07/03/20 17 07/04/2017 prote in elect ropho resis panel , serum or plasm a protein, total 7.7 g/dL 6.1-8. 1 normal TEST PERFO RMED AT: [facility] [address] [place] [address] RUDOLPH Clayton MD Not Available [facility] [address] [place] [address], [address], 07/05/2017 18:35:09 07/03/20 17 07/05/2017 prote in elect ropho resis panel , serum or plasm a albumin 4.5 g/dL 3.8-4. 8 normal Not Available [facility] [address] [place] [address], [address], 07/05/2017 18:35:09 07/03/20 17 07/05/2017 prote in elect ropho resis panel , serum or plasm a dadap-1-jipk ulin 0.4 g/dL 0.2-0. 3 high Not Available [facility] [address] [place] [address], [address], 07/05/2017 18:35:09 07/03/20 17 07/05/2017 prote in elect ropho resis panel , serum or plasm a dzmwp-0-hbuy ulin 0.9 g/dL 0.5-0. 9 normal Not Available [facility] [address] [place] [address], [address], 07/05/2017 18:35:09 07/03/20 17 07/05/2017 prote in elect ropho resis panel , serum or plasm a beta 1 globulin 0.6 g/dL 0.4-0. 6 normal Not Available [facility] [address] [place] [address], [address], 07/05/2017 18:35:09 07/03/20 17 07/05/2017 prote in elect ropho resis panel , serum or plasm a beta 2 globulin 0.5 g/dL 0.2-0. 5 normal Not Available [facility] [address] [place], [address], 07/05/2017 18:35:09 07/03/20 17 07/05/2017 prote in elect ropho resis panel , serum or plasm a gamma globulin 0.9 g/dL 0.8-1. 7 normal Not Available [facility] [address] [place] [address], [address], 07/05/2017 18:35:09 07/03/20 17 07/05/2017 prote in elect ropho resis panel , serum or plasm a interpretati on SEE BELOW normal The incre ase in the alpha -1-gl obuli ns may be due to incre ased alpha -1-an titry psin, an acute phase react ant prote in. No monoc lonal immun oglob ulin detec jorgito. TEST PERFO RMED AT: [facility] [address] [place] [address] RUDOLPH Clayton MD Not Available [facility] [address] [place] [address], [address], 07/05/2017 18:35:09 07/03/20 17 07/05/2017 JEANNE (anti [...] PERFO RMED AT: [facility] Total-trax [place] [address] [place] [address] RUDOLPH Clayton MD Not Available [facility] [address] [place], [address], 07/05/2017 15:05:25 09/05/19 18 09/03/2017 elect romyo gram + nerve condu ction study No observ ation record ed. tanya Not Available 15:14:47 Result Notes None recorded. Problems No Known Problems Procedures Surgical History Date Name Laterality Status Provider Name and Address Organization Details Recorded Time 018 Electromyography (EMG) with Nerve Conduction Study (NCV) completed DANIKA COVARRUBIAS MD [address] [place], [address], [facility] 09/05/2017 19:55:42 Caesarean Section completed [facility][note 3] 07/03/2017 09:28:25 Thyroid Surgery completed [facility][note 3] 07/03/2017 09:28:35 Shoulder Surgery completed [facility][note 3] 07/03/2017 09:28:47 Back Surgery completed [facility][note 3] 07/03/2017 09:28:55 Imaging Results None recorded. Procedure [...] Updated DateTime 09/03/2017 167.64 cm 26 kg/m2 08285.37 g 80 /min 90/62 mm[Hg] Kelly Mccartney [facility] 8 10:59:18 Date Recorded Body height Body mass index (BMI) Body weight Heart rate Systolic And Diastolic Systolic And Diastolic Systolic And Diastolic Provider Name and Address Organization Details Last Updated DateTime 7 167.64 cm 25.7 kg/m2 89970.1 9 g 80 /min 90/76 mm[Hg] 84/62 mm[Hg] 80/60 mm[Hg] Kelly Mcnairwoodygiovanni [facility] 7 09:52:39 Social History Question Answer Notes LastModified by Organizat ion Details LastModified Time Tobacco Smoking Status Never Smoker Kelly Tabbydori [facility] 07/03/2017 09:28:17 Live Alone Or With Others? [...] SNOMED-CT Code Diagnosis ICD10 Code Diagnosis Note [id number] DANIKA COVARRUBIAS MD NEUROLOGY [facility] [address] [place] [address] 07/03/2017 08:59:04 07/03/2017 12:11:01 Neuropathy 251637280 G62.9 Neuropathy on exam LD, large and [...] up for our portal RTC 4m Syncope 788342461 R55 Found to have neuropathy by exam [...] idone) which can lead to arrhythmia . [id number] DANIKA COVARRUBIAS MD NEUROLOGY [facility] [address] [place] [address] 09/03/2017 09:48:17 09/03/2017 12:21:37 Neuropathy [id number] G62.9 Neuropathy on exam LD, large and [...] up for our portal RTC 4m Paresthesia 16447117 R20 .2 BUE/BLEs EMG and exam consistent [...] Name 01/11/2019 1 [place] Valeria Breen [id number] Valeria Breen 10/31/2017 [employer] Valeria Carrerader [id number] Valeria Breen Notes Date Note Type Note [...] neck injury, heart issues DANIKA COVARRUBIAS MD [facility] [place], [address], [facility] 07/03/2017 14:24:38 OBGyn Episode No OBEpisode recorded.
--- OUTSIDE RECORDS SUMMARY | 2025-02-01 12:34 | XMS_ITS | Data Portability ---
Author Organization [facility] MEKHI Fierro ADMIN Address [address] [place] [address] Assessment No assessment recorded. Plan of Treatment Reminders Order Date Submit Date Provider Last Modified By Organization Details Last Modified Time Details Appointments None recorded. Lab None recorded. Referral None recorded. Procedures None recorded. Surgeries None recorded. Imaging None recorded. Medication Orders Aimovig Autoinjecto r 140 mg/mL subcutaneou s auto-inject or 2023 024 [facility], [address], 4 14:16:27 Ubrelvy 100 mg tablet 2023 024 [facility], [address], [address], 4 14:16:26 Aimovig Autoinjecto r 140 mg/mL subcutaneou s auto-inject or 2022 023 [facility], [address], [address], 3 10:47:23 Ubrelvy 100 mg tablet 2022 023 [facility], [address], [address], 3 10:47:21 Patient TargetsNo targets recorded. Patient InstructionsNo instructions recorded. Reason for Referral None Reported. Problems Name Problem SNOMED Code Status Onset Date Resolution Date Notes Provider Name and Address Organization Details Recorded Time Refractory migraine without aura 173353120 Active 2017 Not Available [facility] 2 18:11:55 Thyroid nodule 244305922 Active 2019 Not Available [facility] 2 18:11:55 Chronic intractabl e migraine without aura 0092478704282 05 Active 2022 Valeria Kyle, DO [address], [place], [address] , [place] - [facility] & [place] 3 20:39:18 Problem Notes None recorded. Procedures Surgical History Date Name Laterality Status Provider Name and Address Organization Details Recorded Time 06/13/20 removal of ovarian cyst completed Tamara Emely [place] [facility] & [place] 09/11/2022 10:24:56 neurostimulation of spinal cord tissue completed Tamara Emely [place] [facility] & [place] 08/07/2022 13:58:13 repair of shoulder completed Tamara Zaidaa [place] [facility] & [place] 08/07/2022 13:58:32 section completed Tamara Zaidaa [place] [facility] & [place] 08/07/2022 13:59:26 partial lobectomy of thyroid completed Tamara Emely [place] [facility] & [place] 09/11/2022 10:25:35 Imaging [...] Updated DateTime 09/11/2022 165.1 cm 23.9 kg/m2 59862.86 g 77 /min 100/63 mm[Hg] Tamara KINCAID [facility] & [place] 09/11/2022 10:22:37 Date Recorded Body height Body mass index (BMI) Body weight Heart rate Systolic And Diastolic Provider Name and Address Organization Details Last Updated DateTime 09/16/2023 165.1 cm 25.7 kg/m2 97800.94 g 80 /min 97/69 mm[Hg] [facility] [place] 09/16/2023 14:08:56 Social History Question Answer Notes LastModified by Organizat ion Details LastModified Time Tobacco Smoking Status Never Smoker Not Available [facility] 04/12/2022 18:01:55 What Is Your Level [...] SNOMED-CT Code Diagnosis ICD10 Code Diagnosis Note [id number] Valeria WrightDO [facility] [address] [place] [address] 09/11/2022 10:16:16 09/11/2022 10:48:25 Chronic intractable migraine without aura [id number] 27866 G43.711 Chronic condition that is stable with her current medication s. She needs to continue with monthly Aimovig injections . She needs refills of her aimovig and ubrelvy today. [id number] Valeria WrightDO [facility] [address] [facility],[address] [place] [address] 09/16/2023 13:58:39 09/16/2023 14:18:20 Chronic intractable migraine without aura [id number] 24742 G43.711 Chronic condition that is stable with [...] Name 09/13/2023 1 [place] Valeria Breen [id number] Valeria Breen Notes Date Note Type [...] be adjusted. Valeria Kyle, DO [address] [facility], [place], [address], [facility] - [facility] - [place] & [place] 09/11/2022 10:52:16 09/16/2023 text/html [...] adjusted. Valeria Kyle, DO [address], [place], [address], [place] - [facility] - [place] & [place] 09/16/2023 14:18:27 OBGyn Episode No OBEpisode recorded.
== END 2025-02-01 23:59 | disposition home or self-care (01) ==
LOC: RAD 12:31
PROVIDERS: PCP Nurse Practitioner; Visit Provider Nurse Practitioner
DX: R69 Illness, unspecified (principal)

== ENCOUNTER 2025-02-17 16:27 | Outpatient (CLI) | payer MEDICARE, SELFPAY ==
--- OUTSIDE RECORDS SUMMARY | 2024-12-30 11:00 | XMS_ITS | Encounter Summary ---
Author Organization [employer] ([place], [place], [place], [place]) Address [address] [place] [address] Care Team Providers Care Sheet Rock Taper Helper Name Role Phone Unavailable Primary Care Provider Unavailabl e Reason for Visit * Reason Comments Neck Pain * Surgical (Routine) - Closed Specialty Diagnoses / Procedures Referred By Contac t Referred To Contact Neurosurgery / Neurology Diagnoses Cervicalgia [facility] Neurology - [place] [facility] [place] [address] [address] Phone: tel: fax: Referral ID Status Reason Start Date Expiration Date V isits Requested Visits Authorized [id number] Closed Specialty Services Required 11/09/2024 11/09/2025 1 1 Encounter Details Date Type Department Care Team (Late st Contact Info) Description 12/30/2024 11:00 AM EDT Office Visit [facility] [address] [address] Tobi Levin Jr., MD [address] [place] [address] Chronic pain disorder (Primary Dx) Social History [...] the right upper extremity. Dr. Butterfield at [facility] placed a spinal cord stimulator. It sounds [...] cervical MRI scan February 10, 2024 at [facility]. The report states that stimulator [...] Addendum: I was able to review the [facility] MRI scan cervical February 09, [...]
--- OUTSIDE RECORDS SUMMARY | 2025-01-19 12:00 | XMS_ITS | Encounter Summary ---
[facility] Organization [facility] Address [address] [place] [address] Care Team Providers Care Payroll Machine Operator Name Role Phone Racheal Campos APRN Primary Care Provider [phone] Encounter Details Date Type Department Care Team (Late st Contact Info) Description 01/19/2025 12:00 PM EDT Telemedicine [facility] NEUROS[facility]ERY [address] [address] Luis E Gibbs MD [address] [place] [address] Cervical facet arthropathy/cervic al spondylosis without myelopathy (Primary Dx) Social History Tobacco Use Types Packs/Day Years Used Date Smoking Tobacco: Never Passive Smoke Exposure: Never Smokeless Tobacco: Never Alcohol Use Standard Drinks/Week Comments Never 0 (1 standard drink = 0.6 oz pur e alcohol) PHQ-2 Answer Date Recorded Retired PHQ-9: Brief Depression Severity Measure Score 15 02/26/2023 PHQ-2 Answer Date Recorded Patient Health Questionnaire-9 Score 6 10/07/2024 Comments No Sex and Gender Information Value Date Recorded Sex Assigned at Female 09/06/2024 12:58 PM EST Legal Sex Female 10:38 AM EDT Gender Identity Not on file Sexual Orientation Straight 09/06/2024 12 :58 PM EST documented as of this encounter Progress Notes * Luis E Gibbs MD - 01/19/2025 12:00 PM EDT NAME: VALERIA BREEN DOS: 01/19/2025 : 1975 PCP: Racheal Campos APRN Chief Complaint: Follow-up neck pain History of Present Illness: 49 y.o. 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 for 10 days, Disp: ,Rfl: Aimovig 140 MG/ML prefilled syringe, Inject 1 mL under the skin into the appropriate area as directed Every 30 (Thirty) Days., Disp: , Rfl: amLODIPine (NORVASC) 2.5 MG tablet, Take 1 tablet by mouth Daily., Disp: , Rfl: baclofen (LIORESAL) 10 MG tablet, Take 1 tablet by mouth 4 (Four) Times a Day., Disp: 40 tablet, Rfl: 5 buPROPion SR (WELLBUTRIN SR) 150 MG 12 hr tablet, Take 1 tablet by mouth Every 12 (Twelve) Hours., Disp: , Rfl: 0 chlorthalidone (HYGROTEN) 50 MG tablet, Take 1 tablet by mouth Daily., Disp: , Rfl: diclofenac (VOLTAREN) 50 MG EC tablet, Take 1 tablet by mouth 2 (Two) Times a Day., Disp: 180 tablet, Rfl: 1 DULoxetine (CYMBALTA) 60 MG capsule, Take 1 capsule by mouth Daily., Disp: 90 capsule, Rfl: 5 estradiol-norethindrone (ACTIVELLA) 1-0.5 MG per tablet, Take 1 tablet by mouth once daily, Disp: 84 tablet, Rfl: 0 FeroSul 325 (65 Fe) MG tablet, Take 1 tablet by mouth Daily., Disp: , Rfl: Gabapentin powder, , Disp: , Rfl: gabapentin, once-daily, (Gralise) 600 MG tablet tablet, TAKE 1 TABLET BY MOUTH DAILY, Disp: 30 tablet, Rfl: 6 Gel Base gel, Apply 1 to 2 grams of pain gel to affected areas three to four times a day., Disp: 102 g, Rfl: PRN LORazepam (ATIVAN) 1 MG tablet, 1 tablet., Disp: , Rfl: nortriptyline (PAMELOR) 10 MG capsule, TAKE 1 CAPSULE BY MOUTH EVERY NIGHT. MAY TAKE 1 TO 2 CAPSULEAT NIGHT, Disp: 60 capsule, Rfl: 5 omeprazole (priLOSEC) 20 MG capsule, Take 1 capsule by mouth Daily., Disp: , Rfl: ondansetron (ZOFRAN) 4 MG tablet, Take 1 tablet by mouth Every 8 (Eight) Hours As Needed for Nauseaor Vomiting., Disp: , Rfl: pantoprazole (PROTONIX) 40 MG EC tablet, Take 1 tablet by mouth Daily., Disp: , Rfl: potassium chloride (KLOR-CON M20) 20 MEQ CR tablet, Take 2 tablets by mouth Every 12 (Twelve) Hours., Disp: , Rfl: traZODone (DESYREL) 100 MG tablet, Take 1 tablet by mouth every night at bedtime., Disp: , Rfl: ubrogepant 100 MG tablet, TAKE 1 TABLET BY MOUTH AT ONSET OF HEADACHE, Disp: , Rfl: zolpidem (AMBIEN) 5 MG tablet, Take 1 tablet by mouth At Night As Needed., Disp: , Rfl: Past Medical History: Past Medical History: Diagnosis Date Abnormal MRI, shoulder Right Shoulder MRI 06/2010 revealed small glenohumeral joint effusion, capsulitis, tendinitis. No rotator cuff for labral tear was noted. Abnormal Pap smear of cervix Abnormal x-ray X-Ray of the right wrist on 11/10/2013, revealed linear sclerosis within the distal radial metaphysis consistent with healed fracture. There is irregularity of the ulnar styloid consistent with priorfracture. Anemia Anxiety Chronic pain disorder ?? Depression Extremity pain ? Fractures ?? Headache ?? Headache, tension-type ?? History of constipation History of insomnia Seconday to pain History of migraine headaches History of transfusion History of varicose veins HPV (human papilloma virus) infection Low back pain Migraine ?? Multiple gestation Neck pain ?? Ovarian cyst Pain in joint, shoulder region PMS (premenstrual syndrome) Raynaud's disease Reflex sympathetic dystrophy ?? Urinary tract infection Past Surgical History: Past Surgical History: Procedure Laterality Date BACK SURGERY 2013 SCS implant CERVICAL LAMINECTOMY DECOMPRESSION POSTERIOR Bilateral 04/28/2018 Procedure: PARTIAL C2, C3, C4 LAMINECTOMY SPINAL CORD STIMULATOR REMOVAL INSERTION OF SPINAL CORD STIMULATOR; Surgeon: Luis E Gibbs MD; Location: [facility] OR; Service: Neurosurgery SECTION x 3 SECTION WITH TUBAL 1 COLONOSCOPY EPIDURAL BLOCK ? FRACTURE SURGERY ORTHOPEDIC SURGERY ?? OTHER SURGICAL HISTORY Left Distal Radiolnar Joint Stabilization and Capsulodesis ROTATOR CUFF REPAIR Rotator cuff repair followed by three surgeries and manipulation under anesthesia with Dr. Mccabe. Fourth surgery performed by Dr. Weir. Removal of suture and subacromial decompression with lysis of adhesions 07/2010. SPINAL CORD STIMULATOR IMPLANT N/A 04/28/2018 Procedure: REMOVAL AND REPLACEMENT SPINAL CORD STIMULATOR; Surgeon: Luis E Gibbs MD; Location: [facility] OR; Service: Neurosurgery SPINAL CORD STIMULATOR IMPLANT N/A 11/08/2020 Procedure: SPINAL CORD STIMULATOR REVISION CERVICAL; Surgeon: Luis E Gibbs MD; Location: [facility] OR; Service: Neurosurgery; Laterality: N/A; SPINE SURGERY ? THYROIDECTOMY, PARTIAL TUBAL ABDOMINAL LIGATION WRIST SURGERY Social Hx: Social History Tobacco Use Smoking status: Never Passive exposure: Never Smokeless tobacco: Never Vaping Use Vaping status: Never Used Substance Use Topics Alcohol use: Never Drug use: Never Family Hx: Family History Problem Relation Age of Onset Diabetes Mother Hypertension Mother Stroke Mother Lymphoma Father Lung cancer Father Brain cancer Father Liver cancer Father Cancer Father COPD Brother Multiple sclerosis Sister No Known Problems Daughter No Known Problems Daughter No Known Problems Daughter Heart disease Maternal Grandmother Breast cancer Neg Hx Ovarian cancer Neg Hx Uterine cancer Neg Hx Colon cancer Neg Hx Review of Systems: Review of Systems Constitutional: Negative for activity change, appetite change, chills, diaphoresis, fatigue, fever and unexpected weight change. HENT: Negative for congestion, dental problem, drooling, ear discharge, ear pain, facial swelling, hearing loss, mouth sores, nosebleeds, postnasal drip, rhinorrhea, sinus pressure, sinus pain, sneezing, sore throat, tinnitus, trouble swallowing and voice change. Eyes: Negative for photophobia, pain, discharge, redness, itching and visual disturbance. Respiratory: Negative for apnea, cough, choking, chest tightness, shortness of breath, wheezing andstridor. Cardiovascular: Negative for chest pain, palpitations and leg swelling. Gastrointestinal: Negative for abdominal distention, abdominal pain, anal bleeding, blood in stool,constipation, diarrhea, nausea, rectal pain and vomiting. Endocrine: Negative for cold intolerance, heat intolerance, polydipsia, polyphagia and polyuria. Genitourinary: Negative for decreased urine volume, difficulty urinating, dyspareunia, dysuria, enuresis, flank pain, frequency, genital sores, hematuria, menstrual problem, pelvic pain, urgency, vaginal bleeding, vaginal discharge and vaginal pain. Musculoskeletal: Negative for arthralgias, back pain, gait problem, joint swelling, myalgias, neck pain and neck stiffness. Skin: Negative for color change, pallor, rash and wound. Allergic/Immunologic: Negative for environmental allergies, food allergies and immunocompromised state. Neurological: Negative for dizziness, tremors, seizures, syncope, facial asymmetry, speech difficulty, weakness, light-headedness, numbness and headaches. Hematological: Negative for adenopathy. Does not bruise/bleed easily. Psychiatric/Behavioral: Negative for agitation, behavioral problems, confusion, decreased concentration, dysphoric mood, hallucinations, self-injury, sleep disturbance and suicidal ideas. The patientis not nervous/anxious and is not hyperactive. I have reviewed this note template and all pertinent parts of the review of systems social, family history, surgical history and medication list Physical Examination: There were no vitals filed for this visit. General Appearance: Well developed, well nourished, well groomed, alert, and cooperative. Neurological examination: Neurological Exam Wide-awake alert and follows commands Appears in no apparent distress Able to operate her cell phone well over video Review of Imaging/DATA: MRIs are impressive she is got a C3-4 disc herniation she is got hyperlordosis at the upper cervical spine combined with kyphotic angulation in the mid cervical Diagnoses/Plan: Ms. Breen is a 49 y.o. female 1. 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 Chronic neck pain 3. Status post tunnel stimulator 4. Malnutrition issues 5. Cord compression After extensive discussion shared decision making I suspect that a reasonable course of action would be decompression of the dorsal aspect followed by multilevel anterior cervical fusion. I explainedthat she will need her family to come but I think we are at a point where she has progressive deformity and its time to rectify this given this the myelopathic component of her symptoms I will see her to discuss further I spent 30 minutes in the care of the patient also spoke personally with Dr. Tobi Olvera regardinghis recommendations documented in this encounter Plan of Treatment Upcoming Encounters Date Type Department Care Team (Late st Contact Info) Description 03/24/2025 9:30 AM EDT Office Visit [facility] [address] [facility] [address] [place] [address] Jose Calloway PA-C [address] [facility] [address] [place] [address] documented as of this encounter Visit Diagnoses Diagnosis Cervical facet arthropathy/cervical spondylosis without myelopathy- Primary documented in this encounter Additional Health Concerns Assessment Noted Time PHQ-2 Depression Total Score: 4 02/19/20 24 10:28 AM EDT documented as of this encounter Care Teams Payroll Machine Operator Relationship Specialty Start Date End Date Racheal Campos, REAL ESTATE COORDINATOR [address] [place] [address] PCP - General Nurse Practitioner 10/06/23 documented as of this encounter
--- OUTSIDE RECORDS SUMMARY | 2025-02-03 10:30 | XMS_ITS | Encounter Summary ---
[facility] Organization [facility] Address [address] [place] [address] Care Team Providers Care Drafter Patent Name Role Phone Racheal Campos APRN Primary Care Provider [phone] [phone] Reason for Referral * Health Education (Routine) - Pending Review Specialty Diagnoses / Procedures Referred By Kit tobin Referred To Contact Nutrition Diagnoses Mild malnutrition Procedures MD OFFICE/OUTPATIENT NEW MODERATE MDM 45 MINUTES Luis E Gibbs MD [address] [facility] [address] [place] [address] Phone: tel: fax: [facility] [address] [facility] [address] [place] [address] Phone: tel: fax: Referral ID Status Reason Start Date Expiration Date Visits Requested Visits Authorized [id number] Pending Review Specialty Services Required 02/03/2025 05/05/2026 1 1 Scheduling Instructions [place] individual outpatient nutrition counseling is only offered at [facility] [address] [place] [address] Call [phone] to schedule. Reason for Visit * Reason Comments Follow-up F/U discuss surgery. Cervicalgia. Neck Pain Numbness RT worse than LT. Arm Pain BUE Encounter Details Date Type Department Care Team (Late st Contact Info) Description 02/03/2025 10:30 AM EDT Office Visit [facility] NEUROSURGERY [address] [facility] [address] [place] [address] Luis E Gibbs MD [address] [facility] [address] [place] [address] Cervical facet arthropathy/cervica l spondylosis without myelopathy (Primary Dx); Cervical disc herniation; Cervicalgia; Mild malnutrition Social History Tobacco Use Types Packs/Day Years Used Date Smoking Tobacco: Never Passive Smoke Exposure: Never Smokeless Tobacco: Never Tobacco Cessation:Counseling Given: No Alcohol Use Standard Drinks/Week Comments Never 0 [...] PM EST documented as of this encounter Last Filed Vital Signs Vital Sign Reading Time Taken Comments Blood Pressure - - Pulse - - Temperature 36.7 C (98.1 F) 02/03/2025 10:59 AM EDT Respiratory Rate - - Oxygen Saturation - - Inhaled Oxygen Concentration - - Weight 56.8 kg (125 lb 4.8 oz) 02/03/2025 10:59 AM EDT Height 167.6 cm (5' 6 ) 02/03/2025 10:59 AM EDT Body Mass Index 20.22 02/03/2025 10:59 AM EDT documented in this encounter Progress Notes * Luis E Gibbs MD - 02/03/2025 10:30 AM EDT NAME: VALERIA BREEN DOS: 02/03/2025 : 1975 PCP: Racheal Campos APRN Chief Complaint: Chief Complaint Patient presents with Follow-up F/U discuss surgery. Cervicalgia. Neck Pain Numbness RT worse than LT. Arm Pain BUE History of Present Illness: 49 y.o. female she is here for follow-up 1. 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 Chronic [...] this the myelopathic component of her symptoms she arrived in clinic today without any family PMHX Allergies: No Known Allergies Medications Current [...] STIMULATOR; Surgeon: Luis E Gibbs MD; Location: [facility]; Service: Neurosurgery SECTION x 3 SECTION [...] STIMULATOR; Surgeon: Luis E Gibbs MD; Location: [facility]; Service: Neurosurgery SPINAL CORD STIMULATOR IMPLANT N/A 11/08/2020 Procedure: SPINAL CORD STIMULATOR REVISION CERVICAL; Surgeon: Luis E Gibbs MD; [facility]; Service: Neurosurgery; Laterality: N/A; SPINE SURGERY [...] bleeding, vaginal discharge and vaginal pain. Musculoskeletal: Positive for myalgias, neck pain and neck stiffness. Negative for arthralgias, back pain, gait problem and joint swelling. Skin: Negative for color change, pallor, rash and wound. Allergic/Immunologic: Negative for environmental allergies, food allergies and immunocompromised state. Neurological: Positive for weakness and numbness. Negative for dizziness, tremors, seizures, syncope, facial asymmetry, speech difficulty, light- headedness and headaches. Hematological: Negative for adenopathy. Does not bruise/bleed easily. Psychiatric/Behavioral: Negative for agitation, behavioral problems, confusion, decreased concentration, dysphoric mood, hallucinations, self-injury, sleep disturbance and suicidal ideas. The patientis not nervous/anxious and is not hyperactive. All other systems reviewed and are negative. I have reviewed this note template and all pertinent parts of the review of systems social, family history, surgical history and medication list Physical Examination: Vitals: 02/03/25 1059 Temp: 98.1 ??F (36.7 ??C) General Appearance: Well developed, well nourished, well groomed, alert, and cooperative. 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 Breen is a 49 y.o. female 1. My hope today was to button up some counseling with her and her family about postoperative care given the types of surgery she is given need there is no family today Diagnosis is cervical myelopathy, cord compression, displacement of the spinal cord stimulator, kyphotic angulation cervical spine as well as 2. Dental caries noted today 3. Ongoing malnutrition She has not yet engaged in a visiting with a western tack assembly line worker and/or eating protein shakes After extensive discussion shared decision making plan will be 1. Follow-up 2 to 3 weeks Nutritional consult Protein shakes daily Prealbumin She needs to bring a family member she needs a cervical laminectomy with potential explantation of spinal stem we will try to obviously maintain that intact given her history but she is likely going to require a anterior fusion from C3 down after that to correct some of her lordosis Plan will be for follow-up with the PA in 2 to 3 weeks to hit the above targets and then we can sether up for posterior cervical laminectomy I do not need to see her prior to that she is to be scheduled for a partial C2-C3 and 4 laminectomy with exploration of spinal stem and possible explantation documented in this encounter Plan of Treatment Upcoming Encounters Date Type Department Care Team (Late st Contact Info) Description 03/24/2025 9:30 AM EDT Office Visit [facility] NEUROSURGERY [address] [phone] Jose Calloway PA-C [address] [address] Scheduled Orders Name Type Priority Associated Diagnoses Orde r Schedule Prealbumin Lab Routine Cervical facet arthropathy/cervical spondylosis without myelopathy Cervical disc herniation Cervicalgia Expected: 02/08/2025 (Approximate), Expires: 05/06/2026 Scheduled Referrals Name Type Priority Associated Diagnoses Orde r Schedule Ambulatory Referral to Nutrition Services Outpatient Referral Routine Mild malnutrition Ordered: 02/03/2025 documented as of this encounter Visit Diagnoses Diagnosis Cervical facet arthropathy/cervical spondylosis without myelopathy- Primary Cervical disc herniation Displacement of cervical intervertebral disc without myelopathy Cervicalgia Mild malnutrition documented in this encounter Additional Health Concerns Assessment Noted Time PHQ-2 Depression Total Score: 4 02/19/20 10:28 AM EDT documented as of this encounter Care Teams Drafter Patent Relationship Specialty Start Date End Date Racheal Campos APRN [address] [place] [address] PCP - General Nurse Practitioner 10/06/23 documented as of this encounter
--- OUTSIDE RECORDS SUMMARY | 2025-02-17 16:33 | XMS_ITS | Encounter Summary ---
[facility] Organization [facility] Address [address] [place] [address] Care Team Providers Care Home School Teacher Name Role Phone Racheal Campos APRN Primary Care Provider [phone] [phone] Reason for Visit * Reason Onset Date Comments DR. ANDERSON - PEER TO PEER 02/08/2025 Encounter Details Date Type Department Care Team (Late st Contact Info) Description 02/08/2025 Telephone [facility] PAIN MANAGEMENT [address] [address] Saroj Anderson MD [address] [place] [address] DR. ANDERSON - PEER TO PEER Social History Tobacco Use Types Packs/Day Years [...] PM EST documented as of this encounter Miscellaneous Notes * Telephone Encounter - Yareli Cabezas RN - 02/08/2025 12:34 PM EDT Left voicemail with call back number * Telephone Encounter - Blanka Heart, Julia Rep - 02/08/2025 12:11 PM EDT Provider: DR. ANDERSON Caller: MAGDALENE Relationship to Patient: PHARMACY GAS TESTER Reason for Call: MAGDALENE CALLED WANTING TO SPEAK TO SOMEONE ABOUT SETTING UP A PEER TO PEER REGARDING PATIENT'S MEDICATION. PLEASE ADVISE. documented in this encounter Plan of Treatment Upcoming Encounters Date Type Department Care Team (Late st Contact Info) Description 03/24/2025 9:30 [address] EDT Office [address] [facility] NEUROSURGERY [address] [address] Jose Calloway PA-C [address] [address] documented as of this encounter Visit Diagnoses Not on filedocumented in this encounter Additional Health Concerns Assessment Noted Time PHQ-2 Depression Total Score: 4 02/19/20 24 10:28 AM EDT documented as of this encounter Care Teams Home School Teacher Relationship Specialty Start Date End Date Racheal Campos APRN [address] [place] [address] PCP - General Nurse Practitioner 10/06/23 documented as of this encounter
--- OUTSIDE RECORDS SUMMARY | 2025-02-17 16:33 | XMS_ITS | Encounter Summary ---
[facility] Address [address] [place] [address] Care Team Providers Care Cop Winder Name Role Phone DillonprettyRacheal APRN Primary Care Provider [phone] [phone] Reason for Visit * Reason Comments Med Refill Encounter Details Date Type Department Care Team (Late st Contact Info) Description 02/07/2025 Refill [facility] [address] [place] [address] [place] [address] [place] [address] Social History Tobacco Use Types Packs/Day Years [...] PM EST documented as of this encounter Plan of Treatment Upcoming Encounters Date Type Department Care Team (Late st Contact Info) Description 03/24/2025 9:30 AM EDT Office Visit [facility] [address] [facility] [address] [place] [address] Jose Calloway PA-C [address] [facility] [address] [place] [address] documented as of this encounter Visit Diagnoses Not on filedocumented in this encounter Additional Health Concerns Assessment Noted Time PHQ-2 Depression Total Score: 4 02/19/20 10:28 AM EDT documented as of this encounter Care Teams Cop Winder Relationship Specialty Start Date End Date Racheal Campos APRN [address] [place] [address] PCP - General Nurse Practitioner 10/06/23 documented as of this encounter
--- OUTSIDE RECORDS SUMMARY | 2025-02-17 16:33 | XMS_ITS | Encounter Summary ---
Author Organization [facility] Address [address] [place] [address] Care Team Providers Care Poultry Debeaker Name Role Phone Racheal Campos APRN Primary Care Provider [phone] Encounter Details Date Type Department Care Team (Latest Contact Info) Description 02/03/2025 Travel Social History Tobacco Use Types Packs/Day [...] Description 03/24/2025 9:30 AM EDT Office Visit [facility] NEUROSURGERY [address] [phone] Jose Calloway PA-C [address] [address] documented as of this encounter Visit Diagnoses Not on filedocumented in this encounter Additional Health Concerns Assessment Noted Time PHQ-2 Depression Total Score: 4 02/19/20 24 10:28 AM EDT documented as of this encounter Care Teams Poultry Debeaker Relationship Specialty Start Date End Date Racheal Campos APRN [address] [place] [address] PCP - General Nurse Practitioner 10/06/23 documented as of this encounter
--- OUTSIDE RECORDS SUMMARY | 2025-02-17 16:33 | XMS_ITS | Encounter Summary ---
Author Organization [facility] Address [address] [place] [address] Care Team Providers Care Steam Generating Powerplant Mechanic Name Role Phone Racheal Campos APRN Primary Care Provider [phone] [phone] Reason for Visit * Reason Comments Med Refill Encounter Details Date Type Department Care Team (Late st Contact Info) Description 02/24/2024 Refill [facility] PA[facility]NAGEMENT [address] [address] Kelly Guerra APRN [address] [place] [address] Complex regional pain syndrome type 1 of right upper extremity Social History Tobacco Use Types Packs/Day Years Used Date Smoking Tobacco: Never Passive Smoke Exposure: Never Smokeless Tobacco: Never Alcohol Use Standard Drinks/Week Comments Never 0 (1 standard drink = 0.6 oz pur e alcohol) PHQ-2 Answer Date Recorded Retired PHQ-9: Brief Depression Severity Measure Score 15 02/26/2023 PHQ-2 Answer Date Recorded Retired PHQ-9: Brief Depression Severity Measure Score 15 02/19/2024 Comments No Sex and Gender Information Value Date Recorded Sex Assigned at Female 09/06/2024 12:58 PM EST Legal Sex Female 10:38 AM EDT Gender Identity Not on file Sexual Orientation Straight 09/06/2024 12 :58 PM EST documented as of this encounter Plan of Treatment Upcoming Encounters Date Type Department Care Team (Late st Contact Info) Description 03/24/2025 9:30 AM EDT Office Visit [facility] NEUROSURGERY [address] [facility] [address] [place] [phone] Jsoe Calloway PA-C [address] [facility] [address] [place] [address] documented as of this encounter Visit Diagnoses Diagnosis Complex regional pain syndrome type 1 of right upper extremity documented in this encounter Additional Health Concerns Assessment Noted Time PHQ-2 Depression Total Score: 4 02/19/20 24 10:28 AM EDT documented as of this encounter Care Teams Steam Generating Powerplant Mechanic Relationship Specialty Start Date End Date Racheal Campos APRN [address] [place] [address] PCP - General Nurse Practitioner 10/06/23 documented as of this encounter
--- OUTSIDE RECORDS SUMMARY | 2025-02-17 16:33 | XMS_ITS | Encounter Summary ---
[facility] Address [address] [place] [address] Care Team Providers Care Engineering Department Chair Name Role Phone Racheal Campos APRN Primary Care Provider [phone] [phone] Reason for Visit * Reason Comments Med Refill Encounter Details Date Type Department Care Team (Late st Contact Info) Description 02/24/2024 Refill [facility] PAIN MANAGEMENT [address] [address] Kelly Guerra APRN [address] [place] [address] Complex regional pain syndrome type 1 of [...] Description 03/24/2025 9:30 AM EDT Office Visit [facility] NEUROSUR[facility]ERY [address] [facility] [address] [place] [address] Jose Calloway PA-C [address] [facility] [address] [place] [address] documented as of this encounter Visit Diagnoses Diagnosis Complex regional pain syndrome type 1 of right upper extremity documented in this encounter Additional Health Concerns Assessment Noted Time PHQ-2 Depression Total Score: 4 02/19/20 24 10:28 AM EDT documented as of this encounter Care Teams Engineering Department Chair Relationship Specialty Start Date End Date Racheal Campos APRN [address] [place] [address] PCP - General Nurse Practitioner 10/06/23 documented as of this encounter
--- OUTSIDE RECORDS SUMMARY | 2025-02-17 16:33 | XMS_ITS | Encounter Summary ---
Author Organization [facility] Address [address] [place] [address] Care Team Providers Care Cheese Tester Name Role Phone Racheal Campos APRN Primary Care Provider [phone] [phone] Reason for Visit * Reason Onset Date Comments Med Refill 02/09/2025 Encounter Details Date Type Department Care Team (Late st Contact Info) Description 02/09/2025 Refill [facility] PAIN MANAGEMENT [address] [address] Saroj Butterfield MD [address] [address] Complex regional pain syndrome type 1 of [...] encounter Miscellaneous Notes * Telephone Encounter - Gem Moscoso RegSched Rep - 02/09/2025 12:24 PM EDT Caller: Valeria Breen Relationship: Self Best call back number: [phone] Requested Prescriptions: COMPOUND CREAM FOR BACK, NECK, SHOULDERS AND ARMS Requested Prescriptions No prescriptions requested or ordered in this encounter Pharmacy where request should be sent: [facility] - [place], [place] - [address] [facility] 110 - [phone] [facility] [phone] FX Last office visit with prescribing clinician: 10/07/2024 Last telemedicine visit with prescribing clinician: Visit date not found Next office visit with prescribing clinician: Visit date not found Additional details provided by patient: MS BREEN IS OUT OF HER COMPOUND CREAM AND [facility] TOLD HER THEY NEED A NEW RX TO REFILL IT. Does the patient have less than a 3 day supply: [x] Yes [] No Would you like a call back once the refill request has been completed: [x] Yes [] No If the office needs to give you a call back, can they leave a voicemail: [x] Yes [] No Julia Alvarez 02/09/25 12:25 EDT documented in this encounter Plan of Treatment Upcoming Encounters Date Type Department Care Team (Late st Contact Info) Description 03/24/2025 9:30 AM EDT Office Visit [facility] NEUROSURGERY [address] [address] Jose Calloway PA-C [address] [address] documented as of this encounter Visit Diagnoses Diagnosis Complex regional pain syndrome type 1 of right upper extremity documented in this encounter Additional Health Concerns Assessment Noted Time PHQ-2 Depression Total Score: 4 02/19/20 24 10:28 AM EDT documented as of this encounter Care Teams Cheese Tester Relationship Specialty Start Date End Date Racheal Campos APRN [address] [facility] [place] [address] PCP - General Nurse Practitioner 10/06/23 documented as of this encounter
--- OUTSIDE RECORDS SUMMARY | 2025-02-17 16:33 | XMS_ITS | Encounter Summary ---
Author Organization [facility] ([place], [place], [place], [place]) Address [address] [place] [address] Care Team Providers Care Developer Advisor Name Role Phone Unavailable Primary Care Provider Unavailabl e Reason for Visit * Reason Onset Date Comments Advice Only 01/17/2025 Encounter Details Date Type Department Care Team (Late st Contact Info) Description 01/17/2025 Telephone [facility] Neurology - [facility] [address] [employer] [address] [address] Gayatri Urena CMA Advice Only [...]
--- OUTSIDE RECORDS SUMMARY | 2025-02-17 16:33 | XMS_ITS | Encounter Summary ---
Author Organization [employer] ([place], [place], [place], [place]) Address [address] [place] [address] Care Team Providers Care Associate Professor Of Medicine Name Role Phone Unavailable Primary Care Provider [...]
--- OUTSIDE RECORDS SUMMARY | 2025-02-17 16:33 | XMS_ITS ---
Author Organization Unknown Medications Date Medication Dosage DosageUnit StartDate StopDate StopReason Active DoseQuantity DoseUnit Dispense DispenseUnit Refills NdcCode DrugCode PharmacyId IsPrescription MappedMedication Srcstatus Custom 01/25 00:00 :00 Acyclovir 400 MG Tablet 1 20 Tablet 0 3 [id number] Start 01/25 00:00 :00 Acyclovir 400 MG Tablet 0 20 Tablet 0 3 5952072 Stop 01/18 00:00 :00 Acyclovir 400 MG Tablet 1 20 Tablet 0 3 2667487 70 Taking 12/28 00:00 :00 Acyclovir 400 MG Tablet 1 20 Tablet 0 3 0390335 Start 12/28 00:00 :00 Acyclovir 400 MG Tablet 0 20 Tablet 0 3 0822688 Stop 12/08 00:00 :00 Acyclovir 400 MG Tablet 1 20 Tablet 0 3 7681348 Start 12/08 00:00 :00 Acyclovir 400 MG Tablet 0 20 Tablet 0 3 2444408 Stop 11/17 00:00 :00 Acyclovir 400 MG Tablet 1 20 Tablet 0 3 4409901 Start 11/17 00:00 :00 Acyclovir 400 MG Tablet 0 20 Tablet 0 3 0433218 Stop 10/25 00:00 :00 Acyclovir 400 MG Tablet 1 20 Tablet 0 3 7223110 Start 10/25 00:00 :00 Acyclovir 400 MG Tablet 0 20 Tablet 0 3 0909039 Stop 10/04 00:00 :00 Acyclovir 400 MG Tablet 1 20 Tablet 0 3 0638965 Start 10/04 00:00 :00 Acyclovir 400 MG Tablet 0 20 Tablet 0 3 6338760 Stop 09/17 00:00 :00 Acyclovir 400 MG Tablet 1 20 Tablet 0 3 0915763 70 Taking 09/07 00:00 :00 Acyclovir 400 MG Tablet 1 20 Tablet 0 3 0291282 70 Taking 09/07 00:00 :00 Acyclovir 400 MG Tablet 1 20 Tablet 0 3 1041073 70 Start 09/07 00:00 :00 Acyclovir 400 MG Tablet 0 20 Tablet 0 3 1554200 70 Stop 08/26 00:00 :00 Acyclovir 400 MG Tablet 1 20 Tablet 0 3 4622319 701 P Taking 08/16 00:00 :00 Acyclovir 400 MG Tablet 1 20 Tablet 0 3 8260077 70 P Refill 08/16 00:00 :00 Acyclovir 400 MG Tablet 1 20 Tablet 0 3 5437880 70 Taking 07/22 00:00 :00 Acyclovir 400 MG Tablet 1 20 Tablet 0 3 7443409 Start 07/22 00:00 :00 Acyclovir 400 MG Tablet 0 20 Tablet 0 3 4475221 Stop 06/15 00:00 :00 Acyclovir 400 MG Tablet 1 20 Tablet 0 3 1618439 Start 06/15 00:00 :00 Acyclovir 400 MG Tablet 0 20 Tablet 0 3 8003244 Stop 05/18 00:00 :00 Acyclovir 400 MG Tablet 1 20 Tablet 0 3 7841210 Start 05/18 00:00 :00 Acyclovir 400 MG Tablet 0 20 Tablet 0 3 7071192 Stop 04/26 00:00 :00 Acyclovir 400 MG Tablet 1 20 Tablet 0 3 7305692 Start 04/26 00:00 :00 Acyclovir 400 MG Tablet 0 20 Tablet 0 3 6152677 Stop 04/01 00:00 :00 Acyclovir 400 MG Tablet 1 20 Tablet 0 3 8088294 Start 04/01 00:00 :00 Acyclovir 400 MG Tablet 0 20 Tablet 0 3 0739329 70 Stop 03/10 00:00 :00 Acyclovir 400 MG Tablet 1 20 Tablet 0 3 3100213 Start 03/10 00:00 :00 Acyclovir 400 MG Tablet 0 20 Tablet 0 3 9922760 701 Stop 02/18 00:00 :00 Acyclovir 400 MG Tablet 1 20 Tablet 0 3 3064888 701 Start 02/18 00:00 :00 Acyclovir 400 MG Tablet 0 20 Tablet 0 3 4631649 701 Stop 01/18 00:00 :00 amLODIPine Besylate 2.5 MG Tablet 1 90 Tablet 0 33367525 605 Taking 12/21 00:00 :00 amLODIPine Besylate 2.5 MG Tablet 1 90 Tablet 0 07015108 605 Start 12/21 00:00 :00 amLODIPine Besylate 2.5 MG Tablet 0 90 Tablet 0 87113973 605 Stop 09/27 00:00 :00 amLODIPine Besylate 2.5 MG Tablet 1 90 Tablet 0 20251074 605 Start 09/27 00:00 :00 amLODIPine Besylate 2.5 MG Tablet 0 90 Tablet 1 86679095 705 Stop 09/17 00:00 :00 amLODIPine Besylate 2.5 MG Tablet 0 90 Tablet 1 81482346 705 P Unknown Status 09/07 00:00 :00 amLODIPine Besylate 2.5 MG Tablet 0 90 Tablet 1 73111802 705 P Unknown Status 08/26 00:00 :00 amLODIPine Besylate 2.5 MG Tablet 0 90 Tablet 1 43253134 705 P Unknown Status 08/16 00:00 :00 amLODIPine Besylate 2.5 MG Tablet 0 90 Tablet 1 17930525 705 P Unknown Status 01/18 00:00 :00 Baclofen 10 MG Tablet 0 120 Unspecifi ed 4 53163639 010 P Unknown Status 09/17 00:00 :00 Baclofen 10 MG Tablet 0 120 Unspecifi ed 4 53044880 010 P Unknown Status 09/07 00:00 :00 Baclofen 10 MG Tablet 0 120 Unspecifi ed 4 87517479 010 P Unknown Status 08/26 00:00 :00 Baclofen 10 MG Tablet 0 120 Unspecifi ed 4 94972684 010 P Unknown Status 08/16 00:00 :00 Baclofen 10 MG Tablet 0 120 Unspecifi ed 4 17770087 010 P Unknown Status 01/18 00:00 :00 Benzonatate 200 MG Capsule 09/12/2023 00:00:00 0 30 Capsule 0 28041190 205 P Unknown Status 09/17 00:00 :00 Benzonatate 200 MG Capsule 09/12/2023 00:00:00 0 30 Capsule 0 46013202 205 P Unknown Status 09/07 00:00 :00 Benzonatate 200 MG Capsule 09/12/2023 00:00:00 0 30 Capsule 0 50390932 205 P Unknown Status 08/26 00:00 :00 Benzonatate 200 MG Capsule 09/12/2023 00:00:00 0 30 Capsule 0 97684130 205 P Unknown Status 08/16 00:00 :00 Benzonatate 200 MG Capsule 09/12/2023 00:00:00 0 30 Capsule 0 [id number] 205 P Unknown Status 01/18 00:00 :00 buPROPion HCl ER (SR) 150 MG Tablet Extended Release 12 Hour 1 180 Tablet 0 33513120 505 Taking 12/16 00:00 :00 buPROPion HCl ER (SR) 150 MG Tablet Extended Release 12 Hour 1 180 Tablet 0 12848701 505 Start 12/16 00:00 :00 buPROPion HCl ER (SR) 150 MG Tablet Extended Release 12 Hour 0 180 Tablet 0 62930867 505 Stop 11/12 00:00 :00 buPROPion HCl ER (SR) 150 MG Tablet Extended Release 12 Hour 1 180 Tablet 0 90894954 505 Start 11/12 00:00 :00 buPROPion HCl ER (SR) 150 MG Tablet Extended Release 12 Hour 0 180 Tablet 0 49685450 505 Stop 09/17 00:00 :00 buPROPion HCl ER (SR) 150 MG Tablet Extended Release 12 Hour 1 180 Tablet 0 40505785 505 Taking 09/07 00:00 :00 buPROPion HCl ER (SR) 150 MG Tablet Extended Release 12 Hour 1 180 Tablet 0 15200447 505 Taking 08/26 00:00 :00 buPROPion HCl ER (SR) 150 MG Tablet Extended Release 12 Hour 1 180 Tablet 0 50943371 505 Taking 08/16 00:00 :00 buPROPion HCl ER (SR) 150 MG Tablet Extended Release 12 Hour 1 180 Tablet 0 69097610 505 Taking 06/21 00:00 :00 buPROPion HCl ER (SR) 150 MG Tablet Extended Release 12 Hour 1 180 Tablet 0 69573479 505 Start 06/21 00:00 :00 buPROPion HCl ER (SR) 150 MG Tablet Extended Release 12 Hour 0 180 Tablet 0 08165619 505 Stop 03/23 00:00 :00 buPROPion HCl ER (SR) 150 MG Tablet Extended Release 12 Hour 1 180 Tablet 0 59985628 505 Start 03/23 00:00 :00 buPROPion HCl ER (SR) 150 MG Tablet Extended Release 12 Hour 0 180 Tablet 1 42609235 950 Stop 02/02 00:00 :00 Chlorthalid one 50 MG Tablet 02/03/2025 00:00:00 1 15 7437960 1 301 P Start 09/17 00:00 :00 Chlorthalid one 50 MG Tablet 0 90 1 2619698 9 701 Discontinu ed 09/07 00:00 :00 Chlorthalid one 50 MG Tablet 1 90 1 3198374 9 701 Taking 08/26 00:00 :00 Chlorthalid one 50 MG Tablet 1 90 1 1351746 9 701 Taking 08/16 00:00 :00 Chlorthalid one 50 MG Tablet 1 90 1 6086538 9 701 Taking 04/14 00:00 :00 Chlorthalid one 50 MG Tablet 1 90 1 9475769 9 701 Start 04/14 00:00 :00 Chlorthalid one 50 MG Tablet 0 90 Tablet 1 678 57724 701 Stop 01/18 00:00 :00 Cholecalcif torri 25777 UNIT Capsule 02/05/2019 00:00:00 0 4 2 P Unknow n Status 09/17 00:00 :00 Cholecalcif torri 46879 UNIT Capsule 02/05/2019 00:00:00 0 4 2 P Unknow n Status 09/07 00:00 :00 Cholecalcif torri 49776 UNIT Capsule 02/05/2019 00:00:00 0 4 2 P Unknow n Status 08/26 00:00 :00 Cholecalcif torri 39329 UNIT Capsule 02/05/2019 00:00:00 0 4 2 P Unknow n Status 08/16 00:00 :00 Cholecalcif torri 09533 UNIT Capsule 02/05/2019 00:00:00 0 4 2 P Unknow n Status 01/18 00:00 :00 Diclofenac Sodium 50 MG Tablet Delayed Release 0 60 Unspecifi ed 1 95341884 210 P Unknown Status 09/17 00:00 :00 Diclofenac Sodium 50 MG Tablet Delayed Release 0 60 Unspecifi ed 1 38357874 210 P Unknown Status 09/07 00:00 :00 Diclofenac Sodium 50 MG Tablet Delayed Release 0 60 Unspecifi ed 1 42723534 210 P Unknown Status 08/26 00:00 :00 Diclofenac Sodium 50 MG Tablet Delayed Release 0 60 Unspecifi ed 1 27129599 210 P Unknown Status 08/16 00:00 :00 Diclofenac Sodium 50 MG Tablet Delayed Release 0 60 Unspecifi ed 1 26048888 210 P Unknown Status 01/18 00:00 :00 Ferrous Gluconate 324 (38 Fe) MG Tablet 11/04/2019 00:00:00 0 60 2 [id number] 0 801 Unknown Status 09/17 00:00 :00 Ferrous Gluconate 324 (38 Fe) MG Tablet 11/04/2019 00:00:00 0 60 2 [id number] 0 801 Unknown Status 09/07 00:00 :00 Ferrous Gluconate 324 (38 Fe) MG Tablet 11/04/2019 00:00:00 0 60 2 [id number] 0 801 Unknown Status 08/26 00:00 :00 Ferrous Gluconate 324 (38 Fe) MG Tablet 11/04/2019 00:00:00 0 60 2 [id number] 0 801 Unknown Status 08/16 00:00 :00 Ferrous Gluconate 324 (38 Fe) MG Tablet 11/04/2019 00:00:00 0 60 2 2275790 0 801 Unknown Status 01/27 00:00 :00 Furosemide 20 MG Tablet 01/28/2025 00:00:00 1 30 6171204 9 725 P Start 01/18 00:00 :00 Gralise 600 MG Tablet 0 30 Unspecifi ed 0 58514325 690 P Unknown Status 09/17 00:00 :00 Gralise 600 MG Tablet 0 30 Unspecifi ed 0 79578781 690 P Unknown Status 09/07 00:00 :00 Gralise 600 MG Tablet 0 30 Unspecifi ed 0 55114860 690 P Unknown Status 08/26 00:00 :00 Gralise 600 MG Tablet 0 30 Unspecifi ed 0 01985333 690 P Unknown Status 08/16 00:00 :00 Gralise 600 MG Tablet 0 30 Unspecifi ed 0 24809013 690 P Unknown Status 01/18 00:00 :00 HYDROcodone -Acetaminop hen 5-325 MG Tablet 01/18/2025 00:00:00 1 28 Tablet 0 39095 012 301 P Start 01/18 00:00 :00 Injectafer 750 MG/15ML Solution 02/04/2020 00:00:00 0 2 0 8926322 5 001 P Unknown Status 09/17 00:00 :00 Injectafer 750 MG/15ML Solution 02/04/2020 00:00:00 0 2 0 [id number] 5 001 P Unknown Status 09/07 00:00 :00 Injectafer 750 MG/15ML Solution 02/04/2020 00:00:00 0 2 0 [id number] 5 001 P Unknown Status 08/26 00:00 :00 Injectafer 750 MG/15ML Solution 02/04/2020 00:00:00 0 2 0 9118107 5 001 P Unknown Status 08/16 00:00 :00 Injectafer 750 MG/15ML Solution 02/04/2020 00:00:00 0 2 0 7559286 5 001 P Unknown Status 01/18 00:00 :00 Iron (Ferrous Sulfate) 325 (65 Fe) MG Tablet 08/19/2024 00:00:00 1 30 Tablet 0 75768 004 252 P Taking 09/17 00:00 :00 Iron (Ferrous Sulfate) 325 (65 Fe) MG Tablet 08/19/2024 00:00:00 1 30 Tablet 0 50806 004 252 P Taking 09/07 00:00 :00 Iron (Ferrous Sulfate) 325 (65 Fe) MG Tablet 08/19/2024 00:00:00 1 30 Tablet 0 05701 004 252 P Taking 08/26 00:00 :00 Iron (Ferrous Sulfate) 325 (65 Fe) MG Tablet 08/19/2024 00:00:00 1 30 Tablet 0 93041 004 252 P Taking 08/19 00:00 :00 Iron (Ferrous Sulfate) 325 (65 Fe) MG Tablet 08/19/2024 00:00:00 1 30 Tablet 0 10277 004 252 P Start 01/18 00:00 :00 Klor-Con M10 10 MEQ Tablet Extended Release 12/11/2017 00:00:00 0 60 5 8057281 1 701 P Unknown Status 09/17 00:00 :00 Klor-Con M10 10 MEQ Tablet Extended Release 12/11/2017 00:00:00 0 60 5 [id number] 1 701 P Unknown Status 09/07 00:00 :00 Klor-Con M10 10 MEQ Tablet Extended Release 12/11/2017 00:00:00 0 60 5 [id number] 1 701 P Unknown Status 08/26 00:00 :00 Klor-Con M10 10 MEQ Tablet Extended Release 12/11/2017 00:00:00 0 60 5 3179949 1 701 P Unknown Status 08/16 00:00 :00 Klor-Con M10 10 MEQ Tablet Extended Release 12/11/2017 00:00:00 0 60 5 [id number] 1 701 P Unknown Status 01/18 00:00 :00 LORazepam 1 MG Tablet 01/11/2025 00:00:00 1 90 Tablet 0 85185 008 405 Taking 01/11 00:00 :00 LORazepam 1 MG Tablet 01/11/2025 00:00:00 1 90 Tablet 0 92895 008 405 Start 01/11 00:00 :00 LORazepam 1 MG Tablet 0 90 Tablet 0 131 01117 405 Stop 12/16 00:00 :00 LORazepam 1 MG Tablet 12/16/2024 00:00:00 1 90 Tablet 0 49727 008 405 Start 12/16 00:00 :00 LORazepam 1 MG Tablet 0 90 Tablet 0 131 87302 405 Stop 11/08 00:00 :00 LORazepam 1 MG Tablet 11/08/2024 00:00:00 1 90 Tablet 0 75465 008 405 Start 11/08 00:00 :00 LORazepam 1 MG Tablet 0 90 Tablet 0 131 24383 405 Stop 09/27 00:00 :00 LORazepam 1 MG Tablet 09/27/2024 00:00:00 1 90 Tablet 0 34448 008 405 Start 09/27 00:00 :00 LORazepam 1 MG Tablet 0 90 Tablet 0 131 37233 405 Stop 09/17 00:00 :00 LORazepam 1 MG Tablet 08/25/2024 00:00:00 1 90 Tablet 0 93781 008 405 Taking 09/07 00:00 :00 LORazepam 1 MG Tablet 08/25/2024 00:00:00 1 90 Tablet 0 24824 008 405 Taking 08/26 00:00 :00 LORazepam 1 MG Tablet 08/25/2024 00:00:00 1 90 Tablet 0 82086 008 405 Taking 08/25 00:00 :00 LORazepam 1 MG Tablet 08/25/2024 00:00:00 1 90 Tablet 0 02637 008 405 Start 08/25 00:00 :00 LORazepam 1 MG Tablet 0 90 Tablet 0 131 93416 405 Stop 08/16 00:00 :00 LORazepam 1 MG Tablet 06/15/2024 00:00:00 1 90 Tablet 0 20985 008 405 Taking 06/15 00:00 :00 LORazepam 1 MG Tablet 06/15/2024 00:00:00 1 90 Tablet 0 63955 008 405 Start 06/15 00:00 :00 LORazepam 1 MG Tablet 0 90 Tablet 0 131 78554 405 Stop 05/18 00:00 :00 LORazepam 1 MG Tablet 05/18/2024 00:00:00 1 90 Tablet 0 83811 008 405 Start 05/18 00:00 :00 LORazepam 1 MG Tablet 0 90 Tablet 0 131 15978 405 Stop 04/05 00:00 :00 LORazepam 1 MG Tablet 04/05/2024 00:00:00 1 90 Tablet 0 84143 008 405 Start 04/05 00:00 :00 LORazepam 1 MG Tablet 0 90 Tablet 0 131 77424 405 Stop 03/16 00:00 :00 LORazepam 1 MG Tablet 03/16/2024 00:00:00 1 90 Tablet 0 50767 008 405 Start 03/16 00:00 :00 LORazepam 1 MG Tablet 0 90 Tablet 0 131 31191 405 Stop 02/11 00:00 :00 LORazepam 1 MG Tablet 02/12/2024 00:00:00 1 90 Tablet 0 06965 008 405 Start 02/11 00:00 :00 LORazepam 1 MG Tablet 0 90 Tablet 0 131 41468 405 Stop 01/18 00:00 :00 Mupirocin 2 % Ointment 02/01/2020 00:00:00 0 30 0 5070074 1 042 P Unknown Status 09/17 00:00 :00 Mupirocin 2 % Ointment 02/01/2020 00:00:00 0 30 0 0257484 1 042 P Unknown Status 09/07 00:00 :00 Mupirocin 2 % Ointment 02/01/2020 00:00:00 0 30 0 9963162 1 042 P Unknown Status 08/26 00:00 :00 Mupirocin 2 % Ointment 02/01/2020 00:00:00 0 30 0 0232395 1 042 P Unknown Status 08/16 00:00 :00 Mupirocin 2 % Ointment 02/01/2020 00:00:00 0 30 0 [id number] 1 042 P Unknown Status 01/18 00:00 :00 Nortriptyli ne HCl 10 MG Capsule 0 30 21203 081 001 P Unknown Status 09/17 00:00 :00 Nortriptyli ne HCl 10 MG Capsule 0 30 38902 081 001 P Unknown Status 09/07 00:00 :00 Nortriptyli ne HCl 10 MG Capsule 0 30 89892 081 001 P Unknown Status 08/26 00:00 :00 Nortriptyli ne HCl 10 MG Capsule 0 30 33000 081 001 P Unknown Status 08/16 00:00 :00 Nortriptyli ne HCl 10 MG Capsule 0 30 79809 081 001 P Unknown Status 01/18 00:00 :00 Omeprazole 20 MG Capsule Delayed Release 1 90 Capsule 0 31542643 010 Taking 01/12 00:00 :00 Omeprazole 20 MG Capsule Delayed Release 1 90 Capsule 0 26059062 010 Start 01/12 00:00 :00 Omeprazole 20 MG Capsule Delayed Release 0 90 Capsule 0 61688481 010 Stop 10/04 00:00 :00 Omeprazole 20 MG Capsule Delayed Release 1 90 Capsule 0 88376439 010 Start 10/04 00:00 :00 Omeprazole 20 MG Capsule Delayed Release 0 90 Capsule 0 22571798 010 Stop 09/17 00:00 :00 Omeprazole 20 MG Capsule Delayed Release 1 90 Capsule 0 08524092 010 Taking 09/07 00:00 :00 Omeprazole 20 MG Capsule Delayed Release 1 90 Capsule 0 96749583 010 Taking 08/26 00:00 :00 Omeprazole 20 MG Capsule Delayed Release 1 90 Capsule 0 83117547 010 Taking 08/16 00:00 :00 Omeprazole 20 MG Capsule Delayed Release 1 90 Capsule 0 20426711 010 Taking 05/26 00:00 :00 Omeprazole 20 MG Capsule Delayed Release 1 90 Capsule 0 72161716 010 Start 05/26 00:00 :00 Omeprazole 20 MG Capsule Delayed Release 0 90 Capsule 0 96738808 010 Stop 01/25 00:00 :00 Ondansetron HCl 4 MG Tablet 1 30 Tablet 0 551 04084 330 Start 01/25 00:00 :00 Ondansetron HCl 4 MG Tablet 0 30 Tablet 0 551 04500 330 Stop 01/18 00:00 :00 Ondansetron HCl 4 MG Tablet 1 30 Tablet 0 551 58693 330 Taking 12/28 00:00 :00 Ondansetron HCl 4 MG Tablet 1 30 Tablet 0 551 89063 330 Start 12/28 00:00 :00 Ondansetron HCl 4 MG Tablet 0 30 Tablet 0 551 86236 330 Stop 12/08 00:00 :00 Ondansetron HCl 4 MG Tablet 1 30 Tablet 0 551 52570 330 Start 12/08 00:00 :00 Ondansetron HCl 4 MG Tablet 0 30 Tablet 0 551 49919 330 Stop 11/24 00:00 :00 Ondansetron HCl 4 MG Tablet 1 30 Tablet 0 551 58022 330 Start 11/24 00:00 :00 Ondansetron HCl 4 MG Tablet 0 30 Tablet 0 551 18240 330 Stop 10/25 00:00 :00 Ondansetron HCl 4 MG Tablet 1 30 Tablet 0 551 34869 330 Start 10/25 00:00 :00 Ondansetron HCl 4 MG Tablet 0 30 Tablet 0 551 87414 330 Stop 09/17 00:00 :00 Ondansetron HCl 4 MG Tablet 1 30 Tablet 0 551 35983 330 Taking 09/07 00:00 :00 Ondansetron HCl 4 MG Tablet 1 30 Tablet 0 551 93996 330 Taking 09/07 00:00 :00 Ondansetron HCl 4 MG Tablet 1 30 Tablet 0 551 86524 330 Start 09/07 00:00 :00 Ondansetron HCl 4 MG Tablet 0 30 Tablet 0 551 83182 330 Stop 08/26 00:00 :00 Ondansetron HCl 4 MG Tablet 1 30 Tablet 0 551 53035 330 Taking 08/16 00:00 :00 Ondansetron HCl 4 MG Tablet 1 30 Tablet 0 551 73968 330 Taking 08/02 00:00 :00 Ondansetron HCl 4 MG Tablet 1 30 Tablet 0 551 35407 330 Start 08/02 00:00 :00 Ondansetron HCl 4 MG Tablet 0 30 Tablet 0 551 48744 330 Stop 06/28 00:00 :00 Ondansetron HCl 4 MG Tablet 1 30 Tablet 0 551 71183 330 Start 06/28 00:00 :00 Ondansetron HCl 4 MG Tablet 0 30 Tablet 0 551 67413 330 Stop 05/26 00:00 :00 Ondansetron HCl 4 MG Tablet 1 30 Tablet 0 551 70729 330 Start 05/26 00:00 :00 Ondansetron HCl 4 MG Tablet 0 30 0 1615046 5 330 Stop 04/26 00:00 :00 Ondansetron HCl 4 MG Tablet 1 30 0 4129615 5 330 Start 04/26 00:00 :00 Ondansetron HCl 4 MG Tablet 0 40 Tablet 0 551 70099 330 Stop 03/16 00:00 :00 Ondansetron HCl 4 MG Tablet 1 40 Tablet 0 551 86866 330 Start 03/16 00:00 :00 Ondansetron HCl 4 MG Tablet 0 40 Tablet 0 551 72189 330 Stop 02/10 00:00 :00 Ondansetron HCl 4 MG Tablet 1 40 Tablet 0 551 10143 330 Start 02/10 00:00 :00 Ondansetron HCl 4 MG Tablet 0 40 Tablet 0 551 64916 330 Stop 01/21 00:00 :00 Pantoprazol e Sodium 40 MG Tablet Delayed Release 1 30 Tablet 0 637935 71 390 Start 01/21 00:00 :00 Pantoprazol e Sodium 40 MG Tablet Delayed Release 0 30 Tablet 0 656331 71 390 Stop 01/18 00:00 :00 Pantoprazol e Sodium 40 MG Tablet Delayed Release 1 30 Tablet 0 726946 71 390 Taking 12/27 00:00 :00 Pantoprazol e Sodium 40 MG Tablet Delayed Release 1 30 Tablet 0 167888 71 390 Start 12/27 00:00 :00 Pantoprazol e Sodium 40 MG Tablet Delayed Release 0 30 5 52901575 910 Stop 09/17 00:00 :00 Pantoprazol e Sodium 40 MG Tablet Delayed Release 1 30 5 90235942 910 Taking 09/07 00:00 :00 Pantoprazol e Sodium 40 MG Tablet Delayed Release 1 30 5 04008662 910 Taking 08/26 00:00 :00 Pantoprazol e Sodium 40 MG Tablet Delayed Release 1 30 5 38214896 910 Taking 08/16 00:00 :00 Pantoprazol e Sodium 40 MG Tablet Delayed Release 1 30 5 86343829 910 Taking 07/02 00:00 :00 Pantoprazol e Sodium 40 MG Tablet Delayed Release 1 30 5 81882550 910 Start 07/02 00:00 :00 Pantoprazol e Sodium 40 MG Tablet Delayed Release 0 30 5 29192591 910 Stop 01/18 00:00 :00 Potassium Chloride 10 MEQ/50M L Solution 08/27/2024 00:00:00 1 3 0 4659051 0 541 P Taking 09/17 00:00 :00 Potassium Chloride 10 MEQ/50M L Solution 08/27/2024 00:00:00 1 3 0 1055044 0 541 P Taking 09/07 00:00 :00 Potassium Chloride 10 MEQ/50M L Solution 08/27/2024 00:00:00 1 3 0 4351112 0 541 P Taking 08/27 00:00 :00 Potassium Chloride 10 MEQ/50M L Solution 08/27/2024 00:00:00 1 3 0 2541371 0 541 P Start 01/27 00:00 :00 Potassium Chloride Sue ER 20 MEQ Tablet Extended Release 01/28/2025 00:00:00 1 30 7531866 2 510 P Start 01/18 00:00 :00 Potassium Chloride Sue ER 20 MEQ Tablet Extended Release 1 120 Tablet 69030351 700 Taking 09/17 00:00 :00 Potassium Chloride Sue ER 20 MEQ Tablet Extended Release 1 120 Tablet 16792777 700 Taking 09/07 00:00 :00 Potassium Chloride Sue ER 20 MEQ Tablet Extended Release 1 120 Tablet 35920597 700 Taking 08/26 00:00 :00 Potassium Chloride Sue ER 20 MEQ Tablet Extended Release 1 120 Tablet 91169641 700 Taking 08/16 00:00 :00 Potassium Chloride Sue ER 20 MEQ Tablet Extended Release 1 120 Tablet 00786723 700 Taking 01/25 00:00 :00 Potassium Chloride ER 20 MEQ Tablet Extended Release 1 30 Tablet 0 612156 23 201 Start 01/25 00:00 :00 Potassium Chloride ER 20 MEQ Tablet Extended Release 0 30 Tablet 0 318684 23 201 Stop 01/18 00:00 :00 Potassium Chloride ER 20 MEQ Tablet Extended Release 1 30 Tablet 0 604690 23 201 Taking 01/18 00:00 :00 Potassium Chloride ER 10 MEQ Tablet Extended Release 02/05/2019 00:00:00 0 20 0 1525316 7 511 P Unknown Status 12/16 00:00 :00 Potassium Chloride ER 20 MEQ Tablet Extended Release 1 30 Tablet 0 622997 23 201 Start 12/16 00:00 :00 Potassium Chloride ER 20 MEQ Tablet Extended Release 0 30 Tablet 0 094639 23 201 Stop 09/17 00:00 :00 Potassium Chloride ER 20 MEQ Tablet Extended Release 08/19/2024 00:00:00 1 20 Tablet 0 58073 023 201 P Taking 09/17 00:00 :00 Potassium Chloride ER 20 MEQ Tablet Extended Release 08/27/2024 00:00:00 1 30 Tablet 0 08801 023 201 P Taking 09/17 00:00 :00 Potassium Chloride ER 10 MEQ Tablet Extended Release 02/05/2019 00:00:00 0 20 0 7871251 7 511 P Unknown Status 09/07 00:00 :00 Potassium Chloride ER 20 MEQ Tablet Extended Release 08/19/2024 00:00:00 1 20 Tablet 0 75630 023 201 P Taking 09/07 00:00 :00 Potassium Chloride ER 20 MEQ Tablet Extended Release 08/27/2024 00:00:00 1 30 Tablet 0 31604 023 201 P Taking 09/07 00:00 :00 Potassium Chloride ER 10 MEQ Tablet Extended Release 02/05/2019 00:00:00 0 20 0 7733380 7 511 P Unknown Status 08/27 00:00 :00 Potassium Chloride ER 20 MEQ Tablet Extended Release 08/27/2024 00:00:00 1 30 Tablet 0 32175 023 201 P Start 08/26 00:00 :00 Potassium Chloride ER 20 MEQ Tablet Extended Release 08/19/2024 00:00:00 1 20 Tablet 0 79164 023 201 P Taking 08/26 00:00 :00 Potassium Chloride ER 10 MEQ Tablet Extended Release 02/05/2019 00:00:00 0 20 0 7927492 7 511 P Unknown Status 08/19 00:00 :00 Potassium Chloride ER 20 MEQ Tablet Extended Release 08/19/2024 00:00:00 1 20 Tablet 0 09349 023 201 P Start 08/16 00:00 :00 Potassium Chloride ER 10 MEQ Tablet Extended Release 02/05/2019 00:00:00 0 20 0 2785263 7 511 P Unknown Status 01/18 00:00 :00 Potassium Chloride in NaCl 40-0.9 MEQ/L-% Solution 09/08/2024 00:00:00 1 7701716 9 504 P Taking 09/17 00:00 :00 Potassium Chloride in NaCl 40-0.9 MEQ/L-% Solution 09/08/2024 00:00:00 1 6021877 9 504 P Taking 09/08 00:00 :00 Potassium Chloride in NaCl 40-0.9 MEQ/L-% Solution 09/08/2024 00:00:00 1 4750634 9 504 P Start 01/18 00:00 :00 predniSONE 20 MG Tablet 09/12/2023 00:00:00 0 5 Tablet 0 743703 01 820 P Unknown Status 09/17 00:00 :00 predniSONE 20 MG Tablet 09/12/2023 00:00:00 0 5 Tablet 0 280145 01 820 P Unknown Status 09/07 00:00 :00 predniSONE 20 MG Tablet 09/12/2023 00:00:00 0 5 Tablet 0 435597 01 820 P Unknown Status 08/26 00:00 :00 predniSONE 20 MG Tablet 09/12/2023 00:00:00 0 5 Tablet 0 550709 01 820 P Unknown Status 08/16 00:00 :00 predniSONE 20 MG Tablet 09/12/2023 00:00:00 0 5 Tablet 0 616482 01 820 P Unknown Status 01/18 00:00 :00 traZODone HCl 100 MG Tablet 1 90 Tablet 1 68 208545 601 Taking 01/18 00:00 :00 traZODone HCl 100 MG Tablet 0 90 Each 0 6838 2080 601 P Not Taking 09/17 00:00 :00 traZODone HCl 100 MG Tablet 1 90 Tablet 1 68 100601 601 Taking 09/17 00:00 :00 traZODone HCl 100 MG Tablet 0 90 Each 0 6838 2080 601 P Not Taking 09/07 00:00 :00 traZODone HCl 100 MG Tablet 1 90 Tablet 1 68 805379 601 Taking 09/07 00:00 :00 traZODone HCl 100 MG Tablet 0 90 Each 0 6838 2080 601 P Not Taking 08/26 00:00 :00 traZODone HCl 100 MG Tablet 1 90 Tablet 1 68 871730 601 Taking 08/26 00:00 :00 traZODone HCl 100 MG Tablet 0 90 Each 0 6838 2080 601 P Not Taking 08/16 00:00 :00 traZODone HCl 100 MG Tablet 1 90 Tablet 1 68 646830 601 Taking 08/16 00:00 :00 traZODone HCl 100 MG Tablet 0 90 Each 0 6838 2080 601 P Not Taking 08/16 00:00 :00 traZODone HCl 100 MG Tablet 0 90 Tablet 68 737027 601 Discontinu ed 08/16 00:00 :00 traZODone HCl 100 MG Tablet 0 90 Each 0 6838 2080 601 P Discontinu ed 08/12 00:00 :00 traZODone HCl 100 MG Tablet 1 90 Tablet 1 68 886172 601 Start 08/12 00:00 :00 traZODone HCl 100 MG Tablet 0 90 Tablet 1 68 787778 601 Stop 01/18 00:00 :00 Ubrelvy 100 MG Tablet 0 30 [id number] 101 P Unknown Status 09/17 00:00 :00 Ubrelvy 100 MG Tablet 0 30 [id number] 101 P Unknown Status 09/07 00:00 :00 Ubrelvy 100 MG Tablet 0 30 63100937 101 P Unknown Status 08/26 00:00 :00 Ubrelvy 100 MG Tablet 0 30 [id number] 101 P Unknown Status 08/16 00:00 :00 Ubrelvy 100 MG Tablet 0 30 52899552 101 P Unknown Status 01/18 00:00 :00 Venofer 20 MG/ML Solution 01/13/2024 00:00:00 1 3 [id number] 1 001 P Taking 09/17 00:00 :00 Venofer 20 MG/ML Solution 01/13/2024 00:00:00 1 3 [id number] 1 001 P Taking 09/07 00:00 :00 Venofer 20 MG/ML Solution 01/13/2024 00:00:00 1 3 [id number] 1 001 P Taking 08/26 00:00 :00 Venofer 20 MG/ML Solution 01/13/2024 00:00:00 1 3 [id number] 1 001 P Taking 08/16 00:00 :00 Venofer 20 MG/ML Solution 01/13/2024 00:00:00 1 3 [id number] 1 001 P Taking 01/18 00:00 :00 Zipsor 25 MG Capsule 0 120 [id number] 812 Unknown Status 09/17 00:00 :00 Zipsor 25 MG Capsule 0 120 [id number] 812 Unknown Status 09/07 00:00 :00 Zipsor 25 MG Capsule 0 120 [id number] 812 Unknown Status 08/26 00:00 :00 Zipsor 25 MG Capsule 0 120 [id number] 812 Unknown Status 08/16 00:00 :00 Zipsor 25 MG Capsule 0 120 57565789 812 Unknown Status 01/18 00:00 :00 Zolpidem Tartrate 5 MG Tablet 01/11/2025 00:00:00 1 30 Tablet 0 20674 015 901 Taking 01/11 00:00 :00 Zolpidem Tartrate 5 MG Tablet 01/11/2025 00:00:00 1 30 Tablet 0 35333 015 901 Start 01/11 00:00 :00 Zolpidem Tartrate 5 MG Tablet 0 30 Tablet 0 [id number] 901 Stop 12/16 00:00 :00 Zolpidem Tartrate 5 MG Tablet 12/16/2024 00:00:00 1 30 Tablet 0 70310 015 901 Start 12/16 00:00 :00 Zolpidem Tartrate 5 MG Tablet 0 30 Tablet 0 [id number] 901 Stop 11/15 00:00 :00 Zolpidem Tartrate 5 MG Tablet 11/15/2024 00:00:00 1 30 Tablet 0 53604 015 901 Start 11/15 00:00 :00 Zolpidem Tartrate 5 MG Tablet 0 30 Each 0 65 761319 901 Stop 09/17 00:00 :00 Zolpidem Tartrate 5 MG Tablet 09/08/2024 00:00:00 1 30 Each 0 [id number] 5 901 P Taking 09/17 00:00 :00 Zolpidem Tartrate 5 MG Tablet 0 30 Tablet [id number] 901 Not Taking 09/08 00:00 :00 Zolpidem Tartrate 5 MG Tablet 09/08/2024 00:00:00 1 30 Each 0 [id number] 5 901 P Refill 09/07 00:00 :00 Zolpidem Tartrate 5 MG Tablet 1 30 Each 0 65 [id number] 901 P Taking 09/07 00:00 :00 Zolpidem Tartrate 5 MG Tablet 0 30 Tablet [id number] 901 Not Taking 09/07 00:00 :00 Zolpidem Tartrate 5 MG Tablet 09/07/2024 00:00:00 1 30 Each 0 [id number] 5 901 P Refill 08/26 00:00 :00 Zolpidem Tartrate 5 MG Tablet 1 30 Each 0 65 582427 901 P Taking 08/26 00:00 :00 Zolpidem Tartrate 5 MG Tablet 0 30 Tablet [id number] 901 Not Taking 08/16 00:00 :00 Zolpidem Tartrate 5 MG Tablet 1 30 Each 0 65 395799 901 P Taking 08/16 00:00 :00 Zolpidem Tartrate 5 MG Tablet 0 30 Tablet [id number] 901 Not Taking 08/16 00:00 :00 Zolpidem Tartrate 5 MG Tablet 08/03/2024 00:00:00 0 30 Tablet 0 82164 015 901 Discontinu ed 08/16 00:00 :00 Zolpidem Tartrate 5 MG Tablet 0 30 Tablet [id number] 901 Discontinu ed 08/03 00:00 :00 Zolpidem Tartrate 5 MG Tablet 08/03/2024 00:00:00 1 30 Tablet 0 65021 015 901 Start 08/03 00:00 :00 Zolpidem Tartrate 5 MG Tablet 0 30 Tablet 0 00309628 901 Stop 06/28 00:00 :00 Zolpidem Tartrate 5 MG Tablet 06/28/2024 00:00:00 1 30 Tablet 0 79920 015 901 Start 06/28 00:00 :00 Zolpidem Tartrate 5 MG Tablet 0 30 Tablet 0 59860093 901 Stop 05/26 00:00 :00 Zolpidem Tartrate 5 MG Tablet 05/26/2024 00:00:00 1 30 Tablet 0 04770 015 901 Start 05/26 00:00 :00 Zolpidem Tartrate 5 MG Tablet 0 30 0 6586 2015 901 Stop 04/26 00:00 :00 Zolpidem Tartrate 5 MG Tablet 04/26/2024 00:00:00 1 30 0 3061930 5 901 Start 04/26 00:00 :00 Zolpidem Tartrate 5 MG Tablet 0 30 Tablet 0 [id number] 901 Stop 03/01 00:00 :00 Zolpidem Tartrate 5 MG Tablet 03/01/2024 00:00:00 1 30 Tablet 0 16817 015 901 Start 03/01 00:00 :00 Zolpidem Tartrate 5 MG Tablet 0 30 Tablet 0 [id number] 901 Stop 03/01 00:00 :00 Zolpidem Tartrate 5 MG Tablet 03/01/2024 00:00:00 1 30 Tablet 0 14205 015 901 P Refill
--- OUTSIDE RECORDS SUMMARY | 2025-02-17 16:34 | XMS_ITS | Clinical Summary ---
[facility] Organization [facility] Address [address] [place] [address] Care Team Providers Care Superintendent Name Role Phone Racheal Campos APRN Primary Care Provider [phone] Allergies No known active allergies Medications amLODIPine (NORVASC) 2.5 MG tablet Take 1 tablet by mouth Daily. 10/19/19 14 Active buPROPion SR (WELLBUTRIN SR) 150 MG 12 hr tablet Take 1 tablet by mouth Every 12 (Twelve) Hours. 0 10/25/19 16 Active ondansetron (ZOFRAN) 4 MG tablet Take 1 tablet by mouth Every 8 (Eight) Hours As Needed for Nausea or Vomiting. Active Aimovig 140 MG/ML prefilled syringe Inject 1 mL under the skin into the appropriate area as directed Every 30 (Thirty) Days. 06/11/20 20 Active traZODone (DESYREL) 100 MG tablet Take 1 tablet by mouth every night at bedtime. 05/24/20 20 Active ubrogepant 100 MG tablet TAKE 1 TABLET BY MOUTH AT ONSET OF HEADACHE 09/15/19 21 Active acyclovir (ZOVIRAX) 400 MG tablet Take 1 tablet by mouth 2 (Two) Times a Day. for 10 days 04/25/20 22 Active Gabapentin powder 12/18/19 24 Active LORazepam (ATIVAN) 1 MG tablet 1 tablet. 12/16/19 24 Active pantoprazole (PROTONIX) 40 MG EC tablet Take 1 tablet by mouth Daily. 01/08/20 24 Active zolpidem (AMBIEN) 5 MG tablet Take 1 tablet by mouth At Night As Needed. 12/31/19 24 Active gabapentin, once-daily, (Gralise) 600 MG tablet tabletIndicati ons:Complex regional pain syndrome type 1 of right upper extremity TAKE 1 TABLET BY MOUTH DAILY 30 tablet 6 08/31/19 25 Active potassium chloride (KLOR-CON M20) 20 MEQ CR tablet Take 2 tablets by mouth Every 12 (Twelve) Hours. 08/09/19 25 Active omeprazole (priLOSEC) 20 MG capsule Take 1 capsule by mouth Daily. 07/26/19 25 Active FeroSul 325 (65 Fe) MG tablet Take 1 tablet by mouth Daily. 08/19/19 25 Active chlorthalidone (HYGROTEN) 50 MG tablet Take 1 tablet by mouth Daily. 07/26/19 25 Active nortriptyline (PAMELOR) 10 MG capsuleIndicat ions:Complex regional pain syndrome type 1 of right upper extremity TAKE 1 CAPSULE BY MOUTH EVERY NIGHT. MAY TAKE 1 TO 2 CAPSULE AT NIGHT 60 capsule 5 09/24/19 25 Active DULoxetine (CYMBALTA) 60 MG capsuleIndicat ions:Complex regional pain syndrome type 1 of right upper extremity Take 1 capsule by mouth Daily. 90 capsule 5 10/08/19 25 Active diclofenac (VOLTAREN) 50 MG EC tabletIndicati ons:Cervical spondylosis without myelopathy,Com plex regional pain syndrome type 1 of right upper extremity Take 1 tablet by mouth 2 (Two) Times a Day. 180 tablet 1 10/08/19 25 Active baclofen (LIORESAL) 10 MG tabletIndicati ons:Myofascial pain Take 1 tablet by mouth 4 (Four) Times a Day. 40 tablet 5 10/29/19 25 Active estradiol-nore thindrone (ACTIVELLA) 1-0.5 MG per tablet Take 1 tablet by mouth once daily 28 tablet 02/08/20 25 Active Gel Base gelIndications :Complex regional pain syndrome type 1 of right upper extremity Apply 1 to 2 grams of pain gel to affected areas three to four times a day. 102 g 02/11/20 25 Active Gel Base gelIndications :Complex regional pain syndrome type 1 of right upper extremity Apply 1 to 2 grams of pain gel to affected areas three to four times a day. 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 10/07/2024 Postlaminectomy syndrome, cervical region 2024 Presence of neurostimulator 10/07/2024 Cervicalgia 10/30/2020 Overview (10/30/2020): Added automatically from request for surgery [id number] Spinal cord stimulator dysfunction 10/02/2020 CPRS 1 (complex regional pain syndrome I) of upp er limb 04/28/2018 Complex regional pain syndro me type 1 of right upper extremity 03/24/2018 Overview (03/24/2018): Added automatically from request for surgery [id number] Encounter for fitting and ad justment of neuropacemaker of spinal cord 03/05/2018 Adrenal nodule 08/13/2016 Lung nodule, multiple 08/13/2016 Common migraine without aura 03/04/2016 Cervical facet arthropathy/c ervical spondylosis without myelopathy 01/02/2016 Atrophy, muscle disuse 01/02/2016 Myofascial pain 01/02/2016 Muscle spasm 01/02/2016 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 01/02/2016 Frozen shoulder 01/02/2016 Insomnia 01/02/2016 Mild obesity 01/02/2016 Chronic tension-type headache, not intractable 0 01/02/2016 Physical deconditioning 01/02/2016 Knee pain 01/01/2016 Depression 01/01/2016 Resolved Problems Problem Noted Date Diagnosed Date Resolved Date Migration of spinal cord stimulator 03/05/2018 05/08/2018 Encounters Date Type Department Care Team Description 02/09/2025 Refill [facility] [address] [address] Saroj Butterfield MD Complex regional pain syndrome type 1 of right upper extremity 02/08/2025 Telephone [facility] [address] [facility] [address] [place] [phone] VASCELLO [facility] 02/07/2025 Refill [facility] OBGYN [address] [place] [address] Sherie Avery MD 02/03/2025 10:30 AM EDT Office Visit [facility] NEUROSURGERY [address] [facility] [address] [place] [phone] Luis E Gibbs MD Cervical facet arthropathy/cervical spondylosis without myelopathy (Primary Dx); Cervical disc herniation; Cervicalgia; Mild malnutrition 02/03/2025 Travel 01/19/2025 12:00 PM EDT Telemedicine [facility] [address] [facility] [address] [place] [address] Luis E Gibbs MD Cervical facet arthropathy/cervical spondylosis without myelopathy (Primary Dx) 01/12/2025 Telephone [facility] [address] [facility] [address] [place] [address] Luis E Gibbs MD G[facility]ION 12/28/2024 Telephone [facility] [address] [facility] [address] [place] [phone] Britney Woodson RN 12/15/2024 Refill [facility] OBGYN [address] [place] [address] Sherie Avery MD from Last 3 Months Family History Medical History Relation Name Comments COPD Brother Hema Tk Jr No Known Problems Daughter 1 SarBeth No Known Problems Daughter 2 Margot No Known Problems Daughter 3 Lesli Brain cancer Father Catawba Tk Sr Cancer Father Hema Tk Sr Liver cancer Father Catawba Tk Sr Lung cancer Father Hema Tk Sr Lymphoma Father Catawba Tk Sr Heart disease Maternal Grandmother Phoebe Walter Diabetes Mother Jennie Tk Hypertension Mother Jennie Tk Stroke Mother Jennie Tk Multiple sclerosis Sister Rebeca Breast cancer Neg Hx Colon cancer Neg Hx Ovarian cancer Neg Hx Uterine cancer Neg Hx Relation Name Status Comments Brother Hema Frey Jr Daughter 1 SarBeth Alive Daughter 2 Margot Alive Daughter 3 Lesli Alive Father Hema Frey Sr Maternal Grandmother Lyn Watson Mother Jennie Frey Alive Sister Rebeca Alive Social History Tobacco Use Types Packs/Day Years [...] Orientation Straight 09/06/2024 12 :58 PM EST Last Filed Vital Signs Vital Sign Reading Time Taken Comments Blood Pressure 100/68 02/09/2024 3:17 PM EDT Pulse 75 02/19/2024 10:23 AM EDT Temperature 36.7 C (98.1 F) 02/03/2025 10:59 AM EDT Respiratory Rate 14 07/17/2022 11:28 AM EST Oxygen Saturation 99% 02/19/2024 10:23 AM EDT Inhaled Oxygen Concentration - - Weight 56.8 kg (125 lb 4.8 oz) 02/03/2025 10:59 AM EDT Height 167.6 cm (5' 6 ) 02/03/2025 10:59 AM EDT Body Mass Index 20.22 02/03/2025 10:59 AM EDT Plan of Treatment Upcoming Encounters Date Type Department Care Team (Late st Contact Info) Description 03/24/2025 9:30 AM EDT Office Visit [facility] NEUROS[facility]ERY [address] [address] Jose Calloway PA-C [address] [place] [address] Health Maintenance Due Date Last Done Comments ANNUAL WELLNESS VISIT 10/10/2016 HEPATITIS C SCREENING 10/10/2016 COLOGUARD 2018 COLON CANCER SCREENING 5 YEA R SIGMOIDOSCOPY [address] COLONOGRAPHY 2018 FECAL OCCULT BLOOD TEST 2018 FIT Testing (1 year) 2018 Pneumococcal Vaccine 50+ (1 of 1 - PCV) 2023 ZOSTER VACCINE (1 of 2) 2023 COVID-19 Vaccine (1 - 2023-2 5 season) 2024 MAMMOGRAM 11/25/2024 11/25/2022, 05/0 02/2023, 09/18/2020, Additional history exists Annual Gynecologic Pelvic an d Breast Exam 02/09/2025 02/09/2024 INFLUENZA VACCINE 04/13/2025 05/15/2017, 05/15/2017 COLONOSCOPY 11/01/2026 11/01/2016 COLORECTAL CANCER SCREENING 11/01/2026 PAP SMEAR 02/08/2027 02/09/2024, 03/0 12/2022, 06/23/2020 TDAP/TD VACCINES (2 - Td or Tdap) 08/08/2034 025 Medical Devices Implanted Type Area Flavorings Compounder Device Identifier Shelf Expiration Date Model / Serial / Lot Ld Surescan Specify Mri 2x8 90cm - [id number] Implanted:Qty: 1 on 04/28/2018 by Luis E Gibbs MD at [facility] Implant Back [employer] 01/26/2022 [id number] / / [id number] Description:Location of lead unclear on CT cervical spine per Dr. Atkins 10/08/2020. Per [employer] can only scan if her lead is in the epidural space which could not be determined by the rad. Update on 10/19/2020 Dr Atkins cleared patient to be scanned on 1.5T machine for MRI c-spine Wax Bone Aesculap 2.5gm - [id number] Implanted:Qty: 1 on 04/28/2018 by Luis E Gibbs MD at [facility] Implant Back [employer] 10/11/2022 [id number] / / [id number] Neurostm Intellis Surescan Mri W/Adaptive Stim Rechg - [id number] Implanted:Qty: 1 on 04/28/2018 by Luis E Gibbs MD at [facility] Implant Back [employer] 01/08/2019 [id number] / / SN: [id number] Antibac Tyrx Neuro Abs Lg - [id number] Implanted:Qty: 1 on 04/28/2018 by Lius E Gibbs MD at [facility] Implant Back [employer] 06/12/2018 [id number] / / [id number] Hemost Abs Surgifoam Sz100 8x12 10mm - [id number] Implanted:Qty: 1 on 11/08/2020 by Luis E Gibbs MD at [facility] Implant N/A: Spine Cervical [employer] OF AND J 1975 . Procedures Procedure Name Priority Date/Time Associated Diagnosis Comments LIQUID-BASED PAP SMEAR WITH HPV GENOTYPING REGARDLESS OF INTERPRETATION, [facility] (AUDREY,COR,MAD) Routine 02/09/2024 5:00 PM EDT ASCUS with positive high risk HPV cervical MAMMO DIAGNOSTIC DIGITAL TOMOSYNTHESIS BILATERAL W CAD Routine 11/25/2022 9:10 AM EDT Abnormal mammogram from Last 3 Months or Most Recently Relevant to Health Maintenance Results * LIQUID-BASED PAP SMEAR WITH HPV GENOTYPING REGARDLESS OF INTERPRETATION (AUDREY,COR,MAD) (02/09/2024 5:00 PM EDT) Reference Lab Report [facility] [address] [place] [address] or [phone] Ghassan Jones M.D., Pusher Operator PATIENT NAME LABORATORY NO. KIMBERLY SORIA. [id number] AGE SEX SSN CLIENT REF # [facility] 48 1975 F [id number] Aga ERAZO REQUESTING Nori [place] [address] SHERIE AVERY DATE COLLECTED DATE RECEIVED DATE REPORTED 02/09/2024 02/10/2024 02/18/2024 ThinPrep Pap with Cytyc Imaging DIAGNOSIS: Negative for intraepithelial lesion or malignancy Multiple factors can influence accuracy of Pap tests; therefore, screening at regular intervals is necessary for early cancer detection. Professional interpretation rendered by Ghassan Jones M.D., Lam at [facility], [facility], [address] [place] [address]. RECOMMENDATION: Follow up as clinically appropriate SPECIMEN ADEQUACY: SATISFACTORY FOR EVALUATION Transformation zone is absent or insufficient. Partially obscuring blood and inflammation are present. Sparse cellularity, minimal number of squamous cells available for evaluation. SOURCE OF SPECIMEN: CERVICAL/ENDOCERV ICAL SLIDES: 1 CLINICAL HISTORY: ASCUS with positive high risk HPV cervical Post Menopausal HPV HR-HPV POOL: Negative The Aptima HPV assay is an in vitro nucleic acid amplification test for the qualitative detection of E6/E7 viral messenger RNA from 14 high risk types of HPV in cervical specimens. The high risk HPV types detected include: 16, 18, 31, 33, 35, 39, 45, 51, 52, 56, 58, 59, 66, 68 MID LEVEL PROVIDER: JOSE GALLAGHER (ASCP) REVIEWED, DIAGNOSED AND ELECTRONICALLY SIGNED BY: Ghassan Jones M.D., F.C.A.P. CPT CODES: [id number], [id number], [id number] 02/18/2024 4:48 PM EDT [facility] ThinPrep Vial Collection / Unknown 02/09/2024 5:00 PM EDT 02/09/2024 5:00 PM EDT us Sherie Avery MD PATHOLOGY/CYTOLOGY ORDERABLES Fi nal Result [facility]
[address] [place] [address], * Mammo Diagnostic Digital Tomosynthesis Bilateral With CAD (11/25/2022 9:10 AM EDT) Anatomical Region Laterality Modality Breast Bilateral Mammography 11/25/2022 8:48 AM EDT Impressions 11/25/2022 8:50 AM EDT Benign bilateral mammographic findings. BI-RADS CATEGORY: 2, BENIGN RECOMMENDATION: Recommend the patient resume routine annual screening mammography. CAD was utilized. The standard false-negative rate of mammography is between 10% and 25%. Complex patterns or increased breast density will markedly elevate the false-negative rate of mammography. The patient was notified of the results and recommendations at the time of her visit. Additionally, a letter, in lay terminology, with the results of this exam will be mailed to the patient. This report was finalized on 11/25/2022 8:[address] Sharonda Bradford MD. Narrative 11/25/2022 8:50 AM EDT BILATERAL DIAGNOSTIC MAMMOGRAM WITH TOMOSYNTHESIS CLINICAL INDICATION: 47-year-old patient recalled from recent screening mammogram for further evaluation of both breasts. TECHNIQUE: Left MLO and bilateral CC focal compression views and bilateral ML views were obtained all using both 2-D and 3-D imaging. COMPARISON: 11/18/2022, 09/18/2020, 08/23/2016 FINDINGS: An asymmetry in the anterior aspect of the left breast on MLO view concerning for an area of distortion improved in appearance with additional mammographic imaging. No convincing distortion is noted on the additional images obtained today. Likewise, asymmetries in the left lateral breast, right medial breast, and right central breast all improved in appearance with focal compression imaging with no abnormalities found to correlate on the ML views. Eden Cotton MD [facility] MAMMOGRAPHY ORDERABLES Fin al Result from Last 3 Months or Most Recently Relevant to Health Maintenance Insurance MEDICARE A & B [place] MEDICARE A & B MEDICARE A & B Advance Directives * CPR (Attempt to Resuscitate) (Latest Code Status on File) Date Activated Date Inactivated Comments 11/08/2020 9:28 AM 11/08/2020 3:50 PM Question Answer Comments Code Status (Patient has no pulse and is not breathing): CPR (Attempt to Resuscitate) Medical Interventions (Patie nt has pulse or is breathing): Full * CPR (Attempt to Resuscitate) Date Activated Date Inactivated Comments 04/28/2018 4:49 PM 04/29/2018 1:36 PM Question Answer Comments Code Status (Patient has no pulse and is not breathing): CPR (Attempt to Resuscitate) Medical Interventions (Patie nt has pulse or is breathing): Full Level Of Support Discussed With: Patient Care Teams Superintendent Relationship Specialty Start Date End Date Racheal Campos APRN [address] [place] [address] PCP - General Nurse Practitioner 10/06/23
--- OUTSIDE RECORDS SUMMARY | 2025-02-17 16:34 | XMS_ITS | Encounter Summary ---
Author Organization [facility] ystem Address [address] [place] [address] Care Team Providers Care Hydraulic Plumber Name Role Phone DillonLuis olsenRachealhilary Jacobs APRN Primary Care Provider [phone] [phone] Reason for Visit * Reason Comments Med Refill Encounter Details Date Type Department Care Team (Late st Contact Info) Description 09/02/2022 Refill [facility]YN [address] [place] [address] Sherie Moore MD [address] [place] [address] Encounter for oral contraception initial prescription Social History Tobacco Use Types Packs/Day Years Used Date Smoking Tobacco: Never Smokeless Tobacco: Never Alcohol Use Standard Drinks/Week Comments Never 0 (1 standard drink = 0.6 oz pur e alcohol) Comments No Sex and Gender Information Value Date Recorded Sex Assigned at Female 09/06/2024 12:58 PM EST Legal Sex Female 10:38 AM EDT Gender Identity Not on file Sexual Orientation Straight 09/06/2024 12 :58 PM EST documented as of this encounter Miscellaneous Notes * Telephone Encounter - Sarah Joshua MA - 09/03/2022 8:08 AM EST Pt needs appt for annual documented in this encounter Plan of Treatment Upcoming Encounters Date Type Department Care Team (Late st Contact Info) Description 03/24/2025 9:30 AM EDT Office Visit [facility] [address] [facility] [address] [place] [address] Jose Calloway PA-C [address] [address] documented as of this encounter Visit Diagnoses Diagnosis Encounter for oral contraception initial prescription documented in this encounter Care Teams Hydraulic Plumber Relationship Specialty Start Date End Date Racheal Campos APRN [address] [place] [phone] PCP - General Nurse Practitioner 10/06/23 documented as of this encounter
--- OUTSIDE RECORDS SUMMARY | 2025-02-17 16:34 | XMS_ITS | Encounter Summary ---
Author Organization [facility] ystem Address [address] [place] [address] Care Team Providers Care Tumbling Barrel Painter Name Role Phone Racheal Campos APRN Primary Care Provider [phone] [phone] Reason for Visit * Reason Comments Med Refill Encounter Details Date Type Department Care Team (Late st Contact Info) Description 11/12/2023 Refill [facility] [address] [place] [address] [place] [address] [place] [address] Perimenopausal vasomotor symptoms Social History Tobacco Use Types Packs/Day Years Used Date Smoking Tobacco: Never Smokeless Tobacco: Never Alcohol Use Standard Drinks/Week Comments Never 0 (1 standard drink = 0.6 oz pur e alcohol) PHQ-2 Answer Date Recorded Retired PHQ-9: Brief Depression Severity Measure Score 15 02/26/2023 PHQ-2 Answer Date Recorded Retired PHQ-9: Brief Depression Severity Measure Score 12 08/21/2023 Comments No Sex and Gender Information Value Date Recorded Sex Assigned at Female 09/06/2024 12:58 PM EST Legal Sex Female 10:38 AM EDT Gender Identity Not on file Sexual Orientation Straight 09/06/2024 12 :58 PM EST documented as of this encounter Miscellaneous Notes * Telephone Encounter - Sarah Joshua MA - 11/12/2023 7:23 AM EDT Patient needs appt for annual exam documented in this encounter Plan of Treatment Upcoming Encounters Date Type Department Care Team (Late st Contact Info) Description 03/24/2025 9:30 AM EDT Office Visit [facility] [address] [facility] [address] [place] [address] Jose Calloway PA-C [address] [facility] [address] [place] [address] documented as of this encounter Visit Diagnoses Diagnosis Perimenopausal vasomotor symptoms documented in this encounter Additional Health Concerns Assessment Noted Time PHQ-2 Depression Total Score: 2 08/21/19 24 1:11 PM EST documented as of this encounter Care Teams Tumbling Barrel Painter Relationship Specialty Start Date End Date Racheal Campos APRN [address] [place] [address] PCP - General Nurse Practitioner 10/06/23 documented as of this encounter
--- OUTSIDE RECORDS SUMMARY | 2025-02-17 16:34 | XMS_ITS ---
Laboratory report Created on: February 03, 2025 KIMBERLY RODRIGUEZ : 1975 Sex: Female Author Organization Unknown PROBLEMS Problems List Code Description RESULTS Laboratory Orders Date Order Code Test 2025-01-21 [id number] METANEPHRINES, F RAC., PL. FREE Laboratory Results Date LOINC Test Value Unit Reference Range Interpre tation 2025-01-21 2669-0 NORMETANEPHRINE, PL 195.7 PG/ML 0.0-244.0 2025-01-21 83221-4 METANEPHRINE, PL <25.0 PG/ML 0.0-88.0
--- OUTSIDE RECORDS SUMMARY | 2025-02-17 16:34 | XMS_ITS | Encounter Summary ---
Author Organization [employer] ([place], [place], [place], [place]) Address [address] [place] [address] Care Team Providers Care Pharmacovigilance Scientist Name Role Phone Unavailable Primary Care Provider Unavailabl e Reason for Referral * Surgical (Routine) - Closed Specialty Diagnoses / Procedures Referred By Contac t Referred To Contact Neurosurgery / Neurology Diagnoses Cervicalgia [facility] Neurology - [employer] [facility] [employer] [address] [address] Phone: tel: fax: Referral ID Status Reason Start Date Expiration Date V isits Requested Visits Authorized [id number] Closed Specialty Services Required 11/09/2024 11/09/2025 1 1 Encounter Details Date Type Department Care Team (Late st Contact Info) Description 11/09/2024 Outside Orders [facility] Neurology [employer] [facility] [address] [address] Luis E Gibbs MD [address] [place] [address] Cervicalgia (Primary Dx) Social History Tobacco Use [...]
--- OUTSIDE RECORDS SUMMARY | 2025-02-17 16:34 | XMS_ITS | Encounter Summary ---
[facility] Address [address] [place] [address] Care Team Providers Care Loft Worker Apprentice Name Role Phone Racheal Campos APRN Primary Care Provider [phone] Encounter Details Date Type Department Care Team (Late st Contact Info) Description 12/28/2024 Telephone [facility] PAIN MANAGEMENT [address] [phone] Britney Woodson, RN Social History Tobacco Use Types Packs/Day Years [...] encounter Miscellaneous Notes * Telephone Encounter - Britney Woodson, RN - 12/28/2024 5:13 PM EDT Spoke with pharmacy regarding received PA for Cymbalta. They report that they have to call the Workers comp and have them release the medication. Requestedthat they do so, so patient can molded goods spot picker medication. documented in this encounter Plan of Treatment Upcoming Encounters Date Type Department Care Team (Late st Contact Info) Description 03/24/2025 9:30 AM EDT Office Visit [facility] NEUROS[facility]ERY [address] [facility] [address] [place] [address] Jose Calloway PA-C [address] [facility] [address] [place] [address] documented as of this encounter Visit Diagnoses Not on filedocumented in this encounter Additional Health Concerns Assessment Noted Time PHQ-2 Depression Total Score: 4 02/19/20 10:28 AM EDT documented as of this encounter Care Teams Loft Worker Apprentice Relationship Specialty Start Date End Date Racheal Campos APRN [address] [place] [address] PCP - General Nurse Practitioner 10/06/23 documented as of this encounter
--- OUTSIDE RECORDS SUMMARY | 2025-02-17 16:34 | XMS_ITS | Clinical Summary ---
Author Organization [employer] ([place], [place], [place], [place]) Address [address] [place] [address] Care Team Providers Care Grill Cook Name Role Phone Unavailable Primary Care Provider [...] Type Department Care Team Description 01/17/2025 Telephone [facility] Neurology [address] [address] Gayatri Urena CMA Advice Only 12/30/2024 11:00 AM EDT Office Visit [address] [address] Tobi Levin Jr., MD Chronic pain disorder (Primary Dx) 12/30/2024 Travel from Last 3 Months Family History Medical [...] or Tdap) 08/08/2034 Insurance WORK COMP OTHER Y [address] [address]
--- OUTSIDE RECORDS SUMMARY | 2025-02-17 16:34 | XMS_ITS | Encounter Summary ---
[facility] Address [address] [place] [address] Care Team Providers Care Director Motion Picture Name Role Phone Racheal Campos APRN Primary Care Provider [phone] Reason for Visit * Reason Onset Date Comments MEDHAT-QUESTION 01/12/2025 Encounter Details Date Type Department Care Team (Late st Contact Info) Description 01/12/2025 Telephone [facility] NEUROSURGERY [address] [address] Luis E Gibbs MD [address] [place] [address] GIBBS-QUESTION Social History Tobacco Use Types Packs/Day Years [...] encounter Miscellaneous Notes * Telephone Encounter - Kelly Morgan RegSched Rep - 01/17/2025 12:43 PM EDT Caller: Valeria Breen Relationship: Self Best call back number: [phone] What is the best time to reach you: ANYTIME Who are you requesting to speak with (clinical staff, provider, specific staff member): CLINICAL Do you know the name of the person who called: NA What was the call regarding: PATIENT CALLED REGARDING PREVIOUS MESSAGE-PATIENT STATES THAT SHE HAD NOT HEARD ANYTHING BACK-PATIENT STATES THAT SHE HAS SEEN AND HE WAS RECOMMENDING SURGERY-PATIENT IS ASKING OF HAS SPOKEN TO -PATIENT IS REQUESTING A CALL BACK ACE TO ADVISE THANK YOU Is it okay if the provider responds through [employer]: * Telephone Encounter - Kelly Morgan RegSched Rep - 01/12/2025 2:13 PM EDT Caller: Nuha Valeria Chelle Relationship: Self Best call back number: [phone] What is the best time to reach you: ANYTIME Who are you requesting to speak with (clinical staff, provider, specific staff member): OR HIS LANDSCAPE TECHNICIAN Do you know the name of the person who called: What was the call regarding: PATIENT CALLED AND STATES THAT SHE HAS A QUESTION SHE WANTED TO ASK OR HIS LANDSCAPE TECHNICIAN-PATIENT DID NOT WANT TO GO INTO DETAIL REGARDING THE QUESTION-SHE DID STATEIT WAS REGARDING A 2ND OPINION- SENDING TO OFFICE TO ADVISE OF CALL FROM PATIENT THANK YOU Is it okay if the provider responds through [employer]: documented in this encounter Plan of Treatment Upcoming Encounters Date Type Department Care Team (Late st Contact Info) Description 03/24/2025 9:30 AM EDT Office Visit [facility] NEUROSUR[facility]ERY [address] [facility] [address] [place] [address] Jose Calloway PA-C [address] [facility] [address] [place] [address] documented as of this encounter Visit Diagnoses Not on filedocumented in this encounter Additional Health Concerns Assessment Noted Time PHQ-2 Depression Total Score: 4 02/19/20 24 10:28 AM EDT documented as of this encounter Care Teams Director Motion Picture Relationship Specialty Start Date End Date Racheal Campos APRN [address] [place] [address] PCP - General Nurse Practitioner 10/06/23 documented as of this encounter
--- OUTSIDE RECORDS SUMMARY | 2025-02-17 16:34 | XMS_ITS | Referral Summary ---
Author Organization [employer] ([place], [place], [place], [place]) Address [address] [place] [address] Care Team Providers Care Metal Bench Patternmaker Name Role Phone Unavailable Primary Care Provider Unavailabl e Encounters Date Type Department Care Team Description 01/17/2025 Telephone [facility] Neurology [employer] [address] [place] [phone] Gayatri Urena, PRODUCTION HELPER Advice Only 12/30/2024 Travel 12/30/2024 11:00 AM EDT Office Visit [facility] Neurology - [address] [place] [address] Tobi Levin Jr., MD Chronic pain disorder (Primary Dx) from Last 3 Months Allergies [...]
== END 2025-02-17 23:59 | disposition home or self-care (01) ==
LOC: RAD 16:31
PROVIDERS: PCP Nurse Practitioner; Visit Provider Nurse Practitioner
DX: R69 Illness, unspecified (principal)